=== PATIENT | female | born 1950 | race Caucasian/White ===

== ENCOUNTER 2018-05-04 08:30 | Outpatient (RCR) | payer MEDICARE, OTHER, SELFPAY ==
--- NOTE | 2018-04-07 11:32 | HP.PTEVAL ---
Patient's Visit Information JEAN KRUSE is a 67 year old F referred to Physical Therapy by Jacob Alfaro with a diagnosis of BILATERAL TMJ. Date of Evaluation: 04/07/18 Physical Therapist: Josy Acosta Visit Plan Frequency: 2-3x /Week Duration: 4-6 Weeks Plan: PT FOR US, STM, TENS, HEAT OR COLD, AND HEP TO HELP RELAX FACIAL MUSCLES, IMPROVE POSTURE AND RELIEVE PAIN. VESTIBULAR EVALUATION WITH JAMA STARKS PT WITH FOLLOW UP NEEDED. - Subjective Subjective: Diagnosis: MIKE TMJ. Work/Leisure: RETIRED. Disability: NO. Present symptoms: RIGHT > LEFT TMJ PAIN. SHE REPORTS IT STARTED ON THE RIGHT SIDE AND GOES ALL OVER THE RIGHT SIDE OF HER HEAD CAUSING HEADACHES. SHE STILL HAS VERTIGO TOO. SHE STATES HER VERTIGO HAS BEEN REALLY BAD FOR TWO WEEKS. PATIENT DENIES MIKE UE PAIN, NUMBNESS AND TINGLING. SHE DOES HAVE NECK PAIN AND STATES IT IS ALL FROM THE NECK UP. PAIN STARTS IN THROAT SOMETIMES. Present since: AUG 2017. Pain Scale: Worst - 8/10 Least - 2/10. Currently: 12/04. Commenced as a result of: NO APPARENT REASON THAT PATIENT CAN THINK OF OTHER THAN HAVING DENTAL CLEANING AND CHECK-UP. SHE REPORTS IT FLARED UP IN AUG BUT SHE HAS HAD PAIN IN HER JAW SINCE 1983. Symptoms at onset: RIGHT TMJ AND VERTIGO. Worse: TALKING, MVMT OF HEAD, STRESS, READING, LOOKING UP, LOOKING DOWN, EATING (ON SOFT FOODS NOW BUT WAS ON LIQUED). RIDING IN CAR. Better: LYING DOWN AND RELAXING, IBUPROFEN, KEEPING NECK STILL. Disturbed sleep: YES. Previous history/Previous treatment: 1983 MAJOR JAW SURGERY X 10 HOURS FOR JAW/TMJ PROBLEMS AND INFECTIONS OF TEETH. NO PRIOR PT ON JAW. NO CHIRO. PT FOR NECK IN PAST. HAS SEEN NECK SURGEON AND SURGERY WAS OFFERED BUT PATIENT DEFERRED. Dizziness: YES. Tinnitis: YES. Nausea: YES. Difficulty Swollowing: YES. Gait: INDEP GAIT WITHOUT AD BUT SOMETIMES LOSES BALANCE AND PATIENT RELATES LOSS OF BALANCE TO DIZZINESS. Accidents: NO. Unexplained weight loss: HAS LOST ABOUT 20 POUNDS IN A YEAR DUE TO LOSS OF APPETIETE AND SPECIAL DIET (LIQUID THEN SOFT). Imaging: X-RAYS RECENTLY AT [facility]ENTIST. MOST RECENT NECK X-RAY APPEARS TO BE ABOUT 2 AND 1/2 YEARS AGO SHOWING: Mild degenerative disc disease stable when compared to January 07, 2015. PMH: HISTORY OF HEART ATTACK. NO HEART SURGERY BUT HAS A BUNDLE BRANCH BLOCKAGE. OTHER: OPEN TO HAVING VESTIBULAR REHAB AGAIN. - Objective Sitting Posture/Standing Posture: VERY FORWARD HEAD AND ROUNDED SHOULDERS. SLOUCHED. Active Correction of posture: INCREASES NECK PAIN. Other Observations: INDEP GAIT INTO PT WITHOUT AD OR LOSS OF BALANCE. INDEP TRANSFERS. ALL MVMTS ARE SLOW AND GUARDED. MOVES BODY INSTEAD OF NECK MOST OF THE TIME OBSERVED. PLEASANT AND COOPERATIVE TO WORK WITH. 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 LEFT WAVE SOLDERING MACHINE OPERATOR STRENGTH 35 LBS. MIEK UE STRENGTH WITH MMT'ING IS GROSSLY 4-/5. Sensory deficit: MIKE UE LIGHT TOUCH SENSATION IS INTACT AND SYMMETRICAL. ROM deficit: APPROXIMATELY 140 DEG ACTIVE FORWARD FLEXION MIKE SHOULDERS AND PATIENT REPORTS TESTING CAUSES HER TO FEEL BUTTERFLIES IN HER STOMACH. Reflexes: MIKE UE'S 2/3. Dural Signs: NEGATIVE. Cervical Mvmt Loss: Flex: MIN. Pro: NIL. Ext: MOD TO EDA. PATIENT STOPS DUE TO DIZZINESS. Ret: EDA. RSB: MOD. LSB: MOD. R Rot: MOD. L Rot: MIN. Postural strength: POOR. Palpation: TENDER AREAS WITH PALPATION THROUGHOUT JAW, HEAD, CERVICAL SPINE, THORACIC SPINE AND UPPER TRAPS. INCREASED MUSCLE TONE MIKE UT'S. OTHER: JAW EXCURTION - 1/2 - Goals Goal 1:: DECREASE C/O JAW, HEAD AND NECK PAIN Goal Time Frame: 4-6 Weeks Goal 2:: IMPROVE TALKING, CERVICAL ROM, READING, EATING AND TRAVEL FUNCTION. Goal Time Frame: 4-6 Weeks Goal 3:: INSTRUCT IN PROPHYLAXIS Goal Time Frame: 4-6 Weeks - Rehabilitation Potential Rehabilitation Potential: Fair - Anticipated Interventions Patient/Client Instruction: Educate patient on: Condition, Plan of Care, Risk Factors, Benefits of Fitness Program For the Purpose of:: To improve self management Therapeutic Exercise to Include: Postural training, Flexibilty training, Active ROM For the Purpose of:: To decrease pain, To increase ROM Manual Therapy Techniques to Include: Soft tissue mobilization For the Purpose of:: To decrease pain, To increase ROM, To improve nutrient delivery to tissue TENS: Yes Cryotherapy (ice pack, ice massage): Yes Thermo therapy (hot pack): Yes Ultrasound (thermal/non thermal): Yes For the Purpose of:: To decrease pain, To decrease swelling/inflammation, To increase ROM, To improve nutrient delivery to tissue Thank you for the opportunity to evaluate your patient. For Medicare and Medicare HMO plans, please review the plan of care and approve it. It will need to be FAXED BACK to us at [phone] for Medicare purposes. Please let me know if there are questions or concerns regarding this plan of care. Physician Signature: Date:
--- NOTE | 2018-05-04 09:23 | HP.PTDCSUM ---
HP - PT D/C Summary It has been my pleasure to treat JEAN KRUSE under orders from Jacob Charles, for the diagnosis of BILATERAL TMJ for a total of 9 visit(s). Discharge Date: 05/04/18 Please see the following information for a summary of their discharge status. - Subjective Subjective: PATIENT REPORTS HER JAW ISN'T HURTING AT ALL TODAY AND IT DIDN'T HURT YESTERDAY. PATIENT REPORTS HER JAW IS 100% BETTER AND SHE IS GOING TO PURSUE HER NECK PROBLEMS WITH THE DOCTORS. SHE STATES SHE FEELS READY TO STOP PT FOR HER JAW AT THIS TIME - YOU HAVE TAUGHT ME SO MUCH. SHE REPORTS SHE HASN'T BEEN HAVING ANY MORE HEADACHES EITHER. SHE STATES SHE HAS LEARNED THAT IF SHE HAS A LOT OF STRESS AND GRITS HER TEETH IT CAN TRIGGER HER PAIN BUT NOW SHE CAN DO THE EX'S AND RELAX. I AM SO MUCH BETTER. HER NECK MRI IS TOMORROW AND SHE WILL SEE THE SURGEON (DR. FLOWER) WEDNESDAY. SHE IS GOING TO STOP BY DR. CHARLES'S OFFICE TO LET HIM KNOW HOW SHE IS DOING. PATIENT REPORTS SHE WAS ABLE TO GET IN THE POOL A LITTLE BIT WITH HER GREAT GREAT NIECES. SHE REPORTS THAT THE MORE SHE DOES THE EXERCISES FOR HER JAW THE BETTER IT GETS AND SHE CAN OPEN HER MOUTH A LOT FURTHER. SHE IS STILL MAINLY EATING SOFT MEAT BECAUSE IF NOT IT FLARES IT UP. - Pain RIGHT JAW Pain Intensity (Out of 10): 0 LEFT JAW Pain Intensity (Out of 10): 0 RIGHT HEAD AND BEHIND EAR Pain Intensity (Out of 10): 2 - Overall Improvement % Improvement: 100 - Objective Objective/Function: PATIENT'S JAW PAIN AND JAW FUNCTION/EXCURSION HAS IMPROVED SIGNIFICANTLY AND SHE IS INDEP WITH A HEP TOO. SHOULDER AND NECK FUNCTION HAS NOT SIGNIFICANTLY CHANGED SINCE STARTING PT HOWEVER HER RIGHT GRIB IS REMARKABLY STRONGER WITH TESTING TODAY. UPON EXAM: PATIENT AMBULATES INDEP'LY INTO PT WITHOUT AD OR LOB. HER MVMTS ARE STILL SLOW AND GUARDED/CAUTIOUS. 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 LEFT WATER PROJECT ENGINEER STRENGTH 35 LBS. MIKE UE STRENGTH WITH MMT'ING IS GROSSLY 4-/5. Sensory deficit: MIKE UE LIGHT TOUCH SENSATION IS INTACT AND SYMMETRICAL. ROM deficit: APPROXIMATELY 140 DEG ACTIVE FORWARD FLEXION MIKE SHOULDERS AND PATIENT REPORTS TESTING PROVOKES NECK PAIN WITH LINGERING NECK ACHING. TESTING WAS DONE ONE ARM AT A TIME WITH INSTRUCTIONS NOT TO STRAIN. Cervical Mvmt Loss: Flex: MIN. Pro: NIL. Ext: MOD TO EDA. PATIENT STOPS DUE TO FEELING OFF IN HER HEAD AND BUTTERFIES IN HER STOMACH. Ret: EDA. RSB: MOD. LSB: MOD. R Rot: MOD. L Rot: MIN. Postural strength: POOR. Palpation: CERVICAL AND THORACIC SPINE NOT PALPATED TODAY. JAW IS NOW ABLE TO TOLERATE LIGHT TO MEDIUM PRESSURE IN MIKE TMJ REGIONS AND BEHIND EARS. OTHER: JAW EXCURTION - MUCH IMPROVED TO > 1 INCH. EVEN THOUGH PATIENT APPEARS TO CONTINUE TO HAVE SIGNIFICANT NECK ISSUES HER NECK OSWESTRY SCORE IMPROVED FROM 30 TO 13 DURING THIS EPISODE OF CARE. - Goals Goal 1:: DECREASE C/O JAW, HEAD AND NECK PAIN Goal Progress: Progressing Goal 2:: IMPROVE TALKING, CERVICAL ROM, READING, EATING AND TRAVEL FUNCTION. Goal Progress: Progressing Goal 3:: INSTRUCT IN PROPHYLAXIS Goal Progress: Goal Met - Plan Plan: D/C TO INDEP JAW EX'S AND CERVICAL FOLLOW-UP. PATIENT AGREEABLE. - D/C Information If there are questions or concerns regarding this patient's physical therapy, please feel free to call me at [phone]. Thank you for the referral of this patient. Sincerely, Josy Chavez
== END 2018-05-04 18:31 | disposition home or self-care (01) ==
LOC: PT 08:30
PROVIDERS: Family Provider Family Medicine; PCP Family Medicine; Visit Provider Dentist Oral and Maxillofacial Surgery
DX: M26.03 Mandibular hyperplasia (principal)
CPT/HCPCS: 97140; 97162; 97164; 97530

== ENCOUNTER 2018-05-27 11:13 | Inpatient (IN) | payer MEDICARE, OTHER, SELFPAY ==
[2018-05-27] VITALS (12 sets, daily range): BP systolic 110–136; BP diastolic 54–76; PULSE 58–141; RESP 13–20; TEMP 36.4–37; O2SAT 93–99; BMI 24.1
--- NOTE | 2018-05-27 11:23 | NURSING ---
NO LW OR POA
--- NOTE | 2018-05-27 11:43 | CT_ITS ---
STUDY: CT BRAIN WITHOUT CONTRAST REASON FOR EXAM: Female, 67 years old. Neck pain. Recent fall RADIATION DOSAGE (If Supplied By Facility): CTDIvol = ( 44.99 ) mGy, DLP = ( 779.24 ) mGycm TECHNIQUE: Transaxial CT imaging of the brain was performed without administration of intravenous contrast material. Individualized dose optimization techniques were used for this CT. COMPARISON: September 26, 2017 FINDINGS: Normal soft tissue structures. Normal calvarium. Normal size ventricles and extra-axial spaces for the patient's age. Normal white matter tracts of the cerebral hemispheres. Normal basal ganglia and thalami. Normal brainstem. Normal cerebellum. There is no intracranial hemorrhage. There are no findings of an acute ischemic infarction. Opacification of the left maxillary sinus. Postoperative changes of the maxilla. Arthritic changes of the temporomandibular joints. CT/Brain/Head without Contrast IMPRESSION: Normal unenhanced CT scan of the brain. Electronically Signed: Terrance Gonzalez MD at 12:26 EDT , Service support ,
--- NOTE | 2018-05-27 11:43 | CT_ITS ---
STUDY: CTA OF THE BRAIN REASON FOR EXAM: Female, 67 years old. Neck pain. Vomiting. History of CVA. RADIATION DOSAGE (If Supplied By Facility): CTDIvol = ( 17.86 ) mGy, DLP = ( 496.48 ) mGycm TECHNIQUE: CT angiography was performed with a multi-detector CT scanner. Data acquisition was obtained from the skull base through the vertex following intravenous administration of 100 ml of Isovue 370. MIP images were reconstructed from the axial data set. Post-processing of the angiographic images was performed, with multiplanar reformation and 3D reconstruction. Individualized dose optimization techniques were used for this CT. COMPARISON: None. FINDINGS: Normal bilateral petrous carotid arteries. Normal right cavernous carotid artery with a normal supraclinoid bifurcation. Normal left cavernous carotid artery with a normal supraclinoid bifurcation. Mildly hypoplastic but normal right A1 segment of the anterior cerebral artery. Normal left A1 segment of the anterior cerebral artery. 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 This measures approximately 2 mm in diameter. The aneurysmal sac is directed superiorly. Normal bilateral A2 segments of the anterior cerebral arteries. Normal right M1 and M2 segments of the middle cerebral arteries, with a normal M1 bifurcation. Normal left M1 and M2 segments of the middle cerebral arteries, with a normal M1 bifurcation. No visible right posterior communicating artery (PCOM). Normal left posterior communicating artery (PCOM). Normal bilateral vertebral arteries. Normal basilar artery with a normal basilar bifurcation. The visualized bilateral superior cerebellar (SCA) arteries are normal. Normal bilateral P1, P2 and visualized P3 segments of the posterior cerebral arteries. There is no demonstrated abnormality of the visualized brain. CT/CTA Head W/WO Contrast IMPRESSION: 1. 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 The aneurysmal sac is directed superiorly (series 602, image 40; series 601, image 54); series 314, image 12). 2. No other saccular aneurysms. 3. No vaso-occlusive disease of the anterior and posterior intracranial circulation. Electronically Signed: Fadi Reynolds MD at 15:11 EDT , Service support ,
--- NOTE | 2018-05-27 11:43 | EKG12_ITS ---
Test Reason : OTHER PAIN Blood Pressure : / mmHG Vent. Rate : 094 BPM Atrial Rate : 094 BPM P-R Int : 164 ms QRS Dur : 110 ms QT Int : 360 ms P-R-T Axes : 059 -01 111 degrees QTc Int : 450 ms Normal sinus rhythm Incomplete left bundle branch block Abnormal ECG Confirmed by SANJUANITA MONTEIRO, ANGY ([id number]), editor continuity and script CRUZITO MURILLO ([id number]) on 05/30/2018 1:23:11 PM Referred By: NIRANJAN Confirmed By:ANGY GANN MD
--- NOTE | 2018-05-27 11:43 | RAD_ITS ---
STUDY: X-RAY CHEST REASON FOR EXAM: Female, 67 years old. Neck pain. Recent fall TECHNIQUE: Single frontal view of the chest. COMPARISON: September 26, 2016 FINDINGS: There are monitoring devices. The lungs are clear and expanded. There is no demonstrated pleural abnormality. Normal size heart. Normal mediastinum and calvin. Normal visualized pulmonary arteries. There is atherosclerotic calcification of the aortic arch. There is demineralization of the osseous structures. Stable healed right rib fractures. Gaseous distention of bowel loops in the abdomen. RAD/Chest 1 View IMPRESSION: Degenerative changes, as described above. No demonstrated acute cardiopulmonary process. Electronically Signed: Terrance Gonzalez MD at 12:29 EDT , Service support ,
--- NOTE | 2018-05-27 11:43 | CT_ITS ---
STUDY: CTA NECK WITH CONTRAST REASON FOR EXAM: Female, 67 years old. Neck pain and vomiting. History of CVA. RADIATION DOSAGE (If Supplied By Facility): CTDIvol = ( 17.86 ) mGy, DLP = ( 496.58 ) mGycm TECHNIQUE: CT angiography with multi-detector data acquisition was performed from the aortic arch to the skull base following intravenous administration of 100ml ml of Isovue 370 contrast. MIP images were reconstructed from the axial data set. Post-processing of the angiographic images was performed, with multiplanar reformation and 3D reconstruction. Individualized dose optimization techniques were used for this CT. COMPARISON: None. FINDINGS: AORTIC ARCH: Normal visualized aortic arch. Normal origins of the brachiocephalic, left common carotid, and left subclavian arteries. RIGHT CAROTID ARTERIES: Normal right common carotid artery (CCA). Normal right common carotid bulb. Normal origin of the right internal carotid (ICA) artery without a hemodynamically significant stenosis. Normal visualized cervical portion of the right internal carotid artery. Normal origin of the right external carotid artery (ECA). LEFT CAROTID ARTERIES: Normal left common carotid artery (CCA). Normal left common carotid bulb. Normal origin of the left internal carotid (ICA) artery without a hemodynamically significant stenosis. Normal visualized cervical portion of the left internal carotid artery. Normal origin of the left external carotid artery (ECA). VERTEBRAL ARTERIES: Normal bilateral vertebral arteries. The left vertebral artery is dominant. CT/CTA Neck W/WO Contrast IMPRESSION: 1. No CTA evidence of vaso-occlusive disease in both vertebral arteries and carotid arteries. 2. Widely patent common carotid arteries, common carotid bifurcations, bilateral internal and external carotid arteries. 3. Widely patent aortic arch and origins of the great vessels. Electronically Signed: Fadi Reynolds MD at 14:23 EDT , Service support ,
[2018-05-27] MEDS: Ondansetron 4 MG/2 ML Vial IV (12:08)
[2018-05-27 12:11] LABS: Bedside Glucose 94 mg/dL (70-110)
[2018-05-27 12:42] LABS: International Normalized Ratio 0.9; Partial Thromboplast Time 30.8 Seconds (24.1-36.2); Prothrombin Time (Protime)PT. 11.7 SECONDS (11.7-14.9)
[2018-05-27 12:43] LABS: Absolute Lymphocyte Count 1.24 X10^3/ul (0.83-4.51); Absolute Neutrophil Count 4.3 X10^3/uL (2.0-7.7); Basophil# 0.02 X10^3/uL; Basophil% 0.3 % (0-1); Eosinophil# 0.05 X10^3/uL; Eosinophils% 0.8 % (0-5); Hematocrit 40.8 % (37-47); Hemoglobin 13.6 g/dl (12.0-15.0); Lymphocyte # 1.24 X10^3/ul (4.0); Lymphocyte % 20.7 % (19-41); Mean Corp Hgb Conc 33.3 g/gl (32-36); Mean Corpuscular Hgb 30.6 pg (27.0-32.0); Mean Corpuscular Volume 91.7 fL (81-99); Mean Platelet Vol. 9.7 fl (6.2-12.0); Monocyte% 6.7 % (0-10); Neutrophil # 4.28 X10^3/uL (2.7-7.7); Neutrophil % 71.5 % (47-70); Platelet Count 269 K/mm3 (150-450); RBC Distribution Width CV 12.7 % (11.6-14.6); RBC Distribution Width SD 42.8 fl (35.1-43.9); Red Blood Count 4.45 M/mm3 (4.2-5.4)
[2018-05-27 12:51] LABS: Anion Gap 4 (5-15); BUN 10 mg/dL (7-18); BUN/Creat Ratio 10.6 RATIO (10-20); Calcium,Total 8.9 mg/dL (8.5-10.1); Chloride 99 mmol/L (98-107); Creatinine, Serum 0.94 mg/dL (0.55-1.02); EST Glomerular Filtration Rate 63 mL/min (>60); Est Glom Filt Rate - Afr Amer 76 mL/min (>60); Estimated Creatinine Clearance 52.26 ml/min; Glucose 105 mg/dL (74-106); Potassium 4.3 mmol/L (3.5-5.1); Sodium Level 133 mmol/L (136-145)
[2018-05-27 12:53] LABS: POSITIVE COUNT NO; POSITIVE DIFFERENTIAL NO; POSITIVE MORPHOLOGY NO
--- NOTE | 2018-05-27 13:09 | ED.DCSUM_ITS ---
- ER Visit Summary Date of Service: 05/27/18 Chief Complaint: Dizziness History of Present Illness: The patient is a 67 F who presents with dizziness, vertigo nausea vomiting decreased sensation of her left face and decreased strength in her left upper and lower extremity. No fever or chills. She does have nausea and vomiting. This started exactly 4-1/2 hours before being seen in the emergency department. Physical Examination: She appears in some distress, I do not appreciate any nystagmus, she is actively vomiting. She has diplopia in the left eye, she has decreased sensation left side of the face and left arm decreased sensation to cold temperature, she has weakness in her left arm and left leg, slight drift. Total NIH stroke scale is 4. His regular lungs are clear abdomen soft and nontender. 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 I did follow hospital protocol and call neurologist right away, however after 2 hours of being here I have not received a call back. Regardless patient will need admission. She will need a further workup. Disposition: Admitted to the hospital in stable condition Impression: Acute stroke This note was generated with [employer] dictation software. It may contain incorrect words, spelling, and punctuation that were not noted in review of the chart prior to signing ED Disposition - Plan for ED Patient: Chief Complaint: Other, Pain/Inj Referrals: Torres Townsend III, MD [Primary Care Provider] -
[2018-05-27] MEDS: LORazepam 2 MG/ML Syringe 1 MG IV (13:10)
--- NOTE | 2018-05-27 14:41 | NURSING ---
NO LW OR POA
--- NOTE | 2018-05-27 14:57 | PCM.CONS.GEN ---
Problem List (1) Cerebrovascular disease Status: Acute Comment: Is post acute ischemic stroke in 2012, with residual left lower extremity weakness Reason for Consult Date of Consultation: 05/27/18 Reason for Consultation: RO stroke History of Present Illness: The patient is a 67 year old CF with PMH HTN, HLD, H/O stroke, hypothyroidism, admitted with left sided weakness, sensory loss, diplopia and dizziness. Per patient she has been having soreness on the head for few days, has been having neck pain for the past 3-4 days, later when she woke up this morning around 5 AM, she had difficulty in walking, was leaning towards the left, had subjective weakness of the left UE/LE along with diplopia and dizziness. Patient denies any BRITTON, speech disturbances. Per patient she is not on any AP at home. Denies any frequent falls, does not use cane or walker to ambulate, does drive and does not need any assistance for ADLs. NIHSS was 4 on admission per ED documentation.[] Past Medical History Past Medical History (Chronic Problems): Chronic Problems Pain, dental (Chronic) HTN (hypertension) (Chronic) Dyslipidemia (Chronic) Irritable bowel (Chronic) LBBB (left bundle branch block) (Chronic) Hypothyroidism (Chronic) Allergies atorvastatin calcium [From Lipitor] Adverse Reaction (Verified 05/27/18 12:10) legs ache Home Medications: Ambulatory Orders Medication Instructions Recorded Levothyroxine [Synthroid] 50 mcg PO DAILY 02/15/15 traZODone [Desyrel] 100 mg PO QHS PRN 02/15/15 Omeprazole [Prilosec] 1 cap PO DAILY 12/14/16 Dimethicone [Cerave] 1 applicatio TP DAILY 05/27/18 Lisinopril/Hydrochlorothiazide 1 tablet PO DAILY 05/27/18 [Zestoretic 20-12.5 mg Tablet] Ondansetron HCl [Zofran] 4 mg PO Q8H PRN PRN 05/27/18 Ropinirole HCl [Requip] 0.25 mg PO QHS 05/27/18 Venlafaxine XR [Effexor Xr] 75 mg PO DAILY 05/27/18 Aspirin [Aspirin, Baby] 81 mg PO DAILY@0800 #30 tab.chew 05/28/18 Gabapentin [Neurontin] 300 mg PO DAILY #30 cap 05/28/18 Lovastatin [Mevacor] 40 mg PO DAILY #30 tab 05/28/18 Surgical History: appendectomy, cholecystectomy, colectomy, hysterectomy Psychiatric History: 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 Lives: Spouse/ Significant Other Smoking Status: Never smoker Alcohol: None Drugs: None - *Family History Maternal History Items: No pertinent history Paternal History Items: No pertinent history Review of Systems Constitutional: Reports: - - complete ROS negative except as documented in HPI - Physical Exam General: Alert HEENT: Normocephalic Neck: Supple Lungs: Clear to auscultation Cardiovascular: Normal S1, Normal S2 Abdomen: Bowel Sounds Present Extremities: No cyanosis Musculoskeletal: No Tenderness to Palpation of Joints or Extremities Neurological: - - consious, alert, AoAx3, CN 2-12 grossly intact except subjective decrease in sensation on the left side of the face, power 5/5 right UE/LE, 4/5 left UE/LE (less effort), subjective decrease sensation to light touch on the left side, ?extinction +, no cerebellar signs, Reflexes + B/L B/S/T/K/A, gait deferred Psych/Mental Status: Normal Affect Vital Signs Temp Pulse Resp BP Pulse Ox 97.6 F L 74 14 120/66 94 05/27/18 11:14 05/27/18 14:02 05/27/18 13:30 05/27/18 14:02 05/27/18 13:30 Oxygen Delivery Method Room Air Weight: 65.771 kg Body Mass Index (BMI) 24.1 Finger Stick Blood Glucose 94 Laboratory Tests Past 24 Hrs 05/27/18 05/27/18 05/27/18 11:50 11:50 11:50 WBC 6.0 RBC 4.45 Hgb 13.6 Hct 40.8 MCV 91.7 MCH 30.6 MCHC 33.3 RDW 12.7 RDW Differential 42.8 Plt Count 269 MPV 9.7 Immature Gran % (Auto) 0.000 Neut % (Auto) 71.5 H Lymph % (Auto) 20.7 [place] % (Auto) 6.7 Eos % (Auto) 0.8 Baso % (Auto) 0.3 Absolute Neuts (auto) 4.3 Absolute Lymphs (auto) 1.24 Total Counted Not Reportable PT 11.7 INR 0.9 APTT 30.8 Sodium 133 L Potassium 4.3 Chloride 99 Carbon Dioxide 30.0 Anion Gap 4 L BUN 10 Creatinine 0.94 Estim Creat Clear Calc 52.26 Est GFR (MDRD) Af Amer 76 Est GFR (MDRD) Non-Af 63 BUN/Creatinine Ratio 10.6 Glucose 105 Calcium 8.9 Troponin I < 0.015 POC Glucose 05/27/18 12:06 POC Glucose 94 Assessment/Plan All Active Problems Weakness (Acute) Nausea (Acute) Nausea & vomiting (Acute) Vertigo (Acute) Nausea & vomiting (Acute) Cerebrovascular disease (Acute) Abdominal pain (Resolved) Influenza (Resolved) The patient is a 67 year old CF with PMH HTN, HLD, H/O stroke, hypothyroidism, admitted with left sided weakness, sensory loss, diplopia and dizziness. Per patient she has been having soreness on the head for few days, has been having neck pain for the past 3-4 days, later when she woke up this morning around 5 AM, she had difficulty in walking, was leaning towards the left, had subjective weakness of the left UE/LE along with diplopia and dizziness. Patient denies any BRITTON, speech disturbances. Per patient she is not on any AP at home. Denies any frequent falls, does not use cane or walker to ambulate, does drive and does not need any assistance for ADLs. NIHSS was 4 on admission per ED documentation. CT head and CTA head/neck reported to show 2 mm saccular AComm aneurysm Impression RO Stroke RO Compressive cervical myelopathy Plan -ASA 81 mg once daily -ON Lovastatin, per documentation is allergic to Atorvastatin -Recommend Neurosurgery evaluation for 2 mm saccular left ACom aneurysm -Check MRI brain w/o contrast, MRI Neck w/o contrast -Check TTE, Hba1c, LDL -Permissive HTN -ENT referral -PT/OT -GI/DVT prophylaxis -Fall precautions -Neurology follow up as outpatient in 3-4 weeks -Please call with questions if any -Thank you for allowing us to participate in patient's care and management I spent 60 minutes of critical care time, taking history, doing physical examination, reviewing medical records, coordinating care and counseling the patient. Code Visit Inpatient E&M: 75193 Init Hosp L3
--- NOTE | 2018-05-27 15:04 | CON.PCM_ITS ---
Problem List (1) Cerebrovascular disease Status: Acute Comment: Is post acute ischemic stroke in 2012, with residual left lower extremity weakness Reason for Consult Date of Consultation: 05/27/18 Reason for Consultation: RO stroke History of Present Illness: The patient is a 67 year old CF with PMH HTN, HLD, H/O stroke, hypothyroidism, admitted with left sided weakness, sensory loss, diplopia and dizziness. Per patient she has been having soreness on the head for few days, has been having neck pain for the past 3-4 days, later when she woke up this morning around 5 AM , she had difficulty in walking, was leaning towards the left, had subjective weakness of the left UE/LE along with diplopia and dizziness. Patient denies any BRITTON, speech disturbances. Per patient she is not on any AP at home. Denies any frequent falls, does not use cane or walker to ambulate, does drive and does not need any assistance for ADLs. NIHSS was 4 on admission per ED documentation.[] Past Medical History Past Medical History (Chronic Problems): Chronic Problems Pain, dental (Chronic) HTN (hypertension) (Chronic) Dyslipidemia (Chronic) Irritable bowel (Chronic) LBBB (left bundle branch block) (Chronic) Hypothyroidism (Chronic) Allergies atorvastatin calcium [From Lipitor] Adverse Reaction (Verified 05/27/18 12:10) legs ache Home Medications: Ambulatory Orders Medication Instructions Recorded Levothyroxine [Synthroid] 50 mcg PO DAILY 02/15/15 traZODone [Desyrel] 100 mg PO QHS PRN 02/15/15 Omeprazole [Prilosec] 1 cap PO DAILY 12/14/16 Dimethicone [Cerave] 1 applicatio TP DAILY 05/27/18 Lisinopril/Hydrochlorothiazide 1 tablet PO DAILY 05/27/18 [Zestoretic 20-12.5 mg Tablet] Ondansetron HCl [Zofran] 4 mg PO Q8H PRN PRN 05/27/18 Ropinirole HCl [Requip] 0.25 mg PO QHS 05/27/18 Venlafaxine XR [Effexor Xr] 75 mg PO DAILY 05/27/18 Aspirin [Aspirin, Baby] 81 mg PO DAILY@0800 #30 tab.chew 05/28/18 Gabapentin [Neurontin] 300 mg PO DAILY #30 cap 05/28/18 Lovastatin [Mevacor] 40 mg PO DAILY #30 tab 05/28/18 Surgical History: appendectomy, cholecystectomy, colectomy, hysterectomy Psychiatric History: 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 Lives: Spouse/ Significant Other Smoking Status: Never smoker Alcohol: None Drugs: None - *Family History Maternal History Items: No pertinent history Paternal History Items: No pertinent history Review of Systems Constitutional: Reports: - - complete ROS negative except as documented in HPI - Physical Exam General: Alert HEENT: Normocephalic Neck: Supple Lungs: Clear to auscultation Cardiovascular: Normal S1, Normal S2 Abdomen: Bowel Sounds Present Extremities: No cyanosis Musculoskeletal: No Tenderness to Palpation of Joints or Extremities Neurological: - - consious, alert, AoAx3, CN 2-12 grossly intact except subjective decrease in sensation on the left side of the face, power 5/5 right UE/LE, 4/5 left UE/LE (less effort), subjective decrease sensation to light touch on the left side, ?extinction +, no cerebellar signs, Reflexes + B/L B/S/T /K/A, gait deferred Psych/Mental Status: Normal Affect Vital Signs Temp Pulse Resp BP Pulse Ox 97.6 F L 74 14 120/66 94 05/27/18 11:14 05/27/18 14:02 05/27/18 13:30 05/27/18 14:02 05/27/18 13:30 Oxygen Delivery Method Room Air Weight: 65.771 kg Body Mass Index (BMI) 24.1 Finger Stick Blood Glucose 94 Laboratory Tests Past 24 Hrs 05/27/18 05/27/18 05/27/18 11:50 11:50 11:50 WBC 6.0 RBC 4.45 Hgb 13.6 Hct 40.8 MCV 91.7 MCH 30.6 MCHC 33.3 RDW 12.7 RDW Differential 42.8 Plt Count 269 MPV 9.7 Immature Gran % (Auto) 0.000 Neut % (Auto) 71.5 H Lymph % (Auto) 20.7 [place] % (Auto) 6.7 Eos % (Auto) 0.8 Baso % (Auto) 0.3 Absolute Neuts (auto) 4.3 Absolute Lymphs (auto) 1.24 Total Counted Not Reportable PT 11.7 INR 0.9 APTT 30.8 Sodium 133 L Potassium 4.3 Chloride 99 Carbon Dioxide 30.0 Anion Gap 4 L BUN 10 Creatinine 0.94 Estim Creat Clear Calc 52.26 Est GFR (MDRD) Af Amer 76 Est GFR (MDRD) Non-Af 63 BUN/Creatinine Ratio 10.6 Glucose 105 Calcium 8.9 Troponin I < 0.015 POC Glucose 05/27/18 12:06 POC Glucose 94 Assessment/Plan All Active Problems Weakness (Acute) Nausea (Acute) Nausea & vomiting (Acute) Vertigo (Acute) Nausea & vomiting (Acute) Cerebrovascular disease (Acute) Abdominal pain (Resolved) Influenza (Resolved) The patient is a 67 year old CF with PMH HTN, HLD, H/O stroke, hypothyroidism, admitted with left sided weakness, sensory loss, diplopia and dizziness. Per patient she has been having soreness on the head for few days, has been having neck pain for the past 3-4 days, later when she woke up this morning around 5 AM , she had difficulty in walking, was leaning towards the left, had subjective weakness of the left UE/LE along with diplopia and dizziness. Patient denies any BRITTON, speech disturbances. Per patient she is not on any AP at home. Denies any frequent falls, does not use cane or walker to ambulate, does drive and does not need any assistance for ADLs. NIHSS was 4 on admission per ED documentation. CT head and CTA head/neck reported to show 2 mm saccular AComm aneurysm Impression RO Stroke RO Compressive cervical myelopathy Plan -ASA 81 mg once daily -ON Lovastatin, per documentation is allergic to Atorvastatin -Recommend Neurosurgery evaluation for 2 mm saccular left ACom aneurysm -Check MRI brain w/o contrast, MRI Neck w/o contrast -Check TTE, Hba1c, LDL -Permissive HTN -ENT referral -PT/OT -GI/DVT prophylaxis -Fall precautions -Neurology follow up as outpatient in 3-4 weeks -Please call with questions if any -Thank you for allowing us to participate in patient's care and management I spent 60 minutes of critical care time, taking history, doing physical examination, reviewing medical records, coordinating care and counseling the patient. Code Visit Inpatient E&M: 08252 Init Hosp L3
--- NOTE | 2018-05-27 15:05 | NURSING ---
PCU STROKE KOR
--- NOTE | 2018-05-27 15:11 | MRI_ITS ---
STUDY: MRI BRAIN WITHOUT CONTRAST REASON FOR EXAM: Female, 67 years old. Left-sided numbness TECHNIQUE: Standardized multiplanar fat and water weighted pulse sequences were obtained. COMPARISON: CT of the brain on May 27, 2018 FINDINGS: Mild atrophy and periventricular white matter ischemic changes without evidence for acute infarct.. Normal bilateral basal ganglia. Normal thalami. There is no extra-axial fluid accumulation. Normal flow voids within the major intracranial circulation suggesting patency by spin echo criteria. Mild partial empty sella deformity. Normal, infundibular stalk, optic chiasm and hypothalamus. Normal tectal plate and pineal gland. Normal midbrain, kasia and medulla. Chronic ischemic changes in the right cerebellar hemisphere Normal basal cisterns. Normal bilateral temporal bones. Normal bilateral internal auditory canals. No demonstrated orbital abnormality, within the constraints of a routine brain study. Mild left maxillary, right sphenoid and bilateral ethmoid sinus disease. Normal calvarium and skull base. Normal visualized soft tissue structures. Normal visualized upper cervical spine. MRI/Brain without Contrast IMPRESSION: Mild periventricular white matter ischemic changes and chronic ischemic changes within the right cerebellar hemisphere. No evidence for acute infarct Electronically Signed: Praneeth Quispe MD at 20:53 EDT , Service support ,
--- NOTE | 2018-05-27 15:11 | MRI_ITS ---
STUDY: MRI CERVICAL SPINE WITHOUT CONTRAST REASON FOR EXAM: Female, 67 years old. LEFT-sided numbness TECHNIQUE: Standardized fat and water weighted pulse sequences were obtained in the sagittal and axial planes. COMPARISON: None FINDINGS: Normal foramen magnum and brainstem-cervical cord junction. Normal craniovertebral junction. Normal anterior atlantoaxial articulation. Normal odontoid process. Normal cervical lordosis. Normal vertebral bodies and posterior osseous elements. The brainstem and cervical cord are normal in caliber. There is NO gliosis, edema or myelomalacia. C2-3: Normal endplates. Normal disc height, signal and morphology. Normal central canal and intervertebral neural foramina. C3-4: There is mild loss of disc height. There is moderate bilateral facet hypertrophy. There is LEFT lateral osteophytic ridging and LEFT foraminal stenosis. C4-5: There is mild loss of disc height and mild disc bulging. There is mild facet hypertrophy. There is mild spinal stenosis and mild bilateral foraminal stenosis. C5-6: There is mild loss of disc height and mild disc bulging. There is mild facet hypertrophy. There is mild spinal stenosis and mild bilateral foraminal stenosis. C6-7: There is RIGHT lateral osteophytic ridging with moderate RIGHT foraminal stenosis. Disc spaces and facets are within normal limits. There is NO spinal stenosis. C7-T1: Normal endplates. Normal disc height, signal and morphology. Normal central canal and intervertebral neural foramina. The epidural and prevertebral soft tissues are unremarkable. MRI/Spine Cervical (Routine) IMPRESSION: There are NO fractures or malalignments. There is NO disc herniation or cord compression. There is NO gliosis or edema of the cervical cord. There are multilevel degenerative changes of the cervical spine as described detail above. Electronically Signed: Steve Huerta MD at 0:58 EDT , Service support ,
--- NOTE | 2018-05-27 15:28 | PCM.HP.STD ---
Problem List (1) Weakness Status: Acute (2) Nausea Status: Acute (3) Nausea & vomiting Status: Acute History of Present Illness Date of Admission: 05/27/18 Chief Complaint: nausea, weakness The patient is a 67 year old F, history of hypertension, hyperlipidemia, history of stroke with mild residual left lower extremity weakness, and hypothyroidism. She also has history of vertigo. She was admitted on 05/27/2018 by the ED with a complaint of left-sided numbness and weakness was started on 5 AM this morning. According to patient, she started having neck pain about 3-4 days ago and said it was radiating down to her left hand. This did not improve until symptoms started early today. She also had assisted nausea and vomiting. She also complained of diplopia as well as dizziness but did not complain of any difficulty with speech. The patient states she had a stroke in 2011, she denies being put on any medication but then tells me that if she was put on any medication she has forgotten because she made a conscious effort to forget all about the stroke. Review of systems otherwise negative. She was brought to the ED by her . The ED, temperature was 97.6 Fahrenheit, blood pressure was 120/76 and pulse rate is 106. 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 No vaso-occlusive disease visualized.. Chest x-ray was normal. Was given a dose of aspirin and has been admitted to be managed for possible stroke. [] Past Medical History Past Medical History (Chronic Problems): Chronic Problems Pain, dental (Chronic) HTN (hypertension) (Chronic) Dyslipidemia (Chronic) Irritable bowel (Chronic) LBBB (left bundle branch block) (Chronic) Hypothyroidism (Chronic) Allergies atorvastatin calcium [From Lipitor] Adverse Reaction (Verified 05/27/18 12:10) legs ache Home Medications: Ambulatory Orders Medication Instructions Recorded Levothyroxine [Synthroid] 50 mcg PO DAILY 02/15/15 Lovastatin [Mevacor] 20 mg PO QHS 02/15/15 traZODone [Desyrel] 100 mg PO QHS PRN 02/15/15 Omeprazole [Prilosec] 1 cap PO DAILY 12/14/16 Dimethicone [Cerave] 1 applicatio TP DAILY 05/27/18 Lisinopril/Hydrochlorothiazide 1 tablet PO DAILY 05/27/18 [Zestoretic 20-12.5 mg Tablet] Ondansetron HCl [Zofran] 4 mg PO Q8H PRN PRN 05/27/18 Ropinirole HCl [Requip] 0.25 mg PO QHS 05/27/18 Venlafaxine XR [Effexor Xr] 75 mg PO DAILY 05/27/18 Surgical History: appendectomy, cholecystectomy, colectomy, hysterectomy Psychiatric History: 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, 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 Lives: Spouse/ Significant Other Smoking Status: Never smoker Alcohol: None Drugs: None - *Family History Maternal History Items: No pertinent history Paternal History Items: No pertinent history Review of Systems Constitutional: Denies: Chills, Fever, Weight Change Eyes: Denies: Blurred vision HEENT: Denies: Head Aches, Sinus Congestion, Sinus Drainage Cardiovascular: Denies: Chest Pain, Chest Pressure, Chest Tightness, Palpitations Respiratory: Denies: Cough, Shortness of Breath, Shortness of breath at rest, Shortness of breath upon exertion, Sputum production Gastrointestinal: Denies: Abdominal Pain, Nausea, Vomiting VTE Information - Inpt Only VTE Present on Admission: No VTE Pharm Prophylaxis ordered?: Yes Patient Problems: Active and Suspected Problems Weakness (Acute) Nausea (Acute) Nausea & vomiting (Acute) - Physical Exam General: Alert, Oriented x3, Cooperative, Lethargic HEENT: Atraumatic, PERRLA, EOMI, Normocephalic Oral: Moist Mucosa Neck: Supple, No JVD, Negative Carotid Bruits Lungs: Clear to auscultation, Normal air movement, No rhonchi, No wheeze, No rales Cardiovascular: Regular rate, Regular Rhythm, Normal S1, Normal S2, No murmurs Abdomen: Bowel Sounds Present, Soft, Non Tender, Non-Distended, No Hepato-splenomegaly Extremities: No clubbing, No cyanosis, No edema, Capillary Refill Less than 3 Seconds Skin: No rashes, No breakdown Musculoskeletal: No Tenderness to Palpation of Joints or Extremities Lymphatic: No Cervical, Supraclavicular, or Inguinal Adenopathy Neurological: Cranial nerves II-XII grossly intact, Deep Tendon Reflexes 2+/4 and Symmetrical, - - decreased sensation to light touch and pinprick on the LUE and LLE; power 4/5 in LUE and LLE. NIH stroke scale is 1. Gait not assessed as patient felt nauseous Psych/Mental Status: Depressed Vital Signs Temp Pulse Resp BP Pulse Ox 97.6 F L 78 13 122/60 H 98 05/27/18 11:14 05/27/18 15:01 05/27/18 15:01 05/27/18 15:01 05/27/18 15:01 Oxygen Delivery Method Room Air Weight: 145 lb Body Mass Index (BMI) 24.1 Finger Stick Blood Glucose 94 Laboratory Tests Past 24 Hrs 05/27/18 05/27/18 05/27/18 11:50 11:50 11:50 WBC 6.0 RBC 4.45 Hgb 13.6 Hct 40.8 MCV 91.7 MCH 30.6 MCHC 33.3 RDW 12.7 RDW Differential 42.8 Plt Count 269 MPV 9.7 Immature Gran % (Auto) 0.000 Neut % (Auto) 71.5 H Lymph % (Auto) 20.7 [place] % (Auto) 6.7 Eos % (Auto) 0.8 Baso % (Auto) 0.3 Absolute Neuts (auto) 4.3 Absolute Lymphs (auto) 1.24 Total Counted Not Reportable PT 11.7 INR 0.9 APTT 30.8 Sodium 133 L Potassium 4.3 Chloride 99 Carbon Dioxide 30.0 Anion Gap 4 L BUN 10 Creatinine 0.94 Estim Creat Clear Calc 52.26 Est GFR (MDRD) Af Amer 76 Est GFR (MDRD) Non-Af 63 BUN/Creatinine Ratio 10.6 Glucose 105 Calcium 8.9 Troponin I < 0.015 POC Glucose 05/27/18 12:06 POC Glucose 94 Assessment/Plan All Active Problems Weakness (Acute) Nausea (Acute) Nausea & vomiting (Acute) Vertigo (Acute) Nausea & vomiting (Acute) Cerebrovascular disease (Acute) Abdominal pain (Resolved) Influenza (Resolved) 67 y/o female presenting with a complaint of left sided numbness and weakness which started at ~ 5am today 1. Right sided numbness and weakness, to rule out stroke has associated nausea and vomiting. NIH stroke scale at time of my review was 1 CT head and CTA brain and neck were negative. received aspirin 81mg in ED. allergic to atorvastatin. on lovastatin 20mg daily; will increase to 80mg daily. We dont have rosuvastatin in our formulary will admit to PCU with telemetry EKG showed lateral leads T wave inversions neurology consulted. to have MRI of braina nd neck without contrast 2D echo. fall precautions NPO until she passes swallow evaluation 2. 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 will get CT of the neck if symptoms persist 3. history of vertigo appears to be BPPV as it is worsened with movement on zofran at home. refer to ENT surgeon upon discharge 3.Hypertension: on lisinopril/HCTZ 20/12.5mg daily. Will hold to allow for permissive hypertension in light of possible stroke 4 Hypothyroidism: on synthroid 5. Anxiety: on trazodone and requip. DVT prophylaxis: lovenox GI prophylaxis: PPI Code status: Patient, daughter and counseled extensively about different types of CODE STATUS and the meanings. Patient counseled about different to DNR CCA, DNR CCA and full code. Patient elects to be full code. Face to face time with patient- 20 minutes. Code Visit Inpatient E&M: 91728 Init Hosp L3 Procedures: 46200 Advncd Care Plan 30 Min
--- NOTE | 2018-05-27 15:32 | HP.PCM_ITS ---
Problem List (1) Weakness Status: Acute (2) Nausea Status: Acute (3) Nausea & vomiting Status: Acute History of Present Illness Date of Admission: 05/27/18 Chief Complaint: nausea, weakness The patient is a 67 year old F, history of hypertension, hyperlipidemia, history of stroke with mild residual left lower extremity weakness, and hypothyroidism. She also has history of vertigo. She was admitted on 05/27/2018 by the ED with a complaint of left-sided numbness and weakness was started on 5 AM this morning. According to patient, she started having neck pain about 3-4 days ago and said it was radiating down to her left hand. This did not improve until symptoms started early today. She also had assisted nausea and vomiting. She also complained of diplopia as well as dizziness but did not complain of any difficulty with speech. The patient states she had a stroke in 2011, she denies being put on any medication but then tells me that if she was put on any medication she has forgotten because she made a conscious effort to forget all about the stroke. Review of systems otherwise negative. She was brought to the ED by her . The ED, temperature was 97.6 Fahrenheit, blood pressure was 120/76 and pulse rate is 106. 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 No vaso-occlusive disease visualized.. Chest x-ray was normal. Was given a dose of aspirin and has been admitted to be managed for possible stroke. [] Past Medical History Past Medical History (Chronic Problems): Chronic Problems Pain, dental (Chronic) HTN (hypertension) (Chronic) Dyslipidemia (Chronic) Irritable bowel (Chronic) LBBB (left bundle branch block) (Chronic) Hypothyroidism (Chronic) Allergies atorvastatin calcium [From Lipitor] Adverse Reaction (Verified 05/27/18 12:10) legs ache Home Medications: Ambulatory Orders Medication Instructions Recorded Levothyroxine [Synthroid] 50 mcg PO DAILY 02/15/15 Lovastatin [Mevacor] 20 mg PO QHS 02/15/15 traZODone [Desyrel] 100 mg PO QHS PRN 02/15/15 Omeprazole [Prilosec] 1 cap PO DAILY 12/14/16 Dimethicone [Cerave] 1 applicatio TP DAILY 05/27/18 Lisinopril/Hydrochlorothiazide 1 tablet PO DAILY 05/27/18 [Zestoretic 20-12.5 mg Tablet] Ondansetron HCl [Zofran] 4 mg PO Q8H PRN PRN 05/27/18 Ropinirole HCl [Requip] 0.25 mg PO QHS 05/27/18 Venlafaxine XR [Effexor Xr] 75 mg PO DAILY 05/27/18 Surgical History: appendectomy, cholecystectomy, colectomy, hysterectomy Psychiatric History: 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, Anxiety 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 [employer] HUM[employer]OURCES history Lives: Spouse/ Significant Other Smoking Status: Never smoker Alcohol: None Drugs: None - *Family History Maternal History Items: No pertinent history Paternal History Items: No pertinent history Review of Systems Constitutional: Denies: Chills, Fever, Weight Change Eyes: Denies: Blurred vision HEENT: Denies: Head Aches, Sinus Congestion, Sinus Drainage Cardiovascular: Denies: Chest Pain, Chest Pressure, Chest Tightness, Palpitations Respiratory: Denies: Cough, Shortness of Breath, Shortness of breath at rest, Shortness of breath upon exertion, Sputum production Gastrointestinal: Denies: Abdominal Pain, Nausea, Vomiting VTE Information - Inpt Only VTE Present on Admission: No VTE Pharm Prophylaxis ordered?: Yes Patient Problems: Active and Suspected Problems Weakness (Acute) Nausea (Acute) Nausea & vomiting (Acute) - Physical Exam General: Alert, Oriented x3, Cooperative, Lethargic HEENT: Atraumatic, PERRLA, EOMI, Normocephalic Oral: Moist Mucosa Neck: Supple, No JVD, Negative Carotid Bruits Lungs: Clear to auscultation, Normal air movement, No rhonchi, No wheeze, No rales Cardiovascular: Regular rate, Regular Rhythm, Normal S1, Normal S2, No murmurs Abdomen: Bowel Sounds Present, Soft, Non Tender, Non-Distended, No Hepato- splenomegaly Extremities: No clubbing, No cyanosis, No edema, Capillary Refill Less than 3 Seconds Skin: No rashes, No breakdown Musculoskeletal: No Tenderness to Palpation of Joints or Extremities Lymphatic: No Cervical, Supraclavicular, or Inguinal Adenopathy Neurological: Cranial nerves II-XII grossly intact, Deep Tendon Reflexes 2+/4 and Symmetrical, - - decreased sensation to light touch and pinprick on the LUE and LLE; power 4/5 in LUE and LLE. NIH stroke scale is 1. Gait not assessed as patient felt nauseous Psych/Mental Status: Depressed Vital Signs Temp Pulse Resp BP Pulse Ox 97.6 F L 78 13 122/60 H 98 05/27/18 11:14 05/27/18 15:01 05/27/18 15:01 05/27/18 15:01 05/27/18 15:01 Oxygen Delivery Method Room Air Weight: 145 lb Body Mass Index (BMI) 24.1 Finger Stick Blood Glucose 94 Laboratory Tests Past 24 Hrs 05/27/18 05/27/18 05/27/18 11:50 11:50 11:50 WBC 6.0 RBC 4.45 Hgb 13.6 Hct 40.8 MCV 91.7 MCH 30.6 MCHC 33.3 RDW 12.7 RDW Differential 42.8 Plt Count 269 MPV 9.7 Immature Gran % (Auto) 0.000 Neut % (Auto) 71.5 H Lymph % (Auto) 20.7 [place] % (Auto) 6.7 Eos % (Auto) 0.8 Baso % (Auto) 0.3 Absolute Neuts (auto) 4.3 Absolute Lymphs (auto) 1.24 Total Counted Not Reportable PT 11.7 INR 0.9 APTT 30.8 Sodium 133 L Potassium 4.3 Chloride 99 Carbon Dioxide 30.0 Anion Gap 4 L BUN 10 Creatinine 0.94 Estim Creat Clear Calc 52.26 Est GFR (MDRD) Af Amer 76 Est GFR (MDRD) Non-Af 63 BUN/Creatinine Ratio 10.6 Glucose 105 Calcium 8.9 Troponin I < 0.015 POC Glucose 05/27/18 12:06 POC Glucose 94 Assessment/Plan All Active Problems Weakness (Acute) Nausea (Acute) Nausea & vomiting (Acute) Vertigo (Acute) Nausea & vomiting (Acute) Cerebrovascular disease (Acute) Abdominal pain (Resolved) Influenza (Resolved) 67 y/o female presenting with a complaint of left sided numbness and weakness which started at ~ 5am today 1. Right sided numbness and weakness, to rule out stroke * has associated nausea and vomiting. * NIH stroke scale at time of my review was 1 * CT head and CTA brain and neck were negative. * received aspirin 81mg in ED. allergic to atorvastatin. * on lovastatin 20mg daily; will increase to 80mg daily. We dont have rosuvastatin in our formulary * will admit to PCU with telemetry * EKG showed lateral leads T wave inversions * neurology consulted. * to have MRI of braina nd neck without contrast * 2D echo. * fall precautions * NPO until she passes swallow evaluation 2. 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 * will get CT of the neck if symptoms persist * 3. history of vertigo * appears to be BPPV as it is worsened with movement * on zofran at home. * refer to ENT surgeon upon discharge * 3.Hypertension: on lisinopril/HCTZ 20/12.5mg daily. Will hold to allow for permissive hypertension in light of possible stroke 4 Hypothyroidism: on synthroid 5. Anxiety: on trazodone and requip. DVT prophylaxis: lovenox GI prophylaxis: PPI Code status: Patient, daughter and counseled extensively about different types of CODE STATUS and the meanings. Patient counseled about different to DNR CCA, DNR CCA and full code. Patient elects to be full code. Face to face time with patient- 20 minutes. Code Visit Inpatient E&M: 21753 Init Hosp L3 Procedures: 63416 Advncd Care Plan 30 Min
--- NOTE | 2018-05-27 15:53 | ECHOD_ITS ---
Reason For Study: emboli Procedure This was a 2D Doppler, Color Flow transthoracic echocardiogram. The exam was of fair technical quality due to diminished acoustic windows. The study was technically difficult. Exam performed portable in patient room. Left Ventricle Normal LV size. Apical false tendon noted. Left ventricular systolic function is normal. The estimated ejection fraction is 55 %. Normal diastology for age. No regional wall motion abnormalities noted. Right Ventricle Normal RV size. Normal systolic function. Atria Normal left atrium. Normal right atrium. Probable chiari network. No doppler evidence for ASD. Mitral Valve There is no mitral annular calcification. Normal mitral valve. Trivial mitral valve insufficiency. Tricuspid Valve Normal tricuspid valve. Mild tricuspid valve insufficiency. Right ventricular systolic pressure estimated to be 24 mmHg. Aortic Valve Trisinus/trileaflet aortic valve. Mild focal aortic valve thickening. Pulmonic Valve The pulmonic valve is not well visualized. Great Vessels Normal sized aortic root. Pericardium/Pleural No pericardial effusion. MMode/2D Measurements & Calculations LVIDd: 4.0 cm IVSd: 1.1 cm Ao root diam: 2.8 cm LVIDs: 2.7 cm LVPWd: 1.1 cm LA dimension: 2.8 cm RVDd: 2.7 cm FS: 32.9 % LAV(MOD-bp): 48.6 ml LA A4 area: 16.8 cm2 RA A4 area: 11.3 cm2 LAV(MOD-bp) Indexed: 28.1 ml/m2 LAV(MOD-sp2): 47.4 ml LAV(MOD-sp4): 47.2 ml Doppler Measurements & Calculations MV E max toby: 75.1 cm/sec Lat Peak E' Toby: 10.1 cm/sec Med Peak E' Toby: 7.1 cm/sec MV A max toby: 95.3 cm/sec E/E' lat: 7.5 E/E' med: 10.6 MV E/A: 0.79 Ao V2 max: 127.4 cm/sec LV V1 max: 105.7 cm/sec PA V2 max: 92.6 cm/sec Ao max P.5 mmHg LV V1 max P.5 mmHg TR max toby: 226.0 cm/sec TR max P.5 mmHg Interpretation Summary The study was technically difficult. Left ventricular systolic function is normal. The estimated ejection fraction is 55 %. Apical false tendon noted. Probable chiari network. Trivial mitral valve insufficiency. Mild tricuspid valve insufficiency. Mild focal aortic valve thickening. Right ventricular systolic pressure estimated to be 24 mmHg. Normal diastology for age. Ordering Physician: Prudence Mathis Referring Physician: Jacob Alfaro Performed By: Fernanda El, LEXIE, RVT
[2018-05-27] MEDS: 0.9% Normal Saline 1,000 ML 75 ML IV (18:32)
[2018-05-27] MEDS: Aspirin 300 MG Suppository RECTAL (18:32)
[2018-05-27 20:07] LABS: Cholesterol 203 mg/dL (200); High Density Lipoprotein 74 mg/dL; Triglycerides 121 mg/dL; Very Low Density Lipoprotein 24 mg/dL (5-40)
[2018-05-28] VITALS (8 sets, daily range): BP systolic 116–133; BP diastolic 56–66; PULSE 53–75; RESP 14–16; TEMP 36.8–37.1; O2SAT 95–100; BMI 24.1
[2018-05-28 05:58] LABS: Absolute Lymphocyte Count 1.52 X10^3/ul (0.83-4.51); Basophil# 0.03 X10^3/uL; Basophil% 0.6 % (0-1); Eosinophils% 1.9 % (0-5); Hematocrit 35.4 % (37-47); Hemoglobin 11.8 g/dl (12.0-15.0); Lymphocyte # 1.52 X10^3/ul (4.0); Lymphocyte % 29.5 % (19-41); Mean Corp Hgb Conc 33.3 g/gl (32-36); Mean Corpuscular Hgb 30.7 pg (27.0-32.0); Mean Corpuscular Volume 92.2 fL (81-99); Mean Platelet Vol. 9.5 fl (6.2-12.0); Monocyte# 0.52 X10^3/uL; Monocyte% 10.1 % (0-10); Neutrophil # 2.98 X10^3/uL (2.7-7.7); Neutrophil % 57.7 % (47-70); Platelet Count 238 K/mm3 (150-450); RBC Distribution Width CV 12.4 % (11.6-14.6); RBC Distribution Width SD 40.9 fl (35.1-43.9); Red Blood Count 3.84 M/mm3 (4.2-5.4); White Blood Count 5.2 K/mm3 (4.4-11.0)
[2018-05-28 06:01] LABS: POSITIVE COUNT NO; POSITIVE DIFFERENTIAL NO; POSITIVE MORPHOLOGY NO
[2018-05-28 06:12] LABS: Anion Gap 4 (5-15); BUN 9 mg/dL (7-18); Calcium,Total 8.2 mg/dL (8.5-10.1); Chloride 106 mmol/L (98-107); Creatinine, Serum 0.82 mg/dL (0.55-1.02); EST Glomerular Filtration Rate 74 mL/min (>60); Est Glom Filt Rate - Afr Amer 89 mL/min (>60); Estimated Creatinine Clearance 59.91 ml/min; Glucose 83 mg/dL (74-106); Potassium 4.2 mmol/L (3.5-5.1); Sodium Level 138 mmol/L (136-145)
[2018-05-28] MEDS: 0.9% Normal Saline 1,000 ML 75 ML IV (06:46)
--- NOTE | 2018-05-28 08:39 | EKG12_ITS ---
Test Reason : CP Blood Pressure : / mmHG Vent. Rate : 062 BPM Atrial Rate : 062 BPM P-R Int : 166 ms QRS Dur : 122 ms QT Int : 440 ms P-R-T Axes : 079 017 108 degrees QTc Int : 446 ms Normal sinus rhythm Left bundle branch block Abnormal ECG Confirmed by SANJUANITA MONTEIRO, ANGY ([id number]), slot editor CRUZITO MURILLO ([id number]) on 06/01/2018 11:34:26 AM Referred By: ARCHANA ZAMAN Confirmed By:ANGY GANN MD
[2018-05-28] MEDS: Venlafaxine XR 75 MG Capsule PO (10:43)
[2018-05-28] MEDS: Aspirin 81 MG TAB.CHEW PO (10:43)
[2018-05-28] MEDS: HYDROCHLOROTHIAZIDE 12.5 MG CAPSULE PO (10:44)
[2018-05-28] MEDS: Pantoprazole Sodium 40 MG Tablet PO (10:44)
[2018-05-28] MEDS: Lisinopril 20 MG Tablet PO (10:45)
--- NOTE | 2018-05-28 11:00 | CASEMGMT ---
RN RORO Face to Face with patient for initial transition planning/care coordination assessment. RN CM introduced self and role at [facility]. Patient lying in bed, alert and oriented. Patient willing to participate in assessment and is able to answer all questions appropriately. Care providers, pharmacy, and demographics verified. See link attached. Patient wishes to discharge home, denies need for home health at this time. Patient states she has no further needs or concerns at this time. CM to follow for discharge planning needs that may arise. Disposition Plan: Patient to discharge home with family support and follow-up plans in place. CM to monitor for need for HHC.
--- NOTE | 2018-05-28 11:38 | CASEMGMT ---
Social Work Referral for possible placement due to patient only walking 20 CGA with walker. Spoke with patient in room. This social services counselor introduced self as well as social work role. Patient reporting to live at home with spouse and to be independent prior to hospitalization. This social services counselor broaching topic of continued therapy either in the home or a facility. Patient declining to have any continued therapy service set up and reporting to be able to have assistance from spouse if needed. Patient reporting to have needed durable medical equipment already set up within the home. No further needs identified at this time. Support given. Social work to follow if any further needs arise. Mariela LINDER, PRESIDENT & CEO
[2018-05-28 13:37] LABS: Hemoglobin A1c 5.3 % (4.2-6.3)
--- NOTE | 2018-05-28 13:49 | PCM.DC ---
- Discharge Diagnoses Current Active Problems: Current Active and Chronic Problems Weakness (Acute) Nausea (Acute) Nausea & vomiting (Acute) You will use the following diet at home:: Cardiac Your food should be the consistency of: Regular Your liquids should be the consistency of: Regular/Thin Weight Bearing Status: Weight bearing as tolerated Call your doctor if you observe: Numbness or Tingling, Fainting spells Additional Instructions: PLEASE FOLLOW UP WITH OUTPATIENT PHYSICAL THERAPY FOR REHAB. Call [phone] ([facility]) for appointment with neurosurgeon Allergies/Adverse Reactions: Allergies atorvastatin calcium [From Lipitor] Adverse Reaction (Verified 05/27/18 12:10) legs ache Medications to take at Discharge Levothyroxine [Synthroid] 50 mcg PO DAILY 02/15/15 traZODone [Desyrel] 100 mg PO QHS PRN 02/15/15 Omeprazole [Prilosec] 1 cap PO DAILY 12/14/16 Dimethicone [Cerave] 1 applicatio TP DAILY 05/27/18 Lisinopril/Hydrochlorothiazide [Zestoretic 20-12.5 mg Tablet] 1 tablet PO DAILY 05/27/18 Ondansetron HCl [Zofran] 4 mg PO Q8H PRN PRN 05/27/18 Ropinirole HCl [Requip] 0.25 mg PO QHS 05/27/18 Venlafaxine XR [Effexor Xr] 75 mg PO DAILY 05/27/18 Aspirin [Aspirin, Baby] 81 mg PO DAILY@0800 #30 tab.chew 05/28/18 Gabapentin [Neurontin] 300 mg PO DAILY #30 cap 05/28/18 Lovastatin [Mevacor] 40 mg PO DAILY #30 tab 05/28/18 The following prescriptions were given: Aspirin [Aspirin, Baby] 81 mg PO DAILY@0800 #30 tab.chew Gabapentin [Neurontin] 300 mg PO DAILY #30 cap Lovastatin [Mevacor] 40 mg PO DAILY #30 tab Primary Care Physician: Torres Townsend III, MD [Primary Care Provider] - Please follow up with your Primary Care Physician in: ONE WEEK Test Results: Test results from this visit will be discussed in further detail at your follow-up appointment, if applicable. When: follow up with neurosurgeon at [facility] for cervical stenosis. Proposed Discharge Date: 05/28/18
--- NOTE | 2018-05-28 13:53 | DCINST_ITS ---
- Discharge Diagnoses Current Active Problems: Current Active and Chronic Problems Weakness (Acute) Nausea (Acute) Nausea & vomiting (Acute) You will use the following diet at home:: Cardiac Your food should be the consistency of: Regular Your liquids should be the consistency of: Regular/Thin Weight Bearing Status: Weight bearing as tolerated Call your doctor if you observe: Numbness or Tingling, Fainting spells Additional Instructions: PLEASE FOLLOW UP WITH OUTPATIENT PHYSICAL THERAPY FOR REHAB. Call [phone] ([facility]) for appointment with neurosurgeon Allergies/Adverse Reactions: Allergies atorvastatin calcium [From Lipitor] Adverse Reaction (Verified 05/27/18 12:10) legs ache Medications to take at Discharge Levothyroxine [Synthroid] 50 mcg PO DAILY 02/15/15 traZODone [Desyrel] 100 mg PO QHS PRN 02/15/15 Omeprazole [Prilosec] 1 cap PO DAILY 12/14/16 Dimethicone [Cerave] 1 applicatio TP DAILY 05/27/18 Lisinopril/Hydrochlorothiazide [Zestoretic 20-12.5 mg Tablet] 1 tablet PO DAILY 05/27/18 Ondansetron HCl [Zofran] 4 mg PO Q8H PRN PRN 05/27/18 Ropinirole HCl [Requip] 0.25 mg PO QHS 05/27/18 Venlafaxine XR [Effexor Xr] 75 mg PO DAILY 05/27/18 Aspirin [Aspirin, Baby] 81 mg PO DAILY@0800 #30 tab.chew 05/28/18 Gabapentin [Neurontin] 300 mg PO DAILY #30 cap 05/28/18 Lovastatin [Mevacor] 40 mg PO DAILY #30 tab 05/28/18 The following prescriptions were given: Aspirin [Aspirin, Baby] 81 mg PO DAILY@0800 #30 tab.chew Gabapentin [Neurontin] 300 mg PO DAILY #30 cap Lovastatin [Mevacor] 40 mg PO DAILY #30 tab Primary Care Physician: Torres Townsend III, MD [Primary Care Provider] - Please follow up with your Primary Care Physician in: ONE WEEK Test Results: Test results from this visit will be discussed in further detail at your follow- up appointment, if applicable. When: follow up with neurosurgeon at [facility] for cervical stenosis. Proposed Discharge Date: 05/28/18
--- NOTE | 2018-05-28 13:53 | PCM.DC.SUM ---
Discharge Date and Diagnosis - Problem List Patient Problems: Active and Suspected Problems Weakness (Acute) Nausea (Acute) Nausea & vomiting (Acute) Date of Admission: 05/27/18 Date of Discharge: 05/28/18 - Primary Discharge Diagnosis Active and Suspected Problems Weakness (Acute) Nausea (Acute) Nausea & vomiting (Acute) - Secondary Discharge Diagnosis Chronic Problems Pain, dental (Chronic) HTN (hypertension) (Chronic) Dyslipidemia (Chronic) Irritable bowel (Chronic) LBBB (left bundle branch block) (Chronic) Hypothyroidism (Chronic) Hospital Course and Treatment Imaging Results: Laboratory Tests 05/27/18 05/27/18 05/27/18 11:50 11:50 11:50 WBC 6.0 RBC 4.45 Hgb 13.6 Hct 40.8 MCV 91.7 MCH 30.6 MCHC 33.3 RDW 12.7 RDW Differential 42.8 Plt Count 269 MPV 9.7 Immature Gran % (Auto) 0.000 Neut % (Auto) 71.5 H Lymph % (Auto) 20.7 [place] % (Auto) 6.7 Eos % (Auto) 0.8 Baso % (Auto) 0.3 Absolute Neuts (auto) 4.3 Absolute Lymphs (auto) 1.24 Total Counted Not Reportable PT 11.7 INR 0.9 APTT 30.8 Sodium 133 L Potassium 4.3 Chloride 99 Carbon Dioxide 30.0 Anion Gap 4 L BUN 10 Creatinine 0.94 Estim Creat Clear Calc 52.26 Est GFR (MDRD) Af Amer 76 Est GFR (MDRD) Non-Af 63 BUN/Creatinine Ratio 10.6 Glucose 105 Hemoglobin A1c Calcium 8.9 Troponin I < 0.015 Triglycerides Cholesterol LDL Cholesterol VLDL Cholesterol HDL Cholesterol POC Glucose 05/27/18 05/27/18 05/27/18 11:50 12:06 18:20 WBC RBC Hgb Hct MCV MCH MCHC RDW RDW Differential Plt Count MPV Immature Gran % (Auto) Neut % (Auto) Lymph % (Auto) [place] % (Auto) Eos % (Auto) Baso % (Auto) Absolute Neuts (auto) Absolute Lymphs (auto) Total Counted PT INR APTT Sodium Potassium Chloride Carbon Dioxide Anion Gap BUN Creatinine Estim Creat Clear Calc Est GFR (MDRD) Af Amer Est GFR (MDRD) Non-Af BUN/Creatinine Ratio Glucose Hemoglobin A1c Calcium Troponin I < 0.015 Triglycerides 121 Cholesterol 203 H LDL Cholesterol 105 VLDL Cholesterol 24 HDL Cholesterol 74 POC Glucose 94 05/28/18 05/28/18 05/28/18 05:35 05:35 05:35 WBC 5.2 RBC 3.84 L Hgb 11.8 L Hct 35.4 L MCV 92.2 MCH 30.7 MCHC 33.3 RDW 12.4 RDW Differential 40.9 Plt Count 238 MPV 9.5 Immature Gran % (Auto) 0.200 Neut % (Auto) 57.7 Lymph % (Auto) 29.5 [place] % (Auto) 10.1 H Eos % (Auto) 1.9 Baso % (Auto) 0.6 Absolute Neuts (auto) 3.0 Absolute Lymphs (auto) 1.52 Total Counted Not Reportable PT INR APTT Sodium 138 Potassium 4.2 Chloride 106 Carbon Dioxide 28.0 Anion Gap 4 L BUN 9 Creatinine 0.82 Estim Creat Clear Calc 59.91 Est GFR (MDRD) Af Amer 89 Est GFR (MDRD) Non-Af 74 BUN/Creatinine Ratio 11.0 Glucose 83 Hemoglobin A1c Calcium 8.2 L Troponin I < 0.015 Triglycerides Cholesterol LDL Cholesterol VLDL Cholesterol HDL Cholesterol POC Glucose 05/28/18 05:35 WBC RBC Hgb Hct MCV MCH MCHC RDW RDW Differential Plt Count MPV Immature Gran % (Auto) Neut % (Auto) Lymph % (Auto) [place] % (Auto) Eos % (Auto) Baso % (Auto) Absolute Neuts (auto) Absolute Lymphs (auto) Total Counted PT INR APTT Sodium Potassium Chloride Carbon Dioxide Anion Gap BUN Creatinine Estim Creat Clear Calc Est GFR (MDRD) Af Amer Est GFR (MDRD) Non-Af BUN/Creatinine Ratio Glucose Hemoglobin A1c 5.3 Calcium Troponin I Triglycerides Cholesterol LDL Cholesterol VLDL Cholesterol HDL Cholesterol POC Glucose Diagnostic Data Brain CT 05/27/18 11:43 IMPRESSION: Normal unenhanced CT scan of the brain. Electronically Signed: Terrance Gonzalez MD at 12:26 EDT , Service support , Chest X-Ray 05/27/18 11:43 IMPRESSION: Degenerative changes, as described above. No demonstrated acute cardiopulmonary process. Electronically Signed: Terrance Gonzalez MD at 12:29 EDT , Service support , Head CTA 05/27/18 11:43 IMPRESSION: 1. 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 The aneurysmal sac is directed superiorly (series 602, image 40; series 601, image 54); series 314, image 12). 2. No other saccular aneurysms. 3. No vaso-occlusive disease of the anterior and posterior intracranial circulation. Electronically Signed: Fadi Reynolds MD at 15:11 EDT , Service support , Neck CTA 05/27/18 11:43 IMPRESSION: 1. No CTA evidence of vaso-occlusive disease in both vertebral arteries and carotid arteries. 2. Widely patent common carotid arteries, common carotid bifurcations, bilateral internal and external carotid arteries. 3. Widely patent aortic arch and origins of the great vessels. Electronically Signed: Fadi Reynolds MD at 14:23 EDT , Service support , Brain MRI 05/27/18 15:11 IMPRESSION: Mild periventricular white matter ischemic changes and chronic ischemic changes within the right cerebellar hemisphere. No evidence for acute infarct Electronically Signed: Praneeth Quispe MD at 20:53 EDT , Service support , Cervical Spine MRI 05/27/18 15:11 IMPRESSION: There are NO fractures or malalignments. There is NO disc herniation or cord compression. There is NO gliosis or edema of the cervical cord. There are multilevel degenerative changes of the cervical spine as described detail above. 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 She was admitted on 05/27/2018 via the ED with a complaint of left-sided numbness and weakness which is started at 5 AM on day of presentation. She had had antecedent neck pain about 3-4 days prior to presentation which radiated down to her left hand with some tingling and numbness. This did not improve until the presenting symptoms started and she had associated nausea and vomiting as well as diplopia. Patient had stated she had a stroke in 2011 but said she did not know whether she was put on any medication as she tried to forget all about that stroke and so could not recollect. Review of systems was otherwise negative. 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 Chest x-ray was normal. Hemoglobin A1c check was 5.3 and lipid panel only showed total cholesterol of 203 but LDL was within normal limits. CT of the cervical spine done showed mild cervical stenosis of C4-5. 2D echo done showed normal left ventricular size and systolic function with normal diastolic function for age. Estimated ejection fraction was 55% with no regional wall abnormalities noted. Normal right and left atria. Normal right ventricle. RVSP was estimated to be 24 mmHg. EKG showed some mild T-wave inversions in the inferior leads which on review of previous EKGs going back all the way to 2017 had always been present. Troponins ?3 were negative. Patient remained stable, nausea and vomiting resolved and neurology reviewed patient. She was discharged home on 05/28/2018 after stroke was ruled out. Symptoms are likely due to the cervical stenosis and she is being referred to follow-up with a neurosurgeon at [facility]. She was also started on gabapentin 300 mg daily and was also discharged home on lovastatin 40 mg daily and aspirin 81 mg daily. Seen and examined today prior to discharge. Initially when she was seen in the morning, patient was tearful and when asked why she was crying. She says she did not feel sad or depressed and just could not control the tears that were coming out of her eyes. Subsequently patient was seen laughing with her and not crying just about 30 minutes later. She denied any fever or chills, any cough or chest pain, shortness of breath, any abdominal pain, any diarrhea vomiting. Review of systems was otherwise negative. o/e: Vital Signs Height 5 ft 5 in Weight: 145 lb 1.027 oz Weight in Pounds 145.1 lbs Pulse Ox 97 Temperature 98.6 F Pulse Rate 75 Respiratory Rate 16 Blood Pressure 131/66 Blood Pressure Position Semi-Fowlers General: Alert, Oriented x3, Cooperative, Lethargic HEENT: Atraumatic, PERRLA, EOMI, Normocephalic Oral: Moist Mucosa Neck: Supple, No JVD, Negative Carotid Bruits Lungs: Clear to auscultation, Normal air movement, No rhonchi, No wheeze, No rales Cardiovascular: Regular rate, Regular Rhythm, Normal S1, Normal S2, No murmurs Abdomen: Bowel Sounds Present, Soft, Non Tender, Non-Distended, No Hepato-splenomegaly Extremities: No clubbing, No cyanosis, No edema, Capillary Refill Less than 3 Seconds Skin: No rashes, No breakdown Musculoskeletal: No Tenderness to Palpation of Joints or Extremities Lymphatic: No Cervical, Supraclavicular, or Inguinal Adenopathy Neurological: Cranial nerves II-XII grossly intact, Deep Tendon Reflexes 2+/4 and Symmetrical,mildly decreased sensation to light touch and pinprick on LUE nad LLE. Power 4+/5 in LUE and LLE; Psych/Mental Status: Alternating between crying episodes and being very happy. NIH stroke scale was 1 this morning, due to mild sensory loss on LUE and LLE. Plan as stated above. [] Discharge Diet: 2000 mg Sodium Diet Discharge Activity: Return to Normal Activity Weight Bearing Status: Weight bearing as tolerated Call your doctor if you observe: Numbness or Tingling, Fainting spells Home Medications: Medications to take at Discharge Levothyroxine [Synthroid] 50 mcg PO DAILY 02/15/15 traZODone [Desyrel] 100 mg PO QHS PRN 02/15/15 Omeprazole [Prilosec] 1 cap PO DAILY 12/14/16 Dimethicone [Cerave] 1 applicatio TP DAILY 05/27/18 Lisinopril/Hydrochlorothiazide [Zestoretic 20-12.5 mg Tablet] 1 tablet PO DAILY 05/27/18 Ondansetron HCl [Zofran] 4 mg PO Q8H PRN PRN 05/27/18 Ropinirole HCl [Requip] 0.25 mg PO QHS 05/27/18 Venlafaxine XR [Effexor Xr] 75 mg PO DAILY 05/27/18 Aspirin [Aspirin, Baby] 81 mg PO DAILY@0800 #30 tab.chew 05/28/18 Gabapentin [Neurontin] 300 mg PO DAILY #30 cap 05/28/18 Lovastatin [Mevacor] 40 mg PO DAILY #30 tab 05/28/18 Following Prescrptions Were Given to Patient: Aspirin [Aspirin, Baby] 81 mg PO DAILY@0800 #30 tab.chew Gabapentin [Neurontin] 300 mg PO DAILY #30 cap Lovastatin [Mevacor] 40 mg PO DAILY #30 tab Primary Care Physician: Torres Townsend III, MD [Primary Care Provider] - Please follow up with your Primary Care Physician in: ONE WEEK When: follow up with neurosurgeon at [facility] for cervical stenosis. Disposition: Home Minutes spent on discharge:: 45 Patient Condition:: Stable Medical Necessity - Tobacco Use Smoking Status: Never smoker Tobacco Use: Non-smoker Meaningful Use Info Meaningful Use Diagnoses (Choose all that apply): None applicable Code Visit Inpatient E&M: 43745 Disch Hosp
--- NOTE | 2018-05-28 14:09 | DS.PCM_ITS ---
Discharge Date and Diagnosis - Problem List Patient Problems: Active and Suspected Problems Weakness (Acute) Nausea (Acute) Nausea & vomiting (Acute) Date of Admission: 05/27/18 Date of Discharge: 05/28/18 - Primary Discharge Diagnosis Active and Suspected Problems Weakness (Acute) Nausea (Acute) Nausea & vomiting (Acute) - Secondary Discharge Diagnosis Chronic Problems Pain, dental (Chronic) HTN (hypertension) (Chronic) Dyslipidemia (Chronic) Irritable bowel (Chronic) LBBB (left bundle branch block) (Chronic) Hypothyroidism (Chronic) Hospital Course and Treatment Imaging Results: Laboratory Tests 05/27/18 05/27/18 05/27/18 11:50 11:50 11:50 WBC 6.0 RBC 4.45 Hgb 13.6 Hct 40.8 MCV 91.7 MCH 30.6 MCHC 33.3 RDW 12.7 RDW Differential 42.8 Plt Count 269 MPV 9.7 Immature Gran % (Auto) 0.000 Neut % (Auto) 71.5 H Lymph % (Auto) 20.7 Carlton % (Auto) 6.7 Eos % (Auto) 0.8 Baso % (Auto) 0.3 Absolute Neuts (auto) 4.3 Absolute Lymphs (auto) 1.24 Total Counted Not Reportable PT 11.7 INR 0.9 APTT 30.8 Sodium 133 L Potassium 4.3 Chloride 99 Carbon Dioxide 30.0 Anion Gap 4 L BUN 10 Creatinine 0.94 Estim Creat Clear Calc 52.26 Est GFR (MDRD) Af Amer 76 Est GFR (MDRD) Non-Af 63 BUN/Creatinine Ratio 10.6 Glucose 105 Hemoglobin A1c Calcium 8.9 Troponin I < 0.015 Triglycerides Cholesterol LDL Cholesterol VLDL Cholesterol HDL Cholesterol POC Glucose 05/27/18 05/27/18 05/27/18 11:50 12:06 18:20 WBC RBC Hgb Hct MCV MCH MCHC RDW RDW Differential Plt Count MPV Immature Gran % (Auto) Neut % (Auto) Lymph % (Auto) Carlton % (Auto) Eos % (Auto) Baso % (Auto) Absolute Neuts (auto) Absolute Lymphs (auto) Total Counted PT INR APTT Sodium Potassium Chloride Carbon Dioxide Anion Gap BUN Creatinine Estim Creat Clear Calc Est GFR (MDRD) Af Amer Est GFR (MDRD) Non-Af BUN/Creatinine Ratio Glucose Hemoglobin A1c Calcium Troponin I < 0.015 Triglycerides 121 Cholesterol 203 H LDL Cholesterol 105 VLDL Cholesterol 24 HDL Cholesterol 74 POC Glucose 94 05/28/18 05/28/18 05/28/18 05:35 05:35 05:35 WBC 5.2 RBC 3.84 L Hgb 11.8 L Hct 35.4 L MCV 92.2 MCH 30.7 MCHC 33.3 RDW 12.4 RDW Differential 40.9 Plt Count 238 MPV 9.5 Immature Gran % (Auto) 0.200 Neut % (Auto) 57.7 Lymph % (Auto) 29.5 Carlton % (Auto) 10.1 H Eos % (Auto) 1.9 Baso % (Auto) 0.6 Absolute Neuts (auto) 3.0 Absolute Lymphs (auto) 1.52 Total Counted Not Reportable PT INR APTT Sodium 138 Potassium 4.2 Chloride 106 Carbon Dioxide 28.0 Anion Gap 4 L BUN 9 Creatinine 0.82 Estim Creat Clear Calc 59.91 Est GFR (MDRD) Af Amer 89 Est GFR (MDRD) Non-Af 74 BUN/Creatinine Ratio 11.0 Glucose 83 Hemoglobin A1c Calcium 8.2 L Troponin I < 0.015 Triglycerides Cholesterol LDL Cholesterol VLDL Cholesterol HDL Cholesterol POC Glucose 05/28/18 05:35 WBC RBC Hgb Hct MCV MCH MCHC RDW RDW Differential Plt Count MPV Immature Gran % (Auto) Neut % (Auto) Lymph % (Auto) Carlton % (Auto) Eos % (Auto) Baso % (Auto) Absolute Neuts (auto) Absolute Lymphs (auto) Total Counted PT INR APTT Sodium Potassium Chloride Carbon Dioxide Anion Gap BUN Creatinine Estim Creat Clear Calc Est GFR (MDRD) Af Amer Est GFR (MDRD) Non-Af BUN/Creatinine Ratio Glucose Hemoglobin A1c 5.3 Calcium Troponin I Triglycerides Cholesterol LDL Cholesterol VLDL Cholesterol HDL Cholesterol POC Glucose Diagnostic Data Brain CT 05/27/18 11:43 IMPRESSION: Normal unenhanced CT scan of the brain. Electronically Signed: Terrance Gonzalez MD at 12:26 EDT , Service support , Chest X-Ray 05/27/18 11:43 IMPRESSION: Degenerative changes, as described above. No demonstrated acute cardiopulmonary process. Electronically Signed: Terrance Gonzalez MD at 12:29 EDT , Service support , Head CTA 05/27/18 11:43 IMPRESSION: 1. 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 The aneurysmal sac is directed superiorly (series 602, image 40; series 601, image 54); series 314, image 12). 2. No other saccular aneurysms. 3. No vaso-occlusive disease of the anterior and posterior intracranial circulation. Electronically Signed: Fadi Reynolds MD at 15:11 EDT , Service support , Neck CTA 05/27/18 11:43 IMPRESSION: 1. No CTA evidence of vaso-occlusive disease in both vertebral arteries and carotid arteries. 2. Widely patent common carotid arteries, common carotid bifurcations, bilateral internal and external carotid arteries. 3. Widely patent aortic arch and origins of the great vessels. Electronically Signed: Fadi Reynolds MD at 14:23 EDT , Service support , Brain MRI 05/27/18 15:11 IMPRESSION: Mild periventricular white matter ischemic changes and chronic ischemic changes within the right cerebellar hemisphere. No evidence for acute infarct Electronically Signed: Praneeth Quispe MD at 20:53 EDT , Service support , Cervical Spine MRI 05/27/18 15:11 IMPRESSION: There are NO fractures or malalignments. There is NO disc herniation or cord compression. There is NO gliosis or edema of the cervical cord. There are multilevel degenerative changes of the cervical spine as described detail above. 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 She was admitted on 05/27/2018 via the ED with a complaint of left-sided numbness and weakness which is started at 5 AM on day of presentation. She had had antecedent neck pain about 3-4 days prior to presentation which radiated down to her left hand with some tingling and numbness. This did not improve until the presenting symptoms started and she had associated nausea and vomiting as well as diplopia. Patient had stated she had a stroke in 2011 but said she did not know whether she was put on any medication as she tried to forget all about that stroke and so could not recollect. Review of systems was otherwise negative. 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 Chest x-ray was normal. Hemoglobin A1c check was 5.3 and lipid panel only showed total cholesterol of 203 but LDL was within normal limits. CT of the cervical spine done showed mild cervical stenosis of C4-5. 2D echo done showed normal left ventricular size and systolic function with normal diastolic function for age. Estimated ejection fraction was 55% with no regional wall abnormalities noted. Normal right and left atria. Normal right ventricle. RVSP was estimated to be 24 mmHg. EKG showed some mild T-wave inversions in the inferior leads which on review of previous EKGs going back all the way to 2017 had always been present. Troponins ?3 were negative. Patient remained stable, nausea and vomiting resolved and neurology reviewed patient. She was discharged home on 05/28/2018 after stroke was ruled out. Symptoms are likely due to the cervical stenosis and she is being referred to follow-up with a neurosurgeon at [facility]. She was also started on gabapentin 300 mg daily and was also discharged home on lovastatin 40 mg daily and aspirin 81 mg daily. Seen and examined today prior to discharge. Initially when she was seen in the morning, patient was tearful and when asked why she was crying. She says she did not feel sad or depressed and just could not control the tears that were coming out of her eyes. Subsequently patient was seen laughing with her and not crying just about 30 minutes later. She denied any fever or chills, any cough or chest pain, shortness of breath, any abdominal pain, any diarrhea vomiting. Review of systems was otherwise negative. o/e: Vital Signs Height 5 ft 5 in Weight: 145 lb 1.027 oz Weight in Pounds 145.1 lbs Pulse Ox 97 Temperature 98.6 F Pulse Rate 75 Respiratory Rate 16 Blood Pressure 131/66 Blood Pressure Position Semi-Fowlers General: Alert, Oriented x3, Cooperative, Lethargic HEENT: Atraumatic, PERRLA, EOMI, Normocephalic Oral: Moist Mucosa Neck: Supple, No JVD, Negative Carotid Bruits Lungs: Clear to auscultation, Normal air movement, No rhonchi, No wheeze, No rales Cardiovascular: Regular rate, Regular Rhythm, Normal S1, Normal S2, No murmurs Abdomen: Bowel Sounds Present, Soft, Non Tender, Non-Distended, No Hepato- splenomegaly Extremities: No clubbing, No cyanosis, No edema, Capillary Refill Less than 3 Seconds Skin: No rashes, No breakdown Musculoskeletal: No Tenderness to Palpation of Joints or Extremities Lymphatic: No Cervical, Supraclavicular, or Inguinal Adenopathy Neurological: Cranial nerves II-XII grossly intact, Deep Tendon Reflexes 2+/4 and Symmetrical,mildly decreased sensation to light touch and pinprick on LUE nad LLE. Power 4+/5 in LUE and LLE; Psych/Mental Status: Alternating between crying episodes and being very happy. NIH stroke scale was 1 this morning, due to mild sensory loss on LUE and LLE. Plan as stated above. [] Discharge Diet: 2000 mg Sodium Diet Discharge Activity: Return to Normal Activity Weight Bearing Status: Weight bearing as tolerated Call your doctor if you observe: Numbness or Tingling, Fainting spells Home Medications: Medications to take at Discharge Levothyroxine [Synthroid] 50 mcg PO DAILY 02/15/15 traZODone [Desyrel] 100 mg PO QHS PRN 02/15/15 Omeprazole [Prilosec] 1 cap PO DAILY 12/14/16 Dimethicone [Cerave] 1 applicatio TP DAILY 05/27/18 Lisinopril/Hydrochlorothiazide [Zestoretic 20-12.5 mg Tablet] 1 tablet PO DAILY 05/27/18 Ondansetron HCl [Zofran] 4 mg PO Q8H PRN PRN 05/27/18 Ropinirole HCl [Requip] 0.25 mg PO QHS 05/27/18 Venlafaxine XR [Effexor Xr] 75 mg PO DAILY 05/27/18 Aspirin [Aspirin, Baby] 81 mg PO DAILY@0800 #30 tab.chew 05/28/18 Gabapentin [Neurontin] 300 mg PO DAILY #30 cap 05/28/18 Lovastatin [Mevacor] 40 mg PO DAILY #30 tab 05/28/18 Following Prescrptions Were Given to Patient: Aspirin [Aspirin, Baby] 81 mg PO DAILY@0800 #30 tab.chew Gabapentin [Neurontin] 300 mg PO DAILY #30 cap Lovastatin [Mevacor] 40 mg PO DAILY #30 tab Primary Care Physician: Torres Townsend III, MD [Primary Care Provider] - Please follow up with your Primary Care Physician in: ONE WEEK When: follow up with neurosurgeon at [facility] for cervical stenosis. Disposition: Home Minutes spent on discharge:: 45 Patient Condition:: Stable Medical Necessity - Tobacco Use Smoking Status: Never smoker Tobacco Use: Non-smoker Meaningful Use Info Meaningful Use Diagnoses (Choose all that apply): None applicable Code Visit Inpatient E&M: 09242 Disch Hosp
--- NOTE | 2018-05-30 16:04 | CASEMGMT ---
TETE READ DC Phone Call. JANET 3 DC DATE: 05/28/18 DC Disposition: Home Intro role of CM to patient via phone. Pt states she is not doing good. when questioned, pt states she has to f/u with neurosurgeon @ [facility] on wednesday and this is concerning for her. Encouragement and active listening given. Pt did not have questions re: prescriptions or dc instructions. TETE READ let pt know if symptoms worsen to notify PCP or neurosurgeon office for recommendation. John CRISOSTOMON RN ACM
== END 2018-05-28 15:48 | disposition home or self-care (01) | DRG 948 ==
LOC: ED 12:14 → PCU 16:53
PROVIDERS: Admitting Provider Student in an Organized Health Care Education/Training Program; Emergency Provider Emergency Medicine; Family Provider Family Medicine; PCP Family Medicine; Visit Provider Student in an Organized Health Care Education/Training Program
DX: R53.1 Weakness (principal); R11.2 Nausea with vomiting, unspecified; R42 Dizziness and giddiness; I69.344 Monoplegia of lower limb following cerebral infarction affecting left non-dominant side; I44.7 Left bundle-branch block, unspecified; I10 Essential (primary) hypertension; E78.5 Hyperlipidemia, unspecified; E03.9 Hypothyroidism, unspecified; K58.9 Irritable bowel syndrome, unspecified; K08.89 Other specified disorders of teeth and supporting structures; F41.9 Anxiety disorder, unspecified; Z79.82 Long term (current) use of aspirin; Z79.899 Other long term (current) drug therapy
CPT/HCPCS: 36415; 70450; 70496; 70498; 70551; 71045; 72141; 80048; 80061; 82962; 83036; 84484; 85025; 85610; 85730; 93005; 93306; 97162; 97166; 99285; J7030; Q9967; A4216; J2405

== ENCOUNTER → 2018-07-26 15:45 | Outpatient (CLI) | payer MEDICARE, OTHER, SELFPAY ==
--- NOTE | 2018-07-26 | BON_PTH ---
PATIENT: JEAN KRUSE LOC: [facility] #:[id number] AGE/SX: 75/F ROOM: RE07/26/[address]: Dr. Jacob Alfaro DDS : 1950 BED: DIS: SPEC #: [id number] RECD: 07/26/18 15:34 STATUS: RAJINDRE KAYLEE #: [id number] ERIKA: 07/26/18 00:[address]: Jacob Alfaro DEPT: SURGICAL PATHOLOGY RECD BY: Hao Shore ENTERED: 07/27/18 08:55 SP TYPE: Bone OTHR DR: Dr. 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 Detached fragments of unremarkable squamous epithelium. SJ:justine 08/01/18 COMMENT Case has been reviewed in consultation with Dr. Austin who concurs with the above diagnosis. IDC:AM MICROSCOPIC DESCRIPTION Slides are reviewed. GROSS DESCRIPTION Received in fixative is one container labeled with the patient's name and designated foreign body. The specimen consists of a piece of kothari-white bone with attached soft tissue measuring 1 x 0.5 x 0.2 cm. The entire specimen is submitted in one cassette after decalcification. / JESS:justine 07/27/18 TC:5 CPT: 54206, 84688
== END ==
PROVIDERS: Family Provider Family Medicine; PCP Family Medicine; Referring Provider Dentist Oral and Maxillofacial Surgery; Visit Provider Dentist Oral and Maxillofacial Surgery
DX: Z18.89 Other specified retained foreign body fragments (principal)
CPT/HCPCS: 88305; 88311

== ENCOUNTER → 2019-03-06 09:33 | Outpatient (CLI) | payer MEDICARE, OTHER, SELFPAY ==
--- NOTE | 2019-03-06 09:36 | MRI_ITS ---
STUDY: MRI LEFT KNEE REASON FOR EXAM: Anterior lateral pain, difficulty bearing weight. TECHNIQUE: Standardized fat and water weighted pulse sequences were obtained in all 3 orthogonal planes. COMPARISON: None. FINDINGS: There is a horizontal tear of the inferior articular surface of the posterior horn of the medial meniscus (proton-density sagittal images 30, 31). Normal hyaline cartilage of the medial femorotibial compartment. Normal medial femoral condyle and tibial plateau. Normal medial collateral ligamentous complex (MCL). Normal distal semimembranosus, gracilis and semitendinosus tendons. Normal lateral meniscus. Normal hyaline cartilage of the lateral femorotibial compartment. Normal lateral femoral condyle and tibial plateau. Normal proximal tibiofibular articulation. Normal lateral collateral (fibular) ligament. Normal popliteus tendon. Normal biceps femoris tendon. Normal anterior cruciate ligament (ACL). Normal posterior cruciate ligament (PCL). Normal congruent patellofemoral articulation. Normal hyaline cartilage of the patellofemoral compartment. Normal medial and lateral patellar retinaculum. Normal quadriceps tendon. Normal patellar tendon. Normal Hoffa's fat pad. There is no joint effusion. There is a small popliteal cyst (T2 sagittal images 19, 20). The otherwise visualized osseous structures are unremarkable. MRI/Lower Ext Joint Only (Routine) IMPRESSION: Medial meniscal tear. Small popliteal cyst. Electronically Signed: Xavier Aguilar MD at 11:09 EDT Tel , Service support ,
== END ==
PROVIDERS: Family Provider Family Medicine; PCP Family Medicine; Referring Provider Orthopaedic Surgery; Visit Provider Orthopaedic Surgery
DX: M17.12 Unilateral primary osteoarthritis, left knee (principal)
CPT/HCPCS: 73721

== ENCOUNTER → 2019-03-13 09:34 | Outpatient (CLI) | payer MEDICARE, OTHER, SELFPAY ==
--- NOTE | 2019-03-13 09:43 | MRI_ITS ---
STUDY: MRI LUMBAR SPINE WITHOUT CONTRAST REASON FOR EXAM: Female, 68 years old. Stenosis and neurogenic claudication, pain into left leg TECHNIQUE: Standardized fat and water weighted pulse sequences were obtained in the sagittal and axial planes. COMPARISON: November 27, 2014 FINDINGS: T12-L1: Normal endplates. Normal disc height, hydration and morphology. Normal bilateral facet joints. Normal central canal and bilateral lateral recesses. Normal bilateral intervertebral neural foramina. Normal lumbar lordosis. There is no substantial scoliosis. Normal conus medullaris that terminates at the L1 level. L1-2: Bulging annulus with mild central canal stenosis. L2-3: Bulging annulus with mild central canal and moderate left foraminal stenoses. L3-4: Bulging annulus and bilateral facet hypertrophy with mild central canal and moderate bilateral foraminal stenoses. L4-5: Bulging annulus and bilateral facet hypertrophy with mild central canal stenosis. Moderate right and mild left foraminal stenoses. L5-S1: Bulging annulus and bilateral facet hypertrophy with moderate to severe left and mild right foraminal stenoses. Normal visualized sacral ala. Normal visualized paraspinous soft tissue structures. MRI/Spine Lumbar (Routine) IMPRESSION: Multilevel degenerative disease as described. Moderate to severe left foraminal stenosis at L5-S1. Moderate foraminal stenoses on the left at L2-3, bilaterally at L3-4, and on the right at L4-5. Electronically Signed: Don Barrow MD at 10:40 EDT Tel , Service support ,
== END ==
PROVIDERS: Family Provider Family Medicine; PCP Family Medicine; Referring Provider Nurse Practitioner; Visit Provider Nurse Practitioner
DX: M48.062 Spinal stenosis, lumbar region with neurogenic claudication (principal)
CPT/HCPCS: 72148

== ENCOUNTER 2019-03-21 05:43 | Day surgery (SDC) | payer MEDICARE, OTHER, SELFPAY ==
[2019-03-21] VITALS (10 sets, daily range): BP systolic 107–136; BP diastolic 46–61; PULSE 69–88; RESP 16; TEMP 36.2–36.9; O2SAT 95–98; BMI 25.7
--- NOTE | 2019-03-21 07:15 | PCM.HP.BLA ---
History and Physical Date of Admission: 03/21/19 Intake Intake Visit Reasons: LEFT KNEE Is patient in pain?: Yes Pain scale (1-10): 8 Allergies atorvastatin calcium [From Lipitor] Adverse Reaction (Verified 07/14/18 10:08) legs ache Medications Levothyroxine [Synthroid] 50 mcg PO DAILY 02/15/15 [History Confirmed 02/24/19] traZODone [Desyrel] 100 mg PO QHS PRN 02/15/15 [History Confirmed 02/24/19] Omeprazole [Prilosec] 1 cap PO DAILY 12/14/16 [History Confirmed 02/24/19] Dimethicone [Cerave] 1 applicatio TP DAILY 05/27/18 [History Confirmed 02/24/19] Lisinopril/Hydrochlorothiazide [Zestoretic 20-12.5 mg Tablet] 1 tab PO DAILY 05/27/18 [History Confirmed 02/24/19] Ondansetron HCl [Zofran] 4 mg PO Q8H PRN PRN 05/27/18 [History Confirmed 02/24/19] Venlafaxine XR [Effexor Xr] 75 mg PO DAILY 05/27/18 [History Confirmed 02/24/19] Aspirin [Aspirin, Baby] 81 mg PO DAILY@0800 #30 tab.chew 05/28/18 [Rx Confirmed 02/24/19] Gabapentin [Neurontin] 300 mg PO DAILY #30 cap 05/28/18 [Rx Confirmed 02/24/19] Lovastatin [Mevacor] 40 mg PO DAILY #30 tab 05/28/18 [Rx Confirmed 02/24/19] acetaminophen 500 mg tablet 1,000 mg PO Q6H PRN tab 07/14/18 [History Confirmed 02/24/19] bisacodyl 5 mg tablet,delayed release 10 mg PO DAILY tab 07/14/18 [History Confirmed 02/24/19] pramipexole 0.125 mg tablet 0.125 mg PO QDAY PRN tab 07/14/18 [History Confirmed 02/24/19] doxycycline hyclate 20 mg tablet 20 mg PO BID 02/24/19 [History Confirmed 02/24/19] lorazepam 0.5 mg tablet 0.5 mg PO QHS PRN 02/24/19 [History Confirmed 02/24/19] prochlorperazine maleate 5 mg tablet 5 mg PO BID PRN 02/24/19 [History Confirmed 02/24/19] tramadol 50 mg tablet 50 mg PO Q8H PRN #42 tab MDD 6 02/24/19 [Rx Confirmed 02/24/19] PFSH Medical History Weakness (Acute) Nausea (Acute) Nausea & vomiting (Acute) Vertigo (Acute) Pain, dental (Chronic) Nausea & vomiting (Acute) Cerebrovascular disease (Acute) HTN (hypertension) (Chronic) Dyslipidemia (Chronic) Irritable bowel (Chronic) LBBB (left bundle branch block) (Chronic) Hypothyroidism (Chronic) CVA (cerebral vascular accident) (Acute) Barretts esophagus (Chronic) History of hysterectomy (Resolved) Surgical History History of bladder surgery (Resolved) History of cholecystectomy (Resolved) History of esophageal dilatation (Resolved) Hx of appendectomy (Resolved) Family History Father CVA (cerebral vascular accident) Mother Myocardial infarction, Onset Age: 84 Brother Myocardial infarction, Onset Age: 52 Sister CAD (coronary artery disease) Sister CAD (coronary artery disease) Sister CAD (coronary artery disease) Social History Smoking Status: Never smoker alcohol intake: never HPI LEFT KNEE: Chief Complaint: left knee f/u MRI Surgical H&P: Yes Details: Parts of this documentation were recorded by a scribe, this documentation accurately reflects the service provided and the decisions made by me, Ivan Garcia DO 03/08/19 0758. JEAN KRUSE is a 68 year old F here today for MRI f/u on the left knee. She complains of popping, crunching and pain all over the knee and down the lateral lower leg. She is anxious about walking again but has so much pain with ambulation that she is leaning on her . She is also complaining of bilateral lower leg swelling greater in the left. The tramadol is helping to take the edge off her pain but she continues to have pain all the time. 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 ROS Const Reports as per HPI Eyes Reports as per HPI ENT Reports as per HPI Card Reports as per HPI Resp Reports as per HPI GI Reports as per HPI Musc Reports as per HPI, Reports abnormal walking, Reports joint pain, Reports joint swelling, Reports limited joint movement, Reports muscle weakness, Reports stiffness Skin/Breast Reports as per HPI Neuro Yes as per HPI, Yes abnormal walking Psych Reports as per HPI Endo Reports as per HPI Des/Lymph Reports as per HPI Aller/Immun Reports as per HPI Ortho Exam Left Knee Knee ROM: No ROM-Extension -20 to 0, No ROM-Flexion 0-140 (90) Examination: Yes med jt line tenderness, Yes Pain with flexion KNEE: pain with extension, Left Knee Skin/Wound: No ecchymosis, No erythema, No swelling Knee ROM: No ROM-Extension -20 to 0 (lacking 20), No ROM-Flexion 0-140 (120) Examination: Yes med jt line tenderness, Yes Lat jt line tenderness, Yes TTP Pes Anserine Stability: NML: Anterior Drawer, NML: Posterior Drawer, NML: Valgus 0, NML: Valgus 30, NML: Varus 0, NML: Varus 30 Patella Grind: No KNEE: No joint effusion No patellar instability. No collateral instability. Feels like block with extension. very painful with attempted passive extension. Supplemental Info 03/06/2019 MRI left knee: Horizontal tear posterior horn inferior surface medial meniscus according to report 11/22/2018 x-ray left knee joint space narrowing medial compartment worse on flexion view Assessment & Plan Problems 1. Acute medial meniscus tear of left knee, subsequent encounter S83.242D Plan Explained that the MRI reports an undersurface horizontal medial meniscus tear i do not see this clearly but she is having significant pain with mechanical symptoms there is no sign of infection history of gout or concern for other inflammatory disorder, the treatment option is a knee arthroscopy for debridement but explained that her pain is slightly out of proportion for the issue, and there is of risk of pain continuing after the surgery. Instructed her to stop her aspirin a week before surgery and will request clearance from Dr Townsend secondary to history of brain aneurysm Reviewed the pre-operative plans with the patient. Risks and benefits of the procedure were fully explained, including but not limited to infection, neurovascular injury, continued pain, arthritis, stiffness, need for further surgery, re-injury, DVT, PE, general risks of anesthesia, and loss of limb or life. The patient understands all the risks and does wish to proceed with written consent. Follow up post op or sooner if pain, swelling, numbness or associated symptoms, or concerns develop. All questions answered. Patient in agreement of plan. Coding Level of Care Code Off vis,est,level 3 Diagnoses Acute medial meniscus tear of left knee, subsequent encounter S83.242D ??Encounter type: subsequent encounter 03/08/19 1045 <Electronically signed by Ivan Garcia DO> Date Ivan Garcia DO I have re-examined the patient. There are no clinical changes since date of exam
[2019-03-21] MEDS: Cefazolin 2 GM in 0.9% Normal Saline 100 ML IV (07:33)
[2019-03-21] MEDS: Epinephrine (1 mg/ml) 1 MG/ML VIAL (07:50)
[2019-03-21] MEDS: Bupiv/Epi 0.5% Mpf 30 ML Vial (07:50)
[2019-03-21] MEDS: Bupivacaine 0.5% PF 10 ML VIAL (08:00)
[2019-03-21] MEDS: MethylPREDNISolone Acetate 80 MG/ML Vial (08:00)
[2019-03-21] MEDS: Morphine 4 MG/ML Syringe (08:00)
--- NOTE | 2019-03-21 08:19 | PCM.DC.ORTHO ---
Discharge Diet: No Restrictions Discharge Activity: Return to Normal Activity Keep extremity elevated above heart level: Operative Extremity Call your doctor if you observe: Fever of 101 or Higher Additional Instructions: Ice and elevate next 72 hours .keep dressing on clean and dry for 48 hours then may remove begin showering daily but do not submerge in tub or pool. After shower may apply Band-Aids . Encourage knee range of motion weightbearing as tolerated, use crutches until confident in knee then may discontinue. No strenuous activity. When not ambulating keep iced and elevated next 72 hours. Allergies/Adverse Reactions: Allergies atorvastatin calcium [From Lipitor] Adverse Reaction (Verified 03/14/19 14:36) legs ache Medications to take at Discharge Levothyroxine [Synthroid] 50 mcg PO DAILY 02/15/15 traZODone [Desyrel] 100 mg PO QHS PRN 02/15/15 Omeprazole [Prilosec] 1 cap PO DAILY 12/14/16 Dimethicone [Cerave] 1 applicatio TP DAILY 05/27/18 Lisinopril/Hydrochlorothiazide [Zestoretic 20-12.5 mg Tablet] 1 tab PO DAILY 05/27/18 Ondansetron HCl [Zofran] 4 mg PO Q8H PRN PRN 05/27/18 Venlafaxine XR [Effexor Xr] 75 mg PO DAILY 05/27/18 Aspirin [Aspirin, Baby] 81 mg PO DAILY@0800 #30 tab.chew 05/28/18 Lovastatin [Mevacor] 40 mg PO DAILY #30 tab 05/28/18 acetaminophen 500 mg tablet 1,000 mg PO Q6H PRN tab 07/14/18 bisacodyl 5 mg tablet,delayed release 10 mg PO DAILY tab 07/14/18 pramipexole 0.125 mg tablet 0.125 mg PO QDAY PRN tab 07/14/18 doxycycline hyclate 20 mg tablet 20 mg PO BID 02/24/19 lorazepam 0.5 mg tablet 0.5 mg PO QHS PRN 02/24/19 prochlorperazine maleate 5 mg tablet 5 mg PO BID PRN 02/24/19 tramadol 50 mg tablet 50 mg PO Q8H PRN #42 tab MDD 6 02/24/19 Hydrocodone Bitart/Apap 5-325 [[place] 5MG-325MG] 1 - 2 tablet PO Q4H PRN PRN 5 Days #30 tablet 03/21/19 The following prescriptions were given: Hydrocodone Bitart/Apap 5-325 [[place] 5MG-325MG] 1 - 2 tablet PO Q4H PRN PRN 5 Days #30 tablet PRN Reason: Pain Primary Care Physician: Torres Townsend III, MD [Primary Care Provider] - Test Results: Test results from this visit will be discussed in further detail at your follow-up appointment, if applicable. Please Follow Up With: Ivan Garcia DO - 2 Weeks
--- NOTE | 2019-03-21 08:23 | DCINST_ITS ---
Discharge Diet: No Restrictions Discharge Activity: Return to Normal Activity Keep extremity elevated above heart level: Operative Extremity Call your doctor if you observe: Fever of 101 or Higher Additional Instructions: Ice and elevate next 72 hours .keep dressing on clean and dry for 48 hours then may remove begin showering daily but do not submerge in tub or pool. After shower may apply Band-Aids . Encourage knee range of motion weightbearing as tolerated, use crutches until confident in knee then may discontinue. No strenuous activity. When not ambulating keep iced and elevated next 72 hours. Allergies/Adverse Reactions: Allergies atorvastatin calcium [From Lipitor] Adverse Reaction (Verified 03/14/19 14:36) legs ache Medications to take at Discharge Levothyroxine [Synthroid] 50 mcg PO DAILY 02/15/15 traZODone [Desyrel] 100 mg PO QHS PRN 02/15/15 Omeprazole [Prilosec] 1 cap PO DAILY 12/14/16 Dimethicone [Cerave] 1 applicatio TP DAILY 05/27/18 Lisinopril/Hydrochlorothiazide [Zestoretic 20-12.5 mg Tablet] 1 tab PO DAILY 05/27/18 Ondansetron HCl [Zofran] 4 mg PO Q8H PRN PRN 05/27/18 Venlafaxine XR [Effexor Xr] 75 mg PO DAILY 05/27/18 Aspirin [Aspirin, Baby] 81 mg PO DAILY@0800 #30 tab.chew 05/28/18 Lovastatin [Mevacor] 40 mg PO DAILY #30 tab 05/28/18 acetaminophen 500 mg tablet 1,000 mg PO Q6H PRN tab 07/14/18 bisacodyl 5 mg tablet,delayed release 10 mg PO DAILY tab 07/14/18 pramipexole 0.125 mg tablet 0.125 mg PO QDAY PRN tab 07/14/18 doxycycline hyclate 20 mg tablet 20 mg PO BID 02/24/19 lorazepam 0.5 mg tablet 0.5 mg PO QHS PRN 02/24/19 prochlorperazine maleate 5 mg tablet 5 mg PO BID PRN 02/24/19 tramadol 50 mg tablet 50 mg PO Q8H PRN #42 tab MDD 6 02/24/19 Hydrocodone Bitart/Apap 5-325 [[place] 5MG-325MG] 1 - 2 tablet PO Q4H PRN PRN 5 Days #30 tablet 03/21/19 The following prescriptions were given: Hydrocodone Bitart/Apap 5-325 [[place] 5MG-325MG] 1 - 2 tablet PO Q4H PRN PRN 5 Days #30 tablet PRN Reason: Pain Primary Care Physician: Torres Townsend III, MD [Primary Care Provider] - Test Results: Test results from this visit will be discussed in further detail at your follow- up appointment, if applicable. Please Follow Up With: Ivan Garcia DO - 2 Weeks
--- NOTE | 2019-03-21 08:27 | OP.PCM_ITS ---
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 the patient did wish to proceed with an elective arthroscopic surgery to attempt to alleviate the symptoms. Risk benefits and alternatives of the procedure were reviewed including risk of bleeding infection nerve artery tissue damage need for further surgery continued pain and expected postoperative course. Procedure: The patient was met in the preoperative holding area. The operative extremity was identified by both patient and physician and family and marked. Patient was brought back to the operating room on a wheeled cart and transferred to the operating table in the supine position. Anesthesia was started. A well- padded tourniquet was placed on the operative extremity. A lower extremity leg sarmiento was secured to the operative extremity. The contralateral extremity was well-padded and the end of the bed was flexed to 90 degrees. The patient was prepped and draped in the usual sterile fashion. A timeout was called to ensure the proper patient, procedure, and extremity were being contemplated. 0.5% Marcaine with epinephrine was injected into the planned incisional areas under the skin only. An Esmarch was used to exsanguinate the extremity and the tourniquet was inflated. An 11 blade scalpel was used to make a stab incision in the anterior lateral portal. The arthroscope was inserted into the intercondylar notch and inflow and outflow tubes were attached. Arthroscopic visualization began. The medial compartment was entered. An 18-gauge spinal needle was used to establish the placement for anterior medial portal. An 11 blade scalpel was used to make a stab incision. Blunt probe was inserted followed by a meniscal probe. Small tearing of the posterior horn and root medial meniscus which was debrided with a shaver and arthroscopic biting instruments. The ACL was found to be intact. The lateral compartment was entered and free of meniscal or cartilage pathology The arthroscope was switched to the medial portal to complete the procedure. The medial and lateral gutters were inspected and were free of loose bodies. The patellofemoral joint was inspected grade 2 fibrillation. There was good patellar tracking. The knee was thoroughly irrigated and drained. An intra-articular injection with 5 cc 0.5% Marcaine plain 4 mg of morphine and 40 mg of Depo-Medrol was injected intra-articularly. The arthroscope was removed the portals were closed with 3-0 nylon arthroscopic stitches. Followed by Xeroform 4 x 4's ABDs web roll and an Helder wrap. The tourniquet was let down and the drapes were removed. All counts were correct. The patient was brought back to the PACU in stable condition.
== END 2019-03-21 11:49 | disposition home or self-care (01) ==
LOC: SDC 05:44 → AC 05:45
PROVIDERS: Family Provider Family Medicine; PCP Family Medicine; Referring Provider Orthopaedic Surgery; Visit Provider Orthopaedic Surgery
PROC: (CPT 29870; principal; 2019-03-21 07:10)
DX: S83.242A Other tear of medial meniscus, current injury, left knee, initial encounter (principal); X50.1XXA Overexertion from prolonged static or awkward postures, initial encounter; Y93.89 Activity, other specified; M17.12 Unilateral primary osteoarthritis, left knee; M22.42 Chondromalacia patellae, left knee; K22.70 Barrett's esophagus without dysplasia; E78.00 Pure hypercholesterolemia, unspecified; F41.9 Anxiety disorder, unspecified; E03.9 Hypothyroidism, unspecified; I12.9 Hypertensive chronic kidney disease with stage 1 through stage 4 chronic kidney disease, or unspecified chronic kidney disease; N18.3 Chronic kidney disease, stage 3 (moderate); I44.7 Left bundle-branch block, unspecified; G25.81 Restless legs syndrome; M48.061 Spinal stenosis, lumbar region without neurogenic claudication; K58.9 Irritable bowel syndrome, unspecified; Z86.79 Personal history of other diseases of the circulatory system; Z86.73 Personal history of transient ischemic attack (TIA), and cerebral infarction without residual deficits; Z79.82 Long term (current) use of aspirin; Z79.899 Other long term (current) drug therapy
CPT/HCPCS: 29881; J7120; J2405

== ENCOUNTER 2019-04-21 09:30 | Outpatient (RCR) | payer MEDICARE, OTHER, SELFPAY ==
--- NOTE | 2019-01-25 10:12 | HP.OTEVAL_ITS ---
Patient's Visit Information JEAN KRUSE is a 68 year old F, referred to Occupational Therapy by GI ESCOBAR, with a diagnosis of right MF swan-neck deformity. Date of Evaluation: 01/24/19 Occupational Therapist: Arlette Pereyra, OTR/L, CHT - Subjective Subjective: This pt was seen for OT eval following a right middle finger swan- neck deformity- pt states after years of not being able to bend her finger ind. and failed conservative tx. she decided to have sx to gain functional ROM. Pt underwent sx on January 17, 2019 for right middle finger flexor/extendor tendon re-balancing. pt arrives 1 week s/p. OTR/Marino, CHT will follow Littler lateral band tenodesis protocol sent by Dr. Frazier. - ADLs Dressing: Pants, Socks Eating: Bring food to mouth, Use silverware, Drink from glass Comments: pt right handed- and unable to use right hand IND. Bathing: Handle washcloth & soap, Wash hair, Squeeze shampoo bottle Comments: unable to use right hand for ADLs at this time Kitchen: Chop with knife, Peel fruits & vegetables, Open jars, Open bottle caps, Ziplock bags, Take dish out of oven, Load/unload gem technician Household: Laundry - Pain right hand 3 Pain Intensity Range: 0, 4 - ROM ROM Comments: pt demo active right MF PIP flex to 75 - therapist blocking PIP ext to 30-40* with active ROM . all other digits demo ROM WNL - Strength Strength Comments: strength will be tested at later date - Sensation Sensation Comments: denies - Quick DASH-Disab of Arm,Shoulder& Hand Quick DASH Score: 61.3625 - Hand/Wrist Evaluation Total Score of Pain & Functional Sections: 54 - Goals Goal:100% adherence to protocol: Yes Comment: Littler lateral band tenodesis Goal:Daily scar massage when approriate: Yes Goal:ROM equal to unaffected hand: Yes Goal:No pain with affected hand use: Yes Goal:Full use of affected hand in daily activities including: Yes Goal:Decrease scar hypersensitivity: Yes - Rehabilitation General Assessment: Pt arrives 1 week s/p right middle finger flexor/extensor tendon re-balancing. Pt demo with sx dressing on. Therapist removed dressing incision is clean and dry. pt limited with functional use of right hand due to healing repair. Pt would benefit from skilled OT services 1-2 x week for 6 weeks. Today Therapist amelia. custom orthosis of dorsal blocking PIP to 30-40* of right MF. therapist ed pt on use and precautions. pt demo understanding- pt was instructed in PROM and AROM ex. and use of split to prevent right MF from straightening past 30-40* as instructed in the provided protocol. Rehabilitation Potential: Excellent - Anticipated Interventions Anticipated Interventions: A/AAROM/PROM, Edema Control, Scar Care, Triggerpoint Release, Desensitization, Sensory Retraining, Modalities, Orthoses, Joint Protection/Energy Conservation, Fine Motor Coord/Rachid, Home Program - Visit Plan Frequency: 1-2x /Week Duration: 6 Weeks TEXT: Thank you for the opportunity to evaluate your patient. For Medicare and Medicare HMO plans, please review the plan of care and approve it. It will need to be FAXED BACK to us at [phone] for Medicare purposes. Please let me know if there are questions or concerns regarding this plan of care. Physician Signature: Date:
--- NOTE | 2019-04-17 10:53 | HP.PTEVAL ---
Patient's Visit Information JEAN KRUSE is a 68 year old F referred to Physical Therapy by [facility] with a diagnosis of Left Partial Menisectomy and Chondroplasty. Date of Evaluation: 04/17/19 Physical Therapist: Bonita Boyd DPT - Visit Plan Frequency: 2x /Week Duration: 4 Weeks Plan: Focus on LE and core s/s with functional mobility - Subjective Findings: Patient reports that she had a knee clean out on March [address] Archer. Has OA and MD is thinking partial knee replacement in about a year. She has not done any exercise or movement to the left LE. Fully I proir to surgery. The pain has been since May insidious onset. Is currently not driving but can do her ADL's. Pain is located throughout the whole knee. Saw Dr Darnell Gutierrez who reports her spine is narrow and he plans to clean it out- sees him tomorrow. Has radiating pain and N/T. Worst: 06/03 Agg: bending it or if she lays it out to the side, weightbearing- does report that the knee does give out. Eases: getting off of it. Best: 01/01 Sleep: disturbed can't roll over. PMhx/ Meds: see list. - Objective Posture: fair throughout with mild FH, RS. Gait: into clinic with step to pattern with single axillary crutch- decreased wb through left LE- out of clinic after gait training and exercise- no AD mildly antalgic with decreased stance on left LE but much improved. Stairs: asc/desc 8 non recip with 2 HR. SLS: unable but does weight shift with reported pain. Hr/Tr: able. ROM: 0-130 degrees. Strength: Ankle: 5/5, knee: 4/5, Hip: 4/5 Core: fair. Flex: HS: mild, Gastroc: mild. Palpation: tender along medial and lateral joint line. Sensation: WFL to gross touch throughout LE. Edema: mild around patella - Goals Goal 1:: Patient will be I with HEP and progression Goal Time Frame: 4-6 Weeks Goal 2:: Patient will asc/desc 8 stairs recip with 1 HR Goal Time Frame: 4-6 Weeks Goal 3:: Patient will ambualte >300 feet with a normalized gait pattern Goal Time Frame: 4-6 Weeks Goal 4:: Patient will report return to all normal ADL's with 0/10 pain Goal Time Frame: 4-6 Weeks - Rehabilitation Potential Physical Therapy Diagnosis: Patient presents with hypomobility- she has decreased strength and muscular endurance leading to abnormal gait and decreased participation in ADL's - Anticipated Interventions Patient/Client Instruction: Educate patient on: Benefits of Fitness Program Therapeutic Exercise to Include: Strength training, Endurance training, Balance training, Coordination, Agility training, Body mechanics, Postural training, Flexibilty training, Gait and locomotor training, Dynamic Lumbar Stabilization For the Purpose of:: To improve muscle performance and motor function TENS: Yes Cryotherapy (ice pack, ice massage): Yes Thermo therapy (hot pack): Yes Ultrasound (thermal/non thermal): Yes Thank you for the opportunity to evaluate your patient. For Medicare and Medicare HMO plans, please review the plan of care and approve it. It will need to be FAXED BACK to us at [phone] for Medicare purposes. For Medicare only, by signing this I certify the plan of care. Please let me know if there are questions or concerns regarding this plan of care. Physician Signature: Date:
--- NOTE | 2019-05-10 15:01 | HP.OT.NRP ---
HP - Discharge Summary - Patient Information JEAN KRUSE was seen in my office for initial evaluation on 01/24/19. The following Plan of Care was established for this patient: Initial Frequency: 1-2x /Week Initial Duration: 6 Weeks Plan: cont to to follow Protocol of travis lateral band tenodesis - Anticipated Interventions Anticipated Interventions: A/AAROM/PROM, Edema Control, Scar Care, Triggerpoint Release, Desensitization, Sensory Retraining, Modalities, Orthoses, Joint Protection/Energy Conservation, Fine Motor Coord/Rachid, Home Program This patient was last seen in our office 02/23/19. Pertinent comments regarding their Occupational therapy will appear below: PT was seen for 6 OT visits. Pt was progressing well and was cont. with dr. rogel. Pt has not been seen since 02/23/10 and due to time lapse in therapy services pt D/C. At this point I will be discontinuing this patient from occupational therapy. I would be happy to see this patient again in the future if found appropriate by the physician. Thank you! Arlette Pereyra, OTR/L, CHT
--- NOTE | 2019-06-27 14:33 | HP.PT.NRP ---
HP - Discharge Summary (1) - Patient Information JEAN KRUSE was seen in my office for initial evaluation on 04/17/19. The following Plan of Care was established for this patient: Initial Frequency: 2x /Week Initial Duration: 4 Weeks - Anticipated Interventions Patient/Client Instruction: Educate patient on: Benefits of Fitness Program Therapeutic Exercise to Include: Strength training, Endurance training, Balance training, Coordination, Agility training, Body mechanics, Postural training, Flexibilty training, Gait and locomotor training, Dynamic Lumbar Stabilization For the Purpose of:: To improve muscle performance and motor function TENS: Yes Cryotherapy (ice pack, ice massage): Yes Thermo therapy (hot pack): Yes Ultrasound (thermal/non thermal): Yes This patient was last seen in our office . Pertinent comments regarding their Physical therapy will appear below: Patient has not attended PT in over 6 weeks and is appropriate for d/c and to return to MD for further evaluation as needed. At this point I will be discontinuing this patient from physical therapy. I would be happy to see this patient again in the future if found appropriate by the physician. Thank you! Bonita Boyd DPT
== END 2019-04-21 19:00 | disposition home or self-care (01) ==
LOC: PT 09:30
PROVIDERS: Family Provider Family Medicine; PCP Family Medicine
DX: M20.031 Swan-neck deformity of right finger(s) (principal)
CPT/HCPCS: 97110; 97140; 97161; 97166; 97760; 97763

== ENCOUNTER 2019-05-15 14:16 | Observation (INO) | payer MEDICARE, OTHER, SELFPAY ==
[2019-03-21 06:05] VITALS: BMI 25.7
[2019-05-15] VITALS (11 sets, daily range): BP systolic 99–149; BP diastolic 59–79; PULSE 60–95; RESP 12–20; TEMP 36.4–37.5; O2SAT 92–98; BMI 25.2; BMI 26.6
--- NOTE | 2019-05-15 15:48 | EKG12_ITS ---
Test Reason : CP ADMIT Blood Pressure : / mmHG Vent. Rate : 055 BPM Atrial Rate : 055 BPM P-R Int : 154 ms QRS Dur : 122 ms QT Int : 440 ms P-R-T Axes : 063 011 058 degrees QTc Int : 420 ms Sinus bradycardia Left bundle branch block Abnormal ECG When compared with ECG of 15-MAY-2019 16:11, MANUAL COMPARISON REQUIRED, DATA IS UNCONFIRMED Confirmed by SHANTE MONTEIRO, MORTEZA ([id number]), legal editor VERN NUNEZ ([id number]) on 05/19/2019 9:51:41 AM Referred By: DR SANCHEZ Confirmed By:SHANTANU FREY MD
--- NOTE | 2019-05-15 15:48 | CT_ITS ---
STUDY: CTA CHEST REASON FOR EXAM: Female, 68 years old. Chest pain, pleurisy RADIATION DOSAGE (If Supplied By Facility): CTDIvol = ( 10.78 ) mGy, DLP = ( 298.87 ) mGycm TECHNIQUE: The examination was performed with the intravenous administration of 100 IV Isovue 370. Post-processing of the angiographic images was performed, with multiplanar reformation and 3D reconstruction. Individualized dose optimization techniques were used for this CT. COMPARISON: 02/07/2015 FINDINGS: Normal enhancement of the main pulmonary artery and right and left pulmonary arteries. Normal enhancement of the bilateral peripheral pulmonary arteries. There is no demonstrated pulmonary embolism. Normal thoracic aorta and visualized great vessels. There is no demonstrated aortic dissection. Normal heart and pericardium. Normal mediastinum. Normal hilar regions. Normal visualized trachea and bronchi. The lungs are well expanded. Mild bilateral apical scarring. No change in multiple small subpleural nodules likely consistent with scarring. The largest nodule measures 6 mm the left lower lobe on image 80. Small bilateral pleural effusions with bibasilar atelectasis. . Normal chest wall structures. Normal osseous structures. Normal visualized upper abdomen. CT/CTA Chest W/WO Contrast IMPRESSION: 1. Normal CTA chest examination, without a demonstrated pulmonary embolism or arterial dissection. 2. Small bilateral pleural effusions with bibasilar atelectasis. 3. No change in multiple bilateral small subpleural nodules. Electronically Signed: Dieter Zamora MD at 17:27 EDT Tel , Service support ,
--- NOTE | 2019-05-15 15:50 | ED.VISSUMM ---
- ER Visit Summary Date of Service: 05/15/19 Chief Complaint: Chest pain History of Present Illness: The patient is a 68 F with left-sided chest pain for 3 days. Associated with shortness of breath. Worse with breathing. Associated with subjective fevers. Patient had recent spine surgery on May 10 at the [facility]. She said the surgery went well. She is not having back pain, weakness, or other neurologic symptoms. Denies any history of heart or lung disease. Denies history of PE or aortic disease. Physical Examination: Afebrile and vital signs unremarkable. Patient appears uncomfortable but not toxic or in distress. Alert and oriented. HEENT exam unremarkable. Heart regular. Lungs clear. Abdomen soft. Back unremarkable. No sign of infection. Calf soft and supple. Good strength and sensation. Test Results: EKG, lab work, CTA pending. Emergency Department Course and Treatment: Patient placed on a monitor. Treated with morphine for pain while awaiting results. EKG showed left bundle branch block, sinus rhythm, rate of 65. Hematoma 10.7. Sodium 134. Coags normal. Troponin normal. CTA showed no evidence of PE. She has small bilateral pleural effusions and no change in her nodules. Given her age, history of hypertension, history of hyperlipidemia. Her last stress test was in 2013. It was normal. I did contact the hospitalist for further chest pain care. Treatment Plan: As above Disposition: Admission Impression: 1. Chest pain This note was generated with Medbox dictation software. It may contain incorrect words, spelling, and punctuation that were not noted in review of the chart prior to signing ED Disposition - Plan for ED Patient: Referrals: Torres Townsend III, MD [Primary Care Provider] -
[2019-05-15] MEDS: Morphine 4 MG/ML Syringe IV (16:15)
[2019-05-15 16:29] LABS: Absolute Lymphocyte Count 1.11 X10^3/uL (0.83-4.51); Absolute Neutrophil Count 5.2 X10^3/uL (2.0-7.7); Basophil# 0.01 X10^3/uL; Basophil% 0.1 % (0-1); Eosinophil# 0.09 X10^3/uL; Eosinophils% 1.2 % (0-5); Hematocrit 31.3 % (37-47); Hemoglobin 10.7 g/dL (12.0-15.0); Lymphocyte # 1.11 X10^3/ul (4.0); Lymphocyte % 15.2 % (19-41); Mean Corp Hgb Conc 34.2 g/dL (32-36); Mean Corpuscular Hgb 30.8 pg (27.0-32.0); Mean Corpuscular Volume 90.2 fL (81-99); Mean Platelet Vol. 9.6 fl (6.2-12.0); Monocyte# 0.84 X10^3/uL; Monocyte% 11.5 % (0-10); NRBC Flagged by Analyzer 0 % (0-5); Neutrophil # 5.22 X10^3/uL (2.7-7.7); Neutrophil % 71.6 % (47-70); Platelet Count 239 K/mm3 (150-450); RBC Distribution Width CV 12.5 % (11.6-14.6); RBC Distribution Width SD 40.7 fl (35.1-43.9); Red Blood Count 3.47 M/mm3 (4.2-5.4); White Blood Count 7.3 K/mm3 (4.4-11.0)
[2019-05-15 16:32] LABS: International Normalized Ratio 1.1; Prothrombin Time (Protime)PT. 13.7 SECONDS (11.7-14.9)
[2019-05-15 16:33] LABS: Partial Thromboplast Time 30.9 Seconds (24.1-36.2)
[2019-05-15 16:34] LABS: Anion Gap 5 (5-15); BUN 14 mg/dL (7-18); BUN/Creat Ratio 15.5 RATIO (10-20); Calcium,Total 8.7 mg/dL (8.5-10.1); Chloride 100 mmol/L (98-107); EST Glomerular Filtration Rate 66 mL/min (>60); Est Glom Filt Rate - Afr Amer 80 mL/min (>60); Estimated Creatinine Clearance 53.83 ml/min; Glucose 102 mg/dL (74-106); Potassium 3.5 mmol/L (3.5-5.1); Sodium Level 134 mmol/L (136-145)
--- NOTE | 2019-05-15 18:01 | NURSING ---
DR DANIEL GREGORIO
--- NOTE | 2019-05-15 18:10 | NURSING ---
[address] DANIEL OBS CP
--- NOTE | 2019-05-15 20:01 | PCM.HP.STD ---
Problem List (1) Atypical chest pain Status: Acute (2) Cerebrovascular disease Status: Acute Comment: Is post acute ischemic stroke in 2012, with residual left lower extremity weakness (3) Dyslipidemia Status: Chronic (4) HTN (hypertension) Status: Chronic Qualifiers: (5) Hypothyroidism Status: Chronic (6) Irritable bowel Status: Chronic (7) LBBB (left bundle branch block) Status: Chronic (8) Nausea & vomiting Status: Acute (9) Pain, dental Status: Resolved (10) Vertigo Status: Resolved (11) Weakness Status: Chronic History of Present Illness Date of Admission: 05/15/19 Chief Complaint: Chest pain The patient is a 68 year old F with history of hypertension, chronic left bundle branch block, dyslipidemia stroke in 2011 came to ED with chest pain ongoing for 3 days. She had chest pain started on weekend but it was mild, at rest, left-sided which got worse today. Chest pain radiates to her left axilla and left arm. This is associated with mild shortness of breath, dizziness, diaphoresis feeling nausea. Prior to that patient had a stress test and cardiac cath in 2013 which was negative. Echo in May 2018 reported as EF 55% with normal diastole for age. Patient initially it was normal except mild TR, RVSP 24 mmHg. [] She had lumbar spine surgery for disc disease on May 10. She has stiffness of back and not able to comfortably ambulate. Past Medical History Past Medical History (Chronic Problems): Chronic Problems (Last Reviewed 07/14/18 @ 10:14 by Arlette Gomes) Weakness (Chronic) HTN (hypertension) (Chronic) Dyslipidemia (Chronic) Irritable bowel (Chronic) LBBB (left bundle branch block) (Chronic) Hypothyroidism (Chronic) Medical History: Medical History (Last Reviewed 07/14/18 @ 10:14 by Arlette Gomes) Weakness (Acute) R53.1 Nausea (Acute) R11.0 Nausea & vomiting (Acute) R11.2 Vertigo (Acute) R42 Pain, dental (Chronic) K08.89 Nausea & vomiting (Acute) R11.2 Cerebrovascular disease (Acute) I67.9 Is post acute ischemic stroke in 2011, with residual left lower extremity weakness HTN (hypertension) (Chronic) I10 Dyslipidemia (Chronic) E78.5 Irritable bowel (Chronic) LBBB (left bundle branch block) (Chronic) I44.7 Hypothyroidism (Chronic) E03.9 CVA (cerebral vascular accident) I63.9 Barretts esophagus K22.70 History of hysterectomy Z90.710 Allergies atorvastatin calcium [From Lipitor] Adverse Reaction (Verified 03/14/19 14:36) legs ache Home Medications: Ambulatory Orders Medication Instructions Recorded Levothyroxine [Synthroid] 50 mcg PO DAILY 02/15/15 traZODone [Desyrel] 100 mg PO QHS PRN 02/15/15 Omeprazole [Prilosec] 1 cap PO DAILY 12/14/16 Lisinopril/Hydrochlorothiazide 1 tab PO DAILY 05/27/18 [Zestoretic 20-12.5 mg Tablet] Ondansetron HCl [Zofran] 4 mg PO Q8H PRN PRN 05/27/18 Venlafaxine XR [Effexor Xr] 75 mg PO DAILY 05/27/18 Aspirin [Aspirin, Baby] 81 mg PO DAILY@0800 #30 tab.chew 05/28/18 Lovastatin [Mevacor] 40 mg PO DAILY #30 tab 05/28/18 acetaminophen 500 mg tablet 1,000 mg PO Q6H PRN tab 07/14/18 bisacodyl 5 mg tablet,delayed 10 mg PO DAILY tab 07/14/18 release pramipexole 0.125 mg tablet 0.125 mg PO QDAY PRN tab 07/14/18 lorazepam 0.5 mg tablet 0.5 mg PO QHS PRN 02/24/19 prochlorperazine maleate 5 mg 5 mg PO BID PRN 02/24/19 tablet oxycodone 5 mg capsule 5 mg PO Q4H PRN #30 cap 03/22/19 Surgical History: Surgical History (Last Reviewed 07/14/18 @ 10:14 by Arlette Gomes) History of bladder surgery Z98.890 History of cholecystectomy Z90.49 History of esophageal dilatation Z98.890 Hx of appendectomy Z90.49 Surgical History: appendectomy, cholecystectomy, colectomy, hysterectomy Psychiatric History: 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 [employer] History: No pertinent [employer]ATE history Smoking Status: Never smoker - *Family History Maternal Family History: Family History (Last Reviewed 07/14/18 @ 10:14 by Arlette Gomes) Father CVA (cerebral vascular accident) Mother Myocardial infarction, Onset Age: 84 Brother Myocardial infarction, Onset Age: 52 Sister CAD (coronary artery disease) Sister CAD (coronary artery disease) Sister CAD (coronary artery disease) History Items: No pertinent history Paternal Family History: Family History (Last Reviewed 07/14/18 @ 10:14 by Arlette Gomes) Father CVA (cerebral vascular accident) Mother Myocardial infarction, Onset Age: 84 Brother Myocardial infarction, Onset Age: 52 Sister CAD (coronary artery disease) Sister CAD (coronary artery disease) Sister CAD (coronary artery disease) History Items: No pertinent history Review of Systems Constitutional: Denies: Chills, Fever, Weight Change HEENT: Denies: Head Aches, Sinus Congestion, Sinus Drainage Cardiovascular: Reports: Chest Pain. Denies: Palpitations Respiratory: Reports: Shortness of breath upon exertion. Denies: Cough, Shortness of breath at rest, Sputum production Gastrointestinal: Denies: Abdominal Pain, Nausea, Vomiting Genitourinary: Denies: Dysuria, Frequency Musculoskeletal: Reports: Back Pain, Joint Pain. Denies: Joint Tenderness Skin: Denies: Rash, Wounds Neurological: Denies: Numbness, Tingling, Focal weakness Psychiatric: Denies: Anxiety, Depression, Homicidal Ideations, Suicidal Ideations Hematologic/ Lymphatic: Denies: Easy Bruising, Easy Bleeding VTE Information - Inpt Only VTE Present on Admission: No VTE Mechan Device Prophylaxis: None VTE Pharm Prophylaxis ordered?: Yes Patient Problems: Active and Suspected Problems (Last Reviewed 07/14/18 @ 10:14 by Arlette Gomes) Atypical chest pain (Acute) - Physical Exam General: Alert, Oriented x3, Cooperative HEENT: Atraumatic, PERRLA, EOMI, Normocephalic Neck: Supple, No JVD, Negative Carotid Bruits Lungs: Clear to auscultation, No rhonchi, No wheeze, No rales, Diminished - Air entry is diminished in bilateral lung bases. Cardiovascular: Regular rate, Regular Rhythm, Normal S1, Normal S2, No murmurs Abdomen: Bowel Sounds Present, Soft, Non Tender, Non-Distended Extremities: No edema, Capillary Refill Less than 3 Seconds Skin: No rashes, No breakdown Musculoskeletal: No Tenderness to Palpation of Joints or Extremities, Arthritic Changes Neurological: Cranial nerves II-XII grossly intact Psych/Mental Status: Normal Affect, Appropriate Vital Signs Temp Pulse Resp BP Pulse Ox 97.6 F L 76 20 H 149/67 H 94 05/15/19 17:05 05/15/19 19:09 05/15/19 19:09 05/15/19 19:09 05/15/19 19:09 Oxygen Delivery Method Room Air Weight: 152 lb Body Mass Index (BMI) 25.2 Finger Stick Blood Glucose 94 Laboratory Tests Past 24 Hrs 05/15/19 05/15/19 05/15/19 16:10 16:10 16:10 WBC 7.3 RBC 3.47 L Hgb 10.7 L Hct 31.3 L MCV 90.2 MCH 30.8 MCHC 34.2 RDW Std Deviation 40.7 RDW Coeff of Leslie 12.5 Plt Count 239 MPV 9.6 Immature Gran % (Auto) 0.400 Neut % (Auto) 71.6 H Lymph % (Auto) 15.2 L [place] % (Auto) 11.5 H Eos % (Auto) 1.2 Baso % (Auto) 0.1 Absolute Neuts (auto) 5.2 Absolute Lymphs (auto) 1.11 Absolute Nucleated RBC 0.00 Nucleated RBC % 0 PT 13.7 INR 1.1 APTT 30.9 Sodium 134 L Potassium 3.5 Chloride 100 Carbon Dioxide 29.0 Anion Gap 5 BUN 14 Creatinine 0.90 Estim Creat Clear Calc 53.83 Est GFR (MDRD) Af Amer 80 Est GFR (MDRD) Non-Af 66 BUN/Creatinine Ratio 15.5 Glucose 102 Calcium 8.7 Troponin I < 0.015 Assessment/Plan All Active Problems (Last Reviewed 07/14/18 @ 10:14 by Arlette Gomes) Atypical chest pain (Acute) Nausea & vomiting (Acute) Vertigo (Resolved) Pain, dental (Resolved) Cerebrovascular disease (Acute) Abdominal pain (Resolved) Influenza (Resolved) The patient is a 68 year old F with history of hypertension, chronic left bundle branch block, dyslipidemia stroke in 2011 came to ED with chest pain ongoing for 3 days. She had chest pain started on weekend but it was mild, at rest, left-sided which got worse today. Chest pain radiates to her left axilla and left arm. This is associated with mild shortness of breath, dizziness, diaphoresis feeling nausea. Prior to that patient had a stress test and cardiac cath in 2013 which was negative. Echo in May 2018 reported as EF 55% with normal diastole for age. Patient initially it was normal except mild TR, RVSP 24 mmHg. [] She had lumbar spine surgery for disc disease on May 10. She has stiffness of back and not able to comfortably ambulate. 1. Atypical chest pain with chronic left bundle branch block: Patient is being admitted for observation to rule out acute coronary syndrome. Troponin enzymes. Lexiscan nuclear stress test tomorrow morning. Currently, patient is chest pain-free. Patient is already on his statin and aspirin. EKG reviewed and shows normal sinus rhythm at 65 bpm with left bundle branch block. 2. Mild cough for last few days after surgery probably secondary to atelectasis: Patient had CTA done which was negative for pulmonary embolism. Reported a small bilateral pleural effusion with bibasilar atelectasis. On incentive spirometry. No change in multiple bilateral small subpleural nodules. Lumbar disc degeneration with recent surgery on May 11: Patient is on oxycodone 5 to 10 mg respectively for moderate to severe pain. Flexeril 10 mg 3 times daily as needed added for muscle spasm and stiffness. PT and OT ordered. 3. Old CVA in 2011 with mild residual left lower extremity weakness: Stable. 4. Patient also had left knee meniscus surgery in February 2019. Other comorbidities include hypothyroidism and dyslipidemia: Patient's home medication reconciliation done. DVT prophylaxis: Lovenox 40 mg subcu daily. Clinical Impression(s) from Imaging Studies Chest CTA 05/15/19 15:48 IMPRESSION: 1. Normal CTA chest examination, without a demonstrated pulmonary embolism or arterial dissection. 2. Small bilateral pleural effusions with bibasilar atelectasis. 3. No change in multiple bilateral small subpleural nodules. Code Visit OBSV E&M: [id number] Initial observation care L3
--- NOTE | 2019-05-15 20:20 | EKG12_ITS ---
Test Reason : CHEST OTHER Blood Pressure : / mmHG Vent. Rate : 065 BPM Atrial Rate : 065 BPM P-R Int : 150 ms QRS Dur : 126 ms QT Int : 404 ms P-R-T Axes : 067 016 085 degrees QTc Int : 420 ms Normal sinus rhythm Left bundle branch block Abnormal ECG Confirmed by STACEY MONTEIRO, MICHAEL ([id number]), script editor VERN NUNEZ ([id number]) on 05/17/2019 1:39:12 PM Referred By: OLIVIER Confirmed By:MICHAEL IBARRA MD
[2019-05-15] MEDS: oxyCODONE 5 MG Tablet PO (21:48)
[2019-05-15] MEDS: Acetaminophen 325 MG Tablet 650 MG PO (21:49)
[2019-05-15] MEDS: 0.9% Normal Saline 1,000 ML 100 ML IV (21:50)
[2019-05-15] MEDS: Enoxaparin 40 MG/0.4 ML Syringe SC (21:53)
[2019-05-15] MEDS: Pramipexole Di-HCl 0.125 MG Tablet PO (22:36)
[2019-05-15] MEDS: traZODone 100 MG Tablet PO (23:19)
[2019-05-16 02:30] VITALS: BP 95/46; PULSE 58; RESP 18; TEMP 36.7; O2SAT 94
[2019-05-16] MEDS: oxyCODONE 5 MG Tablet PO (02:38)
[2019-05-16 03:00] VITALS: PULSE 56
--- NOTE | 2019-05-16 05:55 | EKG12_ITS ---
Test Reason : AM EKG Blood Pressure : / mmHG Vent. Rate : 057 BPM Atrial Rate : 057 BPM P-R Int : 146 ms QRS Dur : 118 ms QT Int : 460 ms P-R-T Axes : 065 007 051 degrees QTc Int : 447 ms Sinus bradycardia Possible Anterior infarct , age undetermined Abnormal ECG When compared with ECG of 15-MAY-2019 20:33, MANUAL COMPARISON REQUIRED, DATA IS UNCONFIRMED Confirmed by SHANTE MONTEIRO, MORTEZA ([id number]), assignment editor VERN NUNEZ ([id number]) on 05/19/2019 9:50:23 AM Referred By: DR VALENCIA Confirmed By:SHANTANU FREY MD
[2019-05-16] MEDS: Pantoprazole Sodium 40 MG Tablet PO (06:02)
[2019-05-16] MEDS: Aspirin 81 MG TAB.CHEW PO (06:02)
[2019-05-16] MEDS: Levothyroxine 50 MCG Tablet PO (06:02)
[2019-05-16 06:10] VITALS: BP 123/58; PULSE 60; RESP 18; TEMP 36.9; O2SAT 97
[2019-05-16] MEDS: Acetaminophen 325 MG Tablet 650 MG PO (06:13)
[2019-05-16 07:30] VITALS: O2SAT 93
[2019-05-16 07:33] VITALS: PULSE 54
[2019-05-16 07:35] LABS: Cholesterol 108 mg/dL (200); High Density Lipoprotein 43 mg/dL; Thyroid Stim Hormone (TSH) 3.47 uIU/mL (0.358-3.74); Triglycerides 99 mg/dL; Very Low Density Lipoprotein 20 mg/dL (5-40)
--- NOTE | 2019-05-16 10:55 | STRESSREP ---
Stress Test Report Pharmacologic myocardial perfusion stress test. 68-year-old lady with a history of chest pain. Stress protocol: Resting EKG demonstrates sinus bradycardia with a left bundle branch block and a rate of 54 bpm resting blood pressures 128/70 mmHg. 0.4 mg of regadenoson was infused per usual protocol follow-up with intravenous saline. The maximum heart rate attained was 90 bpm which was 59% maximum predicted heart rate. At rest the patient maintained left bundle branch block pattern with no changes. The resting blood pressure was 128/70 final blood pressures 118/62. Myocardial perfusion protocol. 11.6 mCi of technetium 99m sestamibi was injected at rest. 0.4 mg of regadenoson was infused per usual protocol peak infusion 36.0 mCi of technetium 99m sestamibi was injected stress images were obtained stress and rest images were reconstructed and compared in the short axis vertical and horizontal long axis. Gated images were also obtained per Perfusion SPECT analysis: Review of the stress images demonstrate normal uptake of tracer noted in all areas of the myocardium the rest images similarly demonstrate normal uptake of tracer noted in all areas of myocardium. No areas of reversibility are noted suggest ischemia. Gated SPECT analysis. The gated ejection fraction is over 80%. Conclusion: Normal pharmacologic myocardial perfusion stress test. Preserved ejection fraction.
[2019-05-16] MEDS: Lisinopril 20 MG Tablet PO (11:00)
[2019-05-16] MEDS: Bisacodyl 5 MG Tablet 10 MG PO (11:00)
[2019-05-16] MEDS: Venlafaxine XR 75 MG Capsule PO (11:00)
[2019-05-16] MEDS: hydroCHLOROthiazide 12.5mg 12.5 MG PO (11:00)
--- NOTE | 2019-05-16 11:47 | DCINST_ITS ---
- Discharge Diagnoses Current Active Problems: Current Active and Chronic Problems (Last Reviewed 07/14/18 @ 10:14 by Arlette Gomes) Atypical chest pain (Acute) You will use the following diet at home:: No restrictions Discharge Activity: Return to Normal Activity Call your doctor if you observe: Fever of 101 or Higher, Shortness of breath, Dizziness, Fainting spells, Chest pain Additional Instructions: Continue incentive spirometer every hour while awake. Allergies/Adverse Reactions: Allergies atorvastatin calcium [From Lipitor] Adverse Reaction (Verified 03/14/19 14:36) legs ache Medications to take at Discharge Levothyroxine [Synthroid] 50 mcg PO DAILY 02/15/15 traZODone [Desyrel] 100 mg PO QHS PRN 02/15/15 Omeprazole [Prilosec] 1 cap PO DAILY 12/14/16 Lisinopril/Hydrochlorothiazide [Zestoretic 20-12.5 mg Tablet] 1 tab PO DAILY 05/27/18 Ondansetron HCl [Zofran] 4 mg PO Q8H PRN PRN 05/27/18 Venlafaxine XR [Effexor Xr] 75 mg PO DAILY 05/27/18 Aspirin [Aspirin, Baby] 81 mg PO DAILY@0800 #30 tab.chew 05/28/18 Lovastatin [Mevacor] 40 mg PO DAILY #30 tab 05/28/18 acetaminophen 500 mg tablet 1,000 mg PO Q6H PRN tab 07/14/18 bisacodyl 5 mg tablet,delayed release 10 mg PO DAILY tab 07/14/18 pramipexole 0.125 mg tablet 0.125 mg PO QDAY PRN tab 07/14/18 lorazepam 0.5 mg tablet 0.5 mg PO QHS PRN 02/24/19 prochlorperazine maleate 5 mg tablet 5 mg PO BID PRN 02/24/19 oxycodone 5 mg capsule 5 mg PO Q4H PRN #30 cap 03/22/19 Primary Care Physician: Torres Townsend III, MD [Primary Care Provider] - Please follow up with your Primary Care Physician in: 1 Week Test Results: Test results from this visit will be discussed in further detail at your follow- up appointment, if applicable. Proposed Discharge Date: 05/16/19
[2019-05-16 12:10] VITALS: BP 121/64; PULSE 60; RESP 16; TEMP 36.9; O2SAT 97
--- NOTE | 2019-05-16 12:33 | PCM.DC.SUM ---
Discharge Date and Diagnosis Date of Admission: 05/15/19 Date of Discharge: 05/16/19 - Primary Discharge Diagnosis Active and Suspected Problems (Last Reviewed 07/14/18 @ 10:14 by Arlette Gomes) 1. Musculoskeletal chest pain 2. Bilateral atelectasis 3. Stable small subpleural nodules 4. Chronic left bundle branch block 5. Hypertension 6. Hyperlipidemia 7. History of CVA in 2011 8. Anxiety/depression 9. Restless leg syndrome 10. Hypothyroidism 11. GERD/history of Lua's esophagus - Secondary Discharge Diagnosis Chronic Problems (Last Reviewed 07/14/18 @ 10:14 by Arlette Gomes) Weakness (Chronic) HTN (hypertension) (Chronic) Dyslipidemia (Chronic) Irritable bowel (Chronic) LBBB (left bundle branch block) (Chronic) Hypothyroidism (Chronic) Hospital Course and Treatment Imaging Results: Diagnostic Data Chest CTA 05/15/19 15:48 IMPRESSION: 1. Normal CTA chest examination, without a demonstrated pulmonary embolism or arterial dissection. 2. Small bilateral pleural effusions with bibasilar atelectasis. 3. No change in multiple bilateral small subpleural nodules. Electronically Signed: Dieter Zamora MD at 17:27 EDT Tel , Service support , Operations: None Procedures: Stress test Summary of Care Provided: The patient is a 68 year old F admitted 05/15/2019 due to chest pain. 1. Musculoskeletal chest pain-EKG without ST-T changes. Troponin negative. Patient underwent nuclear stress test which was negative for ischemia. Chest pain reproducible and worsened with cough, movement. CTA of chest negative for PE. 2. Bilateral atelectasis-CT of chest shows bibasilar atelectasis. Recommend continued hourly incentive spirometry while awake. Suspected secondary to recent lumbar surgery 05/11/2019. 3. Stable small subpleural nodules-stable pulmonary nodules reported on CTA compared to prior CT 2014. 4. Chronic left bundle branch block 5. Hypertension-stable, continue home lisinopril/HCTZ regimen. 6. Hyperlipidemia-continue statin. 7. History of CVA in 2011-continue aspirin, statin. 8. Anxiety/depression-continue home trazodone, Effexor regimen. 9. Restless leg syndrome-continue home Mirapex regimen. 10. Hypothyroidism-continue home Synthroid regimen. 11. GERD/history of Lua's esophagus-continue home omeprazole regimen. 12. Recent lumbar back surgery 05/11/[address] at [place]-continue outpatient follow-up. Patient seen and examined prior to discharge. Physical assessment as noted below. Patient is stable for discharge with follow up recommendations as noted above. This patient was seen by CARMEN Palmer under the supervision of Dr. Orozco. - Physical Exam General: Alert, Oriented x3, Cooperative HEENT: Atraumatic, PERRLA, EOMI, Normocephalic Neck: Supple, No JVD, Negative Carotid Bruits Lungs: Clear to auscultation, Normal air movement Cardiovascular: Regular rate, Regular Rhythm, Normal S1, Normal S2, No murmurs Abdomen: Bowel Sounds Present, Soft, Non Tender, Non-Distended Extremities: No clubbing, No cyanosis, No edema, Capillary Refill Less than 3 Seconds Skin: No rashes, No breakdown, - - Lumbar back incision without evidence of infection. Musculoskeletal: No Tenderness to Palpation of Joints or Extremities Neurological: Cranial nerves II-XII grossly intact, Neuro grossly intact Psych/Mental Status: Normal Affect, Appropriate Vital Signs Temp Pulse Resp BP Pulse Ox 98.4 F 60 18 123/58 H 93 05/16/19 06:10 05/16/19 06:10 05/16/19 06:10 05/16/19 06:10 05/16/19 07:30 Oxygen Delivery Method Room Air Weight: 159 lb 13.362 oz Body Mass Index (BMI) 26.6 Finger Stick Blood Glucose 94 Intake and Output for Last 24 Hours 05/14/19 05/15/19 05/16/19 23:59 23:59 23:59 Intake Total 120 / 120 851 / 851 Balance 120 / 120 851 / 851 Laboratory Tests Past 24 Hrs 05/15/19 05/15/19 05/15/19 16:10 16:10 16:10 WBC 7.3 RBC 3.47 L Hgb 10.7 L Hct 31.3 L MCV 90.2 MCH 30.8 MCHC 34.2 RDW Std Deviation 40.7 RDW Coeff of Leslie 12.5 Plt Count 239 MPV 9.6 Immature Gran % (Auto) 0.400 Neut % (Auto) 71.6 H Lymph % (Auto) 15.2 L [place] % (Auto) 11.5 H Eos % (Auto) 1.2 Baso % (Auto) 0.1 Absolute Neuts (auto) 5.2 Absolute Lymphs (auto) 1.11 Absolute Nucleated RBC 0.00 Nucleated RBC % 0 PT 13.7 INR 1.1 APTT 30.9 Sodium 134 L Potassium 3.5 Chloride 100 Carbon Dioxide 29.0 Anion Gap 5 BUN 14 Creatinine 0.90 Estim Creat Clear Calc 53.83 Est GFR (MDRD) Af Amer 80 Est GFR (MDRD) Non-Af 66 BUN/Creatinine Ratio 15.5 Glucose 102 Calcium 8.7 Troponin I < 0.015 Triglycerides Cholesterol LDL Cholesterol VLDL Cholesterol HDL Cholesterol TSH 05/15/19 05/15/19 05/16/19 20:55 23:20 02:38 WBC RBC Hgb Hct MCV MCH MCHC RDW Std Deviation RDW Coeff of Leslie Plt Count MPV Immature Gran % (Auto) Neut % (Auto) Lymph % (Auto) [place] % (Auto) Eos % (Auto) Baso % (Auto) Absolute Neuts (auto) Absolute Lymphs (auto) Absolute Nucleated RBC Nucleated RBC % PT INR APTT Sodium Potassium Chloride Carbon Dioxide Anion Gap BUN Creatinine Estim Creat Clear Calc Est GFR (MDRD) Af Amer Est GFR (MDRD) Non-Af BUN/Creatinine Ratio Glucose Calcium Troponin I < 0.015 < 0.015 < 0.015 Triglycerides Cholesterol LDL Cholesterol VLDL Cholesterol HDL Cholesterol TSH 05/16/19 06:35 WBC RBC Hgb Hct MCV MCH MCHC RDW Std Deviation RDW Coeff of Leslie Plt Count MPV Immature Gran % (Auto) Neut % (Auto) Lymph % (Auto) [place] % (Auto) Eos % (Auto) Baso % (Auto) Absolute Neuts (auto) Absolute Lymphs (auto) Absolute Nucleated RBC Nucleated RBC % PT INR APTT Sodium Potassium Chloride Carbon Dioxide Anion Gap BUN Creatinine Estim Creat Clear Calc Est GFR (MDRD) Af Amer Est GFR (MDRD) Non-Af BUN/Creatinine Ratio Glucose Calcium Troponin I Triglycerides 99 Cholesterol 108 LDL Cholesterol 45 VLDL Cholesterol 20 HDL Cholesterol 43 TSH 3.47 Discharge Diet: No Restrictions Discharge Activity: Return to Normal Activity Call your doctor if you observe: Fever of 101 or Higher, Shortness of breath, Dizziness, Fainting spells, Chest pain Home Medications: Medications to take at Discharge Levothyroxine [Synthroid] 50 mcg PO DAILY 02/15/15 traZODone [Desyrel] 100 mg PO QHS PRN 02/15/15 Omeprazole [Prilosec] 1 cap PO DAILY 12/14/16 Lisinopril/Hydrochlorothiazide [Zestoretic 20-12.5 mg Tablet] 1 tab PO DAILY 05/27/18 Ondansetron HCl [Zofran] 4 mg PO Q8H PRN PRN 05/27/18 Venlafaxine XR [Effexor Xr] 75 mg PO DAILY 05/27/18 Aspirin [Aspirin, Baby] 81 mg PO DAILY@0800 #30 tab.chew 05/28/18 Lovastatin [Mevacor] 40 mg PO DAILY #30 tab 05/28/18 acetaminophen 500 mg tablet 1,000 mg PO Q6H PRN tab 07/14/18 bisacodyl 5 mg tablet,delayed release 10 mg PO DAILY tab 07/14/18 pramipexole 0.125 mg tablet 0.125 mg PO QDAY PRN tab 07/14/18 lorazepam 0.5 mg tablet 0.5 mg PO QHS PRN 02/24/19 prochlorperazine maleate 5 mg tablet 5 mg PO BID PRN 02/24/19 oxycodone 5 mg capsule 5 mg PO Q4H PRN #30 cap 03/22/19 Primary Care Physician: Torres Townsend III, MD [Primary Care Provider] - Please follow up with your Primary Care Physician in: 1 Week Disposition: Home Minutes spent on discharge:: 35 Patient Condition:: Stable Medical Necessity - Tobacco Use Smoking Status: Never smoker Meaningful Use Info Meaningful Use Diagnoses (Choose all that apply): None applicable
--- NOTE | 2019-05-16 12:59 | CHAPLAIN ---
Type of Pastoral Visit _x__ Initial Visit ___ Follow-up Visit ___ On-call Visit ___ General Patient Visit ___ Spiritual Assessment ___ Family Conference ___ Bereavement ___ Rapid Response ___ Code Blue ___ Other (describe below) Pastoral Care Referral From _x__ Patient ___ Family ___ Nurse ___ Physician ___ Riveter ___ Fan Blade Aligner ___ Other (describe below) Sacrament/Intervention _x__ Active listening ___ Anointing ___ Congregational ___ Bereavement ___ Communion _x__ Lisa exploration ___ _x__ Life review _x__ Prayer ___ Reconciliation ___ Sacrament of Sick _x__ Supportive presence ___ Wedding ___ Other (describe below) Pastoral Comments
== END 2019-05-16 11:48 | disposition home or self-care (01) ==
LOC: ED 16:05 → PCU 05-16 05:26
PROVIDERS: Admitting Provider Internal Medicine; Emergency Provider Emergency Medicine; Family Provider Family Medicine; PCP Family Medicine; Visit Provider Internal Medicine
DX: R07.89 Other chest pain (principal); R06.02 Shortness of breath; I10 Essential (primary) hypertension; E78.5 Hyperlipidemia, unspecified; E03.9 Hypothyroidism, unspecified; I44.7 Left bundle-branch block, unspecified; M51.36 Other intervertebral disc degeneration, lumbar region; I69.354 Hemiplegia and hemiparesis following cerebral infarction affecting left non-dominant side; K21.9 Gastro-esophageal reflux disease without esophagitis; F41.9 Anxiety disorder, unspecified; F32.9 Major depressive disorder, single episode, unspecified; K58.9 Irritable bowel syndrome, unspecified; K22.70 Barrett's esophagus without dysplasia; Z79.899 Other long term (current) drug therapy; Z79.82 Long term (current) use of aspirin; G25.81 Restless legs syndrome
CPT/HCPCS: 36415; 71275; 78452; 80048; 80061; 84443; 84484; 85025; 85610; 85730; 93005; 93017; 96361; 96372; 96374; 97802; 99218; 99285; A9500; J7030; Q9967; A4216; G0378; J2785

== ENCOUNTER 2019-09-14 10:00 | Outpatient (RCR) | payer MEDICARE, OTHER, SELFPAY ==
[2019-06-05 08:20] VITALS: BMI 25.2
--- NOTE | 2019-06-06 13:46 | HP.PTEVAL_ITS ---
Patient's Visit Information JEAN KRUSE is a 68 year old F referred to Physical Therapy by Kodak Murillo DO with a diagnosis of LEFT L4,L5,S1 UNILATERAL LAMINECTOMY WITH MICRODISCECTOMY 05/10/19 - [facility]. Date of Evaluation: 06/06/19 Physical Therapist: Josy Chavez PT, Cert MDT - Visit Plan Frequency: 2-3x /Week Duration: 4-6 Weeks Plan: *BEGIN LUMBAR ISOMETRICS. ADVANCE ROM TOLERATED AFTER 3 WEEKS. WEAN FROM LUMBAR BRACE TOLERATED. POSTURE CORRECTION/STRENGTHENING, INSTRUCTION IN APPROPRIATE BODY MECHANICS AND ACTIVITY MODIFICATIONS. DLS STARTING WITH A NEUTRAL SPINE PROGRESSING ROM TOLERATED. MIKE LE ROM, STRETCHING AND STRENGTHENING. HEP INSTRUCTION. *MINIMAL LIFTING > 10 LBS, BENDING, PUSHING, PULLING, TWISTING AND OVER HEAD EXTENSION FOR ANOTHER 4-6 WEEKS. - Subjective Findings: Work/Leisure: RETIRED. Present symptoms: LOW BACK PAIN AND PAIN BEHIND HER KNEES. LEFT LE GOES NUMB IF SHE WALKS TOO MUCH. Present since: YEARS. PATIENT REPORTS SHE HAD LEG PAIN BEFORE SURGERY BUT NOT BACK PAIN. Pain Scale: WORST5/10, LEAST 2/10. Currently: 3/10. Commenced as a result of: NO APPARENT REASON. Symptoms at onset: MIKE LEG PAIN EVEN AFTER KNEE SURGERY. Worse: BENDING AND TWISTING. SITTING. LYING DOWN AT NIGHT. Better: PAIN PILLS. Disturbed sleep: YES. Previous history/Previous treatment: UNREMARKABLE. Gait: PATIENT REPORTS SHE FAVORS HER RIGHT KNEE. IT SWELLS UP SOMETIMES AND IT IS STIFF AND SORE. STATES SHE DOES OK WALKING BUT SHE HAS TO STAND UP TALL. Difficulty initiating urinatin: NO. Accidents: NONE RECENT. Unexplained weight loss: NO. Imaging: PENDING IN JUN. NONE SINCE SURGERY AT THIS POINT. PMH: VERTIGO, ANEURYSM, H/O, NECK PROBLEMS, RECENT LEFT KNEE SX, JAW SURGERY, OT FOR RIGHT HAND TENDON SX. Recent major surgery: FEBRUARY [address] HOOK - PATIENT STATES STILL HEALING. DR. HOOK SENT HER TO DR. MURILLO. OTHER: PATIENT REPORTS DR. MURILLO TOLD HER SHE HAD A CLUSTER OF PINCHED NERVES WITH ARTHRITIS AROUND THEM AND 3 BULGING DISCS AND RECOMMENDED SURGERY RIGHT AWAY. SHE REPORTS HER LEGS STOPPED HURTING IMMEDIATELY AFTER SURGERY EXCEPT FOR BEHIND HER KNEES. STATES SHE NEEDS A RIGHT TKR. - Objective Sitting/Standing Posture: POOR. FORWARD HEAD AND ROUNDED SHOULDERS. LUMBAR BRACE IN SITTING KEEPS POSTURE FAIRLY ERECT. Lordosis: REDUCED. Lateral shift: NO. Relevant shift: NT. Active Correction of posture: WORSE. Other Observations: INDEP SLOW CAUTIOUS GAIT INTO PT WITHOUT ANY ASSISTIVE DEVICES. OCCASSIONAL LOB REGAINED INDEP'LY. STATES SHE IS USING A WALKER WHEN SHE WALKS OUTSIDE HER HOME AND THIS PT RECOMMENDS WALKER ANYTIME OUTSIDE OF HOME FOR SAFETY. PATIENT RELATES HER LOB TO HER CHRONIC VERTIGO. Motor deficit: MIKE LE'S GROSSLY 4-/5 (INCLUDING LEFT KNEE) WITH MMT'ING EXCEPT HIPS GRADED 3+/5. Sensory deficit: MIKE LE LIGHT TOUCH SENSATION APPEARS TO BE INTACT AND SYMMETRICAL WITH TESTING. ROM deficit: MIKE LE'S WFL EXCEPT LEFT KNEE FLEXION TO APPROX 90 DEGREES. ENCOURAGED PATIENT TO CONTINUE HEP GIVEN TO HER FOR HER LEFT KNEE POST SURGERY. Reflexes: NT. Dural Signs: POSITIVE MIKE LE'S. Lumbar mvmt loss: NT. Core strength: POOR. PATIENT IS EXTREMELY APPREHENSIVE ABOUT STANDING WITHOUT BACK BRACE ON BUT I HAD HER DO THIS HOLDING ON TO THE TABLE WHILE I CHECKED HER INCISION. Palpation: INCISION LOOKS GOOD WITHOUT ANY SIGNS OF INFECTION. TREATMENT: HOME INSTRUCTIONS BELOW - Goals Goal 1:: DECREASE C/O BACK AND MIKE LE SX'S. Goal Time Frame: 6-8 Weeks Goal 2:: IMPROVE SITTING, STANDING, WALKING, ADL AND SLEEP FUNCTION Goal Time Frame: 6-8 Weeks Goal 3:: INSTRUCT IN PROPHYLAXIS Goal Time Frame: 6-8 Weeks - Rehabilitation Potential Rehabilitation Potential: Fair - Anticipated Interventions Patient/Client Instruction: Educate patient on: Condition, Plan of Care, Risk Factors, Benefits of Fitness Program For the Purpose of:: To improve self management Therapeutic Exercise to Include: Strength training, Balance training, Body mechanics, Postural training, Flexibilty training, Gait and locomotor training, In an aquatic setting, Dynamic Lumbar Stabilization Comment: CONSIDER AQUATIC THERAPY AFTER NEXT FOLLOW UP WITH DR. MURILLO IF HER IS AGREEABLE. PATIENT ASKED HIM IF SHE COULD GET IN THE POOL AT HER LAST VISIT AND SHE SAID HE TOLD HER NOT YET. For the Purpose of:: To decrease pain, To increase ROM, To improve muscle performance and motor function, To increase tolerance to ac tivity/condition/position, To improve performance and independence with ADL's, To improve ability of physical actions for home/community/work/leisure, To improve gait and locomotor functions Thank you for the opportunity to evaluate your patient. For Medicare and Medicare HMO plans, please review the plan of care and approve it. It will need to be FAXED BACK to us at [phone] for Medicare purposes. For Medicare only, by signing this I certify the plan of care. Please let me know if there are questions or concerns regarding this plan of care. Physician Signature: Date:
--- NOTE | 2019-06-29 11:38 | HP.PTREVAL_ITS ---
Kodak Gutierrez, DO, It has been my pleasure to treat JEAN KRUSE over the last 8 visits for LEFT L4,L5,S1 UNILATERAL LAMINECTOMY WITH MICRODISCECTOMY 05/10/19 - [facility]. Please see the progress note below for an update on the physical therapy plan of care! Subjective: PATIENT REPORTS HER BACK PAIN IS MUCH MUCH BETTER. SHE ALSO REPORTS HER LEGS HAVE STOPPED HURTING FAR THE NERVES AND SHE IS WALKING BETTER. I JUST FEEL BETTER. PATIENT REPORTS HER BACK IS GREAT BUT STATES SHE HAS TO STILL WEAR THE BRACE ABOUT 60% OF THE DAY BECAUSE IT ALLOWS HER TO SIT AND MOVE WITH LESS PAIN AND SHE ALSO WEARS IT BECAUSE WITH HER DIZZINESS SHE IS AFRAID SHE IS GOING TO FALL. PATIENT REPORTS SHE CALLED HER SURGEON ABOUT HER DIZZINESS AND HE DOES NOT WANT HER TO GET TREATMENT FOR IT YET BECAUSE OF HER BACK SURGERY. SHE ALSO TOLD THEM ABOUT HER MIKE KNEE PAIN AND THEY REFERRED HER TO A KNEE SURGEON WITH [facility] PENDING AUG 01 2019. PATIENT REPORTS SHE IS REALLY DIZZY AND HAS BEEN SINCE SURGERY. SHE IS AFRAID OF FALLING DUE TO HER DIZZINESS AND ALSO INTERMITTENT SHARP KNEE PAINS LEFT > RIGHT. NO USING WALKER MUCH THOUGH. PATIENT REPORTS SHE IS DOING THE BEST SHE CAN WITH HER HEP WITH HER DIZZINESS AND KNEE PAIN. REALLY WORKING ON POSTURE. LLE STILL GOES NUMB ONCE IN A WHILE. SOMETIMES THE BOTTOM OF HER FEET FEEL WIERD BUT IMPROVING. FOLLOW UP WITH DR. GUTIERREZ PENDING JUL 09. Objective/Function: INDEP SLOW CAUTIOUS GAIT INTO PT WITHOUT ANY ASSISTIVE DEVICES. OCCASSIONAL LOB REGAINED INDEP'LY. PATIENT RELATES HER LOB TO HER CHRONIC VERTIGO. PATIENT IS NOW ABLE TO TRANSFER FROM SIT TO SUPINE INDEP'LY WITHOUT USING HER UE'S TO ASSIST HER LEGS. Motor deficit: MIKE LE'S GROSSLY 4- /5 (INCLUDING LEFT KNEE). Sensory deficit: MIKE LE LIGHT TOUCH SENSATION APPEARS TO BE INTACT AND SYMMETRICAL WITH TESTING. ROM deficit: MIKE LE'S WFL EXCEPT LEFT KNEE FLEXION TO 111 DEGREES IN SUPINE WITH A HEEL SLIDE AND RIGHT KNEE FLEX 124 DEG. Reflexes: NT. Dural Signs: POSITIVE MIKE LE'S. Lumbar mvmt loss: NT. Core strength: POOR. PATIENT IS STILL APPREHENSIVE ABOUT STANDING WITHOUT BACK BRACE BUT IMPROVING. Plan Plan: CONT PHYSICAL THERAPY 2 TIMES A WEEK X 4 WEEKS PER ORIG POC WORKING TOWARD SAME GOALS. PATIENT IS AGREEABLE TO POC. CONTINUE TO ENCOURAGE USE OF WALKER F OR SAFETY AND TO PROMOTE INCREASED STRIDE LENGTH AND CADANCE. ENCOURAGE CONTINUED SLOW WEANING FROM BACK BRACE TOLERATED. Goals Goal 1:: DECREASE C/O BACK AND MIKE LE SX'S. Goal Time Frame: 6-8 Weeks Goal Progress: Progressing Goal 2:: IMPROVE SITTING, STANDING, WALKING, ADL AND SLEEP FUNCTION Goal Time Frame: 6-8 Weeks Goal Progress: Progressing Goal 3:: INSTRUCT IN PROPHYLAXIS Goal Time Frame: 6-8 Weeks Goal Progress: Progressing Anticipated Interventions Patient/Client Instruction: Educate patient on: Condition, Plan of Care, Risk Factors, Benefits of Fitness Program For the Purpose of:: To improve self management Therapeutic Exercise to Include: Strength training, Balance training, Body mechanics, Postural training, Flexibilty training, Gait and locomotor training, In an aquatic setting, Dynamic Lumbar Stabilization Comment: CONSIDER AQUATIC THERAPY AFTER NEXT FOLLOW UP WITH DR. GUTIERREZ IF HER IS AGREEABLE. PATIENT ASKED HIM IF SHE COULD GET IN THE POOL AT HER LAST VISIT AND SHE SAID HE TOLD HER NOT YET. For the Purpose of:: To decrease pain, To increase ROM, To improve muscle performance and motor function, To increase tolerance to activity/condition/position, To improve performance and independence with ADL's, To improve ability of physical actions for home/community/work/leisure, To improve gait and locomotor functions Please do not hesitate to contact me at [phone] by phone or if you have questions or concerns regarding this new plan of care! Sincerely, Josy Chavez, PT, Cert MDT
--- NOTE | 2019-07-17 11:12 | HP.PTREVAL_ITS ---
Kodak Gutierrez, DO, It has been my pleasure to treat JEAN KRUSE over the last 11 visits for LEFT L4,L5,S1 UNILATERAL LAMINECTOMY WITH MICRODISCECTOMY 05/10/19 - [facility]. Please see the progress note below for an update on the physical therapy plan of care! Subjective: PATIENT REPORTS SHE HAD TO DRIVE HERSELF HERE TODAY BECAUSE HER HAD ROTATOR CUFF SURGERY 07/13/19. SHE REPORTS SHE FELL IN THE GR[place] WITH HER PUPPY WEDNESDAY AND LANDED ON HER HANDS AND KNEES. SHE SAID HER KNEES HURT BUT THEY HURT ALL THE TIME ANYWAY. SHE DOES NOT WANT TO SEE A DOCTOR FOR HER FALL. SHE REPORTS SHE DOES NOT WANT ANYMORE PAIN PILLS. STATES SHE GOT UP FROM THE FALL ON HER OWN. WENT TO SEE DR. LARSEN GRAIN ELEVATOR MAN 07/13/19. STATES SHE IS ALLOWED TO TAKE A BATH AND GO IN THE POOL FOR THERAPY NOW. [facility] WITH DR. CHAN PENDING JUL [address] CHAN. PATIENT REPORTS SHE FEELS LIKE HER BACK IS DOING REALLY GOOD AND HER KNEES ARE THE PROBLEM NOW. REPORTS SHE IS NOT SUPPOSED TO WEAR THE BRACE IN THE HOUSE ANYMORE. STATES SHE IS TO WEAR HER BRACE AND USE THE WALKER WHEN SHE IS OUT OF THE HOUSE. WAS NOT USING THE WALKER OR THE BACK BRACE WHEN SHE FELL BECAUSE SHE WAS TRYING TO GET HER DOG. PATIENT REPORTS SHE IS STILL SUPPOSED TO AVOID BENDING, LIFTING AND TWISTING BUT THIS IS VERY DIFFICULTY WHILE TRYING TO HELP HER WHO JUST HAD SURGERY. PATIENT REPORTS SHE IS JUST SORE AND ACHY AND SHE COULD TELL IF SHE HURT HER BACK IN THE FALL. PATIENT REPORTS THAT SHE DOES NOT WANT TO DO LAND EX TODAY AND WANTS TO WAIT AND DO WATER EX. PATIENT REPORTS SHE LOVES HER HOME EX PROGRAM AND SHE FEELS SO MUCH BETTER AFTER DOING THEM. STATES SHE IS EXCITED TO START WATER EX. Objective/Function: PATIENT IS MAKING SLOW PROGRESS TO HER BACK PT GOALS BUT HER KNEE PAIN IS LIMITING HER PROGRESS. PATIENT IS ABLE TO TRANSFER FROM SIT TO SUPINE INDEP'LY WITHOUT USING HER UE'S TO ASSIST HER LEGS. SHE IS UE DEPENDENT TO TRANSFER SIT TO STAND. Motor deficit: MIKE LE'S GROSSLY 4-/5 (INCLUDING LEFT KNEE). Sensory deficit: MIKE LE LIGHT TOUCH SENSATION APPEARS TO BE INTACT AND SYMMETRICAL WITH TESTING. ROM deficit: MIKE LE'S WFL EXCEPT LEFT KNEE FLEXION TO 110 DEGREES IN SUPINE WITH A HEEL SLIDE AND RIGHT KNEE FLEX 122 DEG. SHE IS UNABLE TO FULLY EXT HER KNEES (-5 DEG MIKE). Reflexes: NT. Dural Signs: POSITIVE MIKE LE'S. Lumbar mvmt loss: NT. Core strength: POOR. PATIENT IS STILL APPREHENSIVE ABOUT STANDING WITHOUT BACK BRACE BUT IMPROVING. PATIENT IS STILL HAVING TROUBLE WALKING DUE TO KNEE PAIN. SHE DROVE HERSELF TO PT FOR THE FIRST TIME TODAY AND DEMO'S INDEP GAIT WITH FWW AT LEAST 2X400 FEET. GAIT IS SLOW AND ANTALGIC. NO LOB. ABLE TO GENTLY WORK THROUGH HEP WITH ME TODAY. GOOD COORDINATION WITH ALTERNATE ARM LEG LIFTS NOW. INCREASED TO GREEN TBAND WITH HIP ABD WITH GOOD TOLERANCE TODAY. Plan Plan: BEGIN AQUATIC THERAPY 3 TIMES A WEEK X 3 WEEKS THEN RE-CHECK. BEGIN VERY SLOWLY Goals Goal 1:: DECREASE C/O BACK AND MKIE LE SX'S. Goal Time Frame: 6-8 Weeks Goal Progress: Progressing Goal 2:: IMPROVE SITTING, STANDING, WALKING, ADL AND SLEEP FUNCTION Goal Time Frame: 6-8 Weeks Goal Progress: Progressing Goal 3:: INSTRUCT IN PROPHYLAXIS Goal Time Frame: 6-8 Weeks Goal Progress: Progressing Anticipated Interventions Patient/Client Instruction: Educate patient on: Condition, Plan of Care, Risk Factors, Benefits of Fitness Program For the Purpose of:: To improve self management Therapeutic Exercise to Include: Strength training, Balance training, Body mechanics, Postural training, Flexibilty training, Gait and locomotor training, In an aquatic setting, Dynamic Lumbar Stabilization Comment: CONSIDER AQUATIC THERAPY AFTER NEXT FOLLOW UP WITH DR. GUTIERREZ IF HER IS AGREEABLE. PATIENT ASKED HIM IF SHE COULD GET IN THE POOL AT HER LAST VISIT AND SHE SAID HE TOLD HER NOT YET. For the Purpose of:: To decrease pain, To increase ROM, To improve muscle performance and motor function, To increase tolerance to activity/condition/position, To improve performance and independence with ADL's, To improve ability of physical actions for home/community/work/leisure, To improve gait and locomotor functions Please do not hesitate to contact me at [phone] by phone or if you have questions or concerns regarding this new plan of care! Sincerely, Josy Chavez, PT, Cert MDT
--- NOTE | 2019-07-26 11:34 | HP.PTEVAL2_ITS ---
Patient's Visit Information JEAN KRUSE is a 69 year old F referred to Physical Therapy by Kodak Gutierrez DO with a diagnosis of Vertigo. Date of Evaluation: 07/26/19 Physical Therapist: AZALIA Hewitt - Visit Plan Frequency: 2x /Week Duration: 2 Months Plan: 2X/ week for 6-8 weeks for treatment for L BPPV( with back surgery precautions), for VOR exercises, gait training with and without head movements, testing of FGA when ready to establish baseline balance with HEP - Subjective Findings: Pt reports that she has had off and on dizziness and hospitalized 3X last year for vertigo. She had back surgery May 10, 2019 (lami with microdisctomy L4-S1) with stenosis and that set off this round of vertigo. Anything that touches the back of head or neck she gets dizzy or when she turns her head, or when she looks up and down. She is going AT and if she looks at the water she gets dizzy, rolling in bed, getting in and out of bed, walking all of the sudden she will feel like she will fall so she uses the walker. She trying to stretch her neck to see if that will help. It is difficult to go places and walk. SHe can not walk fast, loud noises hurts her head and sunlight hurts her light and she gets spots in her eyes. She was told once that she had migranes without the pain but not sure she was really checked for them. 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 Her BRITTON are getting worse but she does not think that that is the cuase of them. She has had a lot of sinus surgeries and jaw surgeries and a concussion, 4 implants in her head and her ears hurt a lot. She is not sure if she has an ear infection. thinks that she might have menieres disease. She has 10 sisters and they all have menieres disease ( most of them can not drive in the car). She tries to keep her head still. She does not drive. She describes her dizziness with walking as a wave of dizziness and she feels like she is going to fall with walking 95% of the time. Sitting here now she has no dizziness looking straight but if she were to look any direction or touch the back of the chair with her head she will get dizzy and it will last until she pulls away from the chair or looks straight ahead and slowly goes away. She reports that she has stenosis and deformed neck but they wanted to fix the back first. The meclazene does not work for her anymore.... she thinks that she is used to it. Current dizziness sitting here 0/10. Her goals of PT: to get back 100% to get back to aerobics, playing with kids, yoga. When rolling in bed and she looks to the L she gets dizzy..... and the dizziness lasts seconds and the room does not spin but she keeps her eyes closed. - Pain BRITTON Intensity: 4 back pain Intensity: 0 neck, jaw and ear pain Intensity: 6 - Objective Objective: + L Hallpike( with help of 2 therapists to support back since back surgery with back brace on) and pillow under back to get neck into more extension) for torsional nystagmus that lasted 10 seconds. Treated with L EPLY X2 people to support spine. She felt better after we did the EPLY. Still walked guarded with head straight with a rolling walker. Agreed that we were good only trying that once today. Pt did feel better after treatment. Pt sees double when I hold up my pen.... had to move double the distance awayso that she could see one peb. Horizontal pusuits: able to track for approx 20 seconds and then she could not focus ( complains of sore eyes ( being treated with dry eyes)). Vertical pursuits: Hard to focus (can only focus for about 5 seconds and complaining of seeing double) - Goals Goal 1:: I HEP Goal Time Frame: 4-6 Weeks Goal 2:: Abolish Positive Eply to the L Goal Time Frame: 4-6 Weeks Goal 3:: Subjective improvement in dizziness by 50% Goal Time Frame: 4-6 Weeks Goal 4:: Be able to walk with head turns with her walker without dizziness and feeling like she would fall over. Goal Time Frame: 6-8 Weeks Goal 5:: Be able to complete VOR smooth pursuit in vertical and horizontal X 60 seconds each without dizziness Goal Time Frame: 6-8 Weeks - Anticipated Interventions Patient/Client Instruction: Educate patient on: Condition, Plan of Care For the Purpose of:: To improve muscle performance and motor function, To improve ability to perform ADL's, To increase tolerance to acti vity/condition/position, To improve performance and independence with ADL's, To decrease level of supervision to perform tasks, To improve ability of physical actions for home/community/work/leisure, To improve gait and locomotor functions, To improve balance, To improve safety with gait Therapeutic Exercise to Include: Balance training, Gait and locomotor training For the Purpose of:: To improve muscle performance and motor function, To improve ability to perform ADL's, To increase tolerance to activity/condition/position, To improve ability of physical actions for home/community/work/leisure, To improve gait and locomotor functions, To increase flexibility/ROM, To improve balance, To improve safety with gait Functional Training to Include: Gait training For the Purpose of:: To improve gait and locomotor functions, To improve safety with gait Thank you for the opportunity to evaluate your patient. For Medicare and Medicare HMO plans, please review the plan of care and approve it. It will need to be FAXED BACK to us at [phone] for Medicare purposes. For Medicare only, by signing this I certify the plan of care. Please let me know if there are questions or concerns regarding this plan of care. Physician Signature: Date:
--- NOTE | 2019-08-16 11:26 | HP.PTREVAL_ITS ---
Kodak Gutierrez, DO, It has been my pleasure to treat JEAN KRUSE over the last 19 visits for LEFT L4,L5,S1 UNILATERAL LAMINECTOMY WITH MICRODISCECTOMY 05/10/19 - [facility]. Please see the progress note below for an update on the physical therapy plan of care! Subjective: THAT WATER IS REALLY HELPING MY BACK. TRYING TO WEAN OUT OF BACK BRACE. TRIED MORE SHALLOW EX BUT NOT STRONG ENOUGH YET. ONLY MISSED ONE POOL VISIT BECAUSE HAD A VERTIGO ATTACK. STATES HER DIZZINESS IS STILL A PROBLEM. SEP 06 VERTIGO SPECIALIST [facility] PEND[facility]. LEFT TKR PENDING SEP 25 2019. PATIENT REPORTS THE WATER THEAPY IS EVEN HELPING HER KNEE. PATIENT REPORTS SHE HAS BEEN BENDING AND TWISTING TOLERATED AND SO FAR SHE IS DOING OK. Objective/Function: PATIENT IS continuing to make SLOW PROGRESS TOWARD HER BACK PT GOALS BUT HER KNEE PAIN IS STILL LIMITING HER PROGRESS. KNEE ROM AND LE STRENGTH IN GENERAL IS IMPROVING. PATIENT IS ABLE TO TRANSFER FROM SIT TO SUPINE INDEP'LY WITHOUT USING HER UE'S TO ASSIST HER LEGS. Motor deficit: MIKE LE'S GROSSLY 4/5 (INCLUDING LEFT KNEE). Sensory deficit: MIKE LE LIGHT TOUCH SENSATION APPEARS TO BE INTACT AND SYMMETRICAL WITH TESTING. ROM deficit: MIKE LE'S WFL. LEFT KNEE FLEXION TO 132 DEGREES IN SUPINE WITH A HEEL SLIDE. FULL LEFT KNEE EXT NOW. Reflexes: NT. Dural Signs: NEGATIVE MIKE LE'S. Lumbar mvmt loss: FLEX - MOD, EXT - NT, MIKE SG - MOD. PATIENT WITH STRETCHING OPPOSITE SIDE WITH SG TESTING AND NO INCREASED PAIN WITH BENDING. Core strength: POOR. PATIENT IS STILL APPREHENSIVE ABOUT STANDING WITHOUT BACK BRACE BUT IMPROVING. PATIENT IS STILL HAVING TROUBLE WALKING DUE TO KNEE PAIN BUT IMPROVING. GAIT IS SLOW AND ANTALGIC BUT NO ASSISTIVE DEVICES TODAY. WEARING BACK BRACE AND LEFT KNEE BRACE INTO PT. NO LOB. Plan Plan: Recommend continued aquatic therapy 3X'S A WK X 4-5 WKS at this time. Patient is agreeable. Patient would benefit from continued AT d/t reduced tolerance to WBing with ADLs without back brace. Goals Goal 1:: DECREASE C/O BACK AND MIKE LE SX'S. Goal Time Frame: 6-8 Weeks Goal Progress: Progressing Goal 2:: IMPROVE SITTING, STANDING, WALKING, ADL AND SLEEP FUNCTION Goal Time Frame: 6-8 Weeks Goal Progress: Progressing Goal 3:: INSTRUCT IN PROPHYLAXIS Goal Time Frame: 6-8 Weeks Goal Progress: Progressing Anticipated Interventions Patient/Client Instruction: Educate patient on: Condition, Plan of Care, Risk Factors, Benefits of Fitness Program For the Purpose of:: To improve self management Therapeutic Exercise to Include: Strength training, Balance training, Body mechanics, Postural training, Flexibilty training, Gait and locomotor training, In an aquatic setting, Dynamic Lumbar Stabilization Comment: CONSIDER AQUATIC THERAPY AFTER NEXT FOLLOW UP WITH DR. GUTIERREZ IF HER IS AGREEABLE. PATIENT ASKED HIM IF SHE COULD GET IN THE POOL AT HER LAST VISIT AND SHE SAID HE TOLD HER NOT YET. For the Purpose of:: To decrease pain, To increase ROM, To improve muscle performance and motor function, To increase tolerance to activity/condition/position, To improve performance and independence with ADL's, To improve ability of physical actions for home/community/work/leisure, To improve gait and locomotor functions Please do not hesitate to contact me at [phone] by phone or if you have questions or concerns regarding this new plan of care! Sincerely, Josy Chavez, PT, Cert MDT
--- NOTE | 2019-09-14 14:28 | HP.PTDCSUM ---
HP - PT D/C Summary It has been my pleasure to treat JEAN KRUSE under orders from Kodak Gutierrez DO, for the diagnosis of LEFT L4,L5,S1 UNILATERAL LAMINECTOMY WITH MICRODISCECTOMY 05/10/19 - [facility] for a total of 27 visit(s). Discharge Date: Please see the following information for a summary of their discharge status. - Subjective Subjective: PATIENT REPORTS SHE IS BEING REFERRED TO A SPECIALIST FOR POSSIBLE JAW INFECTION. STATES LEFT TKR MIGHT HAVE TO BE POSTPONED (PENDING 09/25/19). STATES HER BACK IS DOING MUCH BETTER. - Pain LOW BACK Pain Intensity (Out of 10): 0 POSTERIOR KNEES Pain Intensity (Out of 10): 5 LATERAL L KNEE Pain Intensity (Out of 10): 3 GENERALLY ACHY Pain Intensity (Out of 10): 6 LEFT CALF Pain Intensity (Out of 10): 5 RIGHT KNEE Pain Intensity (Out of 10): 0 - Overall Improvement % Improvement: 80 - Objective Objective/Function: LOW BACK PAIN HAS CONTINUED TO IMPROVE BUT REHAB HAS BEEN SIGNIFICANTLY LIMITED BY HER LEFT KNEE PAIN AND NOW JAW PAIN. THERE IS NOT SIGNIFICANT CHANGE IN TESTING SINCE LAST RE-CHECK. - Goals Goal 1:: DECREASE C/O BACK AND MIKE LE SX'S. Goal Progress: Not Progressing Goal 2:: IMPROVE SITTING, STANDING, WALKING, ADL AND SLEEP FUNCTION Goal Progress: Not Progressing Goal 3:: INSTRUCT IN PROPHYLAXIS Goal Progress: Not Progressing - Plan Plan: D/C DUE TO JAW INFECTION AND LTKR SX PENDING. PATIENT IS AGREEABLE. - D/C Information If there are questions or concerns regarding this patient's physical therapy, please feel free to call me at [phone]. Thank you for the referral of this patient. Sincerely, Josy Chavez, PT, Cert MDT
--- NOTE | 2019-10-05 15:33 | HP.PTDCS(2) ---
HP - PT D/C Summary (2) It has been my pleasure to treat EJAN KRUSE under orders from Kodak Gutierrez DO for the diagnosis of Vertigo for a total of 6 visit(s). Discharge Date: Please see the following information for a summary of their discharge status. - Subjective Subjective: Saw the ear nose and throat Dr and he said he was dx'd with Menieres before and he wants to test her again. He cleaned out her ear and he dizziness is better and her hearing is much better. - Objective Objective/Function/Assessment: FGA 18. Pt got nauseated with standing still with head turns. Pt is not able to go up and down stairs recip due to knee pain - Goals Patient Goals: Improve Mobility, Improve Function, Walk Normal Goal 1:: I HEP Goal 2:: Abolish Positive Eply to the L Goal 3:: Subjective improvement in dizziness by 50% Goal 4:: Be able to walk with head turns with her walker without dizziness and feeling like she would fall over. Goal 5:: Be able to complete VOR smooth pursuit in vertical and horizontal X 60 seconds each without dizziness - Plan Plan: Re-assess next visit. - D/C Information If there are questions or concerns regarding this patient's physical therapy, please feel free to call me at [phone]. Thank you for the referral of this patient. Sincerely, Rima Garcia, MPT
== END 2019-09-14 19:00 | disposition home or self-care (01) ==
LOC: PT 10:00
PROVIDERS: Family Provider Family Medicine; PCP Family Medicine; Visit Provider Orthopaedic Surgery
DX: M51.26 Other intervertebral disc displacement, lumbar region (principal)
CPT/HCPCS: 97110; 97113; 97162; 97530

== ENCOUNTER → 2019-11-13 09:31 | Outpatient (CLI) | payer MEDICARE, OTHER, SELFPAY ==
[2019-08-28 09:59] VITALS: BMI 25.7
== END ==
PROVIDERS: Family Provider Family Medicine; PCP Family Medicine; Referring Provider Internal Medicine Cardiovascular Disease; Visit Provider Internal Medicine Cardiovascular Disease
DX: E87.5 Hyperkalemia (principal); R00.2 Palpitations
CPT/HCPCS: 93225; 93226

== ENCOUNTER → 2020-02-08 09:58 | Outpatient (CLI) | payer MEDICARE, OTHER, SELFPAY ==
[2019-08-28 09:59] VITALS: BMI 25.7
--- NOTE | 2020-02-08 10:15 | MRI_ITS ---
STUDY: MRI CERVICAL SPINE WITHOUT CONTRAST REASON FOR EXAM: Female, 69 years old. DDD,SPONDYLOLISTHESISNECK PAIN, BALANCE ISSUES, DIZZINESS TECHNIQUE: Standardized fat and water weighted pulse sequences were obtained in the sagittal and axial planes. COMPARISON: None FINDINGS: Normal foramen magnum and brainstem-cervical cord junction. Normal craniovertebral junction. Normal anterior atlantoaxial articulation. Normal odontoid process. Normal cervical lordosis. Normal vertebral bodies and posterior osseous elements. C2-3: Normal endplates. Normal disc height, signal and morphology. Normal central canal and intervertebral neural foramina. C3-4: Endplate spondylosis. 3 mm spondylolisthesis. Degenerative changes of the bilateral facet joints and uncovertebral joints. Mild narrowing of the bilateral intervertebral neural foramina. C4-5: Endplate spondylosis. Central and paracentral disc bulge. Degenerative changes of the bilateral facet joints and uncovertebral joints. Mild narrowing of the central canal. Normal bilateral intervertebral neural foramina. C5-6: Endplate spondylosis. Central and paracentral disc bulge. Degenerative changes of the bilateral facet joints and uncovertebral joints. Mild narrowing of the central canal. Normal bilateral intervertebral neural foramina. C6-7: Endplate spondylosis. Central and paracentral disc herniation migrating upward 6 mm. Degenerative changes of the bilateral facet joints and uncovertebral joints. Mild narrowing of the central canal. Normal bilateral intervertebral neural foramina. C7-T1: Normal endplates. Normal disc height, signal and morphology. Normal central canal and intervertebral neural foramina. Normal cervical cord. Normal visualized soft tissue structures. MRI/Spine Cervical (Routine) IMPRESSION: Multilevel degenerative changes, as described above. Electronically Signed: Alvino Ramirez, at 11:56 EDT Tel , Service support ,
== END ==
PROVIDERS: PCP Family Medicine; Referring Provider Nurse Practitioner Acute Care; Visit Provider Nurse Practitioner Acute Care
DX: M50.30 Other cervical disc degeneration, unspecified cervical region (principal); M43.12 Spondylolisthesis, cervical region
CPT/HCPCS: 72141

== ENCOUNTER → 2020-02-20 13:02 | Outpatient (CLI) | payer MEDICARE, OTHER, SELFPAY ==
[2019-08-28 09:59] VITALS: BMI 25.7
--- NOTE | 2020-02-20 13:16 | BD_ITS ---
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 COMPARISON: None. FINDINGS: Lumbar Spine (L1-L4): g/cm2 (0.961) / T-score (-1.7) / Z-score (0.0) Findings are suggestive of osteopenia with a moderate fracture risk. Left Femur Total: g/cm2 (0.826) / T-score (-1.4) / Z-score (0.0) Left Femoral Neck: g/cm2 (0.764) / T-score (-2.0) / Z-score (-0.3) Right Femur Total: g/cm2 (0.813) / T-score (-1.5) / Z-score (-0.1) Right Femoral Neck: g/cm2 (0.827) / T-score (-1.5) / Z-score (0.1) BD/Dexa Bone Density Study IMPRESSION: The patient is considered osteopenic as outlined below according to World [employer] Organization (WHO) criteria with a moderate fracture risk. Reference Information: The T-score is the number of standard deviations above or below the standard which is normal for young adults at their peak bone mineral density. The World Health Organization (WHO) interprets the T-scores as follows: Above -1 Normal bone density Between -1 and -2.5 Osteopenia Equal to / or below -2.5 Osteoporosis As a practical clinical guideline, osteopenia may be graded as follows: Mild -1 through -1.5 Moderate -1.6 through -2.0 Severe -2.1 through -2.4 The Z-score is the number of standard deviations above or below age-matched controls. A Z-score of less than -1.5 would be considered abnormal. References: 1. NIH Osteoporosis and Related Bone Diseases http://www.osteo.org 2. International Society for Clinical Densitometry http://www.iscd.org 3. National Osteoporosis Foundation http://www.nof.org Electronically Signed: Miguel Huerta, at 15:43 EDT , Service support ,
== END ==
PROVIDERS: PCP Family Medicine; Referring Provider Orthopaedic Surgery; Visit Provider Orthopaedic Surgery
DX: M85.89 Other specified disorders of bone density and structure, multiple sites (principal); M43.12 Spondylolisthesis, cervical region
CPT/HCPCS: 77080

== ENCOUNTER 2020-04-08 16:25 | Inpatient (IN) | payer MEDICARE, OTHER, SELFPAY ==
[2019-08-28 09:59] VITALS: BMI 25.7
[2020-04-08 17:05] VITALS: BMI 26.2
[2020-04-08] MEDS: oxyCODONE 5 MG Tablet PO ×2 (17:19→21:46)
--- NOTE | 2020-04-08 17:20 | NURSING ---
On admission patient was pleasant and laughing with staff. Shortly after, when lying in the bed she became extremely painful rating her pain an 8 on 1-10 scale. Cervical neck collar in place and repositioned in bed. Patient then began to cry and anxiety noted. 1:! given. PRN pain med given at 171. Dr. Duval had been called regarding her home medication on the list the patient provided for anxiety that was Ativan and the hospital admission orders were for Klonopin. New order per for Ativan instead of Klonopin. Patient aware this nurse would provide her Ativan when available. Patient repeated, I can't stop crying. I do not know why I am so anxious.
[2020-04-08 17:45] VITALS: BP 143/66; PULSE 50; RESP 17; TEMP 36.4; O2SAT 96
[2020-04-08] MEDS: LORazepam 0.5 MG Tablet PO (18:19)
[2020-04-08 22:00] VITALS: BP 139/59; PULSE 55; RESP 16; TEMP 36.7; O2SAT 95
[2020-04-08] MEDS: Senna/Docusate Sodium 1 Tablet 2 TABLET PO (22:16)
[2020-04-08] MEDS: Acetaminophen 500 MG Tablet 1000 MG PO (22:16)
[2020-04-08] MEDS: tiZANidine HCl 2 MG Tablet 4 MG PO (22:16)
[2020-04-08] MEDS: Pramipexole Di-HCl 1 MG Tablet PO (22:16)
[2020-04-09] MEDS: Acetaminophen 500 MG Tablet 1000 MG PO ×2 (06:53→13:14)
[2020-04-09] MEDS: Levothyroxine 50 MCG Tablet PO (06:53)
[2020-04-09] MEDS: oxyCODONE 5 MG Tablet PO ×2 (06:55→13:17)
[2020-04-09 07:32] VITALS: O2SAT 96
[2020-04-09 07:57] LABS: Hemoglobin A1c 5.7 % (3.8-5.6)
[2020-04-09] MEDS: Enoxaparin 40 MG/0.4 ML Syringe SC (08:13)
[2020-04-09] MEDS: Senna/Docusate Sodium 1 Tablet 2 TABLET PO (08:14)
[2020-04-09] MEDS: Venlafaxine XR 75 MG Capsule PO (08:14)
[2020-04-09] MEDS: Aspirin 81 MG TAB.CHEW PO (08:14)
[2020-04-09] MEDS: tiZANidine HCl 2 MG Tablet 4 MG PO (08:21)
[2020-04-09 08:38] VITALS: BP 151/72; PULSE 56; RESP 16; TEMP 36.7; O2SAT 95
[2020-04-09] MEDS: Magnesium Hydroxide 30 ML UDC PO (09:26)
[2020-04-09 10:00] VITALS: PULSE 56
--- NOTE | 2020-04-09 10:23 | PCM.HP.STD ---
Problem List (1) Anxiety and depression Status: Chronic (2) Radiculopathy Status: Acute Qualifiers: Spinal region: lumbar Qualified Code(s): M54.16 - Radiculopathy, lumbar region Comment: LLE weakeness and pain with canal stenosis and L foraminal stenosis at L3-4 (3) Fecal incontinence Status: Acute (4) Urinary incontinence Status: Acute (5) History of fusion of cervical spine Status: Acute Comment: 03/06/20 C 3-6 (6) Irritable bowel Status: Chronic (7) History of lumbar spinal fusion Status: Chronic Comment: 2019 Left L4-5 hemilaminectomy (8) Foraminal stenosis of lumbar region Status: Acute Comment: L3-4 due to disc herniation with protrusion into the Left lateral recess (9) Lumbar spinal stenosis Status: Acute Comment: L3-4 moderate to severe (10) Barretts esophagus Status: Chronic (11) PVD (peripheral vascular disease) Status: Chronic (12) Essential hypertension Status: Chronic (13) Dyslipidemia Status: Chronic (14) LBBB (left bundle branch block) Status: Chronic (15) Hypothyroidism Status: Chronic (16) Hiatal hernia with GERD Status: Chronic (17) Restless leg syndrome Status: Chronic (18) Social phobia Status: Chronic (19) History of TIA (transient ischemic attack) Status: Chronic (20) History of colonic polyps Status: Chronic (21) Hyponatremia Status: Acute (22) Hyperglycemia, drug-induced Status: Acute (23) Lacunar infarction Status: Chronic Comment: R cerebellum History of Present Illness Date of Admission: 04/08/20 Chief Complaint: debility secondary to recent laminectomy with Left leg weakness Ms. Garcia is a 69 year old F with a PMH of HTN, HH with GERD and Lua's esophagus, Anxiety/depression/social phobia, colon polyps, Cervical fusion C3-6 on , IBS, PVD, hyperlipidemia, left bundle branch block, history of remote TIA with lacunar infarct in the right cerebellum and lumbar left ansley-laminectomy in 2019 at L4-5 who has been having urinary and fecal incontinence for 3 weeks associated with Left leg weakness/numbness and pain. She was recently admitted to [facility] and had MRI's of the Cervical, thoracic and lumbar spines and an MRI of the brain. MRI of the brain showed a old lacunar infarct in the right cerebellum and evidence of microangiopathic disease. Cervical MRI showed some edema in the C5 and C6 vertebrae but no canal stenosis and no significant foraminal stenosis. The thoracic MRI was unremarkable and the Lumbar MRI showed disc herniation at L3-4 with protrusion into the left lateral recess causing severe foraminal stenosis and moderate to severe canal stenosis. She was treated with IV Decadron and seen by PT/OT. There is weakness on the left of the flexors and extensors of the left foot, knee and hip. Inpt rehab was recommended and she was transferred to the IPRU at [facility] on 04/08/20 for 3 hours of therapy daily to restore her to her prior level of function. She has been using a walker since the lumber laminectomy a year ago. All paperwork was reviewed from the outside hospital including labs, all radiology reports, consults and therapy notes. The blood sugar is mildly elevated but, she has no hx of DM and the hyperglycemia is more likely than not due to Decadron. the med list from the hospital differs significantly from the med list the patient had in her purse. She tells me she has not fallen or injured herself recently. The pain in the left leg started suddenly one day when she was getting out of bed. The pain is involving the left buttock, left groin, left anterior thigh and the left lateral calf. The pain increases with weight bearing. She has to put her weight on the R buttock when sitting to help control the pain. She tells me it does not feel better with lying down but, the neck pain feels better with lying down. She has been on Gabapentin in the past, up to 600 mg at a time, with no significant relief of pain. The only thing that seems to help the pain for a short time is the narcotic and it makes her nauseated. Has not tried Lyrica or Elavil. She has been on the same dose of Effexor for years and does not feel like it does much for her. Past Medical History Past Medical History (Chronic Problems): Chronic Problems (Last Updated 11/08/19 @ 13:46 by Eileen Montanez) Anxiety and depression (Chronic) History of lumbar spinal fusion (Chronic) 2019 Left L4-5 hemilaminectomy Hiatal hernia with GERD (Chronic) Restless leg syndrome (Chronic) Social phobia (Chronic) History of TIA (transient ischemic attack) (Chronic) History of colonic polyps (Chronic) Lacunar infarction (Chronic) R cerebellum Barretts esophagus (Chronic) PVD (peripheral vascular disease) (Chronic) Essential hypertension (Chronic) Dyslipidemia (Chronic) Irritable bowel (Chronic) LBBB (left bundle branch block) (Chronic) Hypothyroidism (Chronic) Medical History: Medical History (Last Updated 11/08/19 @ 13:46 by Eileen Montanez) Barretts esophagus (Chronic) K22.70 PVD (peripheral vascular disease) (Chronic) I73.9 Essential hypertension (Chronic) I10 Dyslipidemia (Chronic) E78.5 Irritable bowel (Chronic) LBBB (left bundle branch block) (Chronic) I44.7 Hypothyroidism (Chronic) E03.9 CVA (cerebral vascular accident) I63.9 Cerebrovascular disease (Resolved) I67.9 Is post acute ischemic stroke in 2011, with residual left lower extremity weakness Hyperkalemia (Resolved) E87.5 Nausea & vomiting (Resolved) R11.2 Pain, dental (Resolved) K08.89 Palpitations (Resolved) R00.2 Vertigo (Resolved) R42 Weakness (Resolved) R53.1 Allergies lisinopril Adverse Reaction (Severe, Verified 11/08/19 13:38) High potassium, cough. atorvastatin calcium [From Lipitor] Adverse Reaction (Verified 08/28/19 10:01) legs ache Home Medications: Ambulatory Orders Medication Instructions Recorded Levothyroxine [Synthroid] 50 mcg PO DAILY 02/15/15 Aspirin [Aspirin, Baby] 81 mg PO DAILY@0800 04/08/20 Clonazepam [Klonopin] 2 mg PO BID PRN PRN 04/08/20 Lovastatin [Mevacor] 40 mg PO DAILY 04/08/20 Pramipexole Di-HCl [Mirapex] 1 mg PO QHS 04/08/20 Tizanidine HCl [Zanaflex] 4 mg PO Q8H PRN 04/08/20 Surgical History: Surgical History (Last Reviewed 08/28/19 @ 10:06 by Arlette Gomes) History of back surgery Z98.890 History of bladder surgery Z98.890 History of cholecystectomy Z90.49 History of esophageal dilatation Z98.890 History of hand surgery Z98.890 History of hysterectomy Z90.710 History of left knee surgery Z98.890 Hx of appendectomy Z90.49 Surgical History: appendectomy, cholecystectomy, colectomy, hysterectomy, - - Left L4 hemilaminectomy in 2019, Cervical fusion C3-6, varicose vein surgery in 1979 Psychiatric History: 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 [employer] History: No pertinent [employer] history Smoking Status: Never smoker Tobacco Use: Non-smoker Alcohol: None - *Family History Maternal Family History: Family History (Last Reviewed 04/09/20 @ 11:[address] Sheba Duval DO) Father CVA (cerebral vascular accident) Mother Myocardial infarction, Onset Age: 84 Brother Myocardial infarction, Onset Age: 52 Sister CAD (coronary artery disease) Sister CAD (coronary artery disease) Sister CAD (coronary artery disease) History Items: No pertinent history Paternal Family History: Family History (Last Reviewed 04/09/20 @ 11:[address] Sheba Duval DO) Father CVA (cerebral vascular accident) Mother Myocardial infarction, Onset Age: 84 Brother Myocardial infarction, Onset Age: 52 Sister CAD (coronary artery disease) Sister CAD (coronary artery disease) Sister CAD (coronary artery disease) History Items: No pertinent history Review of Systems Constitutional: Reports: Anorexia - states she is nauseated a lot and she does not feel like eating, Weakness, - - she has insomnia and has difficulty falling asleep because she can not get comfortable. When she does fall alseep she can not stay asleep for more than a few hours and she feels exhausted all the time.. Denies: Chills, Fever, Weight Change Eyes: Denies: Blurred vision HEENT: Denies: Difficulty Swallowing, Head Aches, Sinus Congestion, Sinus Drainage, Sore Throat Cardiovascular: Reports: - - she used to have a problem with vertigo but, states it resolved after the neck surgery. Denies: Chest Pain, Edema, Light Headedness, Palpitations Respiratory: Denies: Cough, Shortness of breath at rest, Sputum production Gastrointestinal: Reports: Constipation, Dyspepsia, Nausea. Denies: Abdominal Pain, Diarrhea, Vomiting Genitourinary: Reports: Incontinence. Denies: Dysuria, Urgency Gynecological: Denies: Breast symptoms, Vaginal discharge Musculoskeletal: Reports: Neck Pain - due to recent cervical fusion, - - she has painin the left buttock, left groin, L thigh and the left lateral calf. Also c/o numbness in these areas.. Denies: Joint Pain, Joint Tenderness Skin: Denies: Jaundice, Rash, Wounds Neurological: Denies: Change in Speech, Slurred speech, Confusion, Focal weakness, Headaches, Numbness, Tingling, Tremor, Seizures Psychiatric: Denies: Anxiety, Depression, Homicidal Ideations, Suicidal Ideations Endocrine: Denies: Change in Body Habitus Hematologic/ Lymphatic: Denies: Easy Bruising, Easy Bleeding, Hx of blood clot VTE Information - Inpt Only VTE Present on Admission: No VTE Mechan Device Prophylaxis: Knee High KATIE Hose VTE Pharm Prophylaxis ordered?: Yes Patient Problems: Active and Suspected Problems (Last Updated 11/08/19 @ 13:46 by Eileen Montanez) Radiculopathy (Acute) LLE weakeness and pain with canal stenosis and L foraminal stenosis at L3-4 Fecal incontinence (Acute) Urinary incontinence (Acute) History of fusion of cervical spine (Acute) 03/06/20 C 3-6 Foraminal stenosis of lumbar region (Acute) L3-4 due to disc herniation with protrusion into the Left lateral recess Lumbar spinal stenosis (Acute) L3-4 moderate to severe Hyponatremia (Acute) Hyperglycemia, drug-induced (Acute) - Physical Exam Vitals/I&O's: Vital Signs Temp Pulse Resp BP Pulse Ox 98.1 F 56 L 16 151/72 H 95 04/09/20 08:38 04/09/20 08:38 04/09/20 08:38 04/09/20 08:38 04/09/20 08:38 Oxygen Delivery Method Room Air Weight: 157 lb 3.033 oz Body Mass Index (BMI) 26.2 Finger Stick Blood Glucose 94 Intake and Output for Last 24 Hours 04/07/20 04/08/20 04/09/20 23:59 23:59 23:59 Intake Total 120 / 120 240 / 240 Output Total 250 / 250 Balance -130 / -130 240 / 240 General: Alert, Oriented x3, Cooperative, - - sitting in the recliner and putting all her weight on the right buttock HEENT: Atraumatic, PERRLA, EOMI, Normocephalic Oral: Dry Mucosa Neck: Supple, No JVD Lungs: Clear to auscultation, Normal air movement, No rhonchi, No wheeze, No rales Cardiovascular: Regular rate, Regular Rhythm, Normal S1, Normal S2, No murmurs, No Ectopic Activity, No rub noted, No Gallop Abdomen: Bowel Sounds Present, Soft, Non Tender, Non-Distended Extremities: No clubbing, No cyanosis, No edema, Peripheral Pulses Normal Skin: No rashes, No breakdown Musculoskeletal: No Tenderness to Palpation of Joints or Extremities, No Muscle Wasting, Arthritic Changes Neurological: Cranial nerves II-XII grossly intact, - - She has brisk patellar and brigida's reflexes in both Legs. When testing her ability to plantar flex and dorsiflex the left foot she is weak with both both but...she will press down on my hand and plantar flex but then very quickly she releases and says I can't Psych/Mental Status: Appropriate, Flat Affect - seems overwhelmed and fatigued. she is pleasant and polite and cooperative with questioning. Laboratory Results 04/09/20 06:14: Hemoglobin A1c 5.7 H Current Medications Acetaminophen (Tylenol) 1,000 mg PO Q8 [facility] Last Admin: 04/09/20 06:53 Dose: 1,000 mg Documented by: Aspirin (Aspirin, Baby) 81 mg PO DAILY@0800 [facility] Last Admin: 04/09/20 08:14 Dose: 81 mg Documented by: Bisacodyl (Dulcolax) 10 mg RECTAL .PRN X 1 PRN PRN Reason: Constipation Enoxaparin Sodium (Lovenox) 40 mg SC DAILY@0600 [facility] Last Admin: 04/09/20 08:13 Dose: 40 mg Documented by: Levothyroxine Sodium (Synthroid) 50 mcg PO DAILY@0600 [facility] Last Admin: 04/09/20 06:53 Dose: 50 mcg Documented by: Lorazepam (Ativan) 0.5 mg PO DAILY PRN PRN Reason: ANXIETY Last Admin: 04/08/20 18:19 Dose: 0.5 mg Documented by: Lovastatin (Mevacor) 40 mg PO QHS [facility] Last Admin: 04/08/20 22:44 Dose: 40 mg Documented by: Magnesium Hydroxide (Milk Of Magnesia) 30 ml PO .PRN X 1 PRN PRN Reason: Constipation Last Admin: 04/09/20 09:26 Dose: 30 ml Documented by: Oxycodone HCl (Oxyir) 5 mg PO Q4H PRN PRN PRN Reason: Pain Score 6-10/10 Last Admin: 04/09/20 06:55 Dose: 5 mg Documented by: Pramipexole Dihydrochloride (Mirapex) 1 mg PO QHS [facility] Last Admin: 04/08/20 22:16 Dose: 1 mg Documented by: Senna/Docusate Sodium (Senokot-S, Wen-Colace) 2 tablet PO BID [facility] Last Admin: 04/09/20 08:14 Dose: 2 tablet Documented by: Tizanidine HCl (Zanaflex) 4 mg PO Q8H PRN PRN PRN Reason: Muscle Spasm Last Admin: 04/09/20 08:21 Dose: 4 mg Documented by: Venlafaxine HCl (Effexor Xr) 75 mg PO DAILY [facility] Last Admin: 04/09/20 08:14 Dose: 75 mg Documented by: Assessment/Plan All Active Problems (Last Updated 11/08/19 @ 13:46 by Eileen Montanez) Radiculopathy (Acute) Fecal incontinence (Acute) Urinary incontinence (Acute) History of fusion of cervical spine (Acute) Foraminal stenosis of lumbar region (Acute) Lumbar spinal stenosis (Acute) Hyponatremia (Acute) Hyperglycemia, drug-induced (Acute) Abdominal pain (Resolved) Atypical chest pain (Resolved) Cerebrovascular disease (Resolved) Hyperkalemia (Resolved) Influenza (Resolved) Nausea & vomiting (Resolved) Pain, dental (Resolved) Palpitations (Resolved) Vertigo (Resolved) Weakness (Resolved) Impressions 1. Physical debility due to acute/subacute herniation of the L3-4 disc with lateral protrusion into the left lateral recess causing severe foraminal stenosis and moderate to severe canal stenosis. I feel the sx involving the L leg are exacerbated by uncontrolled depression. 2. Undertreated depression - very flat affect and seems dejected. She has cried several times in the rehab unit already and then decompensates. She is not sleeping well and she is not eating and states she has no appetite. On only a small dose of Effexor. She is on Ativan for anxiety but, she does not present as being anxious.......more consistent with depression. 3. L3-4 disc herniation with lumbar canal stenosis and L foraminal stenosis causing radiculopathy 4. Recent C 3-6 cervical fusion - doing well 5. Hyperglycemia more likely than not due to IV Decadron recently......was not on steroids at the time she arrived in the rehab unit. 6. fecal and urinary incontinence recently........could conceivably be related to constipation with large fecal burden on XRAYs done at the outside hospital. 7. IBS 8. Chronic conditions: Hypertension/GERD/hiatal hernia/history of Lua's esophagus/lumbar hemilaminectomy at L4 in 2019/hypertension/hypothyroidism/restless leg syndrome/history of colon polyps/remote history of right cerebellar lacunar infarct PLAN PT for gait stability OT for ADL's Analgesics as needed - will limit addictive medications as much as possible. Try Elavil for radicular pain since she has failed Gabapentin in the past. Schedule Tylenol. Bowel protocol - MOM, Dulcolax 10 mg PO and a Dulcolax suppository today........Check a KUB in the AM Fall precautions Assess for Anxiety/Depression - consult to evaluate, she needs therapy and not just medication. Will increase the Effexor to 150 mg daily in the AM treat GERD and Lua's with Protonix 20 mg BID DVT prophylaxis with Lovenox 40 mg subcu daily Follow up with Dr. Darnell Gutierrez and Dr. Torres Townsend following DC from IP Rehab AM lab including CMP, CBC, Mag and Phos, TSH and T4 straight cath for UA and if indicated a urine culture Start amlodipine 2.5 mg daily for BP control There is a big difference in the med list from the outside hospital and the list the pt carries in her purse. will request most current med list from Dr. Townsend. Start a medrol dosepak Reinforced with Catha that she must be able to do 3 hours of therapy daily while in rehab or we will need to transfer her to another facility if she can not go home Inpatient E&M: 44122 Init Hosp L3
--- NOTE | 2020-04-09 10:24 | PCM.RU.PYE ---
Admission Information Primary Diagnosis:: Physical debility due to recent disc herniation/protrusion of the L3-4 disc causing moderate to severe lumbar canal stenosis and severe formainal stenosis at the left lateral recess causing weakness and numbness of the LLE and radicular pain involving the L buttock, anterior thigh, groin and the left lateral calf Status Changes from Prescreening?: Medical - I think depression is contributing to her pain significantly and she will benefit from better management of depression. Actual Problem List:: Pain, ALteration in Cmfrt, Depression, Bladder Incontinence, Bowel, Incontinence, Bowel, Constipation, Alteration in Sleep, Alteration in Nutrition, Mobility Impaired, BP, Hypertension, Alteration-Leisure Activ. Potential Problem List:: DVT, Bleeding, Infection, UTI, Aspiration, Falls, Skin Integrity, Depression Risk of Complications DVT: LMWH, KATIE Hose Bleeding: Monitor Lab Values, Nursing to Teach Precautions for anti-coagulation therapy., Wound, if applicable, to be assessed every shift., Stroke patients assessed for lethargy or change in status. Infection: Clinical Staff to Monitor for S/S of infection:, S/S of infection include fever, redness, warmth, etc. Urinary Tract Infection: Monitor for frequency, burning, discomfort, or incontinence., Nursing will obtain urine sample for urinalysis and C&S when ordered. Aspiration: Clinical staff will monitor for coughing, drooling, congestion., Speech will evaluate swallowing and dsyphasia., Nursing will monitor patient swallowing during meals. Falls: Patient will be evaluated for Fall Precautions, Patient will be placed on Fall Precautions as indicated per protocol. Skin Breakdown: Nursing will assess skin daily using assessment tool., Nursing will place on Skin Breakdown Precautions as indicated. Pain: Clinical staff will assess patient's pain level per protocol., Medications will be given, if needed, and the pain level reassessed., Other methods: Massage, distraction, decrease stimulus, etc. used PRN. Plan of Care Patient requires physician specializing in physical medicine and rehab oversight to provide close medical supervision of rehab issues including: Pain Management, Sleep Problems, Bowel and Bladder, Medical and co-morbidity Management, DVT prophylaxis, Rehabilitation Leadership, Coordination of treatment team Patient needs Physical Therapy: For a minimum of 1 hour, At least 5 out of 7 days Patient needs Physical Therapy to improve:: Mobility, Mobility, Mobility, Strengthening, Transfers, Stretching, ROM, Endurance, Stairs, Gait, Balance Patient needs Occupational Therapy: For a minimum of 1 hour, At least 5 out of 7 days Patient needs Occupational Therapy to improve ADL's incl.: Eating, Grooming, Bathing, Dressing, Toileting, Toilet transfers, Community Reintegration, Higher functioning activities, Household tasks, Adaptive Equipment, Splinting, Other activities as determined Patient requires 24/7 Rehabilitation Nursing for: Pain Issues, Identifying and preventing risk factors, Monitoring and reporting current medical conditions, Assisting with ambulation, transfer, and all ADL's, Teaching patients about disease process and medications, Family teaching, Providing safe environment, Bowel and Bladder Issues, Skin integrity, Medication Management Patient needs Piano Regulator Inspector/ Case Management for: Discharge Planning, Arranging Home Equipment or Services, Family Interventions Patient needs Dietary and Nutrition Services for: Adequate Nutrition, Nutritional Supplements, Nutritional Education Goals Patient will remain: free from falls, or injury at time of discharge. Patient will perform bed mobility at: MOD I level of assist. Patient will complete transfers from bed to chair at: MOD I level of assist. Patient will ambulate: 100 feet, with MOD I assist, with LRD Patient will complete upper body dressing at: MOD I level of assist. Patient will complete lower body dressing at: MOD I level of assist. Patient will complete toileting at: MOD I level of assist. Patient will perform bathing at: MOD I level of assist. Patient will complete grooming at: MOD I level of assist. Patient will complete home management skills at: MOD I level of assist. Patient will achieve: 12 stairs, at MOD I assist Patient will have pain level of: of 3 or less Patient's skin will: remain intact, free from infection. Patient will receive: adequate nutrition. Discharge Planning Pt Prognosis for Sig. Practical Improv. w/in Reasonable Time: Good Estimated Length of stay (days): 10 Anticipated D/C Destination: Home with Outpt Therapy Was Preadmission Assessment Accurate?: Yes
[2020-04-09] MEDS: LORazepam 0.5 MG Tablet PO (13:14)
[2020-04-09] MEDS: amLODIPine 2.5 MG Tablet PO (13:14)
--- NOTE | 2020-04-09 14:00 | NURSING ---
med record release form fax to Dr Torres Townsend to current med list p/Dr Duval request
[2020-04-09] MEDS: Bisacodyl 5 MG Tablet 10 MG PO (14:47)
[2020-04-09] MEDS: Bisacodyl 10 MG Suppository RECTAL (14:47)
[2020-04-09] MEDS: MethylPREDNISolone DosePak 4 MG BOX PO ×2 (17:08→21:26)
[2020-04-09 21:15] VITALS: BP 139/84; PULSE 62; RESP 16; TEMP 36.7
[2020-04-09] MEDS: Pantoprazole Sodium 20 MG Tablet PO (21:25)
[2020-04-09] MEDS: Amitriptyline 25 MG Tablet PO ×2 (21:26)
--- NOTE | 2020-04-09 21:35 | NURSING ---
pt was feeling warm and sweaty earlier and ambulated to the br and had a large loose bm. pt continued to feel warm pt returned to bed and a hs medications given, pt became nauseated and had a small emesis and refused to take the tylenol this evening. staff unsure if elavil stayed down this evening
[2020-04-10 04:37] LABS: Bacteria 0 SEEN /hpf (None Seen); Mucous, Urine 0 SEEN /hpf (<or=2+); Red Blood Cells-Urine 0 SEEN /hpf (0-5); Squamous Epithelial Cells - UA 0 SEEN /hpf (5-10); White Blood Cells 0 SEEN /hpf (0-5)
[2020-04-10 04:39] LABS: Color, Urine Yellow (Yellow); Glucose, Dipstick Normal (Normal); Ketone-Dipstick Negative (Negative); Leukocyte Esterase-Dipstick Negative /ul (Negative); Nitrite-Dipstick Negative (Negative); Occult Blood-Urine Negative /ul (Negative); Protein-Dipstick Negative (Negative); Urine Bilirubin Dipstick Negative (Negative); Urine Clarity Clear (Clear); Urine Urobilinogen Normal (Normal)
--- NOTE | 2020-04-10 04:39 | NURSING ---
0430 urine obtained for ua and c&s pt tolerated procedure well, but did question staff several times why she had to have this done. reassurance given with fair effect.
--- NOTE | 2020-04-10 04:54 | NURSING ---
Reviewed and agree with FEEDER LOADER documentation and charting.
[2020-04-10] MEDS: Enoxaparin 40 MG/0.4 ML Syringe SC (05:10)
[2020-04-10] MEDS: Levothyroxine 50 MCG Tablet PO (05:11)
[2020-04-10 06:11] LABS: Absolute Lymphocyte Count 1.84 X10^3/uL (0.83-4.51); Absolute Neutrophil Count 4.2 X10^3/uL (2.0-7.7); Basophil# 0.01 X10^3/uL; Basophil% 0.2 % (0-1); Hematocrit 41.2 % (37-47); Hemoglobin 12.9 g/dL (12.0-15.0); Lymphocyte # 1.84 X10^3/ul (4.0); Lymphocyte % 28.3 % (19-41); Mean Corp Hgb Conc 31.3 g/dL (32-36); Mean Corpuscular Hgb 27.6 pg (27.0-32.0); Mean Platelet Vol. 9.9 fl (6.2-12.0); Monocyte# 0.44 X10^3/uL; Monocyte% 6.8 % (0-10); NRBC Flagged by Analyzer 0 % (0-5); Neutrophil % 64.4 % (47-70); Platelet Count 218 K/mm3 (150-450); RBC Distribution Width CV 15.3 % (11.6-14.6); RBC Distribution Width SD 49.3 fl (35.1-43.9); Red Blood Count 4.68 M/mm3 (4.2-5.4); White Blood Count 6.5 K/mm3 (4.4-11.0)
[2020-04-10 06:47] LABS: ALB/GLOB Ratio 0.9 RATIO (0.9-2.4); AST(SGOT) 28 U/L (15-37); Alanine Aminotransfer ALT/SGPT 39 U/L (13-56); Albumin, Serum 3.4 g/dL (3.2-5.0); Alkaline Phosphatase 140 U/L (45-117); Anion Gap 8 (5-15); BUN 20 mg/dL (7-18); BUN/Creat Ratio 23.8 RATIO (10-20); Calcium,Total 8.9 mg/dL (8.5-10.1); Chloride 101 mmol/L (98-107); Creatinine, Serum 0.84 mg/dL (0.55-1.02); EST Glomerular Filtration Rate 71 mL/min (>60); Est Glom Filt Rate - Afr Amer 86 mL/min (>60); Estimated Creatinine Clearance 56.88 ml/min; Globulin 3.7 g/dL (2.2-4.2); Glucose 103 mg/dL (74-106); Magnesium 2.1 mg/dL (1.6-2.6); Phosphorus 2.8 mg/dL (2.5-4.9); Potassium 4.2 mmol/L (3.5-5.1); Protein, Total 7.1 g/dL (6.4-8.2); Sodium Level 134 mmol/L (136-145); T4 Free Direct 1.31 ng/dL (0.76-1.46); Thyroid Stim Hormone (TSH) 2.31 uIU/mL (0.358-3.74)
[2020-04-10 06:49] VITALS: O2SAT 95
[2020-04-10] MEDS: Aspirin 81 MG TAB.CHEW PO (07:58)
[2020-04-10] MEDS: Pantoprazole Sodium 20 MG Tablet PO ×2 (07:58→20:41)
[2020-04-10] MEDS: amLODIPine 2.5 MG Tablet PO (07:58)
[2020-04-10] MEDS: MethylPREDNISolone DosePak 4 MG BOX PO ×4 (07:58→20:40)
[2020-04-10] MEDS: Senna/Docusate Sodium 1 Tablet 2 TABLET PO ×2 (07:58→20:40)
[2020-04-10 08:07] VITALS: BP 127/68; PULSE 77; RESP 17; TEMP 36.7; O2SAT 99
--- NOTE | 2020-04-10 18:49 | NURSING ---
this nurse entered pt's room to find her in the restroom. pt removed PA and self transferred. reeducated pt on the need to call for assistance for her safety. pt voiced understanding.
[2020-04-10 19:24] VITALS: BP 141/80; PULSE 91; RESP 18; TEMP 36.6; O2SAT 97
[2020-04-10] MEDS: Amitriptyline 25 MG Tablet PO (20:40)
[2020-04-10 20:45] VITALS: PULSE 91; RESP 18; O2SAT 97
[2020-04-11] MEDS: Levothyroxine 50 MCG Tablet PO (05:34)
[2020-04-11] MEDS: Enoxaparin 40 MG/0.4 ML Syringe SC (05:34)
[2020-04-11 06:59] VITALS: O2SAT 96
[2020-04-11 07:51] VITALS: BP 139/86; PULSE 63; RESP 18; TEMP 36.5; O2SAT 94
[2020-04-11] MEDS: MethylPREDNISolone DosePak 4 MG BOX PO ×4 (07:54→22:46)
[2020-04-11] MEDS: amLODIPine 2.5 MG Tablet PO (07:55)
[2020-04-11] MEDS: Pantoprazole Sodium 20 MG Tablet PO ×2 (07:55→22:45)
[2020-04-11] MEDS: Aspirin 81 MG TAB.CHEW PO (07:55)
[2020-04-11] MEDS: Senna/Docusate Sodium 1 Tablet 2 TABLET PO ×2 (07:56→22:45)
--- NOTE | 2020-04-11 10:27 | CASEMGMT ---
Social Work IDT met with patient for Team Meeting. Discussed patient's progress in therapy. Pt is SBA for transfers, set up/SBA for all ADLS, walking 120 ft with FWW at SBA. and using left arm more and gaining strength. Pt's pain is controlled and sleeping well. Mood has improved with several adjustments to medication. Physician made referral to Behavioral Health and they will be seeing pt on this date. SW to continue to follow as well. Pt is on steroids until 04/14 and physician recommending for pt to remain for a few days after stop date to ensure no adverse effects. Explained Medicare approved 12 days with EDC 04/20. Pt emotional when physician recommended pt not DC on this date as pt was requesting. Advised pt can leave at any time, but pt understands physicians recommendations and agreeable to remain. Spoke with pt and provided emotional support. Provided strategies to reframe mindset - pt responded well. Will continue to follow. Aleksandra Duenas, ANIMAL BIOLOGIST AUDIT CONSULTANT
--- NOTE | 2020-04-11 14:49 | BH.NOTE ---
: Inpatient Note - Notes Behavioral Health Inpatient Note: 04/11/20 14:[address] Duval due to depression, stress, and anxiety. Pt notes long-standing hx of anxiety and mild-moderate depression. Denies SI, plan, or intent. No hx of attempts. Cooperative. Smiling. Notes that she was sad earlier today as she learned she would be staying in the hospital for several more days. Engaged in conversation. Pt reports that she has had several medical and psychosocial stressors in the past several months which have impacted her emotional well-being and functioning (eating and sleeping). Struggling with loss of independence and adjusting to medical complications. Normalized her emotions. Strong support system. Able to identify coping skills to manage emotions. Insight into thinking patterns that are increasing anxiety and stress. Brief discussion on strategies for anxiety, stress, and depression. We discussed outpatient options for mental health treatment. Pt would be a good candidate for psychotherapy and appeared interested. We discussed local agencies which are currently providing telehealth. Pr provided a list and encouraged to call.
--- NOTE | 2020-04-11 19:22 | PCM.PN.BLA ---
Progress Note Lio was seen on TEAM rounds today. No family was available to participate via phone. Afebrile since admission Blood pressures have ranged from 127/68-130 9/86 since admission. Heart rate has ranged from 50 to 91 bpm. She is maintaining appropriate oxygen saturation on room air. Oral intake so far today is 1080. She is still not eating well but, her is bringing her [place] drinks which have a lot of calories. She was drinking protein drinks at home. I reviewed the dietitians consult. PT/OT notes were reviewed. Medication list was reviewed. UA was negative. Patient denies pain this morning. She had difficulty sleeping last night and I suspect this may be due to the Medrol. The radicular pain in the left leg has resolved. She feels that she is ready to go home today but, I explained that she may have recurrence of pain when the Medrol finishes on Wednesday....I suspect she also has some euphoria from the steroids. She was tearful again when I told her I think she should stay until Wednesday or Wednesday to see how she is going to do off Medrol. she was seen today by Luis from and he feels she may benefit from some therapy......he is going to see her again tomorrow and provided with a list of local agencies doing televisits with psychotherapy. She is interested in this. She is perseverating on the problems they are having in their basement and is anxious to go home and take care of this even though she just had surgery and now has radiculopathy of the LLE due to protrusion of Lumbbar disc in the the left lateral recess. Alert, oriented X 3, initially smiling until she realized we are recommending she stay until Wednesday or Wed to see how she will due after the steroids have been discontinued and then she was tearful ......If the pain recurs she may benefit from an epidural since the pain has improved significantly with Medrol. Lungs-clear to auscultation Heart-regular rate and rhythm Abdomen-soft, nontender, nondistended No peripheral edema, no calf tenderness No focal neurologic deficits Impressions 1. Physical debility due to acute/subacute herniation/disc protrusion at L3-4 with lateral protrusion into the left lateral recess causing severe foraminal stenosis and moderate to severe canal stenosis. Good improvement with Medrol and Elavil. She is on scheduled Tylenol but has not received any narcotics. 2. Anxiety with depression -overwhelmed with the stressors in her life for the past few months. Met with the behavioral health therapist today who recommends short-term psychotherapy and the patient is agreeable with this and will be provided with a list of local agencies providing telemedicine visits. 3. Decreased appetite with a few pounds weight loss which was unintended over the past 2 months. She drinks a lot of calories with [employer] drinks. She was taking a protein supplement at home and is willing to continue this. Appetite may improve with the addition of Elavil to her drug regimen. If the decreased appetite continues may consider changing Effexor which is known to decrease appetite to an antidepressant that would stimulate appetite. 4. No incontinence of stool or urine reported by the nursing staff -post void residuals were all 0 and the UA is negative for infection 5. Constipation-she had a bowel movement today on stool softeners daily continue therapy. Appreciate input from Inpatient E&M: [id number] [facility] Hosp L2
[2020-04-11 20:30] VITALS: BP 140/71; PULSE 83; RESP 16; TEMP 36.8; O2SAT 96
[2020-04-11] MEDS: Amitriptyline 25 MG Tablet 37.5 MG PO (22:47)
[2020-04-12] MEDS: Acetaminophen 500 MG Tablet 1000 MG PO ×2 (00:13→10:13)
[2020-04-12] MEDS: Enoxaparin 40 MG/0.4 ML Syringe SC (06:54)
[2020-04-12] MEDS: Levothyroxine 50 MCG Tablet PO (06:55)
[2020-04-12] MEDS: MethylPREDNISolone DosePak 4 MG BOX PO ×3 (08:03→21:32)
[2020-04-12] MEDS: Aspirin 81 MG TAB.CHEW PO (08:03)
[2020-04-12] MEDS: Pantoprazole Sodium 20 MG Tablet PO ×2 (08:04→21:31)
[2020-04-12] MEDS: Senna/Docusate Sodium 1 Tablet 2 TABLET PO (08:04)
[2020-04-12] MEDS: amLODIPine 2.5 MG Tablet PO (08:04)
[2020-04-12 09:14] VITALS: BP 129/76; PULSE 72; RESP 18; TEMP 36.8; O2SAT 95
--- NOTE | 2020-04-12 17:02 | CASEMGMT ---
Social Work Attempted to follow-up with pt the previous date and on this date but pt unavailable. Per staff reports, pt's mood is improved. Will continue to follow. Aleksandra Duenas, OCCUPATIONAL THERAPY ASSISTANT LAB ASST
--- NOTE | 2020-04-12 18:19 | PN_ITS ---
Progress Note I met with Lio and her in her room today. She is much calmer tonight and no longer tearful. When I explained that she needs to focus on her health at this point and not the basement she felt comforted. I also explained again why I want to keep her until at least Wednesday to see how the pain is going to be and if we need to consider an epidural if the pain is back in the LLE. We discussed the possibility of an epidural and what that entails. She is glad that she has options. I cautioned her against Bending, lifting and twisting since she has a protruding disc and radiculopathy LLE. No more than 5 lbs when lifting anything. OT is going to teach her how to use a sock aid to get her socks on. I showed her that you can use elastic shoe strings to avoid having to tie your shoes and bend over. She is c/o a sharp pain in the back that radiated down the left leg last night while in bed. She did not sleep well. She has pain with SLR on the left today but not until about 60 degrees. Lung -to auscultation Heart-regular rate and rhythm No peripheral edema No calf tenderness Impressions 1. Physical debility due to acute/subacute herniation/disc protrusion at L3-4 with lateral protrusion into the left lateral recess causing severe foraminal stenosis and radicular pain in the left lower extremity. Pain is much better with the Elavil and the Medrol but, I wonder if it will return as the steroids are tapered? 2. Insomnia - does not want to take Ativan and she slept 5 hours last night with the Elavil which is good for her recently. She had no hangover effect today 3. No further incontinence of stool or urine. 4. Recent Cervical fusion anteriorly Increase the Elavil to 37.5 mg nightly. Continue the increased dose of Effexor at 150 mg daily-no adverse reactions reported Continue to taper Medrol If the radicular pain in the left lower extremity gets worse with tapering of the Medrol will consult Dr. Craft and arrange for outpatient epidural Inpatient E&M: [id number] [facility] Hosp L2
[2020-04-12 19:25] VITALS: BP 145/90; PULSE 96; RESP 18; TEMP 36.8; O2SAT 99
[2020-04-12] MEDS: Amitriptyline 25 MG Tablet 37.5 MG PO (21:33)
--- NOTE | 2020-04-13 01:08 | NURSING ---
PT STATES THAT SHE FEELS SHE WILL BE UNABLE TO SLEEP IF SHE DOES NOT RECEIVE MEDICATION FOR HER RESTLESS LEGS WHICH SHE USES AT HOME (PRAMIPEXOLE DI-HCL). CALL PLACED TO DR PATEL WHO WILL ORDER MED FOR PT.
[2020-04-13] MEDS: Pramipexole Di-HCl 1 MG Tablet PO (01:19)
[2020-04-13] MEDS: Pramipexole Di-HCl 0.125 MG Tablet PO ×2 (01:39→22:05)
[2020-04-13] MEDS: Enoxaparin 40 MG/0.4 ML Syringe SC (05:55)
[2020-04-13] MEDS: Levothyroxine 50 MCG Tablet PO (05:55)
[2020-04-13 07:47] VITALS: BP 145/83; PULSE 72; RESP 12; TEMP 36.6; O2SAT 99
[2020-04-13] MEDS: MethylPREDNISolone DosePak 4 MG BOX PO ×2 (08:14→22:03)
[2020-04-13] MEDS: Senna/Docusate Sodium 1 Tablet PO ×2 (08:14→22:05)
[2020-04-13] MEDS: amLODIPine 2.5 MG Tablet PO (08:14)
[2020-04-13] MEDS: Aspirin 81 MG TAB.CHEW PO (08:14)
[2020-04-13] MEDS: Pantoprazole Sodium 20 MG Tablet PO ×2 (08:14→22:05)
[2020-04-13 19:52] VITALS: BP 146/88; PULSE 92; RESP 18; TEMP 36.8; O2SAT 98
--- NOTE | 2020-04-13 20:31 | NURSING ---
pt reported to the rn that she was having chest pain, pt became and her heart was beating fast then became tearful and sobbing. reassurance given with fair affect. pt given cool cloth for her face and staff continued to reassure pt. staff attempted to give pt her elavil , protonix and mirapex. 2029 rn requested to call the doctor and vs taken and were 126/57, 144, 96% on ra respiration were 32. pt reports that her heart rate keeps beating hard intermittenly, pt continues to sob and shaking. pt requested to sit on the side of the bed and then stand at the side of the bed. 2044 rn to the room and Doctor called and talked with pt and new orders received for xanax and a GI cocktail. 2049 xanax given and pt was given pill crushed in applesauce and given. currently waiting on gi cocktail from pharmacy 2104 pt resting in recliner and state the she feels that she has little electric shocks going through her body but is noted to be more calm
[2020-04-13] MEDS: ALPRAZolam 0.25 MG Tablet PO (20:50)
[2020-04-13] MEDS: Mag Hydrox/Al Hydrox/Simeth 30 ML UDC PO (21:13)
--- NOTE | 2020-04-13 21:13 | NURSING ---
7657 GI cocktail given and pt gagging after half was taken, will wait and attempt other half in few minutes
--- NOTE | 2020-04-13 21:20 | NURSING ---
pt finished GI contail and with gagging and staff encouraged pt to breathe through the gagging and did well .
[2020-04-13 22:00] VITALS: PULSE 107; RESP 18; O2SAT 98
[2020-04-13] MEDS: Amitriptyline 25 MG Tablet 37.5 MG PO (22:04)
--- NOTE | 2020-04-13 22:25 | NURSING ---
2200 pt returned to bed and is noted to be calmer, pt denied any pain but states she continues to have lightening jabs through her body . pt reports feeling tired and was able to take hs medications without difficulty, reassurance given that staff would be checking on her through out the night. pt declined to have lights left on when offered but room door open and curtain pulled back.
[2020-04-14] MEDS: Enoxaparin 40 MG/0.4 ML Syringe SC (05:16)
[2020-04-14] MEDS: Levothyroxine 50 MCG Tablet PO (05:16)
[2020-04-14 07:00] VITALS: BP 145/77; PULSE 82; RESP 16; TEMP 36.7; O2SAT 97
[2020-04-14] MEDS: ALPRAZolam 0.25 MG Tablet PO (07:55)
[2020-04-14] MEDS: Senna/Docusate Sodium 1 Tablet PO ×2 (07:55→20:59)
[2020-04-14] MEDS: MethylPREDNISolone DosePak 4 MG BOX PO (07:56)
[2020-04-14] MEDS: Aspirin 81 MG TAB.CHEW PO (07:56)
[2020-04-14] MEDS: amLODIPine 2.5 MG Tablet PO (07:57)
[2020-04-14] MEDS: Pantoprazole Sodium 20 MG Tablet PO ×2 (07:57→20:59)
--- NOTE | 2020-04-14 14:39 | PCM.PN.BLA ---
Progress Note Afebrile VSS Maintaining appropriate oxygen saturation on RA Oral intake is good Discussed with nursing -patient had a panic attack last night but, it resolved with Xanax 0.25 mg. Today she is calm and back to her baseline......still very emotional and gets tearful at times. She admitted to me what her trigger is. she lost a set of twins earlier in her life and has never really recovered. Her triggers to a panic attack are news of children's deaths.......yesterday she learned of 2 sisters age 12 and 14 that while laying in their hammock and having a pillar of bricks fall on them....and this was the trigger to last night's panic attack. She is very tearful when talking about this and has never told anyone what her trigger is. Today is father's day and she wonders if her grieves like she does......they have never talked about this. she has never been to therapy and did not really know what could be done to help her other than medications. She does not want to be reliant on medications. We talked about how a therapist could help her with triggers and how to keep from having a panic attack and how she can reframe how she responds to triggers. the father of the children who in the tragic accident after a pillar fell on them had this to say, I knew that I would have to lose them at some point, it is the cycle of life and this resonated with Patriciayudy. She would be willing to try psychotherapy and she was given a list of local counselling agencies....I also explained that I could make a couple suggestions. Reviewed the PT/OT notes Medication list reviewed. She was taken off the SSRI's, Celexa and Lexapro, from the outside hospital and we did not start the SNRI right away due to possibility of serotonin S. With the hx of panic attacks she may do better on a straight SSRI rather than Effexor due to the potential of the Effexor to increase anxiety. Alert, oriented X 3, appropriate, emotional when talking about hard things. I reassured her that this is normal and cathartic. Lung - CTA HRRR abd - soft NT ND no calf tenderness Denies radicular pain in the LLE today she is having some pain in the trapezius muscles at the base of the neck Impressions 1. Physical debility due to acute/subacute herniation/disc protrusion at L3-4 with lateral protrusion into the left lateral recess causing severe foraminal stenosis and radicular pain in the left lower extremity. Pain is much better with the Elavil and the Medrol but, I wonder if it will return as the steroids are tapered? Today is the last day of the medrol......will know soon 2. Insomnia - does not want to take Ativan and she slept 5 hours last night with the Elavil which is good for her recently. She had no hangover effect. 3. No further incontinence of stool or urine. 4. Recent Cervical fusion anteriorly 5. generalized anxiety with panic attacks. Responds well to the Xanax for panic attack. Interested in trying psychotherapy. Agreeable to trying a straight SSRI rather than an SNRI 6. mild HTN Start Sertraline Continue the Xanax PRN DC the amlodipine and start a beta lillian for stress induce tachycardia and elevated BP. Inpatient E&M: [id number] [facility] Hosp L2
--- NOTE | 2020-04-14 15:30 | NURSING ---
up and ambulated around halls with walker and standby assist, tolerated well
[2020-04-14] MEDS: Sertraline 50 MG Tablet PO (16:21)
[2020-04-14 20:45] VITALS: BP 149/85; PULSE 97; RESP 18; TEMP 36.7; O2SAT 97
[2020-04-14] MEDS: Amitriptyline 25 MG Tablet 37.5 MG PO (20:59)
[2020-04-14] MEDS: Pramipexole Di-HCl 0.125 MG Tablet PO (20:59)
[2020-04-15] MEDS: Levothyroxine 50 MCG Tablet PO (05:14)
[2020-04-15] MEDS: Enoxaparin 40 MG/0.4 ML Syringe SC (05:15)
[2020-04-15] MEDS: Capsaicin 0.025% 1 APPLIC Tube TOPICAL (05:20)
[2020-04-15 06:30] LABS: Mean Corp Hgb Conc 31.7 g/dL (32-36); Mean Corpuscular Hgb 27.3 pg (27.0-32.0); Mean Corpuscular Volume 86.1 fL (81-99); Mean Platelet Vol. 9.6 fl (6.2-12.0); Platelet Count 280 K/mm3 (150-450); RBC Distribution Width SD 50.3 fl (35.1-43.9); Red Blood Count 4.76 M/mm3 (4.2-5.4); White Blood Count 6.9 K/mm3 (4.4-11.0)
[2020-04-15 06:53] LABS: Anion Gap 7 (5-15); BUN 16 mg/dL (7-18); BUN/Creat Ratio 16.5 RATIO (10-20); Calcium,Total 8.9 mg/dL (8.5-10.1); Chloride 106 mmol/L (98-107); Creatinine, Serum 0.97 mg/dL (0.55-1.02); EST Glomerular Filtration Rate 60 mL/min (>60); Est Glom Filt Rate - Afr Amer 73 mL/min (>60); Estimated Creatinine Clearance 49.25 ml/min; Glucose 104 mg/dL (74-106); Potassium 3.8 mmol/L (3.5-5.1); Sodium Level 139 mmol/L (136-145)
[2020-04-15 08:07] VITALS: PULSE 82
[2020-04-15] MEDS: Pantoprazole Sodium 20 MG Tablet PO ×2 (08:07→20:06)
[2020-04-15] MEDS: Senna/Docusate Sodium 1 Tablet PO ×2 (08:07→20:06)
[2020-04-15] MEDS: Aspirin 81 MG TAB.CHEW PO (08:07)
[2020-04-15] MEDS: Metoprolol(XL)Succ 25 MG Tablet PO (08:07)
[2020-04-15] MEDS: Sertraline 50 MG Tablet PO (08:08)
[2020-04-15 08:23] VITALS: BP 160/77; PULSE 82; RESP 18; TEMP 36.9; O2SAT 95
[2020-04-15 19:33] VITALS: BP 155/93; PULSE 80; RESP 16; TEMP 37.2; O2SAT 95
[2020-04-15 20:00] VITALS: PULSE 80; RESP 16; O2SAT 95
[2020-04-15] MEDS: Amitriptyline 25 MG Tablet 37.5 MG PO (20:05)
[2020-04-15] MEDS: Pramipexole Di-HCl 0.125 MG Tablet PO (20:06)
--- NOTE | 2020-04-16 03:36 | NURSING ---
Reviewed and agree with [facility] documentation and charting.
[2020-04-16] MEDS: Levothyroxine 50 MCG Tablet PO (06:03)
[2020-04-16] MEDS: Enoxaparin 40 MG/0.4 ML Syringe SC (06:03)
[2020-04-16 07:27] VITALS: BP 138/71; PULSE 69; RESP 16; TEMP 37.2; O2SAT 97
[2020-04-16 07:42] VITALS: PULSE 69
[2020-04-16] MEDS: Pantoprazole Sodium 20 MG Tablet PO ×2 (07:42→21:18)
[2020-04-16] MEDS: Senna/Docusate Sodium 1 Tablet PO ×2 (07:42→21:17)
[2020-04-16] MEDS: Aspirin 81 MG TAB.CHEW PO (07:42)
[2020-04-16] MEDS: Sertraline 50 MG Tablet PO (07:42)
[2020-04-16] MEDS: Metoprolol(XL)Succ 25 MG Tablet PO (07:42)
--- NOTE | 2020-04-16 14:08 | CASEMGMT ---
Social Work Patient doing well and requesting to DC 04/17. IDT agreeable. Requesting outpatient therapy at [facility] PT/OT. No DME needs. Pt stated family can assist with transportation. Plan: DC home home 04/17 with [facility] PT/OT ROSALIO PowellW
--- NOTE | 2020-04-16 16:08 | DCINST_ITS ---
- Discharge Diagnoses Current Active Problems: Current Active and Chronic Problems (Last Updated 11/08/19 @ 13:46 by Eileen Montanez) Anxiety and depression (Chronic) Radiculopathy (Acute) LLE weakeness and pain with canal stenosis and L foraminal stenosis at L3-4 Fecal incontinence (Acute) Urinary incontinence (Acute) History of fusion of cervical spine (Acute) 03/06/20 C 3-6 History of lumbar spinal fusion (Chronic) 2019 Left L4-5 hemilaminectomy Foraminal stenosis of lumbar region (Acute) L3-4 due to disc herniation with protrusion into the Left lateral recess Lumbar spinal stenosis (Acute) L3-4 moderate to severe Hiatal hernia with GERD (Chronic) Restless leg syndrome (Chronic) Social phobia (Chronic) History of TIA (transient ischemic attack) (Chronic) History of colonic polyps (Chronic) Hyponatremia (Acute) Hyperglycemia, drug-induced (Acute) Lacunar infarction (Chronic) R cerebellum You will use the following diet at home:: Cardiac - low fat and low salt Your food should be the consistency of: Regular Your liquids should be the consistency of: Regular/Thin Discharge Activity: May Shower, - - No bending, lifting or twisting. Do the exercises given to you by the therapists 2 times a day. Do not sit for longer than 1-2 hours without getting up and taking a short walk and stretching. Weight Bearing Status: Full weight bearing Call your doctor if your incision/area has: Continuous Slow Oozing, Sudden Increased Bleeding, Increased Pain/ Swelling, Increased Redness, Foul Smelling Discharge, Swelling at the incision site Call your doctor if you observe: Fever of 101 or Higher, Numbness or Tingling, Inability to urinate, Inability to have a bowel movement, Shortness of breath, Dizziness, Fainting spells, Swelling in the ankles, Chest pain, Increased palpitations (irregular heartbeat), Calf discomfort, Uncontrolled pain Cleanse incision/area with: Soap & Water Instructions: Understanding Panic Disorder (Panic Attack), Treating Panic Disorder (Panic Attack) with Therapy Additional Instructions: 1. You have anxiety with panic attacks. Panic attacks can be disabling BUT, the good news that with medication and psychotherapy they can be well controlled and sometimes with good thewrapy you can get off the medication completely. Effexor (also called Venlafaxine) can increase anxiety and Efffexor can also decrease appetite. With the panic attacks I think you would be better off on Zoloft (also called Sertraline) which treats both anxiety and depression but, does not increase the anxiety or the BP. You were placed on Sertraline in the hospital and you have had no side effects. 2. Take time for yourself and make yourself a priority! If you try and do toomuch over the next 12 weeks you are not going to heal well and you will increase the time to recovery. 3. [facility] does not take your insurance so Roxane made you an appt with another therapist in the same office. 4. Take the Xanax (Alprazolam) only for panic attacks. 5. I have placed you on a medication at bedtime called amitriptyline (also called Elavil). This medication is for nerve pain. It also helps you sleep at night. It can make your mouth dry and can also cause constipation so you may need to keep a glass of water at the bedside at night and use a stool softener like Metamucil, Citracel or Miralax. 6. Dr. Craft is a painter aircraft. I think you may be needing his help in the future so larry made you an appt to get acquainted. 7. I spoke to the pharmacist who makes the creams to use for muscle spasm and arthritic pain and is making you a cream for discharge. I gave you 2 refills if it works well for you and you want to keep using it. 8. It was a pleasure meeting you Patriciaa. I very much enjoyed talking with you and so did the rest of the staff. If you have any questions after you go home my office number is [phone] and the nursing station is [phone]. My cell number is [phone]. Allergies/Adverse Reactions: Allergies lisinopril Adverse Reaction (Severe, Verified 11/08/19 13:38) High potassium, cough. atorvastatin calcium [From Lipitor] Adverse Reaction (Verified 08/28/19 10:01) legs ache Medications to take at Discharge Levothyroxine [Synthroid] 50 mcg PO DAILY 02/15/15 Aspirin [Aspirin, Baby] 81 mg PO DAILY@0800 04/08/20 Lovastatin [Mevacor] 40 mg PO DAILY 04/08/20 Pramipexole Di-HCl [Mirapex] 0.125 mg PO QHS 04/13/20 ALPRAZolam [Xanax] 0.25 mg PO Q8H PRN PRN #20 tablet 04/16/20 Acetaminophen [Tylenol] 1,000 mg PO Q8H PRN PRN tablet 04/16/20 Amitriptyline HCl [Elavil] 37.5 mg PO QHS #45 tab 04/16/20 Metoprolol(XL)Succ [Toprol Xl (Beta Melissa)] 25 mg PO BID #60 tab 04/16/20 Sertraline HCl [Zoloft] 50 mg PO DAILY #30 tab 04/16/20 The following prescriptions were given: Amitriptyline HCl [Elavil] 37.5 mg PO QHS #45 tab Transmission Status: Pending to [facility] Metoprolol(XL)Succ [Toprol Xl (Beta Melissa)] 25 mg PO BID #60 tab Transmission Status: Pending to [facility] ALPRAZolam [Xanax] 0.25 mg PO Q8H PRN PRN #20 tablet PRN Reason: Anxiety Transmission Status: Sent to [facility] Sertraline HCl [Zoloft] 50 mg PO DAILY #30 tab Transmission Status: Pending to [facility] Primary Care Physician: Torres Townsend III, MD [Primary Care Provider] - Test Results: Test results from this visit will be discussed in further detail at your follow- up appointment, if applicable. Please Follow Up With: Kodak Gutierrez DO Proposed Discharge Date: 04/17/20
--- NOTE | 2020-04-16 16:40 | PCM.DC.SUM ---
Discharge Date and Diagnosis - Problem List Patient Problems: Active and Suspected Problems (Last Updated 11/08/19 @ 13:46 by Eileen Montanez) Panic attacks (Acute) Radiculopathy (Acute) LLE weakeness and pain with canal stenosis and L foraminal stenosis at L3-4 History of fusion of cervical spine (Acute) 03/06/20 C 3-6 Foraminal stenosis of lumbar region (Acute) L3-4 due to disc herniation with protrusion into the Left lateral recess Lumbar spinal stenosis (Acute) L3-4 moderate to severe Date of Admission: 04/08/20 Date of Discharge: 04/17/20 - Primary Discharge Diagnosis Acute Problems: Active Problems (Last Updated 11/08/19 @ 13:46 by Eileen Montanez) Radiculopathy (Acute) LLE weakness and pain with lumbar canal stenosis and L foraminal stenosis at L3-4 History of fusion of cervical spine (Acute) 03/06/20 C3-C6 Foraminal stenosis of lumbar region (Acute) L3-4 due to disc herniation with protrusion into the Left lateral recess Lumbar spinal stenosis (Acute) L3-4 moderate to severe Suspected Problems: Zenkers diverticulum - needs a barium esophagram - Secondary Discharge Diagnosis Chronic Problems: Chronic Problems (Last Updated 11/08/19 @ 13:46 by Eileen Montanez) Anxiety and depression (Chronic) with Panic attacks (Acute) History of lumbar spinal fusion (Chronic) 2019 Left L4-5 hemilaminectomy Hiatal hernia with GERD (Chronic) Restless leg syndrome (Chronic) Social phobia (Chronic) History of TIA (transient ischemic attack) (Chronic) History of colonic polyps (Chronic) Lacunar infarction (Chronic) R cerebellum Barretts esophagus (Chronic) PVD (peripheral vascular disease) (Chronic) Essential hypertension (Chronic) Dyslipidemia (Chronic) Irritable bowel (Chronic) LBBB (left bundle branch block) (Chronic) Hypothyroidism (Chronic) Hospital Course and Treatment Imaging Results: Laboratory Last Values WBC 6.9 K/mm3 (4.4-11.0) 04/15/20 06:16 RBC 4.76 M/mm3 (4.2-5.4) 04/15/20 06:16 Hgb 13.0 g/dL (12.0-15.0) 04/15/20 06:16 Hct 41.0 % (37-47) 04/15/20 06:16 MCV 86.1 fL (81-99) 04/15/20 06:16 MCH 27.3 pg (27.0-32.0) 04/15/20 06:16 MCHC 31.7 g/dL (32-36) L 04/15/20 06:16 RDW Std Deviation 50.3 fl (35.1-43.9) H 04/15/20 06:16 RDW Coeff of Leslie 16.0 % (11.6-14.6) H 04/15/20 06:16 Plt Count 280 K/mm3 (150-450) 04/15/20 06:16 MPV 9.6 fl (6.2-12.0) 04/15/20 06:16 Immature Gran % (Auto) 0.300 % (0.0-0.9) 04/10/20 06:04 Neut % (Auto) 64.4 % (47-70) 04/10/20 06:04 Lymph % (Auto) 28.3 % (19-41) 04/10/20 06:04 Lumpkin % (Auto) 6.8 % (0-10) 04/10/20 06:04 Eos % (Auto) 0.0 % (0-5) 04/10/20 06:04 Baso % (Auto) 0.2 % (0-1) 04/10/20 06:04 Absolute Neuts (auto) 4.2 X10^3/uL (2.0-7.7) 04/10/20 06:04 Absolute Lymphs (auto) 1.84 X10^3/uL (0.83-4.51) 04/10/20 06:04 Nucleated RBC % 0 % (0-5) 04/10/20 06:04 Sodium 139 mmol/L (136-145) 04/15/20 06:16 Potassium 3.8 mmol/L (3.5-5.1) 04/15/20 06:16 Chloride 106 mmol/L (98-107) 04/15/20 06:16 Carbon Dioxide 26.0 mmol/L (21.0-32.0) 04/15/20 06:16 Anion Gap 7 (5-15) 04/15/20 06:16 BUN 16 mg/dL (7-18) 04/15/20 06:16 Creatinine 0.97 mg/dL (0.55-1.02) 04/15/20 06:16 Estim Creat Clear Calc 49.25 ml/min 04/15/20 06:16 Est GFR (MDRD) Af Amer 73 mL/min (>60) 04/15/20 06:16 Est GFR (MDRD) Non-Af 60 mL/min (>60) 04/15/20 06:16 BUN/Creatinine Ratio 16.5 RATIO (10-20) 04/15/20 06:16 Glucose 104 mg/dL (74-106) 04/15/20 06:16 Hemoglobin A1c 5.7 % (3.8-5.6) H 04/09/20 06:14 Calcium 8.9 mg/dL (8.5-10.1) 04/15/20 06:16 Phosphorus 2.8 mg/dL (2.5-4.9) 04/10/20 06:04 Magnesium 2.0 mg/dL (1.6-2.6) 04/15/20 06:16 Total Bilirubin 0.30 mg/dL (0.20-1.00) 04/10/20 06:04 AST 28 U/L (15-37) 04/10/20 06:04 ALT 39 U/L (13-56) 04/10/20 06:04 Alkaline Phosphatase 140 U/L (45-117) H 04/10/20 06:04 Total Protein 7.1 g/dL (6.4-8.2) 04/10/20 06:04 Albumin 3.4 g/dL (3.2-5.0) 04/10/20 06:04 Globulin 3.7 g/dL (2.2-4.2) 04/10/20 06:04 Albumin/Globulin Ratio 0.9 RATIO (0.9-2.4) 04/10/20 06:04 TSH 2.31 uIU/mL (0.358-3.74) 04/10/20 06:04 Free T4 1.31 ng/dL (0.76-1.46) 04/10/20 06:04 Urine Color Yellow (Yellow) 04/10/20 04:30 Urine Clarity Clear (Clear) 04/10/20 04:30 Urine pH 8.0 (5.0 - 8.0) 04/10/20 04:30 Ur Specific Norris 1.010 (1.002-1.030) 04/10/20 04:30 Urine Protein Negative mg/dl (Negative) 04/10/20 04:30 Urine Glucose (UA) Normal mg/dl (Normal) 04/10/20 04:30 Urine Ketones Negative mg/dl (Negative) 04/10/20 04:30 Urine Occult Blood Negative /ul (Negative) 04/10/20 04:30 Urine Nitrite Negative (Negative) 04/10/20 04:30 Urine Bilirubin Negative mg/dL (Negative) 04/10/20 04:30 Urine Urobilinogen Normal mg/dl (Normal) 04/10/20 04:30 Ur Leukocyte Esterase Negative /ul (Negative) 04/10/20 04:30 Urine RBC 0 SEEN /hpf (0-5) 04/10/20 04:30 Urine WBC 0 SEEN /hpf (0-5) 04/10/20 04:30 Ur Squamous Epith Cells 0 SEEN /hpf (5-10) 04/10/20 04:30 Urine Bacteria 0 SEEN /hpf (None Seen) 04/10/20 04:30 Urine Mucus 0 SEEN /hpf (<or=2+) 04/10/20 04:30 Luis Fritz from [facility] Operations: None, - Procedures: None Summary of Care Provided: Ms. Garcia is a 69 year old F with a PMH of HTN, HH with GERD and Lua's esophagus, Anxiety/depression/social phobia/panic attacks, colon polyps, Cervical fusion C3-6 on , IBS, PVD, hyperlipidemia, left bundle branch block, history of remote TIA with lacunar infarct in the right cerebellum and Left lumbar ansley-laminectomy in 2019 at L4-5 who had been having urinary and fecal incontinence for 3 weeks associated with Left leg weakness/numbness and pain. She was recently admitted to [facility] and had MRI's of the Cervical, thoracic and lumbar spines and an MRI of the brain. MRI of the brain showed a old lacunar infarct in the right cerebellum and evidence of microangiopathic disease. Cervical MRI showed some edema in the C5 and C6 vertebrae but no canal stenosis and no significant foraminal stenosis. The thoracic MRI was unremarkable and the Lumbar MRI showed disc herniation at L3-4 with protrusion into the left lateral recess causing severe foraminal stenosis and moderate to severe canal stenosis. She was treated with IV Decadron and seen by PT/OT. There was weakness on the left of the flexors and extensors of the left foot, knee and hip. Inpt rehab was recommended and she was transferred to the IPRU at [facility] on 04/08/20 for 3 hours of therapy daily to restore her at or near her prior level of function. She has been using a walker since the lumber laminectomy a year ago. At presentation to the rehab unit she was still having pain in the left left and she was started on a medrol dosepak and amitriptyline at bedtime. This significantly improved the pain and she no longer had fecal or urinary incontinence. The Elavil also helped with chronic insomnia. The first night in the rehab unit she had a panic attack. She was taken off Effexor which can increase anxiety and started on Sertraline. Ativan was discontinued due to the long onset of action and she was ordered Xanax 0.25 mg Q 8H as needed for panic attacks. She had a second panic attack a few days prior to DC and the Xanax worked well for her. she was able to identify the trigger for the panic attack. We discussed psychotherapy with her and she had never had therapy. She did not even know that what she has been having was called a panic attack. She was agreeable to seeing a therapist and prior to DC an appt was made for her to be seen at the [facility]. She did well with therapy. Prior to DC she ambulated on many different surfaces with the and also ambulated 100 ft X3 with a straight cane and contact guard assist. She was doing her bathing, toileting and dressing at [place] with no assistance. She did c/o some left neck and L trapezius pain and stiffness while in rehab and it improved somewhat with Zostrix. Prior to DC she was given a cream for the pain compounded by the retail pharmacist containing Voltaren, Baclofen and lidocaine which is to be used 2-3 times per day PRN. Appts were made for her with Dr. Craft, Dr. Darnell Gutierrez DO and psychotherapy prior to DC. She mentioned that she is having difficulty swallowing for several years and it comes and goes. Some times she regurgitates a whole pill an hour or so after taking it and sometimes she regurgitates undigested food. This sounds like a possible Zenker's diverticulum and I suggested she talk with her PCP about a barium esophagram. She was discharged on 04/17/20 in good condition on medications previously listed. She will be getting OP PT/OT at [facility]. She was able to recite to me her restrictions.....no bending, lifting or twisting. she will continue wearing the soft collar as needed and always when in the car. She is not allowed to drive until she is released to do so by the surgeon, Dr. Darnell Gutierrez. Alert, oriented X 3, appropriate, emotional when talking about hard things. I reassured her that this is normal and cathartic. She tells me that she had the best night sleep she has had in quite a long time last night. Lung - CTA HRRR without MM or Gallop abd - soft NT ND nl BS's no calf tenderness no edema Denies radicular pain in the LLE today She is having some pain in the trapezius muscles at the base of the neck, L>R This note was generated with [employer] dictation software. It may contain incorrect words, spelling, and punctuation that were not noted in checking the note before signing. Patient Problems: Active and Suspected Problems (Last Updated 11/08/19 @ 13:46 by Eileen Montanez) Panic attacks (Acute) Radiculopathy (Acute) LLE weakeness and pain with canal stenosis and L foraminal stenosis at L3-4 History of fusion of cervical spine (Acute) 03/06/20 C 3-6 Foraminal stenosis of lumbar region (Acute) L3-4 due to disc herniation with protrusion into the Left lateral recess Lumbar spinal stenosis (Acute) L3-4 moderate to severe - Physical Exam Vitals/I&O's: Vital Signs Temp Pulse Resp BP Pulse Ox 99.0 F 69 16 138/71 H 97 04/16/20 07:27 04/16/20 07:42 04/16/20 07:27 04/16/20 07:27 04/16/20 07:27 Oxygen Delivery Method Room Air Weight: 151 lb 10.848 oz Body Mass Index (BMI) 26.2 Finger Stick Blood Glucose 94 Intake and Output for Last 24 Hours 04/14/20 04/15/20 04/16/20 23:59 23:59 23:59 Intake Total 960 / 960 240 / 240 Balance 960 / 960 240 / 240 Current Medications Acetaminophen (Tylenol) 1,000 mg PO Q8H PRN PRN PRN Reason: Pain Score 1-10/10 Last Admin: 04/12/20 10:13 Dose: 1,000 mg Documented by: Alprazolam (Xanax) 0.25 mg PO Q8H PRN PRN PRN Reason: ANXIETY Last Admin: 04/14/20 07:55 Dose: 0.25 mg Documented by: Amitriptyline HCl (Elavil) 37.5 mg PO QHS [facility] Last Admin: 04/15/20 20:05 Dose: 37.5 mg Documented by: Aspirin (Aspirin, Baby) 81 mg PO DAILY@0800 [facility] Last Admin: 04/16/20 07:42 Dose: 81 mg Documented by: Bisacodyl (Dulcolax) 10 mg RECTAL .PRN X 1 PRN PRN Reason: Constipation Capsaicin (Zostrix) 1 applic TOPICAL TID PRN PRN; Protocol PRN Reason: pain in the joints or muscles Last Admin: 04/15/20 05:20 Dose: 1 applicatio Documented by: Enoxaparin Sodium (Lovenox) 40 mg SC DAILY@06 [facility] Last Admin: 04/16/20 06:03 Dose: 40 mg Documented by: Levothyroxine Sodium (Synthroid) 50 mcg PO DAILY@0600 [facility] Last Admin: 04/16/20 06:03 Dose: 50 mcg Documented by: Lovastatin (Mevacor) 40 mg PO QHS [facility] Last Admin: 04/15/20 20:06 Dose: 40 mg Documented by: Magnesium Hydroxide (Milk Of Magnesia) 30 ml PO .PRN X 1 PRN PRN Reason: Constipation Last Admin: 04/09/20 09:26 Dose: 30 ml Documented by: Metoprolol Succinate (Toprol Xl (Beta Melissa)) 25 mg PO DAILY [facility] Last Admin: 04/16/20 07:42 Dose: 25 mg Documented by: Pantoprazole Sodium (Protonix) 20 mg PO BID [facility] Last Admin: 04/16/20 07:42 Dose: 20 mg Documented by: Pramipexole Dihydrochloride (Mirapex) 0.125 mg PO QHS [facility] Last Admin: 04/15/20 20:06 Dose: 0.125 mg Documented by: Senna/Docusate Sodium (Senokot-S, Wen-Colace) 1 tablet PO BID [facility] Last Admin: 04/16/20 07:42 Dose: 1 tablet Documented by: Sertraline HCl (Zoloft) 50 mg PO DAILY [facility] Last Admin: 04/16/20 07:42 Dose: 50 mg Documented by: Discharge Activity: May Shower, - - No bending, lifting or twisting. Do the exercises given to you by the therapists 2 times a day. Do not sit for longer than 1-2 hours without getting up and taking a short walk and stretching. Weight Bearing Status: Full weight bearing Call your doctor if your incision/area has: Continuous Slow Oozing, Sudden Increased Bleeding, Increased Pain/ Swelling, Increased Redness, Foul Smelling Discharge, Swelling at the incision site Call your doctor if you observe: Fever of 101 or Higher, Numbness or Tingling, Inability to urinate, Inability to have a bowel movement, Shortness of breath, Dizziness, Fainting spells, Swelling in the ankles, Chest pain, Increased palpitations (irregular heartbeat), Calf discomfort, Uncontrolled pain Cleanse incision/area with: Soap & Water Home Medications: Medications to take at Discharge Levothyroxine [Synthroid] 50 mcg PO DAILY 02/15/15 Aspirin [Aspirin, Baby] 81 mg PO DAILY@0800 04/08/20 Lovastatin [Mevacor] 40 mg PO DAILY 04/08/20 Pramipexole Di-HCl [Mirapex] 0.125 mg PO QHS 04/13/20 ALPRAZolam [Xanax] 0.25 mg PO Q8H PRN PRN #20 tab 04/16/20 Acetaminophen [Tylenol] 1,000 mg PO Q8H PRN PRN tab 04/16/20 Amitriptyline HCl [Elavil] 37.5 mg PO QHS #45 tab 04/16/20 Metoprolol(XL)Succ [Toprol Xl (Beta Melissa)] 25 mg PO BID #60 tab 04/16/20 Sertraline HCl [Zoloft] 50 mg PO DAILY #30 tab 04/16/20 Following Prescrptions Were Given to Patient: Amitriptyline HCl [Elavil] 37.5 mg PO QHS #45 tab Transmission Status: Received by [facility] Metoprolol(XL)Succ [Toprol Xl (Beta Melissa)] 25 mg PO BID #60 tab Transmission Status: Received by [facility] ALPRAZolam [Xanax] 0.25 mg PO Q8H PRN PRN #20 tab PRN Reason: Anxiety Transmission Status: Received by [facility] Sertraline HCl [Zoloft] 50 mg PO DAILY #30 tab Transmission Status: Received by [facility] Primary Care Physician: Torres Townsend III, MD [Primary Care Provider] - Please Follow Up With: Kodak Gutierrez, DO Please Follow Up With: Valdez Craft MD Please Follow Up With: Michele Vallecillo MD Please Follow Up With: [facility] Patient Instructions: Understanding Panic Disorder (Panic Attack), Treating Panic Disorder (Panic Attack) with Therapy Disposition: Home - with OP therapy at [facility] Minutes spent on discharge:: 45 Patient Condition:: Good Medical Necessity - Tobacco Use Smoking Status: Never smoker Tobacco Use: Non-smoker Meaningful Use Info Meaningful Use Diagnoses (Choose all that apply): None applicable Inpatient E&M: [id number] [facility]
[2020-04-16 19:39] VITALS: BP 145/88; PULSE 90; RESP 16; TEMP 37.2; O2SAT 98
[2020-04-16] MEDS: Amitriptyline 25 MG Tablet 37.5 MG PO (21:18)
[2020-04-16] MEDS: Pramipexole Di-HCl 0.125 MG Tablet PO (21:18)
[2020-04-17] MEDS: ALPRAZolam 0.25 MG Tablet PO (03:02)
[2020-04-17] MEDS: Enoxaparin 40 MG/0.4 ML Syringe SC (05:04)
[2020-04-17] MEDS: Levothyroxine 50 MCG Tablet PO (05:04)
[2020-04-17 08:43] VITALS: BP 123/84; PULSE 87; RESP 16; TEMP 36.9; O2SAT 97
[2020-04-17] MEDS: Metoprolol(XL)Succ 25 MG Tablet PO (08:43)
[2020-04-17] MEDS: Pantoprazole Sodium 20 MG Tablet PO (08:44)
[2020-04-17] MEDS: Aspirin 81 MG TAB.CHEW PO (08:44)
[2020-04-17] MEDS: Sertraline 50 MG Tablet PO (08:44)
[2020-04-17] MEDS: Senna/Docusate Sodium 1 Tablet PO (08:44)
[2020-04-17 09:59] VITALS: BP 123/84; PULSE 87; RESP 16; TEMP 36.9; O2SAT 97
--- NOTE | 2020-04-17 10:00 | NURSING ---
Discharged home with . Discharge instructions, medications and appointments reviewed with pt and . Denies questions or concerns
== END 2020-04-17 10:00 | disposition home or self-care (01) | DRG 552 ==
PROVIDERS: Admitting Provider Internal Medicine; PCP Family Medicine; Visit Provider Internal Medicine
DX: M51.16 Intervertebral disc disorders with radiculopathy, lumbar region (principal); F32.9 Major depressive disorder, single episode, unspecified; F40.10 Social phobia, unspecified; F41.0 Panic disorder [episodic paroxysmal anxiety]; M48.061 Spinal stenosis, lumbar region without neurogenic claudication; K58.9 Irritable bowel syndrome, unspecified; Z98.1 Arthrodesis status; E78.5 Hyperlipidemia, unspecified; I10 Essential (primary) hypertension; K21.9 Gastro-esophageal reflux disease without esophagitis; K44.9 Diaphragmatic hernia without obstruction or gangrene; I73.9 Peripheral vascular disease, unspecified; E03.9 Hypothyroidism, unspecified; G25.81 Restless legs syndrome; Z86.73 Personal history of transient ischemic attack (TIA), and cerebral infarction without residual deficits; R32 Unspecified urinary incontinence; R15.9 Full incontinence of feces; Z87.19 Personal history of other diseases of the digestive system; R73.9 Hyperglycemia, unspecified
CPT/HCPCS: 36415; 80048; 80053; 81001; 83036; 83735; 84100; 84439; 84443; 85025; 85027; 93005; 97110; 97116; 97162; 97166; 97530; 97535; 97802; 99251; G0463

== ENCOUNTER 2020-04-24 09:30 | Outpatient (RCR) | payer MEDICARE, OTHER, SELFPAY ==
[2019-08-28 09:59] VITALS: BMI 25.7
--- NOTE | 2020-04-02 12:40 | HP.PTEVAL_ITS ---
Patient's Visit Information JEAN KRUSE is a 69 year old F referred to Physical Therapy by Dr. Kodak Gutierrez DO with a diagnosis of S/P ACDF C3-6 03/06/20. Date of Evaluation: 04/02/20 Physical Therapist: Josy Chavez, PT, Cert MDT - Visit Plan Frequency: 2-3x /Week Duration: 4-6 Weeks Plan: NO LIFTING, NO REACHING OVER-HEAD WITH BOTH ARMS AT THE SAME TIME - WORK ON UE ROM ONE ARM AT A TIME GENTLY, NO TURNING HEAD INITIALLY, NO RUNNING. BEGIN WITH CERVICAL ISOMETRICS. ADVANCE CERVICAL ROM TOLERATED AFTER 3 WKS. WEAN FROM CERVICAL COLLAR TOLERATED. WALKING PROGRAM ON LEVEL SURFACES. POSTURE CORRECTION/STRENGTHENING, INSTRUCTION IN APPROPRIATE BODY MECHANICS AND ACTIVITY MODIFICATIONS. MIKE UE ROM, STRETCHING AND STRENGTHENING. HEP INSTRUCTION. - Subjective DIAGNOSIS: 4 WKS PO ACDF 03/06/20. Work/Leisure: RETIRED. Present symptoms: NECK AND MIKE SHLD PAIN. LEFT ARM PAIN TO ELBOW. NO NUMBNESS OR TINGLING. Present since: CHRONIC NECK PAIN PRIOR TO SURGERY. Pain Scale: Worst - 9/10 (TAKING NECK COLLAR OFF TO SHOWER) Least - 0/10. Currently: 5. Commenced as a result of: NO APPARENT REASON (PATIENT REPORTS DR. GUTIERREZ SAID HER NECK WAS DEFORMED WHEN SHE WAS BORN). Worse: TAKING COLLAR OFF, DOING ANYTHING. Better: RESTING. Disturbed sleep: YES. Previous history/Previous treatment: PAIN MGMT - MARCIN'S, PHYSICAL THERAPY, CHIROPRACTOR. This episode: ACDF 03/06/20. Dizziness: NO. Tinnitis: ONCE IN A WHILE. Nausea: YES (NORMAL FOR ME). Shortness of Breath: NO. Difficulty Swollowing: YES - NOT GETTING WORSE AND NOT GETTING BETTER. Gait: LIMPING ON LLE. PATIENT HAS LEFT TKR SURGERY PEN ISABEL WHEN SHE IS READY. ABOUT A WEEK AGO LEFT GROIN PAIN STARTED FOR NO APPARENT REASON AND IS CAUSING PATIENT TO LIMP. PATIENT REPORTS SHE WAS WALKING JUST FINE BEFORE THE LEFT GROIN PAIN STARTED BUT NOW SHE IS USING THE WALKER AT HOME AGAIN BECAUSE SHE IS AFRAID HER LEFT LEG IS GOING TO GIVE OUT. THIS PT RECOMMENDED PATIENT NOTIFY HER NECK SURGEON OF THIS NEW GROIN PAIN. Accidents: NO. Unexplained weight loss: NO. Imaging: POST OP X-RAYS DONE AT DR. GUTIERREZ'S OFFICE - PATIENT REPORTS THE SAID HE IS SO THANKFUL AND RELIEVED THAT THINGS ARE HOLDING GOOD. PMH/Recent major surgery: ARTHRITIS ESPECIALLY EFFECTING BACK, NECK, KNEES. OSTEOPENIA. LEFT BUNDLE BLOCK IN HEART. 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 TIA X 2. OTHER: PATIENT REPORTS SHE HASN'T HAD ANY TROUBLE WITH HER INCISION. STATES SHE ENDED UP BEING IN THE HOSPITAL 5 DAYS BUT JUST AN OVER-NIGHT WAS ORIGINALLY PLANNED. PATIENT REPORTS INCREASED HOSPITAL STAY DUE TO SEVERE NECK PAIN AND THROAT SWELLING. - Objective Sitting Posture/Standing Posture: POOR. Other Observations: SLOW INDEP GAIT INTO PT WITHOUT ASSISTIVE DEVICE LIMPING ON LLE. INDEP TRANSFERS SIT TO STAND AND REVERSE BUT SLOW AND DIFFICULT. Motor deficit: MMT NOT PERFORMED BUT PATIENT HAS FULL ACTIVE ROM OF MIKE ELBOWS, FOREARMS, WRISTS AND HANDS (RIGHT MIDDLE TRIGGER FINGER). Sensory deficit: MIKE UE LIGHT TOUCH SENSATION INTACT AND SYMMETRICAL. ROM deficit: RIGHT MIDDLE FINGER TRIGGER FINGER OTHER RIGHT SHLD ACTIVE ELEVATION TO 120 DEG, LEFT 95 DEG. Reflexes: GOOD MIKE UE DTR'S. Dural Signs: POSITIVE LEFT UE. Cervical Mvmt Loss: NT. Postural strength: POOR. Palpation: INCISION LOOKS GOOD WITHOUT ANY SIGNS OF INFECTION. MIKE UPPER TRAP INCREASED MUSCLE TONE. OTHER: PATIENT IS NOT ABLE TO DON AND DOFF NECK COLLAR INDEP'LY AND IT IS DIFFICULT FOR HER. THIS PT ASSISTED PATIENT GET BRACE BACK ON. PATIENT REPORTS THAT SO FAR SHE IS ONLY TAKING THE COLLAR OFF LONG ENOUGH TO SHOWER. TREATMENT: NEUROMUSCULAR REEDUCATION - RETRAINING OF MVMT AND POSTURE FOR SITTING, LYING AND STANDING ACTIVITIES. - Goals Goal 1:: DECREASE C/O NECK, MIKE SHOULDER AND LEFT UE PAIN Goal Time Frame: 6-8 Weeks Goal 2:: IMPROVE PERSONAL CARE, LIFTING, READING, SLEEP, WORK, DRIVING AND RECREATIONAL FUNCTION. Goal Time Frame: 6-8 Weeks Goal 3:: INSTRUCT IN PROPHYLAXIS Goal Time Frame: 6-8 Weeks - Anticipated Interventions Patient/Client Instruction: Educate patient on: Condition, Plan of Care, Risk Factors, Benefits of Fitness Program For the Purpose of:: To improve self management Therapeutic Exercise to Include: Strength training, Body mechanics, Postural training, Flexibilty training, Neuromotor development, Active ROM, Scapular Strength/Stabilization For the Purpose of:: To decrease pain, To increase ROM, To improve muscle performance and motor function, To increase tolerance to activity/condition/position, To improve performance and independence with ADL's, To improve ability of physical actions for home/community/work/leisure Thank you for the opportunity to evaluate your patient. For Medicare and Medicare HMO plans, please review the plan of care and approve it. It will need to be FAXED BACK to us at [phone] for Medicare purposes. For Medicare only, by signing this I certify the plan of care. Please let me know if there are questions or concerns regarding this plan of care. Physician Signature: Date:
--- NOTE | 2020-04-24 12:10 | HP.PTREVAL_ITS ---
Dr. Garcia Gutierrez, DO, It has been my pleasure to treat JEAN KRUSE over the last 3 visits for S/P ACDF C3-6 03/06/20. Please see the progress note below for an update on the physical therapy plan of care! Subjective: PATIENT REPORTS THAT ON WednesdayMarch SHE STARTED HAVING LEFT LEG PAIN. SHE REPORTS IT WAS IN HER GROIN AND SHOOTING DOWN HER LEG TO HER TOE. THEY ADMITTED HER FROM WEDNESDAY TO WEDNESDAY THE SHE WAS TRANSFERRED TO [facility] FOR A WEEK. SHE REPORTS SHE WAS WALKING FINE WHEN SHE LEFT REHAB. SHE STATES THEY DID AN MRI OF HER LOWER SPINE AND FOUND SHE HAS ANOTHER DISC THAT IS BAD AND SHE HAS SWELLING PINCHING THE NERVE. SHE REPORTS THAT SINCE SHE HAS COME HOME FROM REHAB (A WK AGO March) HER LITTLE PUPPY IS CHASING HER LEG WHILE DOING HER EX'S ON THE FLOOR AND WEDNESDAY HER LEFT GROIN PAIN STARTED AGAIN GOING DOWN HER LEG. SHE REPORTS SHE HAS NOT CALLED THE DOCTOR SINCE THE PAIN RE- STARTED. SHE REPORTS SHE HAS JUST BEEN TRYING TO CONTINUE HER EX'S SLOWER AND LESS OF THEM. SHE REPORTS SHE WAS PAINFREE WHEN SHE LEFT REHAB BUT NOW SHE CAN BARELY WALK AND GETS 8/10 PAIN TRYING TO WALK. CHRONIC LEFT KNEE PAIN CONTINUES (KNEE REPLACEMENT NEEDED). ONLY ON TYLONOL NEEDED RIGHT NOW. TYLONOL ONLY IN REHAB PER PATIENT REPORT. PAIN SHOTS IN [facility]. STATES THAT AT FIRST COULD NOT EVEN LIFT LEFT LEG BUT BY THE TIME SHE LEFT SHE FELT LIKE SHE WAS DOING GREAT. PATIENT REPORTS THAT OVER-ALL SHE FEELS HER NECK IS DOING GREAT. 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 STATES SHE IS NOT CONCERNED ABOUT HER NECK AT THIS POINT IT IS HER LEG SHE IS CONCERNED ABOUT. Objective/Function: THIS PATIENT AMBULATES INTO PT VERY SLOWLY HOLDING ON TO HER . SHE IS UPPER EXTREMITY DEPENDENT TO TRANSFER FROM SIT TO STAND AND REVERSE. TRANSFERS ARE VERY GUARDED. SHE ONLY ABLE TO WALK ABOUT 100 FEET VERY SLOWLY WITH VERY SHORT MIKE STRIDE LENGTH HANGING ON TO HER . THE MORE SHE MOVES THE MORE SHE HURTS. THIS PT ADVISED CONTACTING DR. GARCIA GUTIERREZ TO UPDATE HIM ON NEW SYMPTOMS. PATIENT IS AGREEABLE. PATIENT WILL CALL TO SCHEDULE PT WHEN/IF OK'D BY DR. GUTIERREZ. PATIENT REPORTS DR. SEMENTI DID ORDER PAIN MGMT AND [facility] IS PENDING WEDNESDAY. PATIENT MAY BE BETTER CANDIDATE FOR PT INCONJUNCTION WITH PAIN MGMT. Plan Plan: HOLD PT PENDING PHYSICIAN RE-ASSESSMENT. PATIENT AGREEABLE. Goals Goal 1:: DECREASE C/O NECK, MIKE SHOULDER AND LEFT UE PAIN Goal Time Frame: 6-8 Weeks Goal 2:: IMPROVE PERSONAL CARE, LIFTING, READING, SLEEP, WORK, DRIVING AND RECREATIONAL FUNCTION. Goal Time Frame: 6-8 Weeks Goal 3:: INSTRUCT IN PROPHYLAXIS Goal Time Frame: 6-8 Weeks Anticipated Interventions Patient/Client Instruction: Educate patient on: Condition, Plan of Care, Risk Factors, Benefits of Fitness Program For the Purpose of:: To improve self management Therapeutic Exercise to Include: Strength training, Body mechanics, Postural training, Flexibilty training, Neuromotor development, Active ROM, Scapular Strength/Stabilization For the Purpose of:: To decrease pain, To increase ROM, To improve muscle performance and motor function, To increase tolerance to activity/condition/position, To improve performance and independence with ADL's, To improve ability of physical actions for home/community/work/leisure Please do not hesitate to contact me at [phone] by phone or if you have questions or concerns regarding this new plan of care! Sincerely, Josy Chavez, PT, Cert MDT
== END 2020-04-24 19:00 | disposition home or self-care (01) ==
LOC: PT 09:30
PROVIDERS: PCP Family Medicine; Referring Provider Orthopaedic Surgery; Visit Provider Orthopaedic Surgery
DX: Z98.1 Arthrodesis status (principal)
CPT/HCPCS: 97110; 97112; 97162; 97164

== ENCOUNTER 2020-05-10 15:04 | Emergency (ER) | payer MEDICARE, OTHER, SELFPAY ==
[2020-04-08 17:05] VITALS: BMI 26.2
[2020-05-10 15:05] VITALS: BP 156/60; PULSE 69; RESP 20; TEMP 36.7; O2SAT 98; BMI 27.6
--- NOTE | 2020-05-10 15:20 | VDLE_ITS ---
Reason For Study: SWELLING RIGHT LEFT GSV is normal. GSV is normal. CFV is compressible, spontaneous, phasic, CFV is compressible, spontaneous, phasic, competent and demonstrates normal competent, and demonstrates normal augmentation. augmentation. FV is compressible, spontaneous, phasic, FV is compressible, spontaneous, phasic, competent and demonstrates normal competent and demonstrates normal augmentation. augmentation. POP V is compressible, spontaneous, phasic, POP V is compressible, spontaneous, phasic, competent and demonstrates normal competent and demonstrates normal augmentation. augmentation. T/P Trunk is compressible. T/P Trunk is compressible. PTV is compressible. PTV is compressible. RT PerV is compressible. LT PerV is compressible. Procedure Exam performed portable in ED. The study was technically difficult. A preliminary report was called and/or faxed to Dr. Crum @ 4 pm. Interpretation Summary No evidence for acute deep venous thrombosis bilateral lower extremities with patent and compressible bilateral great saphenous veins. Exam was noted to be technically difficult Ordering Physician: Rey Harrison Referring Physician: Torres Townsend Performed By: Fernanda El, LEXIE, RVT
--- NOTE | 2020-05-10 15:58 | ED.DCSUM_ITS ---
- ER Visit Summary Date of Service: 05/10/20 Chief Complaint: [Lower extremity edema] History of Present Illness: The patient is a 69 F [presents the emergency department with edema to both lower extremities for about a week. Patient states that she had surgery a week ago on her back at [facility] by Dr. Darnell Gutierrez who did a lumbar decompression and fusion. Patient was seen by primary care physician today for continued leg swelling and she had some blood work that showed normal chemistry per patient. She also was able to show me her results on her [facility] jaspreet. Patient denies any chest pain or shortness of breath. There was concern for possible DVT so she was referred to the emergency department. Patient believes she is gained about 20 pounds since the time of surgery.] Physical Examination: [HEENT-PERRLA, EOMI. Cranial nerves II through XII grossly intact. TMs clear. Mucous membranes moist. No adenopathy. Cardiovascular-regular rate and rhythm without murmur or ectopy Lungs-clear to auscultation, chest wall stable without crepitus or subcu emphyse ma Abdomen-normoactive bowel sounds, soft, nontender, no rebound or rigidity, no peritoneal signs. Extremities-intact ?4, normal range of motion, normal pulses, atraumatic. Patient has +2 edema both lower extremities mostly from the knees down to the feet.] Test Results: [Venous Dopplers obtained of both lower extremities were negative for DVT.] Emergency Department Course and Treatment: [] Treatment Plan: [We will be given a prescription for Lasix 20 mg for 3 days. Patient advised to follow-up with primary care physician in 3 to 5 days.] Disposition: [Discharged home in stable condition] Impression: [Bilateral lower extremity edema] This note was generated with [employer] dictation software. It may contain incorrect words, spelling, and punctuation that were not noted in review of the chart prior to signing ED Disposition - Plan for ED Patient: Referrals: Torres Townsend III, MD [Primary Care Provider] -
--- NOTE | 2020-05-10 16:00 | ED.DEP ---
ED Disposition - Plan for ED Patient: Instructions: ED Peripheral Edema, Bilateral Prescriptions: Furosemide [Lasix] 20 mg PO DAILY #3 tab Prescription Printed Referrals: Torres Townsend III, MD [Primary Care Provider] - 3-5 Days
[2020-05-10 16:16] VITALS: BP 134/78; PULSE 57; RESP 18; TEMP 36.7; O2SAT 96
== END 2020-05-10 16:19 | disposition home or self-care (01) ==
LOC: ED 15:26
PROVIDERS: Emergency Provider Emergency Medicine; PCP Family Medicine
DX: R60.0 Localized edema (principal)
CPT/HCPCS: 93970; 99282

== ENCOUNTER 2020-08-06 15:00 | Outpatient (RCR) | payer MEDICARE, OTHER, SELFPAY ==
[2020-05-21 12:05] VITALS: BMI 27.6
--- NOTE | 2020-07-29 12:26 | HP.PTEVAL ---
Patient's Visit Information JEAN KRUSE is a 70 year old F referred to Physical Therapy by Dr. Kodak Murillo DO with a diagnosis of S/P LUMBAR AND CERVICAL FUSION. Date of Evaluation: 07/29/20 Physical Therapist: Josy Chavez PT, Cert MDT - Visit Plan Frequency: 2-3x /Week Duration: 4-6 Weeks Plan: POSTURE CORRECTION/STRENGTHENING, INSTRUCTION IN APPROPRIATE BODY MECHANICS AND ACTIVITY MODIFICATIONS. DLS STARTING WITH A NEUTRAL SPINE PROGRESSING ROM TOLERATED. MIKE LE ROM, STRETCHING AND STRENGTHENING. HEP INSTRUCTION. - Subjective Diagnosis: S/P ACDF 03/06/20. 3 BACK SURGERIES: APRIL 2019, APRIL 2020, AND PATIENT CAN NOT REMEMBER THE OTHER DATE. PATIENT STATES MY NECK IS FINE. Work/Leisure: RETIRED. Present symptoms: LEFT GROIN PAIN, LEFT THIGH AND KNEE PAIN I CAN NOT LIFT THIS LEG. BRUNO HAS TO PUT MY SHOE ON AND PUT MY LEG IN THE CAR. PATIENT REPORTS THIS HAS BEEN GOING ON FOR MONTHS. STATES SHE HAS KNOW SHE NEEDS HER LEFT KNEE REPLACED FOR LONG TIME. PATIENT REPORTS SHE CAN'T GET IT DONE BECAUSE SHE HAS HAD TOO MANY SURGERIES. PATIENT REPORTS [facility] THINKS HER HIP IS INVOLVED TOO AND THEY DID AN MRI AND THEY HAD DR. BLUE PUT AN INJECTION IN IT. STATES SHE HAS FOLLOW UP WITH THE [facility] PENDING AUG 07 [address] MURILLO DOESN'T WANT HER TO WEAR THE BACK BRACE ANY MORE. SHE REPORTS THAT HER LOW BACK IS ACTUALLY DOING PRETTY GOOD TOO BUT MOST OF THE PAIN IS IN HER LEFT GROIN, DOWN HER THIGH AND INTO HER KNEE. SHE REPORTS THE PAIN IS GOING FURTHER DOWN HER LEG. LEFT THIGH NUMBNESS AND TINGLING. Pain Scale: NECK PAIN - NONE - MY NECK IS REALLY GOOD. BACK PAIN: WORST 8/10, LEAST 0/10. LEFT GROIN/THIGH: WORST 11/10, LEAST 5/10. Commenced as a result of: DEGENERATIONG/AGE/ARTHRITIS. Worse: PROLONGED SITTING, STANDING, WALKING. PATIENT REPORTS HER RIGHT LEG IS REALLY STRONG BECAUSE IT IS COMPENSATING FOR THE LEFT. TRYING TO LIFT LEFT LEG IN STANDING IS EXRUTIATING PAIN. ANYTHING INVOLVING LLE. Better: LYING DOWN ON RIGHT SIDE WITH PILLOW BETWEEN LEGS. Disturbed sleep: YES. Previous history/Previous treatment: NECK SURGERY, BACK SURGERIES, LEFT KNEE SCOPE FOR MENISUCS ABOUT 2 YEARS AGO. WAS SCEDULED FOR LEFT TKR WITH DR. CHAN BUT GOT CANCELLED DUE TO STAPH INFECTION IN JAW AND JAW SURGERY SEP 2019. THIS WAS FOLLOWED BY NECK SURGERY AND 2 BACK SURGERIES SO NEVER HAD LEFT KNEE REPLACED. NOW HIP IS BEING LOOKED AT. This episode: MARCIN'S BY DR. BLUE IN LOW BACK JUN 03 2020 AND JUN 20 2020. HIP LEFT HIP INJECTION JUL 18 2020. PATIENT REPORTS THE BACK INJECTIONS HELPED HER SCIATIC NERVE BUT THE HIP INJECTION DID NOT HELP HER L GROIN/LEG PAIN. Dizziness: NO (BUT H/O VERTIGO). Tinnitis: NO. Nausea: YES. Shortness of Breath: NO. Difficulty Swollowing: YES. Gait: VERY SHORT DISTANCES AND ONLY WITH A WALKING. Unexplained weight loss: NO. PMH/Recent major surgery: ARTHRITIS ESPECIALLY EFFECTING BACK, NECK, KNEES. OSTEOPENIA. LEFT BUNDLE BLOCK IN HEART. 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 TIA X 2. LIZ[facility] D[facility] - DIFFICULTY SWOLLOWING AND MANAGED BY A SPECIALIST. OTHER: STATES SHE FAINTED AND FELL AFTER LAST BACK SURGERY. STATES SHE FELL STRAIGHT BACK AND HIT HER HEAD ON CEMENT AT HOME IN APPROX MAY 2020. HAD TO GO TO THE EMERGENCY ROOM AND WAS PUT IN THE HOSPITAL. OTHER: PATIENT REPORTS SHE IS HERE FOR PAIN IN HER BACK AND LEFT LEG AND LEFT LEG WEAKNESS. PATIENT REPORTS SHE WANTS TO GET STRONG ENOUGH TO HAVE HER LEFT KNEE REPLACEMENT BUT RIGHT NOW THEY TELL HER HER HEMOGLOBIN IS TOO LOW. - Objective Sitting Posture/Standing Posture: POOR. Other Observations: THIS PATIENT CAME TO PT WITH A WALKER BUT WAS BROUGHT BACK TO PT IN A W/C. SHE IS ABLE TO INDEP'LY TRANSFER FROM SIT TO STAND BUT IS VERY DEPENDENT ON HER UE'S TO DO SO AND STANDS WITH ALMOST ALL OF HER WEIGHT ON HER RIGHT LE. SHE HAS C/O PAIN AND DEMO'S VERY GUARDED MVMTS WITH ALL GAIT AND TRANSFERS INVOLVING LLE. HER COMPLAINT IS OF LEFT GROIN PAIN AND SOMETIMES L THIGH AND KNEE PAIN. THE ONLY POSITION SHE IS COMFORTABLE IN IS RIGHT SDLY. IN THIS POSITION I WAS ABLE TO TEST PASSIVE LEFT KNEE FLEXION AND EXT MEASURING FROM FULL EXT TO APPROX 110 DEG FLEX. IN SITTING SHE IS UNABLE TO EXTEND OR FLEX HER KNEE. IN SIDELYING SHE CAN MOVE THROUGH ABOUT HALF OF HER AVAILABLE KNEE ROM BUT WITH SEVERE C/O PAIN. SHE NEEDS ASSIST WITH TO GET HER LLL ON AND OFF THE TABEL AND ON/OFF THE WHEELCHAIR PEDDLE. SHE IS ABLE TO TAKE A FEW STEPS PWB ON THE LLE WITH THE WALKER IN THE TREATMENT ROOM BUT AGAIN WITH C/O SEVERE LLE PAIN. SHE WAS ONLY ABLE TO SIT IN THE W/C FOR ABOUT 10 MINUTES BEFORE NEEDING TO CHANGE POSITION. SHE IS MORE COMFORTABLE IN STANDING (WITH MOST OF HER WEIGHT ON HER RIGHT LE) THAN SITTING BUT R SDLY IS THE BEST. Motor deficit: RIGHT LE WFL. LLE - HIP 2+ TO 3-/5, KNEE 2+ TO 3-/5, ANKLE DORSIFLEXION 2+/5. Sensory deficit: DECREASED LIGHT TOUCH SENSATION OF LEFT THIGH AND KNEE COMPARED TO RIGHT. ROM deficit: RIGHT LE WFL. L HIP, KNEE AND ANKLE AROM ALL VERY LIMITED - SEE NOTES ABOVE. Reflexes: NT. Cervical Mvmt Loss: Flex: MIN. Pro: NIL. Ext: MOD. Ret: EDA. RSB: MOD. LSB: EDA. R Rot: MIN. L Rot: MOD. Lumbar mvmt loss: flex - MOD. ext - EDA. R SG - EDA. L SG - EDA. Core strength: POOR. Postural strength: POOR. OTHER: PATIENT GOT UPSET OFF AND ON THROUGHOUT SESSION ABOUT HER PAIN AND THE DISABILITY SHE IS HAVING. SHE FATIGUES VERY QUICKLY. - Goals Goal 1:: DECREASE C/O SPINE AND LLE PAIN Goal Time Frame: 4-6 Weeks Goal 2:: IMPROVE STANDING, WALKING, ADL, PERSONAL CARE, SITTING, SLEEP, SOCIAL LIFE, TRAVEL AND HOMEMAKING FUNCTION. Goal Time Frame: 4-6 Weeks Goal 3:: INDEP AND SAFE GAIT WITH LEAST ASSISTIVE DEVICE ON LEVEL SURFACES AND UP AND DOWN STAIRS Goal Time Frame: 4-6 Weeks Goal 4:: PATIENT WILL BE INDEP WITH A HEP FOR CONTINUED IMPROVEMENT ONCE FORMAL PHYSICAL THERAPY CONCLUDES. Goal Time Frame: 4-6 Weeks - Anticipated Interventions Patient/Client Instruction: Educate patient on: Condition, Plan of Care, Risk Factors, Benefits of Fitness Program For the Purpose of:: To improve self management Therapeutic Exercise to Include: Strength training, Endurance training, Balance training, Body mechanics, Postural training, Flexibilty training, Gait and locomotor training, Neuromotor development, Dynamic Lumbar Stabilization, Scapular Strength/Stabilization For the Purpose of:: To decrease pain, To improve muscle performance and motor function, To increase tolerance to activity/condition/position, To improve ability of physical actions for home/community/work/leisure, To improve gait and locomotor functions Thank you for the opportunity to evaluate your patient. For Medicare and Medicare HMO plans, please review the plan of care and approve it. It will need to be FAXED BACK to us at [phone] for Medicare purposes. For Medicare only, by signing this I certify the plan of care. Please let me know if there are questions or concerns regarding this plan of care. Physician Signature: Date:
--- NOTE | 2020-08-12 15:46 | HP.PT.NRP ---
JEAN KRUSE was seen in my office for initial evaluation on 07/29/20. The following Plan of Care was established for this patient: Initial Frequency: 2-3x /Week Initial Duration: 4-6 Weeks Patient/Client Instruction: Educate patient on: Condition, Plan of Care, Risk Factors, Benefits of Fitness Program For the Purpose of:: To improve self management Therapeutic Exercise to Include: Strength training, Endurance training, Balance training, Body mechanics, Postural training, Flexibilty training, Gait and locomotor training, Neuromotor development, Dynamic Lumbar Stabilization, Scapular Strength/Stabilization For the Purpose of:: To decrease pain, To improve muscle performance and motor function, To increase tolerance to activity/condition/position, To improve ability of physical actions for home/community/work/leisure, To improve gait and locomotor functions This patient was last seen in our office . Pertinent comments regarding their Physical therapy will appear below: I RECEIVED A NOTE STATING PATIENT CANCELLED ALL MILLER'TS BECAUSE SHE IS GOING TO HAVE SURGERY. WILL D/C FOR NOW BUT WE WOULD BE HAPPY TO RESUME PT WHEN APPROPRIATE. At this point I will be discontinuing this patient from physical therapy. I would be happy to see this patient again in the future if found appropriate by the physician. Thank you! Josy Chavez, PT, Cert MDT
== END 2020-08-06 19:00 | disposition home or self-care (01) ==
LOC: PT 15:00
PROVIDERS: PCP Internal Medicine; Referring Provider Orthopaedic Surgery; Visit Provider Orthopaedic Surgery
DX: Z98.1 Arthrodesis status (principal)
CPT/HCPCS: 97110; 97162

== ENCOUNTER → 2020-11-19 06:33 | Outpatient (CLI) | payer MEDICARE, OTHER, SELFPAY ==
[2020-11-08 11:13] VITALS: BMI 29.7
--- NOTE | 2020-11-19 08:21 | STRESSREP ---
Stress Test Report Date: 11-19-2020 Procedure: Pharmacologic stress nuclear imaging study Indications: This of breath/dyspnea on exertion; abnormal ECG/left bundle branch block; preoperative cardiovascular evaluation Consent: Per the patient Procedure: The patient underwent pharmacologic (Regadenoson) evaluation with a peak heart rate of 130 beats per minute (86%predicted maximal heart rate) and a peak blood pressure of 158/74 mmHg. The baseline ECG demonstrated sinus rhythm; left bundle branch block pattern. The peak pharmacologic ECG demonstrated no obvious ECG changes. There was an isolated PVC during recovery. There was no complaint of chest discomfort pretest, during pharmacologic infusion, or recovery. The examination was discontinued secondary to completion of protocol. Impression: 1. Pharmacologic (Regadenoson) evaluation 2. Peak pharmacologic ECG with with continued left bundle branch block pattern with no obvious ECG changes. 3. There were no cardiac dysrhythmias pretest, during pharmacologic infusion, or recovery. 4. Nuclear images pending Myocardial perfusion imaging study: Technique: The patient was injected with millicuries of technetium 99m Cardiolite and subsequently rest SPECT Cardiolite nuclear imaging was obtained in the horizontal long, vertical long, and short axis views. The patient underwent pharmacologic (Regadenoson) evaluation with a peak heart rate of 130 beats per minute (86% percent predicted maximal heart rate) and a peak blood pressure of 158/74 mmHg. The patient was injected with millicuries of technetium 99m Cardiolite and subsequently stress SPECT Cardiolite nuclear imaging was obtained in the horizontal long, vertical long, and short axis views. A gated Cardiolite study at peak stress was obtained. Interpretation: Rest and stress SPECT Cardiolite nuclear imaging status post realignment, normalization, and attenuation correction demonstrate relative uniform tracer uptake and myocardial perfusion appearing within normal limits. There is end systolic thickening and brightening. The gated Cardiolite study demonstrates myocardial thickening and inward wall motion. The reported LVEF is 70%. Impression: 1. Rest and stress SPECT Cardiolite nuclear imaging demonstrate relative uniform tracer uptake and myocardial perfusion appearing within normal limits. 2. The gated Cardiolite study reports an LVEF of 70%. This note was generated with [employer] software. It may contain incorrect words, spelling, and punctuation that were not noted in checking the note before signing.
== END ==
PROVIDERS: PCP Internal Medicine; Visit Provider Physician Assistant Medical
DX: R06.02 Shortness of breath (principal)
CPT/HCPCS: 78452; 93017; A9500; A4216; J2785

== ENCOUNTER → 2020-12-16 11:04 | Outpatient (CLI) | payer MEDICARE, OTHER, SELFPAY ==
[2020-11-25 15:50] VITALS: BMI 29.7
[2020-12-16 12:52] LABS: Absolute Neutrophil Count 3.2 X10^3/uL (2.0-7.7); Basophil# 0.03 X10^3/uL; Basophil% 0.6 % (0-1); Hematocrit 34.3 % (37-47); Hemoglobin 10.3 g/dL (12.0-15.0); Lymphocyte % 25.7 % (19-41); Mean Corpuscular Hgb 24.5 pg (27.0-32.0); Mean Corpuscular Volume 81.7 fL (81-99); Mean Platelet Vol. 10.5 fl (6.2-12.0); Monocyte# 0.45 X10^3/uL; Monocyte% 8.9 % (0-10); NRBC Flagged by Analyzer 0 % (0-5); Neutrophil # 3.16 X10^3/uL (2.7-7.7); Neutrophil % 62.4 % (47-70); Platelet Count 351 K/mm3 (150-450); RBC Distribution Width CV 16.5 % (11.6-14.6); RBC Distribution Width SD 48.3 fl (35.1-43.9); White Blood Count 5.1 K/mm3 (4.4-11.0)
[2020-12-16 13:37] LABS: ALB/GLOB Ratio 0.9 RATIO (0.9-2.4); AST(SGOT) 18 U/L (15-37); Alanine Aminotransfer ALT/SGPT 15 U/L (13-56); Albumin, Serum 3.3 g/dL (3.2-5.0); Alkaline Phosphatase 116 U/L (45-117); Anion Gap 3 (5-15); BUN 24 mg/dL (7-18); BUN/Creat Ratio 26.1 RATIO (10-20); Calcium,Total 8.8 mg/dL (8.5-10.1); Chloride 104 mmol/L (98-107); Cholesterol 163 mg/dL (200); Creatinine, Serum 0.92 mg/dL (0.55-1.02); EST Glomerular Filtration Rate 64 mL/min (>60); Est Glom Filt Rate - Afr Amer 78 mL/min (>60); Globulin 3.5 g/dL (2.2-4.2); Glucose 125 mg/dL (74-106); High Density Lipoprotein 62 mg/dL; Potassium 4.9 mmol/L (3.5-5.1); Protein, Total 6.8 g/dL (6.4-8.2); Sodium Level 137 mmol/L (136-145); Thyroid Stim Hormone (TSH) 3.36 uIU/mL (0.358-3.74); Triglycerides 195 mg/dL; Very Low Density Lipoprotein 39 mg/dL (5-40)
== END ==
PROVIDERS: PCP Internal Medicine; Visit Provider Internal Medicine
DX: M54.10 Radiculopathy, site unspecified (principal); F41.9 Anxiety disorder, unspecified; F32.9 Major depressive disorder, single episode, unspecified; I10 Essential (primary) hypertension; E03.9 Hypothyroidism, unspecified
CPT/HCPCS: 36415; 80053; 80061; 84443; 85025

== ENCOUNTER → 2020-12-17 10:04 | Outpatient (CLI) | payer MEDICARE, OTHER, SELFPAY ==
[2020-11-25 15:50] VITALS: BMI 29.7
[2020-12-17 13:11] LABS: Ferritin 6 ng/mL (8-252); Iron 22 ug/dL (50-170); Iron Binding Capacity,Total 430 ug/dL (250-450)
== END ==
PROVIDERS: PCP Internal Medicine; Referring Provider Internal Medicine; Visit Provider Internal Medicine
DX: D64.9 Anemia, unspecified (principal)
CPT/HCPCS: 36415; 82728; 83540; 83550

== ENCOUNTER → 2021-01-20 14:01 | Outpatient (CLI) | payer MEDICARE, OTHER, SELFPAY ==
[2020-11-25 15:50] VITALS: BMI 29.7
[2021-01-20 15:28] LABS: AST(SGOT) 16 U/L (15-37); Alanine Aminotransfer ALT/SGPT 16 U/L (13-56); Albumin, Serum 3.7 g/dL (3.2-5.0); Alkaline Phosphatase 166 U/L (45-117); Anion Gap 6 (5-15); BUN 21 mg/dL (7-18); BUN/Creat Ratio 21.5 RATIO (10-20); Calcium,Total 9.2 mg/dL (8.5-10.1); Chloride 106 mmol/L (98-107); Creatinine, Serum 0.98 mg/dL (0.55-1.02); EST Glomerular Filtration Rate 60 mL/min (>60); Est Glom Filt Rate - Afr Amer 72 mL/min (>60); Globulin 3.6 g/dL (2.2-4.2); Glucose 103 mg/dL (74-106); Potassium 4.1 mmol/L (3.5-5.1); Protein, Total 7.3 g/dL (6.4-8.2); Sodium Level 136 mmol/L (136-145)
== END ==
PROVIDERS: PCP Internal Medicine; Visit Provider Internal Medicine
DX: R74.8 Abnormal levels of other serum enzymes (principal)
CPT/HCPCS: 36415; 80053

== ENCOUNTER 2021-04-23 11:00 | Outpatient (RCR) | payer MEDICARE, OTHER, SELFPAY ==
[2020-11-25 15:50] VITALS: BMI 29.7
--- NOTE | 2021-02-05 12:56 | HP.PTEVAL ---
Patient's Visit Information JEAN KRUSE is a 70 year old F referred to Physical Therapy by DAVE VILLALTA with a diagnosis of L THR. Date of Evaluation: 02/05/21 Physical Therapist: Josy Chavez, PT, Cert MDT - Visit Plan Frequency: 2x /Week Duration: 4-6 Weeks Plan: CHECK FOR NEW ORDER APPROVING AQUATIC THERAPY. AQUATIC THERAPY IF OK'D BY DR. CHAN FOR GAIT TRAINING, BALANCE TRAINING, LLE ROM, STRETCHING AND STRENGTHENING TO HELP MEET SET GOALS IN A REDUCED WEIGHT BEARING ENVIRONMENT. - Subjective PATIENT REPORTS HAVING COMPLICATIONS AFTER SURGERY. STATES SHE HAD TROUBLE WAKING UP AFTER SURGERY AND SHE WAS TRANSFERRED TO [facility] BECAUSE THEY THOUGHT SHE WAS HAVING A STROKE. STATES SHE HAD SURGERY ON WEDNESDAY AND DIDN'T WAKE UP UNTIL THE FOLLOWING WEDNESDAY. STROKE WAS R/O WITH MRI PER PATIENT REPORT. PATIENT REPORTS HER PCP THINKS SHE WENT INTO SHOCK CAUSING THE TREMORS DUE TO LACK OF OXYGEN. STATES SHE WAS IN THE HOSPITAL FOR A WEEK AND SHE WAS IN BED FOR A WEEK. PATIENT REPORTS HER HIP DOESN'T HURT BUT THE MUSCLE IN HER THIGH HURTS AND IS TIGHT. STATES THE SURGEON TOLD HER SHE NEEDS TO PUSH THROUGH AT THIS POINT BUT STATES THE DOCTOR TOLD HER HE DIDN'T THINK SHE WAS GOING TO SURVIVE THE SURGERY. PATIENT REPORTS NO ONE KNOWS FOR SURE WHAT HAPPENED. PATIENT REPORTS DR. CHAN TOLD HER SHE NEEDS TWO KNEE REPLACEMENTS. SHE REPORTS HER LEFT KNEE IS WORSE THAN HER RIGHT AND THAT IS WORKING AGAINST HER. PATIENT REPORTS SHE HAD HOME PT FOR ABOUT 3 WEEKS AND SHE REPORTS SHE IS DOING HER HOME EX'S. Work/Leisure: RETIRED. Present symptoms: LEFT THIGH PAIN AND TIGHTNESS. (ALSO L KNEE PAIN, L BACK PAIN, RIGHT HIP AND KNEE PAIN). Present since: CHRONIC. Pain Scale: WORST 8/10, LEAST 4/10. Currently: 5/10. Commenced as a result of: ARTHRITIS. Symptoms at onset: GROIN PAIN. Worse: ANY WEIGHT BEARING AND SITTING. Better: LYING DOWN, ICE AND PAIN MEDICINE. Disturbed sleep: YES. Previous history/Previous treatment: PT. THIS IS FIRST HIP SURGERY. Treatment this episode: HOME PT 3 WKS. Gait: VERY PAINFUL LEFT THIGH WITH GAIT. WALKER DEPENDENT AND CAN ONLY WALK SHORT DISTANCES. Difficulty initiating urinatin: NO. Accidents: NONE RECENT. Unexplained weight loss: NO. Imaging: X-RAYS POST SX - PATIENT REPORTS DR. CHAN SAID THE HIP REPLACEMENT LOOKS GOOD. PMH: HTN - PATIENT REPORTS SHE IS MONITORYING IT AND IT HAS BEEN IN THE NORMAL TO LOW RANGE AT HOME. PATIENT REPORTS SHE HAS A LOT OF AXIETY AND SHE IS ON MEDICINE. ANEMIA - ON IRON. VERY FATIGUED. OTHER: PATIENT IS REQUESTING AQUATIC THERAPY. PATIENT REPORTS SHE KNOWS SHE IS AT RISK OF FALLING AND PT HERE IS GOING TO BE HARD BUT SHE DOES NOT WANT TO DO ANY MORE HOME PT. - Objective THIS PATIENT AMBULATES INDEP'LY INTO PT X APPROX 25 FEET WITH A FWW WBAT BUT LIMPING ON THE LLE. HER GAIT IS VERY SLOW AND GUARDED. SHE IS VERY UE DEPENDENT ON THE WALKER TO ADVANCE HER R LE A SMALL DISTANCE. DUE TO THE LONG DISTANCE, SHE WAS BROUGHT THE REST OF THE WAY BACK TO THE TREATMENT ROOM IN A W/C. SHE IS VERY PLEASANT AND COOPERATIVE TO WORK WITH. SHE FOLLOWS ALL COMMANDS WELL. WOMAC SCORE IS 63%. TUG = 2'30. L KNEE AROM IN SITTING = -18 DEG EXT TO 94 DEG FLEX. L HIP AROM OF HIP = -5 DEG EXT TO 90 DEG FLEX. STRENGTH: L HIP 3-/5, L KNEE EXT 3-/5, KNEE FLEX 3-/5, ANKLE 5/5. PATIENT IS VERY UE DEPENDENT TO TRANSFER FROM SIT TO STAND AND SHE BEARS MOST OF HER WEIGHT ON HER R LE DURING TRANSFER. SHE ALSO HAS A VERY DIFFICULT TIME INITIATING GAIT AFTER SITTING AND GAIT GETS A LITTLE BETTER AFTER A FEW STEPS. SENSATION: PATIENT IS VERY HYPERSENSATIVE WITH PALAPTION OF THE L THIGH. HER INCISION LOOKS VERY WELL HEALED WITHOUT ANY SIGNS OF INFECTION OR OPEN AREAS. OTHER: PATIENT IS REQUESTING AQUATIC THERAPY AND THIS PT CALLED DR. CHAN TO GET APPROVAL. SPOKE WITH BARRIE AND SHE STATED SHE WOULD FAX AN ORDER OVER FOR AQUATIC THERAPY IF APPROVED. - Goals Goal 1:: INDEP AND SAFE GAIT ON LEVEL SURFACES AND UP AND DOWN STEPS WITH LEAST ASSISTIVE DEVICE AND DEVIATIONS. Goal Time Frame: 4-6 Weeks Goal 2:: INCREASE FUNCTIONAL ROM OF LLE TO EASE ADL'S Goal Time Frame: 4-6 Weeks Goal 3:: INCREASE FUNCTIONAL STRENGTH OF LLE TO EASE ADL'S. Goal Time Frame: 4-6 Weeks Goal 4:: IMPROVE WOMAC SCORE TO 45% Goal Time Frame: 4-6 Weeks Goal 5:: IMPROVE TUG TIME TO 1'30 Goal Time Frame: 4-6 Weeks - Anticipated Interventions Patient/Client Instruction: Educate patient on: Condition, Plan of Care, Risk Factors, Benefits of Fitness Program For the Purpose of:: To improve self management Therapeutic Exercise to Include: Strength training, Endurance training, Balance training, Coordination, Postural training, Flexibilty training, Gait and locomotor training, Neuromotor development, In an aquatic setting, Dynamic Lumbar Stabilization For the Purpose of:: To decrease pain, To increase ROM, To improve muscle performance and motor function, To increase tolerance to activity/condition/position, To improve ability of physical actions for home/community/work/leisure, To improve gait and locomotor functions Thank you for the opportunity to evaluate your patient. For Medicare and Medicare HMO plans, please review the plan of care and approve it. It will need to be FAXED BACK to us at [phone] for Medicare purposes. For Medicare only, by signing this I certify the plan of care. Please let me know if there are questions or concerns regarding this plan of care. Physician Signature: Date:
--- NOTE | 2021-03-14 11:00 | HP.PTREVAL ---
DAVE VILLALTA, It has been my pleasure to treat JEAN KRUSE over the last 11 visits for L THR. Please see the progress note below for an update on the physical therapy plan of care! Subjective: PATIENT REPORTS SHE SAW DR. CHAN YESTERDAY AND SHE HAS A LOT TO TELL ME. REPORTS DR. CHAN SAID SHE NEEDS MIKE TKR'S BUT HE WILL NOT OPERATE ON HER UNTIL SHE HAS HER ANEURYSM DEALT WITH. MY LEG FEELS SO MUCH BETTER BUT I STILL CAN'T DO WHAT I WANT TO DO. PATIENT REPORTS THE SURGEON WANTS HER TO USE A CANE AND SHE STATES SHE HAS NO IDEA HOW TO. PATIENT REPORTS DR. CHAN TOLD HER SHE HAD A SEIZURE AND POSSIBLE STROKE AFTER THE SURGERY. PATIENT REPORTS SHE STILL DROOLS A LITTLE BIT. PATIENT REPORTS DR. CHAN WANTS HER TO CONTINUE AQUATIC THERAPY AND SHE IS AGREEABLE. PATIENT REPORTS DR. CHAN IS HAPPY WITH HER PROGRESS. Objective/Function: PATIENT WAS SEEN TODAY FOR RE-ASSESSMENT OF PROGRESS TOWARD THE SET PT GOALS AND THE NEED FOR FURTHER PHYSICAL THERAPY VS READINESS FOR DISCHARGE. PATIENT IS MAKING GOOD PROGRESS AND IS A GOOD CANDIDATE TO CONTINUE PT BASED ON PROGRESS MADE AND ROOM FOR FURTHER IMPROVEMENT. UPON EXAM TODAY: THIS PATIENT AMBULATES INDEP'LY INTO PT X APPROX 300 FEET WITH A FWW WBAT AND NOT LIMPING ON THE LLE ANYMORE. HER GAIT IS VERY SLOW AND GUARDED. SHE IS LESS UE DEPENDENT ON THE WALKER NOW. SHE IS VERY PLEASANT AND COOPERATIVE TO WORK WITH. SHE FOLLOWS ALL COMMANDS WELL. WOMAC SCORE IS 68%. TUG = 44. L KNEE AROM IN SITTING = FULL EXT TO 120 DEG FLEX. L HIP AROM OF HIP = -5 DEG EXT TO 100 DEG FLEX. STRENGTH: L HIP 4-/5, L KNEE EXT 4-/5, KNEE FLEX 4-/5, ANKLE 5/5. PATIENT IS UE DEPENDENT TO TRANSFER FROM SIT TO STAND. SENSATION: PATIENT IS VERY HYPERSENSATIVE WITH PALAPTION OF THE L PROX LATERAL THIGH. PATIENT DENIES ANY PROBLEMS WITH HER INCISION. TREATMENT: INITIATED GAIT TRAINING WITH STRAIGHT CANE AND INSTRUCTED PATIENT TO USE SHORT DISTANCES IN THE HOUSE ONLY STARTING WITH COUNTER TOP ASSIST. GAIT IMPROVED WITH PRACTICE IN PARALLEL BARS TODAY. INSTRUCTED PATIENT IN PROPER HEIGHT ADJUSTMENT OF CANE. USING STEP TO PATTERN. NO LOB. Plan Plan: CONTINUE AQUATIC THERAPY FOR GAIT TRAINING, BALANCE TRAINING, LLE ROM, STRETCHING AND STRENGTHENING TO HELP MEET SET GOALS IN A REDUCED WEIGHT BEARING ENVIRONMENT. Goals Goal 1:: INDEP AND SAFE GAIT ON LEVEL SURFACES AND UP AND DOWN STEPS WITH LEAST ASSISTIVE DEVICE AND DEVIATIONS. Goal Time Frame: 4-6 Weeks Goal Progress: Progressing Goal 2:: INCREASE FUNCTIONAL ROM OF LLE TO EASE ADL'S Goal Time Frame: 4-6 Weeks Goal Progress: Progressing Goal 3:: INCREASE FUNCTIONAL STRENGTH OF LLE TO EASE ADL'S. Goal Time Frame: 4-6 Weeks Goal Progress: Progressing Goal 4:: IMPROVE WOMAC SCORE TO 45% Goal Time Frame: 4-6 Weeks Goal Progress: Not Progressing Goal 5:: IMPROVE TUG TIME TO 1'30 Goal Time Frame: 4-6 Weeks Goal Progress: Goal Met Goal 6:: IMPROVE TUG TIME TO 35 Anticipated Interventions Patient/Client Instruction: Educate patient on: Condition, Plan of Care, Risk Factors, Benefits of Fitness Program For the Purpose of:: To improve self management Therapeutic Exercise to Include: Strength training, Endurance training, Balance training, Coordination, Postural training, Flexibilty training, Gait and locomotor training, Neuromotor development, In an aquatic setting, Dynamic Lumbar Stabilization For the Purpose of:: To decrease pain, To increase ROM, To improve muscle performance and motor function, To increase tolerance to activity/condition/position, To improve ability of physical actions for home/community/work/leisure, To improve gait and locomotor functions Please do not hesitate to contact me at [phone] by phone or if you have questions or concerns regarding this new plan of care! Sincerely, Josy Chavez, PT, Cert MDT
--- NOTE | 2021-04-23 11:55 | HP.PTDCSUM_ITS ---
It has been my pleasure to treat JEAN KRUSE referred by DAVE VILLALTA, with the diagnosis of L THR for a total of 19 visit(s). Discharge Date: 04/23/21 Please see the following information for a summary of their discharge status. Subjective: PATIENT REPORTS SHE DOESN'T HAVE SILVER SNEAKERS WITH HER INSURANCE ANYMORE. PATIENT REPORTS SHE LOVES THE WATER. STATES SHE FEELS LIKE SHE CAN PUSH HERSELF HARDER IN THE WATER THAN ON LAND AND SHE IS SORE THE NEXT DAY BUT GETTING STRONGER. PLANS TO CONTINUE IN HER POOL AT HOME ON HER OWN AT THIS POINT. PATIENT REPORTS SHE IS DOING BETTER WITH HER CANE AND SHE USES OUTSIDE THE HOUSE BUT NOT INSIDE HER HOME. SHE FEELS BETTER WITHOUT IT IN THE HOUSE. MILLER'T ABOUT ANEURYSM COMING SOON. HAS TREMOR IN UE SINCE SEIZURE. NO PLAN FOR TKR'S YET. Lumbar Spine Pain Intensity (Out of 10): 0 LLE Pain Intensity (Out of 10): 0 RLE Pain Intensity (Out of 10): 0 % Improvement: 70 Objective/Function: PATIENT WAS SEEN TODAY FOR RE-ASSESSMENT OF PROGRESS TOWARD THE SET PT GOALS AND THE NEED FOR FURTHER PHYSICAL THERAPY VS READINESS FOR DISCHARGE. PATIENT HAS MADE GOOD PROGRESS AND IS A GOOD CANDIDATE TO CONTINUE INDEP WATER THERAPY AT THIS POINT. UPON EXAM TODAY: THIS PATIENT AMBULATES INDEP'LY INTO PT X APPROX 300 FEET WITH A STRAIGHT CANE AND NOT LIMPING ON THE LLE. HER GAIT IS SLOW AND GUARDED BUT IMPROVED SINCE LAST RE-CHECK. SHE IS MINIMALLY DEPENDENT ON THE CANE FOR BALANCE. SHE IS VERY PLEASANT AND COOPERATIVE TO WORK WITH. SHE FOLLOWS ALL COMMANDS WELL. WOMAC SCORE IS 68%. TUG = 11.37. L KNEE AROM IN SITTING = FULL EXT TO 120 DEG FLEX. L HIP AROM OF HIP = +5 DEG EXT TO APPROX 100 DEG FLEX. STRENGTH: L HIP 4/5, L KNEE EXT 4/5, KNEE FLEX 4/5, ANKLE 5/5. PATIENT IS STILL UE DEPENDENT TO TRANSFER FROM SIT TO STAND. SENSATION: PATIENT IS STILL HYPERSENSATIVE WITH PALAPTION OF THE L PROX LATERAL THIGH BUT PATIENT REPORTS IT IS A LOT BETTER. PATIENT DENIES ANY PROBLEMS WITH HER INCISION. Goal 1:: INDEP AND SAFE GAIT ON LEVEL SURFACES AND UP AND DOWN STEPS WITH LEAST ASSISTIVE DEVICE AND DEVIATIONS. Goal Progress: Goal Met Goal 2:: INCREASE FUNCTIONAL ROM OF LLE TO EASE ADL'S Goal Progress: Goal Met Goal 3:: INCREASE FUNCTIONAL STRENGTH OF LLE TO EASE ADL'S. Goal Progress: Goal Met Goal 4:: IMPROVE WOMAC SCORE TO 45% Goal Progress: Not Progressing Goal 5:: IMPROVE TUG TIME TO 1'30 Goal Progress: Goal Met Goal 6:: IMPROVE TUG TIME TO 35 Goal Progress: Goal Met Plan: D/C TO [facility] PROGRAM. PATIENT AGREEABLE. If there are questions or concerns regarding this patient's physical therapy, please feel free to call me at [phone]. Thank you for the referral of this patient. Sincerely, Josy Chavez, PT, Cert MDT
== END 2021-04-23 19:00 | disposition home or self-care (01) ==
LOC: PT 11:00
PROVIDERS: PCP Internal Medicine
DX: Z47.1 Aftercare following joint replacement surgery (principal); M16.12 Unilateral primary osteoarthritis, left hip
CPT/HCPCS: 97113; 97116; 97162; 97164

== ENCOUNTER → 2021-04-24 16:09 | Outpatient (CLI) | payer MEDICARE, OTHER, SELFPAY ==
[2021-04-24 15:45] VITALS: BMI 29.7
[2021-04-24 16:51] LABS: Absolute Lymphocyte Count 1.75 X10^3/uL (0.83-4.51); Absolute Neutrophil Count 3.1 X10^3/uL (2.0-7.7); Basophil# 0.05 X10^3/uL; Basophil% 0.9 % (0-1); Eosinophil# 0.08 X10^3/uL; Eosinophils% 1.5 % (0-5); Hematocrit 34.3 % (37-47); Hemoglobin 10.5 g/dL (12.0-15.0); Lymphocyte # 1.75 X10^3/ul (0.83-4.51); Lymphocyte % 32.1 % (19-41); Mean Corp Hgb Conc 30.6 g/dL (32-36); Mean Corpuscular Hgb 25.5 pg (27.0-32.0); Mean Corpuscular Volume 83.3 fL (81-99); Mean Platelet Vol. 10.3 fl (6.2-12.0); Monocyte# 0.44 X10^3/uL; Monocyte% 8.1 % (0-10); NRBC Flagged by Analyzer 0 % (0-5); Neutrophil # 3.13 X10^3/uL (2.7-7.7); Neutrophil % 57.2 % (47-70); Platelet Count 282 K/mm3 (150-450); RBC Distribution Width CV 15.5 % (11.6-14.6); RBC Distribution Width SD 47.1 fl (35.1-43.9); Red Blood Count 4.12 M/mm3 (4.2-5.4); White Blood Count 5.5 K/mm3 (4.4-11.0)
== END ==
PROVIDERS: PCP Internal Medicine; Referring Provider Internal Medicine; Visit Provider Internal Medicine
DX: D64.9 Anemia, unspecified (principal)
CPT/HCPCS: 36415; 85025

== ENCOUNTER → 2021-05-01 10:51 | Outpatient (CLI) | payer MEDICARE, OTHER, SELFPAY ==
[2021-04-24 15:45] VITALS: BMI 29.7
== END ==
PROVIDERS: PCP Internal Medicine; Referring Provider Internal Medicine; Visit Provider Internal Medicine
DX: D64.9 Anemia, unspecified (principal)
CPT/HCPCS: 82274

== ENCOUNTER 2021-07-07 05:59 | Day surgery (SDC) | payer MEDICARE, OTHER, SELFPAY ==
[2021-07-07] VITALS (7 sets, daily range): BP systolic 106–149; BP diastolic 47–68; PULSE 54–58; RESP 16; TEMP 35.9–36.7; O2SAT 95–100; BMI 27.9
--- NOTE | 2021-07-07 07:00 | EGD_PTH ---
PATIENT: JEAN KRUSE LOC: EN U#:[id number] AGE/SX: 71/F ROOM: RE07/07/[address]: Dr. Charlie Hilario DO : 1950 BED: DIS: 07/07/2021 SPEC #: [id number] RECD: 07/07/21 09:39 STATUS: RAJINDER REMaria De Jesus #: [id number] ERIKA: 07/07/21 07:[address]: Charlie Hilario DEPT: SURGICAL PATHOLOGY RECD BY: Nubia Adames ENTERED: 07/07/21 11:03 SP TYPE: EGD BIOPSY [facility] DR: Dr. Michele Vallecillo MD Tissues: A - Esophagus, NOS B - COLON BIOPSY Procedures: Special Stain Group II Surgery Specimen Level IV Alcian Blue/PAS (control) HEADER OPERATION: [place] [place] DIAGNOSIS: Anemia, GERD, hiatal hernia, fecal incontinence TISSUE SUBMITTED: A ? Distal esophagus biopsy, B ? Ileocolonic anastomosis biopsy MICROSCOPIC DIAGNOSIS A. Distal esophagus, biopsy: Fragments of gastroesophageal mucosa with chronic inflammation. Intestinal metaplasia (goblet cell metaplasia) not identified. See comment. B. Ileocecal anastomosis, biopsy: Fragments of small intestinal and colonic mucosa, no pathologic diagnosis. SJ:justine 07/08/2021 COMMENT A. Alcian blue/PAS stain with matched control is used in the evaluation of the specimen. MICROSCOPIC DESCRIPTION Slides are reviewed. GROSS DESCRIPTION A - Received in fixative is one container labeled with the patient's name and designated distal esophagus biopsy. The specimen consists of multiple irregular fragments of light kothari soft tissue that in aggregate measure 0.7 x 0.5 x 0.1 cm. The specimen is totally submitted in one cassette. B - Received in fixative is one container labeled with the patient's name and designated ileocecal anastomosis. The specimen consists of multiple irregular fragments of light kothari soft tissue that in aggregate measure 0.5 x 0.5 x 0.1 cm. The specimen is totally submitted in one cassette. / AM:justine 07/07/21 TC:3 CPT: 33795 x2, 56592
--- NOTE | 2021-07-07 08:03 | OP.CCLET_ITS ---
07/07/2021 Michele Vallecillo MD [address] [place] [address] [place] [address] Re : Upper GI endoscopy procedure for Lio Partidaman Dear Dr. Vallecillo This procedure was performed on Wednesday, July 07, 2021. 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 Biopsied. - Medium-sized hiatal hernia. - Normal second portion of the duodenum. - Benign-appearing esophageal stenosis. Recommendations : - The patient will be observed post-procedure, until all discharge criteria are met. - Continue present medications. - Resume anticoagulant at prior dose. My findings are described in the full procedure note, which is enclosed. If I can be of further assistance, please feel free to contact me at . Sincerely, Charlie Hilario, 07/07/2021 8:02:29 AM This report has been signed electronically.
--- NOTE | 2021-07-07 08:03 | OP.EGD_ITS ---
Patient Name: Lio Calderón Procedure Date: 07/07/2021 6:38 AM Date of : 1950 Age: 71 Procedure: Upper GI endoscopy Indications: Heartburn Providers: Charlie Hilario DO Medicines: Propofol per Anesthesia Complications: No immediate complications. Procedure: Pre-Anesthesia Assessment: - Pre-procedure physical examination revealed no contraindications to sedation. - The risks and benefits of the procedure and the sedation options and risks were discussed with the patient. All questions were answered and informed consent was obtained. - Patient identification and proposed procedure were verified prior to the procedure by the physician, the nurse and the anesthesiologist. The procedure was verified in the pre-procedure area in the procedure room in the endoscopy suite. After obtaining informed consent, the endoscope was passed under direct vision. Throughout the procedure, the patient's blood pressure, pulse, and oxygen saturations were monitored continuously. The gastroscope was introduced through the mouth, and advanced to the second part of duodenum. Moderate Sedation: Moderate (conscious) sedation was personally administered by an anesthesia professional. The following parameters were monitored: oxygen saturation, heart rate, blood pressure, and response to care, oxygen saturation, heart rate, blood pressure and respiratory rate. Scope In: 7:19:53 AM Scope Out: 7:28:52 AM Total Procedure Duration Time 0 hours 8 minutes 59 seconds Findings: There were esophageal mucosal changes consistent with short-segment Lua's esophagus present in the lower third of the esophagus. The maximum longitudinal extent of these mucosal changes was 4 cm in length. Mucosa was biopsied with a cold forceps for histology. A total of 4 specimen bottles were sent to pathology. A medium-sized hiatal hernia was present. The second portion of the duodenum was normal. One benign-appearing, intrinsic stenosis was found 39 cm from the incisors. This stenosis was moderately severe and. The stenosis was traversed after dilation. 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 Biopsied. - Medium-sized hiatal hernia. - Normal second portion of the duodenum. - Benign-appearing esophageal stenosis. Recommendation: - The patient will be observed post-procedure, until all discharge criteria are met. - Continue present medications. - Resume anticoagulant at prior dose. Procedure Code(s): --- Professional --- 64265, 22,26,50,52,59, Esophagogastroduodenoscopy, flexible, transoral; with biopsy, single or multiple Diagnosis Code(s): --- Professional --- K22.8, Other specified diseases of esophagus K44.9, Diaphragmatic hernia without obstruction or gangrene K22.2, Esophageal obstruction R12, Heartburn CPT copyright 2017 [employer]. All rights reserved. The codes documented in this report are preliminary and upon front desk worker review may be revised to meet current compliance requirements. Charlie Hilario DO 07/07/2021 8:02:29 AM This report has been signed electronically. Number of Addenda: 0 Note Initiated On: 07/07/2021 6:38 AM
--- NOTE | 2021-07-07 08:10 | OP.COLON_ITS ---
Patient Name: Lio Calderón Procedure Date: 07/07/2021 7:30 AM Date of : 1950 Age: 71 Procedure: Colonoscopy Indications: Follow-up for history of adenomatous polyps in the colon Providers: Charlie Hilario DO Medicines: Propofol per Anesthesia, Monitored Anesthesia Care Patient Profile: Last Colonoscopy: 5 years ago. Complications: The ileocolonic anastomosis had some mild inflammation. Biopsies were taken of the ileocolonic anastomosis. Procedure: Pre-Anesthesia Assessment: - Pre-procedure physical examination revealed no contraindications to sedation. - The risks and benefits of the procedure and the sedation options and risks were discussed with the patient. All questions were answered and informed consent was obtained. - Patient identification and proposed procedure were verified prior to the procedure by the physician, the nurse and the anesthesiologist. The procedure was verified in the pre-procedure area in the procedure room in the endoscopy suite. - Pre-procedure physical examination revealed no contraindications to sedation. - After reviewing the risks and benefits, the patient was deemed in satisfactory condition to undergo the procedure. After I obtained informed consent, the scope was passed under direct vision. Throughout the procedure, the patient's blood pressure, pulse, and oxygen saturations were monitored continuously. The Colonoscope was introduced through the anus and advanced to the ileocolonic anastomosis. The entire colon was well visualized. The colonoscopy was performed without difficulty. The patient tolerated the procedure well. The quality of the bowel preparation was good. Scope withdrawal time was 8 minutes. Scope In: 7:32:26 AM Scope Withdrawal Time 0 hours 9 minutes 58 seconds Scope Out: 7:48:28 AM Total Procedure Duration Time 0 hours 16 minutes 2 seconds Findings: The retroflexed view of the distal rectum and anal verge was normal and showed no anal or rectal abnormalities. The entire examined colon appeared normal on direct and retroflexion views. Impression: - The entire examined colon is normal on direct and retroflexion views. - No specimens collected. Recommendation: - Patient has a contact number available for emergencies. The signs and symptoms of potential delayed complications were discussed with the patient. Return to normal activities tomorrow. Written discharge instructions were provided to the patient. - Discharge patient to home (with spouse). - Resume regular diet. - Continue present medications. - Repeat colonoscopy in 5 years for surveillance based on pathology results. Procedure Code(s): --- Professional --- 15545, Colonoscopy, flexible; diagnostic, including collection of specimen(s) by brushing or washing, when performed (separate procedure) CPT copyright 2017 [employer]. All rights reserved. The codes documented in this report are preliminary and upon professional fee coder review may be revised to meet current compliance requirements. Charlie Hilario DO 07/07/2021 8:10:02 AM This report has been signed electronically. Number of Addenda: 2 Note Initiated On: 07/07/2021 7:30 AM Addendum Number: 1 Addendum Date: 06/25/2022 3:45:42 PM MAC was used instead of moderate sedation for this patient. Charlie Hilario DO 06/25/2022 3:45:54 PM This report has been signed electronically. Addendum Number: 2 Addendum Date: 06/25/2022 3:46:09 PM MAC was used instead of moderate sedation for this patient. Charlie Hilario DO 06/25/2022 3:46:19 PM This report has been signed electronically.
--- NOTE | 2021-07-07 08:11 | OP.CCLET_ITS ---
06/25/2022 Michele Vallecillo MD [address] [place] [address] [place] [address] Re : Colonoscopy procedure for Lio Calderón Dear Dr. Vallecillo This procedure was performed on Wednesday, July 07, 2021. My impressions and recommendations are as follows: Impressions : - The entire examined colon is normal on direct and retroflexion views. - No specimens collected. Recommendations : - Patient has a contact number available for emergencies. The signs and symptoms of potential delayed complications were discussed with the patient. Return to normal activities tomorrow. Written discharge instructions were provided to the patient. - Discharge patient to home (with spouse). - Resume regular diet. - Continue present medications. - Repeat colonoscopy in 5 years for surveillance based on pathology results. My findings are described in the full procedure note, which is enclosed. If I can be of further assistance, please feel free to contact me at . Sincerely, Charlie Hilario, 07/07/2021 8:10:02 AM This report has been signed electronically.
--- NOTE | 2021-07-07 09:10 | PCM.HP.STD ---
HPI - General HPI Narrative JEAN KRUSE, is a [address] [facility] [address] [facility] [place] [address] OFFICE VISITDate of Service: 07/02/21 MR#:[id number]: JEAN KRUSE LRep #:[id number] Provider:Charlie Friend, DOAge/Sex: 70/F [place] [place] Intake Vital Signs 07/02/21 10:14 Height 5 ft 5 in Weight: 171 lb 2 oz BMI 28.5 Blood Pressure Location Lt brachial Position Sitting Respiration 16 Pulse 55 L Pulse Source Monitor Pulse Oximetry (%) 96 Oxygen Delivery Method room air Intake Visit Reasons: BARRETTS ESOPHAGUS/INCONT FECES Chief Complaint: IBS-C, Barretts esophagus, colon removal following impaction. Is patient in pain?: No Allergies lisinopril Adverse Reaction (Severe, Verified 07/02/21 10:09) High potassium, cough. atorvastatin calcium [From Lipitor] Adverse Reaction (Verified 07/02/21 10:09) legs ache Medications acetaminophen 1,000 mg PO Q8H PRN PRN tab 04/16/20 [Rx Confirmed 07/02/21] meclizine 12.5 mg tablet 12.5 mg PO DAILY PRN tab 05/21/20 [History Confirmed 07/02/21] oxycodone 5 mg tablet 5 mg PO Q4H PRN tab 05/21/20 [History Confirmed 07/02/21] sennosides 8.6 mg capsule 17.2 mg PO BID cap 05/21/20 [History Confirmed 07/02/21] aspirin 81 mg chewable tablet 81 mg PO DAILY@0800 #90 tab 05/23/20 [Rx Confirmed 07/02/21] levothyroxine 50 mcg tablet 50 mcg PO DAILY #90 tab 05/23/20 [Rx Confirmed 07/02/21] metoprolol succinate 25 mg tablet,extended release 24 hr 25 mg PO BID #180 tab 05/23/20 [Rx Confirmed 07/02/21] omeprazole 40 mg capsule,delayed release 40 mg PO DAILY #90 cap 05/23/20 [Rx Confirmed 07/02/21] pramipexole 0.125 mg tablet 0.125 mg PO QHS #90 tab 05/23/20 [Rx Confirmed 07/02/21] trazodone 100 mg tablet 100 mg PO QHS PRN #90 tab 05/23/20 [Rx Confirmed 07/02/21] lovastatin 40 mg tablet 40 mg PO DAILY #90 tab 06/06/20 [Rx Confirmed 07/02/21] duloxetine 60 mg capsule,delayed release 60 mg PO DAILY #90 cap 06/26/20 [Rx Confirmed 07/02/21] furosemide 20 mg tablet 20 mg PO DAILY #30 tab 11/27/20 [Rx Confirmed 07/02/21] ferrous sulfate 325 mg (65 mg iron) tablet 325 mg PO DAILY #90 tab 12/17/20 [Rx Confirmed 07/02/21] buspirone 10 mg tablet 10 mg PO BID #60 tablet 01/20/21 [Rx Confirmed 07/02/21] calcium carbonate 600 mg calcium (1,500 mg) tablet 600 mg PO DAILY 01/20/21 [History Confirmed 07/02/21] cholecalciferol (vitamin D3) 125 mcg (5,000 unit) capsule 125 mcg PO DAILY 01/20/21 [History Confirmed 07/02/21] tizanidine 4 mg capsule 4 mg PO BID PRN 04/24/21 [History Confirmed 07/02/21] sodium,potassium,mag sulfates 17.5 gram-3.13 gram-1.6 gram oral soln See Rx Instructions PO .COMPLEX #354 ml 07/02/21 [Rx Confirmed 07/02/21] Post menopausal: Yes Patient : No PFS Medical History (Updated 07/02/21 @ 11:[address] Guerra Friend, DO) Acute bronchitis, unspecified Acute pharyngitis, unspecified Anemia Anxiety Arthritis Back pain Barretts esophagus Bowel obstruction Brain aneurysm Cerebrovascular disease Chronic GERD Chronic neck and back pain CVA (cerebral vascular accident) Depression Dry eyes Dyslipidemia Essential hypertension Fatigue Gastrointestinal problem GERD (gastroesophageal reflux disease) Hiatal hernia High cholesterol High triglycerides History of gallstones History of pneumonia History of tumor Hyperkalemia Hypertension Hypothyroidism indigestion and heartburn Irritable bowel Knee pain Lab test negative for COVID-19 virus LBBB (left bundle branch block) Nausea & vomiting Osteopenia Pain, dental Palpitations Polycystic ovaries PVD (peripheral vascular disease) Sciatica Seizure Skin cancer Thyroid disease Ulcer Vertigo Vertigo Weakness Surgical History (Updated 07/02/21 @ 10:13 by Kate Mehta) History of back surgery History of bladder surgery History of cholecystectomy History of colon resection History of esophageal dilatation History of hand surgery History of hip replacement History of hysterectomy History of left knee surgery History of mandibular surgery History of neck surgery History of tonsillectomy Hx of appendectomy Family History Father CVA (cerebral vascular accident) Mother Myocardial infarction, Onset Age: 84 Anesthesia complication Anxiety Bowel disease Heart disease Hypertension High cholesterol Hormone Problem ulcer disease Brother Myocardial infarction, Onset Age: 52 Bleeding disorder blood tranfusion Heart disease Hypertension High cholesterol Hormone Problem Sister CAD (coronary artery disease) Anemia Anesthesia complication Angina pectoris, unspecified Anxiety Autoimmune disorder Bowel disease Breast cancer Depression Heart disease Hypertension High cholesterol Hormone Problem Osteoporosis Parkinson disease Thyroid disorder Sister CAD (coronary artery disease) Anemia Anesthesia complication Anxiety Bowel disease Hypertension High cholesterol Hormone Problem Osteoporosis Thyroid disorder Sister CAD (coronary artery disease) Anesthesia complication Anxiety Bowel disease Hypertension High cholesterol Osteoporosis Thyroid disorder Social History Smoking Status: Never smoker alcohol intake: never substance use type: does not use HPI HPI Chief Complaint: IBS-C, Barretts esophagus, colon removal following impaction. Details: JEAN KRUSE, is a 70 F who presents to the office today for the evaluation of esophageal dysphagia, Lua's esophagus and worsening constipation causes fecal impaction. She has a longstanding history of gastroesophageal reflux disease secondary to a large hiatal hernia status post Nichole fundoplication. She still needs to take omeprazole on a daily basis due to worsening heartburn. Recently she has been having problems with pill induced esophageal dysphagia. She says that she can cough whole pills. Her last upper endoscopy was back in 2013 and at that time she was noted to have loosening of her previous Nichole fundoplication. She also has a history of a large bowel obstruction status post sigmoid resection with primary anastomosis. She was in the hospital a hip fracture. In the hospital she was noted to have a possible impaction suspected at the level of her previous anastomosis. She has been on 2 stool softeners in the morning and at night to help with constipation. She has been on oral iron therapy for several months due to iron deficiency anemia. She does admit the black stools on a daily basis along with constipation. She has not lost any weight. Her last colonoscopy was 6 years ago and at that time she cannot recall any polyps. She does take an 81 mg aspirin on a daily basis. She has been struggling with a lot of fatigue. As per the patient and her who is with her the oral iron was supposed to help her with her fatigue. She was also concerned because she has had some elevated liver function test in the past. Her alkaline phosphatase has been ranging from the 140s to 150s over the last 5 years. She has not been having any problems with itching but she has had some dry eyes. She denies any jaundice. She does not know if she has any problems with vitamin D deficiency or osteopenia. She has no previous history of liver disease. She has not received any blood transfusions. She has not started any new medicines. ROS Const Constitutional: Positive for body ache (Has had head to toe body aches for the last 3 months. Evenings are worse.), headache(s), decreased energy, malaise, snoring, weight change (20 pound weight gain reported by patient since December 2020.) and sleep problems (Reports 2-3 hours each night.) Eyes Eyes: Positive for dry eyes (Dry eye syndrome.), Light sensitivity and spots in vision (In conjunction with migraines.) ENT ENT: Positive for sinus pressure (Reports sinus disease. Has had three surgeries.) and headache(s) Resp Respiratory: Positive for snoring Cardio Cardiology: No chest pain at rest, chest pain with exertion, shortness of breath or dyspnea on exertion Gastro GI: Positive for abdominal pain, belching, bloating and constipation (Takes four stool softeners to promote bowel movement. Reports pain with BM.) Genitourinary-Female: Positive for urinary frequency and urinary urgency Musc Musculoskeletal: Positive for myalgias (Generalized body aches.), numbness (BLE) and tingling (BLE) Skin Skin: No hair loss in leg, yellowing of the eye, itchy eyes, rash, skin ulcer or skin swelling Neuro Neurology: Positive for unsteady gait/balance (Following hip replacement. Seeing PT soon.) and headache(s) Psych Psychiatric: Positive for anxiety (Will begin seeing therapist.) Endo Endocrine: Positive for cold intolerance Aller/Imm Allergy/Immunologic: Positive for food intolerance (GI pain and burping with milk products.) and seasonal allergy symptoms; No itchy eyes Des/Lymp Hematologic/Lymphatic: Positive for easy bruising (Takes daily aspirin.) Quality Reporting Tobacco Screening ([facility] 138) Smoking Status: Never smoker Assessment and Plan (No Qualifiers) Assessment and Plan (1) Anemia: Status: Chronic Plan - Dr. Charlie Hilario, DO: She will have an evaluation of her upper GI tract and lower GI tract. The differential diagnosis for her anemia would be Ciro's erosions associated with a hiatal hernia, peptic ulcer disease, gastritis, duodenitis, AVMs of the upper or lower GI tract, bleeding at the site of anastomosis. Also the differential diagnosis is anemia secondary to hypergastrinemia associated with PPI therapy. (2) GERD (gastroesophageal reflux disease): Status: Acute Plan - Dr. Charlie Hilario, DO: I suspect that her gastroesophageal reflux disease is worse secondary to her unwrapped hiatal hernia. She may need to have another surgery if it turns out the omeprazole is the reason why she is anemic. (3) Hiatal hernia: Status: Acute Plan - Dr. Charlie Hilario, DO: We will evaluate her hiatal hernia during her upper endoscopy (4) Fecal incontinence: Status: Resolved Comment: . Plan - Dr. Charlie Hilario, DO: She does have intermittent loose stools with fecal incontinence. I believe this is secondary to overflow from her fecal impactions. (5) Hiatal hernia with GERD: Status: Chronic (6) Barretts esophagus: Status: Chronic Plan - Dr. Charlie Hilario, DO: We will take biopsies of the esophagus and determine if stenosis Long segment or short segment Lua's esophagus. (7) History of colonic polyps: Status: Chronic Comment: She will undergo colonoscopy all way to the terminal ileum for a surveillance colonoscopy. Plan Details Other Medications: New: sodium,potassium,mag sulfates 17.5-3.13-1.6 gram (Suprep Bowel Prep Kit) DILUTE; drink full amount early evening before AND next morning at least 2 hr before procedure; follow w 960 mL water PO 354 mL 0RF Coding Level of Care Code Off vis,new,level 5 Diagnoses Anemia D64.9 GERD (gastroesophageal reflux disease) K21.9 Hiatal hernia K44.9 Fecal incontinence R15.9 Hiatal hernia with GERD K21.9; K44.9 Barretts esophagus K22.70 History of colonic polyps Z86.010 [facility] Medical History (Updated 07/04/21 @ 11:57 by Estrella Matthew) Acute bronchitis, unspecified Acute pharyngitis, unspecified Ambulates with cane Anemia Anxiety Arthritis Back pain Barretts esophagus Bowel obstruction Brain aneurysm Cardiology follow-up encounter Cerebrovascular disease Chronic GERD Chronic neck and back pain CVA (cerebral vascular accident) Depression Difficulty swallowing Dry eyes Dyslipidemia Easy bruising Essential hypertension Fatigue Gastrointestinal problem GERD (gastroesophageal reflux disease) Hiatal hernia High cholesterol High triglycerides History of echocardiogram History of edema History of gallstones History of hiatal hernia History of pneumonia History of stress test History of tumor Hyperkalemia Hypertension Hypothyroidism indigestion and heartburn Irritable bowel Knee pain Lab test negative for COVID-19 virus LBBB (left bundle branch block) Nausea & vomiting Osteopenia Pain, dental Palpitations Polycystic ovaries PVD (peripheral vascular disease) Sciatica Seizure Shortness of breath on exertion Skin cancer Thyroid disease Ulcer Vertigo Vertigo Weakness Wears dentures Wears glasses Home Medications acetaminophen 1,000 mg PO Q8H PRN PRN tab 04/16/20 [Rx Last Taken Unknown] meclizine 12.5 mg tablet 12.5 mg PO DAILY PRN tab 05/21/20 [History Last Taken Unknown] oxycodone 5 mg tablet 5 mg PO Q4H PRN tab 05/21/20 [History Last Taken Unknown] sennosides 8.6 mg capsule 17.2 mg PO BID cap 05/21/20 [History Last Taken Unknown] aspirin 81 mg chewable tablet 81 mg PO DAILY@0800 #90 tab 05/23/20 [Rx Last Taken 07/03/21] levothyroxine 50 mcg tablet 50 mcg PO DAILY #90 tab 05/23/20 [Rx Last Taken 07/07/21 05:30] metoprolol succinate 25 mg tablet,extended release 24 hr 25 mg PO BID #180 tab 05/23/20 [Rx Last Taken 07/07/21 05:30] omeprazole 40 mg capsule,delayed release 40 mg PO DAILY #90 cap 05/23/20 [Rx Last Taken 07/07/21 05:30] pramipexole 0.125 mg tablet 0.125 mg PO QHS #90 tab 05/23/20 [Rx Last Taken Unknown] trazodone 100 mg tablet 100 mg PO QHS PRN #90 tab 05/23/20 [Rx Last Taken Unknown] lovastatin 40 mg tablet 40 mg PO DAILY #90 tab 06/06/20 [Rx Last Taken Unknown] duloxetine 60 mg capsule,delayed release 60 mg PO DAILY #90 cap 06/26/20 [Rx Last Taken Unknown] furosemide 20 mg tablet 20 mg PO DAILY #30 tab 11/27/20 [Rx Last Taken Unknown] ferrous sulfate 325 mg (65 mg iron) tablet 325 mg PO DAILY #90 tab 12/17/20 [Rx Last Taken Unknown] calcium carbonate 600 mg calcium (1,500 mg) tablet 600 mg PO DAILY 01/20/21 [History Last Taken Unknown] cholecalciferol (vitamin D3) 125 mcg (5,000 unit) capsule 125 mcg PO DAILY 01/20/21 [History Last Taken Unknown] tizanidine 4 mg capsule 4 mg PO BID PRN 04/24/21 [History Last Taken Unknown] sodium,potassium,mag sulfates 17.5 gram-3.13 gram-1.6 gram oral soln See Rx Instructions PO .COMPLEX #354 ml 07/02/21 [Rx Last Taken Unknown] bisacodyl 5 mg tablet,delayed release 5 mg PO ONCE #4 tab MDD 4 07/03/21 [Rx Last Taken Unknown] buspirone 10 mg PO BID 07/04/21 [History Last Taken Unknown] Allergy/AdvReac Type Severity Reaction Status Date / Time lisinopril AdvReac Severe High Verified 07/07/21 06:19 potassium, cough. atorvastatin calcium AdvReac legs ache Verified 07/07/21 06:19 [From Lipitor] Family History Father CVA (cerebral vascular accident) Mother Myocardial infarction, Onset Age: 84 Anesthesia complication Anxiety Bowel disease Heart disease Hypertension High cholesterol Hormone Problem ulcer disease Brother Myocardial infarction, Onset Age: 52 Bleeding disorder blood tranfusion Heart disease Hypertension High cholesterol Hormone Problem Sister CAD (coronary artery disease) Anemia Anesthesia complication Angina pectoris, unspecified Anxiety Autoimmune disorder Bowel disease Breast cancer Depression Heart disease Hypertension High cholesterol Hormone Problem Osteoporosis Parkinson disease Thyroid disorder Sister CAD (coronary artery disease) Anemia Anesthesia complication Anxiety Bowel disease Hypertension High cholesterol Hormone Problem Osteoporosis Thyroid disorder Sister CAD (coronary artery disease) Anesthesia complication Anxiety Bowel disease Hypertension High cholesterol Osteoporosis Thyroid disorder Surgical History (Updated 07/02/21 @ 10:13 by Kate Mehta) History of back surgery History of bladder surgery History of cholecystectomy History of colon resection History of esophageal dilatation History of hand surgery History of hip replacement History of hysterectomy History of left knee surgery History of mandibular surgery History of neck surgery History of tonsillectomy Hx of appendectomy Social History Smoking Status: Never smoker alcohol intake: never substance use type: does not use Vital Signs Vital Signs Vital Signs: 07/07/21 06:22 07/07/21 07:56 07/07/21 08:00 Temperature 98.0 F 97.2 F L Temperature Source Temporal Temporal Pulse Rate 57 L 58 L 56 L Respiratory Rate 16 16 16 Respiratory Pattern Normal Normal Blood Pressure 149/68 H 106/47 L 122/57 H Blood Pressure Mean 95 66 78 Blood Pressure Source Monitor Monitor Monitor Blood Pressure Position Semi-Fowlers Right Lateral Semi-Fowlers Blood Pressure Location Right Arm Right Arm Right Arm Baseline BP 149/68 149/68 Pulse Ox 95 100 99 Oxygen Delivery Method Room Air Room Air Room Air 07/07/21 08:05 07/07/21 08:14 07/07/21 08:16 Temperature 96.6 F L Temperature Source Temporal Pulse Rate 54 L 57 L 55 L Respiratory Rate 16 16 16 Respiratory Pattern Blood Pressure 108/63 111/60 132/49 H Blood Pressure Mean 78 77 76 Blood Pressure Source Monitor Monitor Monitor Blood Pressure Position Supine Supine Supine Blood Pressure Location Right Arm Right Arm Right Arm Baseline BP 149/68 149/68 149/68 Pulse Ox 100 98 99 Oxygen Delivery Method Room Air Room Air Room Air 07/07/21 08:33 Temperature Temperature Source Pulse Rate Respiratory Rate Respiratory Pattern Normal Blood Pressure Blood Pressure Mean Blood Pressure Source Blood Pressure Position Blood Pressure Location Baseline BP Pulse Ox Oxygen Delivery Method Weight Weight: 167 lb 12.348 oz Body Mass Index (BMI) 27.9
== END 2021-07-07 09:23 ==
LOC: AC 06:01
PROVIDERS: PCP Internal Medicine; Referring Provider Internal Medicine Gastroenterology; Visit Provider Internal Medicine Gastroenterology
PROC: 0DJD8ZZ Inspection of Lower Intestinal Tract, Via Natural or Artificial Opening Endoscopic (ICD-10-PCS; CPT 45378; principal; 2021-07-07 06:55)
DX: K22.70 Barrett's esophagus without dysplasia (principal); K44.9 Diaphragmatic hernia without obstruction or gangrene; K22.2 Esophageal obstruction; Z86.010 Personal history of colon polyps; I10 Essential (primary) hypertension; F41.9 Anxiety disorder, unspecified; K58.9 Irritable bowel syndrome, unspecified; M54.30 Sciatica, unspecified side; D50.9 Iron deficiency anemia, unspecified; Z79.82 Long term (current) use of aspirin; Z79.899 Other long term (current) drug therapy; Z87.01 Personal history of pneumonia (recurrent)
CPT/HCPCS: 43239; 45378; 87426; 88305; 88313; C9803; J7120; C1769; J2405

== ENCOUNTER 2021-07-16 14:00 | Outpatient (RCR) | payer MEDICARE, OTHER, SELFPAY ==
--- NOTE | 2021-06-27 13:25 | HP.PTEVAL_ITS ---
Patient's Visit Information JEAN KRUSE is a 70 year old F referred to Physical Therapy by Dr. Valdez Blue MD with a diagnosis of SACRAL DYSFUNCTION. Date of Evaluation: 06/27/21 Physical Therapist: Josy Chavez PT, Cert MDT - Visit Plan Frequency: 2-3x /Week Duration: 4-6 Weeks Plan: AQUATIC THERAPY FOR PAIN RELEIF, GAIT TRAINING, POSTURE CORRECTION/STRENGTHENING, INSTRUCTION IN APPROPRIATE BODY MECHANICS AND ACTIVITY MODIFICATIONS. DLS WITH A NEUTRAL SPINE ONLY AND TOLERATED. MIKE LE ROM, STRETCHING AND STRENGTHENING. HEP INSTRUCTION. - Subjective THIS PATIENT PRESENTS TO PT WITH C/O SEVERE INCREASE IN LOW BACK PAIN. SHE REPORTS SHE MOVED A FLOWER POT AND HURT HERSELF. SHE HAS BEEN SEEN AT THE [facility] SINCE THEN AND IS NOW REFERRED BACK TO PT AFTER HAVING IMAGING. PATIENT REPORTS SHE WANTS TO GET BACK IN THE WATER. STATES SHE WAS GIVEN 3 EX'S TO TRY BY RICHARD HARPER BUT SHE HASN'T TRIED THEM YET (PIRIFORMIS STRETCH, HSS, IT BAND STRETCH). Present symptoms: LOW BACK PAIN, MIKE BUTTOCK, THIGH, LEG PAIN TO ANKLES. NUMBNESS AND TINGLING ALL THE WAY DOWN LEGS TO FEET AND TOES. Present since: 06/14/21. Pain Scale: WORST 11/10, LEAST 6/10. Currently: 9/10. Worse: SITTING, WALKING, STANDING. Better: LYING DOWN. Disturbed sleep: YES. Previous history/Previous treatment: 3 BACK SURGERIES WITH LAST ONE APPROX 2018. A LOT OF PHYSICAL THERAPY. MARCIN'S BY DR. BLUE WITH THE LAST ONE BEING IN APRIL 2021. Coughing/sneezing/straining: NEGATIVE. Gait: TIME AND DISTANCE LIMITED. VERY PAINFUL. Difficulty initiating urinatin: INCONTINENCE - REFERRED TO PCP WITH ANY CHANGES. Unexplained weight loss: NO. Imaging: YES - WITH SURGEON SINCE FLARE UP - OK PER PATIENT REPORT. PMH: HTN. H/O TIA'S. BUNDLE BLOCKAGE PER YEARS PATIENT REPORTS. AN. Recent major surgery: December L THR WITH SEIZURE AFTER. BEING WORKED UP FOR SEIZURE BUT STATES SHE HAS NOT HAD ONE SINCE THEN. NOT ON SEIZURE MEDICATION AT THIS TIME. BRAIN ANEURYSM. - Objective THIS PATIENT AMBULATES INDEP'LY INTO PT WITH A VERY SLOW AND ANTALGIC GAIT PATTERN LIMPING ON THE LLE AND NOT USING ANY ASSISTIVE DEVICES. SHE REFUSED W/C FOR TRANSPORT BACK TO A TREATMENT ROOM. SHE IS UNABLE TO TRANSFER FROM SIT TO STAND WITHOUT UE ASSIST. PATIENT SHOWING BEHAVIOR AND HAVING C/O PAIN THROUGHOUT SESSION. SHE STOOD MOST OF THE TIME. UPON DEPARTURE, SHE ALMOST MADE IT BACK TO THE SCHEDULING DESK BEFORE THE PAIN STOPPED HER AND A CHAIR WAS BROUGHT TO HER. SHE THEN AGREED TO A W/C FOR TRANSPORT OUT. HER ARRIVED NEAR THE END OF HER SESSION. ALL ATTEMPS AT TESTING OF BACK ROM, TRUNK STRENGTH AND LE ROM AND STRENGTH PROVOKE C/O'S OF INCREASED PAIN. I WAS ABLE TO MAKE THE BELOW CONCULSIONS THOUGH: LUMBAR MVMT LOSS: MAJOR ALL PLANES. STRENGTH: RIGHT LE- GROSSLY 4-/5 WITH MMT'ING THROUGHOUT. LLE: HIP FLEX 3+/5, KNEE EXT 3+/5, KNEE FLEX 3+/5, ANKLE DORSIFLEX 4/5, EHL 4/5. POSITIVE LLE DURAL TEST. PALPATION: PATIENT IS VERY TENDER WITH LIGHT PALPATION OF LOW BACK, MIKE BUTTOCK, MIKE HIP AND MIKE LATERAL THIGH REGIONS. PATIENT WANTS AQUATIC THERAPY. SHE REPORTS THE [employer] SEEMED HESITANT ABOUT HER DOING AQUATIC THERAPY BECAUSE OF HER HISTORY OF SEIZURES BUT SHE TOLD HER SHE DID AQUATIC THERAPY AFTER HER SURGERY FOR HER HIP REPLACEMENT. THIS PT RECOMMENDS THERAPIST GET IN THE WATER WITH PATIENT FOR EXTRA PRECAUTION AND PATIENT IS AGREEABLE STATING SHE REALLY ONLY WANTS THE WATER THERAPY. - Balance/Special Test Scores Oswestry Low Back Score: 40 - Goals Goal 1:: DECREASE C/O BACK AND MIKE LE SX'S. Goal Time Frame: 4-6 Weeks Goal 2:: IMPROVE PERSONAL CARE, LIFTING, WALKING, SITTING, STANDING, SLEEP, SOCIAL LIFE, TRAVEL AND HOMEMAKING FUNCTIOIN Goal Time Frame: 4-6 Weeks Goal 3:: INSTRUCT IN PROPHYLAXIS Goal Time Frame: 4-6 Weeks - Anticipated Interventions Patient/Client Instruction: Educate patient on: Condition, Plan of Care, Risk Factors For the Purpose of:: To improve self management Therapeutic Exercise to Include: Strength training, Body mechanics, Postural training, Flexibilty training, Gait and locomotor training, Neuromotor development, In an aquatic setting, Dynamic Lumbar Stabilization For the Purpose of:: To decrease pain, To increase ROM, To improve muscle performance and motor function, To increase tolerance to activity/condition/position, To improve ability of physical actions for home/community/work/leisure, To improve gait and locomotor functions Thank you for the opportunity to evaluate your patient. For Medicare and Medicare HMO plans, please review the plan of care and approve it. It will need to be FAXED BACK to us at [phone] for Medicare purposes. For Medicare only, by signing this I certify the plan of care. Please let me know if there are questions or concerns regarding this plan of care. Physician Signature: Date:
--- NOTE | 2021-07-22 09:52 | HP.PT.NRP ---
JEAN KRUSE was seen in my office for initial evaluation on 06/27/21. The following Plan of Care was established for this patient: Initial Frequency: 2-3x /Week Initial Duration: 4-6 Weeks Patient/Client Instruction: Educate patient on: Condition, Plan of Care, Risk Factors For the Purpose of:: To improve self management Therapeutic Exercise to Include: Strength training, Body mechanics, Postural training, Flexibilty training, Gait and locomotor training, Neuromotor development, In an aquatic setting, Dynamic Lumbar Stabilization For the Purpose of:: To decrease pain, To increase ROM, To improve muscle performance and motor function, To increase tolerance to activity/condition/position, To improve ability of physical actions for home/community/work/leisure, To improve gait and locomotor functions This patient was last seen in our office . Pertinent comments regarding their Physical therapy will appear below: This patient has not returned to Physical Therapy and is appropriate to return to MD for further follow-up as needed. I received a note stating she was cancelling all PT jaspreet'ts at this time due to other health concerns. We would be happy to resume PT in the future as needed/appropriate. At this point I will be discontinuing this patient from physical therapy. I would be happy to see this patient again in the future if found appropriate by the physician. Thank you! Josy Chavez, PT, Cert MDT Balance/Gait/Functional tests - Balance/Special Test Scores Oswestry Low Back Score: 40
== END 2021-07-16 19:00 | disposition home or self-care (01) ==
LOC: PT 14:00
PROVIDERS: PCP Internal Medicine; Referring Provider Anesthesiology Pain Medicine; Visit Provider Anesthesiology Pain Medicine
DX: M53.3 Sacrococcygeal disorders, not elsewhere classified (principal)
CPT/HCPCS: 97113; 97162

== ENCOUNTER → 2021-07-21 16:13 | Outpatient (CLI) | payer MEDICARE, OTHER, SELFPAY ==
[2021-07-21 17:23] LABS: Platelet Count 281 K/mm3 (150-450); RET-HE 32.9 pg (30-35); Reticulocyte Count 1.27 % (0.5-1.5)
[2021-07-21 17:55] LABS: Ferritin 14 ng/mL (8-252); GGTP 29 U/L (5-55); Iron 48 ug/dL (50-170)
[2021-07-23 14:52] LABS: ANTINUCLEAR ANTIBODIES DIRECT Negative (Negative); Anti-Mitochondrial AB <20.0 Units (0.0-20.0)
[2021-07-23 16:10] LABS: Endomysial Antibody IgA Negative (Negative); Immunoglobulin A 314 mg/dL (64-422); Immunoglobulin G 584 mg/dL (586-1602)
[2021-07-23 18:54] LABS: Transferrin 326 mg/dL (192-364); t-Transglutaminase IgA <2 U/mL (0-3)
== END ==
PROVIDERS: PCP Internal Medicine; Referring Provider Internal Medicine Gastroenterology; Visit Provider Internal Medicine Gastroenterology
DX: R74.8 Abnormal levels of other serum enzymes (principal); R53.83 Other fatigue; I44.7 Left bundle-branch block, unspecified; D64.9 Anemia, unspecified; E78.5 Hyperlipidemia, unspecified
CPT/HCPCS: 36415; 82728; 82784; 82977; 83516; 83540; 84466; 85045; 86038; 86255

== ENCOUNTER → 2021-08-01 13:10 | Outpatient (CLI) | payer MEDICARE, OTHER, SELFPAY ==
--- NOTE | 2021-08-01 13:10 | MRI_ITS ---
STUDY: MR MRCP WITHOUT CONTRAST REASON FOR EXAM: Female, 71 years old. dilated common bile duct and elevated lft''s TECHNIQUE: Standard MRCP technique was utilized. 3-D postprocessing images were reviewed. COMPARISON: None. FINDINGS: Gall Bladder: Surgically absent. Cystic duct: Normal with no demonstrated fixed filling defect. Intrahepatic ducts: Normal visualized intrahepatic ducts with no demonstrated fixed filling defect, dilation or stricture. Common hepatic duct: Normal with no demonstrated fixed filling defect, dilation or stricture. Common bile duct: Dilated measuring up to 8 mm in diameter. No fixed filling defect or stricture. Pancreatic duct: Normal with no demonstrated fixed filling defect, dilation or stricture. Other: Multiple bilateral simple renal cysts. MRI/MRCP Abdomen without Contrast IMPRESSION: Dilatation of the common bile duct compatible with reservoir effect status post cholecystectomy. No stone, stricture or mass. Electronically Signed: Shine Velasquez MD at 19:17 EDT Tel , Service support ,
== END ==
PROVIDERS: PCP Internal Medicine; Referring Provider Internal Medicine Gastroenterology; Visit Provider Internal Medicine Gastroenterology
DX: R74.8 Abnormal levels of other serum enzymes (principal)
CPT/HCPCS: 74181

== ENCOUNTER → 2021-08-05 09:04 | Outpatient (CLI) | payer MEDICARE, OTHER, SELFPAY ==
[2021-08-05 09:11] VITALS: BP 141/66; PULSE 56; RESP 16; TEMP 36.2; O2SAT 96; BMI 27.8
[2021-08-05] MEDS: 0.9% NaCl Peripheral Flush Adult/Peds IV (09:26)
[2021-08-05] MEDS: Acetaminophen 325 MG Tablet 650 MG PO (09:31)
[2021-08-05] MEDS: 0.9% NaCl IVPB Med Flush (250 mL) 15 ML IV (09:31)
[2021-08-05] MEDS: Famotidine 20 MG Tablet 40 MG PO (09:36)
[2021-08-05] MEDS: Sodium Ferric Gluconat 250 MG in 0.9% Normal Saline 250 ML 135 MG IV (10:06)
[2021-08-05 12:20] VITALS: BP 148/66; PULSE 50; RESP 12; TEMP 35.9; O2SAT 96
[2021-08-05 12:52] VITALS: BP 148/66; PULSE 50; RESP 16; TEMP 35.9; O2SAT 96
== END ==
PROVIDERS: PCP Internal Medicine; Referring Provider Internal Medicine Gastroenterology; Visit Provider Internal Medicine Gastroenterology
DX: D50.9 Iron deficiency anemia, unspecified (principal)
CPT/HCPCS: 96365; 96366; 96375; J7050; A4216; J2916

== ENCOUNTER → 2021-08-08 08:55 | Outpatient (CLI) | payer MEDICARE, OTHER, SELFPAY ==
[2021-08-08 09:09] VITALS: BP 138/63; PULSE 53; RESP 16; TEMP 35.8; O2SAT 96
[2021-08-08] MEDS: 0.9% NaCl Peripheral Flush Adult/Peds IV (09:14)
[2021-08-08] MEDS: 0.9% NaCl IVPB Med Flush (250 mL) 15 ML IV (09:43)
[2021-08-08] MEDS: Acetaminophen 325 MG Tablet 650 MG PO (09:48)
[2021-08-08] MEDS: Famotidine 20 MG Tablet 40 MG PO (09:48)
[2021-08-08] MEDS: Sodium Ferric Gluconat 250 MG in 0.9% Normal Saline 250 ML 135 MG IV (10:16)
[2021-08-08 12:56] VITALS: BP 139/65; PULSE 57; RESP 16; TEMP 36.4; O2SAT 96
== END ==
PROVIDERS: PCP Internal Medicine; Referring Provider Internal Medicine Gastroenterology; Visit Provider Internal Medicine Gastroenterology
DX: D50.9 Iron deficiency anemia, unspecified (principal)
CPT/HCPCS: 96365; 96366 ×2; J7050; A4216; J2916

== ENCOUNTER → 2021-08-18 15:05 | Outpatient (CLI) | payer MEDICARE, OTHER, SELFPAY ==
[2021-08-18 16:32] LABS: Absolute Neutrophil Count 3.8 X10^3/uL (2.0-7.7); Basophil# 0.03 X10^3/uL; Basophil% 0.5 % (0-1); Eosinophil# 0.06 X10^3/uL; Hematocrit 39.3 % (37-47); Hemoglobin 12.8 g/dL (12.0-15.0); Lymphocyte % 25.5 % (19-41); Mean Corp Hgb Conc 32.6 g/dL (32-36); Mean Corpuscular Hgb 29.6 pg (27.0-32.0); Mean Corpuscular Volume 90.8 fL (81-99); Mean Platelet Vol. 9.8 fl (6.2-12.0); Monocyte# 0.52 X10^3/uL; Monocyte% 8.8 % (0-10); NRBC Flagged by Analyzer 0 % (0-5); Neutrophil # 3.76 X10^3/uL (2.7-7.7); Neutrophil % 63.9 % (47-70); Platelet Count 269 K/mm3 (150-450); RBC Distribution Width CV 14.9 % (11.6-14.6); RBC Distribution Width SD 49.1 fl (35.1-43.9); Red Blood Count 4.33 M/mm3 (4.2-5.4); White Blood Count 5.9 K/mm3 (4.4-11.0)
[2021-08-18 16:49] LABS: Erythrocyte Sedimentation Rate 18 mm/hr (0-30)
[2021-08-18 17:20] LABS: CRP 3.84 mg/L (0.0-3.0); Ferritin 342 ng/mL (8-252); Iron 59 ug/dL (50-170); Iron Binding Capacity,Total 344 ug/dL (250-450); PERCENT IRON SATURATION 17.2 % (15.0-55.0)
[2021-08-18 17:42] LABS: Vitamin B12 334 pg/mL (211-911)
== END ==
PROVIDERS: PCP Internal Medicine; Referring Provider Internal Medicine Gastroenterology; Visit Provider Internal Medicine Gastroenterology
DX: D64.9 Anemia, unspecified (principal); E78.5 Hyperlipidemia, unspecified; R53.83 Other fatigue
CPT/HCPCS: 36415; 82607; 82728; 83540; 83550; 85025; 85652; 86140

== ENCOUNTER → 2021-09-15 12:19 | Outpatient (CLI) | payer MEDICARE, OTHER, SELFPAY ==
--- NOTE | 2021-09-15 12:21 | BI_ITS ---
MAMMOGRAPHY - BILATERAL SCREENING 3-D TOMOSYNTHESIS REASON FOR EXAM: Female, 71 years old. Routine screening PERTINENT HISTORY: Sister with breast cancer.. TECHNIQUE: 2-D mammograms and 3-D Tomosynthesis of the breast (s) were performed. CAD was performed. COMPARISON: 2014 FINDINGS: The breast composition is composed of scattered fibroglandular density. Scattered benign calcifications are seen. No dense spiculated masses or suspicious microcalcifications are identified. No architectural distortion is identified. There is no skin thickening or retraction. There has been no significant change since the prior study. BI/SCRN MAMM (CAD)W/MARTIN BILAT IMPRESSION: No mammographic signs of malignancy. Routine yearly mammograms recommended. ASSESSMENT CATEGORY: BIRADS Category 2: Benign. A letter regarding these results will be sent to the patient by the facility within 30 days. FOLLOW UP RECOMMENDATION: Yearly follow up mammogram recommended. (A) Approximately 10% of breast cancers are not detected by mammography. A normal mammogram should not delay biopsy of a clinically suspicious abnormality. Electronically Signed: Duane Regalado MD at 17:12 EST , Service support ,
== END ==
PROVIDERS: PCP Internal Medicine; Referring Provider Internal Medicine; Visit Provider Internal Medicine
DX: Z12.31 Encounter for screening mammogram for malignant neoplasm of breast (principal)
CPT/HCPCS: 77063; 77067

== ENCOUNTER 2021-10-30 15:32 | Outpatient (CLI) | payer MEDICARE, OTHER, SELFPAY ==
[2021-10-30 17:56] LABS: ALB/GLOB Ratio 0.9 RATIO (0.9-2.4); AST(SGOT) 20 U/L (15-37); Alanine Aminotransfer ALT/SGPT 29 U/L (13-56); Albumin, Serum 3.5 g/dL (3.2-5.0); Alkaline Phosphatase 81 U/L (45-117); Anion Gap 8 (5-15); BUN 22 mg/dL (7-18); BUN/Creat Ratio 23.4 RATIO (10-20); Calcium,Total 9.1 mg/dL (8.5-10.1); Chloride 107 mmol/L (98-107); Cholesterol 214 mg/dL (200); Creatinine, Serum 0.94 mg/dL (0.55-1.02); EST Glomerular Filtration Rate 62 mL/min (>60); Est Glom Filt Rate - Afr Amer 75 mL/min (>60); Globulin 3.7 g/dL (2.2-4.2); Glucose 99 mg/dL (74-106); High Density Lipoprotein 89 mg/dL; Protein, Total 7.2 g/dL (6.4-8.2); Sodium Level 140 mmol/L (136-145); Thyroid Stim Hormone (TSH) 2.44 uIU/mL (0.358-3.74); Triglycerides 132 mg/dL; Very Low Density Lipoprotein 26 mg/dL (5-40)
== END 2021-10-30 23:59 | disposition short-term general hospital (02) ==
LOC: BIMLAB 15:33
PROVIDERS: PCP Internal Medicine; Referring Provider Internal Medicine; Visit Provider Internal Medicine
DX: I10 Essential (primary) hypertension (principal); E03.9 Hypothyroidism, unspecified
CPT/HCPCS: 36415; 80053; 80061; 84443

== ENCOUNTER 2022-01-15 10:30 | Outpatient (RCR) | payer MEDICARE, OTHER, SELFPAY ==
--- NOTE | 2021-11-19 12:58 | HP.PTEVAL ---
Patient's Visit Information JEAN KRUSE is a 71 year old F referred to Physical Therapy by Dr. Valdez Blue MD with a diagnosis of BACK PAIN. Date of Evaluation: 11/19/21 Physical Therapist: Josy Chavez PT, Cert MDT - Visit Plan Frequency: 2-3x /Week Duration: 4-6 Weeks Plan: AQUATIC THERAPY FOR PAIN RELIEF, POSTURE CORRECTION/STRENGTHENING, INSTRUCTION IN APPROPRIATE BODY MECHANICS AND ACTIVITY MODIFICATIONS. DLS STARTING WITH A NEUTRAL SPINE PROGRESSING ROM TOLERATED. MIKE LE ROM, STRETCHING AND STRENGTHENING. HEP INSTRUCTION. - Subjective Work/Leisure: RETIRED. Present symptoms: BACK AND LEFT LEG PAIN AND WEAKNESS. REPORTS THE RIGHT LEG IS BETTER. Present since: CHRONIC. Pain Scale: WORSE 8/10, LEAST 0/10 (LYING DOWN). Currently: 6/10. Worse: SITTING, WALKING, STANDING. SITTING IS THE WORST AND I CAN'T LIE ON EITHER SIDE. Better: LYING DOWN. Disturbed sleep: YES. Previous history/Previous treatment: 3 BACK SURGERIES WITH LAST ONE APPROX 2018. A LOT OF PHYSICAL THERAPY. MARCIN'S BY DR. BLUE WITH THE LAST ONE BEING IN ABOUT 2 WEEKS AGO 11/06/21. Coughing/sneezing/straining: NEGATIVE. Gait: TIME AND DISTANCE LIMITED. VERY PAINFUL. PATIENT REPORTS SHE HAS FALLEN 4 TIMES SINCE AUGUST MY LEGS JUST GIVE OUT ON ME. LAST FALL WAS ABOUT 11/07/21 AND SHE REPORTS SHE LANDED ON HER LEFT KNEE AND SHE NEEDS A L TKR. Difficulty initiating urinatin: INCONTINENCE - REFERRED TO PCP WITH ANY CHANGES. Unexplained weight loss: NO. Imaging: YES - WITH SURGEON SINCE FLARE UP - OK PER PATIENT REPORT. PMH: HTN. H/O TIA'S. BUNDLE BLOCKAGE PER YEARS PATIENT REPORTS. ANEMIA. Recent major surgery: December L THR WITH SEIZURE AFTER. BEING WORKED UP FOR SEIZURE BUT STATES SHE HAS NOT HAD ONE SINCE THEN. ON SEIZURE MEDICATION AT THIS TIME. BRAIN ANEURYSM. OTHER: PATIENTS STATES SHE FEELS SHE CAN EXERCISE BETTER IN THE POOL AND WANTS TO RESUME AQUATIC PT IF POSSIBLE. - Objective THIS PATIENT AMBULATES INDEP'LY INTO PT WITH A VERY SLOW AND ANTALGIC GAIT PATTERN LIMPING ON THE LLE AND NOT USING ANY ASSISTIVE DEVICES. PATIENT REFUSES ASSISTIVE DEVICE. REPORTS DR. BLUE WANTS HER TO USE ONE THOUGH. SHE IS UNABLE TO TRANSFER FROM SIT TO STAND WITHOUT UE ASSIST. PATIENT SHOWING PAIN BEHAVIOR AND HAVING C/O PAIN THROUGHOUT SESSION. SHE STOOD MOST OF THE TIME. HER ARRIVED NEAR THE END OF HER SESSION. ALL ATTEMPS AT TESTING OF BACK ROM, TRUNK STRENGTH AND LE ROM AND STRENGTH PROVOKE C/O'S OF INCREASED PAIN. I WAS ABLE TO MAKE THE BELOW CONCULSIONS THOUGH: LUMBAR MVMT LOSS: MAJOR ALL PLANES. STRENGTH: RIGHT LE- GROSSLY 4-/5 WITH MMT'ING THROUGHOUT. LLE: HIP FLEX 3+/5, KNEE EXT 3+/5, KNEE FLEX 3+/5, ANKLE DORSIFLEX 4/5, EHL 4/5. POSITIVE LLE DURAL TEST. PALPATION: PATIENT IS VERY TENDER WITH LIGHT PALPATION OF LOW BACK, MIKE BUTTOCK, MIKE HIP AND MIKE LATERAL THIGH REGIONS. PATIENT WANTS AQUATIC THERAPY. THIS PT HIGHLY RECOMMENDS AT LEAST CANE FOR IMPROVED SAFETY AND AFTER FURTHER EXPLANATION PATIENT AGREED TO GAIT TRAINING WITH CANE FOLLOWS: GAIT TRAINING: ON LEVEL SURFACES AND UP AN DOWN STEPS WITH STRAIGHT CANE. USED CLINIC CANE. INSTRUCTED IN HOW TO PROPERLY ADJUST CANE AT HOME. - Balance/Special Test Scores Oswestry Low Back Score: 32 - Goals Goal 1:: DECREASE C/O BACK AND LEG PAIN Goal Time Frame: 4-6 Weeks Goal 2:: IMPROVE PERSONAL CARE, LIFTING, WALKING, SITTING, STANDING, SLEEP, SOCIAL LIFE, TRAVEL AND HOMEMAKING FUNCTION Goal Time Frame: 4-6 Weeks Goal 3:: INSTRUCT IN PROPHYLAXIS Goal Time Frame: 4-6 Weeks - Anticipated Interventions Patient/Client Instruction: Educate patient on: Condition, Plan of Care, Risk Factors For the Purpose of:: To improve self management Therapeutic Exercise to Include: Strength training, Body mechanics, Postural training, Flexibilty training, Gait and locomotor training, Neuromotor development, In an aquatic setting, Dynamic Lumbar Stabilization For the Purpose of:: To decrease pain, To increase ROM, To improve muscle performance and motor function, To increase tolerance to activity/condition/position, To improve ability of physical actions for home/community/work/leisure, To improve gait and locomotor functions Thank you for the opportunity to evaluate your patient. For Medicare and Medicare HMO plans, please review the plan of care and approve it. It will need to be FAXED BACK to us at [phone] for Medicare purposes. For Medicare only, by signing this I certify the plan of care. Please let me know if there are questions or concerns regarding this plan of care. Physician Signature: Date:
--- NOTE | 2021-12-11 13:01 | HP.PTREVAL_ITS ---
Dr. Valdez Craft MD, It has been my pleasure to treat JEAN KRUSE over the last 6 visits for BACK PAIN. Please see the progress note below for an update on the physical therapy plan of care! Subjective: PATIENT REPORTS AQUATIC THERAPY IS REALLY HELPING. SHE REPORTS HER BALANCE IS BETTER AND HER BACK PAIN IS BETTER. STATES SHE CAN SIT LONGER TOO. EVEN MY MENTAL STATE IS BETTER BUT I AM NOT WHERE I WANT TO BE AND I WANT TO CONTINUE PT. REPORTS SHE CAN DO SOME OF THE HOME EX'S BUT NOT ALL OF THEM YET. L HIP PAIN IS BETTER SINCE STRETCHES GIVEN LAST VISIT. Objective/Function: PATIENT HAS HAD INTERUPTION IN THIS EPISODE OF CARE DUE TO INCLEMENT WEATHER AND SINUS INFECTION BUT STILL MAKING PROGRESS. PATIENT WAS SEEN TODAY FOR RE-ASSESSMENT OF PROGRESS TOWARD THE SET PT GOALS AND THE NEED FOR FURTHER PHYSICAL THERAPY VS READINESS FOR DISCHARGE. PATIENT IS MAKING SLOW PROGRESS TOWARD ALL SET PT GOALS. PATIENT DEMO'S MUCH IMPROVED ABILITY TO SIT COMFORTABLY IN CLINIC TODAY COMPARED TO INITIAL EVAL. UPON EXAM TODAY: PATIENT AMBULATES INDEP'LY INTO PT TODAY WITH STRAIGHT CANE THAT IS SLIGHTLY TOO HIGH. THIS PT ADJUSTED. GAIT IS STILL SLOW AND GUARDED BUT IMPROVED CADANCE AND SEQUENCING WITH CANE VS WITHOUT. SHE IS UNABLE TO TRANSFER FROM SIT TO STAND WITHOUT UE ASSIST. PATIENT SHOWING MUCH LESS PAIN BEHAVIOR THROUGHOUT SESSION TODAY COMPARED TO INITIAL EVAL. LUMBAR MVMT LOSS: FLEX MOD TO EDA, R SG - MOD, L SG - EDA, EXT - EDA. PATIENT C/O INCREASED LBP WITH LUMBAR ROM TESTING ALL PLANES BUT MVMT IS BETTER THAN INITIAL EVAL. STRENGTH: RIGHT LE- GROSSLY 4/5 WITH MMT'ING THROUGHOUT. LLE: HIP FLEX 3+/5, KNEE EXT 4-/5, KNEE FLEX 4-/5, ANKLE DORSIFLEX 4/5, EHL 4/5. NEGATIVE MIKE LE DURAL TESTS TODAY. PALPATION: PATIENT IS TENDER WITH LIGHT PALPATION OF LOW BACK AND MIKE LATERAL THIGH REGIONS. PAIN IS MORE LOCALIZED TODAY. PATIENT WANTS TO CONTINUE AQUATIC THERAPY AND THIS PT IS AGREEABLE. OTHER: DURING EXAM PATIENT REPORTED L ROSA PAIN AND LIFTING PANT LEG REVEALED SKIN TEARS. PATIENT REPORTS SHE FELL IN THE GARAGE ON WEDNESDAY WHEN SHE STEPPED ON SOMETHING BUT DENIES ANY INJURIES OTHER T CHAWLA ROSA GETTING HIT AND DENIES HURTING HER ANKLE. USED WATER PROOF BANDAGE IN POOL YESTERDAY. Plan Plan: CONT PER POC. CHECK LEFT ROSA SKIN. *Progress LB stretch to HEP next. AQUATIC THERAPY FOR PAIN RELIEF, POSTURE CORRECTION/STRENGTHENING, INSTRUCTION IN APPROPRIATE BODY MECHANICS AND ACTIVITY MODIFICATIONS. DLS STARTING WITH A NEUTRAL SPINE PROGRESSING ROM TOLERATED. MIKE LE ROM, STRETCHING AND STRENGTHENING. HEP INSTRUCTION. Balance/Gait/Functional tests - Balance/Special Test Scores Oswestry Low Back Score: 31 Goals Goal 1:: DECREASE C/O BACK AND LEG PAIN Goal Time Frame: 4-6 Weeks Goal Progress: Progressing Goal 2:: IMPROVE PERSONAL CARE, LIFTING, WALKING, SITTING, STANDING, SLEEP, SOCIAL LIFE, TRAVEL AND HOMEMAKING FUNCTION Goal Time Frame: 4-6 Weeks Goal Progress: Progressing Goal 3:: INSTRUCT IN PROPHYLAXIS Goal Time Frame: 4-6 Weeks Goal Progress: Progressing Anticipated Interventions Patient/Client Instruction: Educate patient on: Condition, Plan of Care, Risk Factors For the Purpose of:: To improve self management Therapeutic Exercise to Include: Strength training, Body mechanics, Postural training, Flexibilty training, Gait and locomotor training, Neuromotor development, In an aquatic setting, Dynamic Lumbar Stabilization For the Purpose of:: To decrease pain, To increase ROM, To improve muscle performance and motor function, To increase tolerance to activity/condition/position, To improve ability of physical actions for home/community/work/leisure, To improve gait and locomotor functions Please do not hesitate to contact me at [phone] by phone or if you have questions or concerns regarding this new plan of care! Sincerely, Josy Chavez, PT, Cert MDT
--- NOTE | 2022-01-15 10:59 | HP.PTDCSUM_ITS ---
It has been my pleasure to treat JEAN KRUSE referred by Dr. Valdez Blue MD, with the diagnosis of BACK PAIN for a total of 12 visit(s). Discharge Date: Please see the following information for a summary of their discharge status. Subjective: PATIENT REPORTS THAT IF HER RIGHT HIP/THIGH DIDN'T HURT SHE WOULD BE 100% BETTER. STATES SITTING INCREASES HER PAIN. PATIENT REPORTS DR. BLUE IS AWARE OF HER RIGHT LE PAIN AND SHE HAS A FOLLOW UP WITH [facility] TODAY. L hip Pain Intensity (Out of 10): 0 Lumbar Soine Pain Intensity (Out of 10): 0 RLE Pain Intensity (Out of 10): 6 % Improvement: 70 Objective/Function: PATIENT WAS SEEN TODAY FOR RE-ASSESSMENT OF PROGRESS TOWARD THE SET PT GOALS AND THE NEED FOR FURTHER PHYSICAL THERAPY VS READINESS FOR DISCHARGE. UPON EXAM TODAY: PATIENT AMBULATES INDEP'LY INTO PT TODAY WITH STRAIGHT CANE. GAIT IS STILL SLOW AND GUARDED BUT IMPROVED CADANCE AND SEQUENCING WITH CANE VS WITHOUT. SHE STARTS OUT WITH A STEP TO GAIT PATTERN X APPROX 25 FEET THEN ABLE TO CONTINUE WITH RECIPRICAL PATTERN X 200+ FEET. SHE IS NOW ABLE TO TRANSFER FROM SIT TO STAND WITHOUT UE ASSIST. LUMBAR MVMT LOSS: FLEX - MOD TO EDA,. R SG - MOD,. L SG - EDA,. EXT - EDA. PATIENT C/O IN CREASED LBP WITH LUMBAR ROM TESTING ALL PLANES STRENGTH: RIGHT LE- GROSSLY 4/5 WITH MMT'ING THROUGHOUT EXCEPT RIGHT HIP FLEX TODAY 4-/5 AND PAIN LIMITED. LLE: HIP FLEX 4-/5, KNEE EXT 4/5, KNEE FLEX 4/5, ANKLE DORSIFLEX 4/5, EHL 4/5. NEGATIVE MIKE LE DURAL TESTS TODAY. PALPATION: PATIENT IS TENDER WITH LIGHT PALPATION OF LOW BACK, RIGHT HIP AND MIKE LATERAL THIGH REGIONS. PATIENT IS INDEP WITH POOL PROGRAM AND CAN CONTINUE INDEP'LY AT THIS TIME. PT IS AGREEABLE. Goal 1:: DECREASE C/O BACK AND LEG PAIN Goal Progress: Goal Met Goal 2:: IMPROVE PERSONAL CARE, LIFTING, WALKING, SITTING, STANDING, SLEEP, SOCIAL LIFE, TRAVEL AND HOMEMAKING FUNCTION Goal Progress: Goal Met Goal 3:: INSTRUCT IN PROPHYLAXIS Goal Progress: Goal Met Plan: D/C TO [facility] HOME AND POOL EX. PATIENT IS AGREEABLE. If there are questions or concerns regarding this patient's physical therapy, please feel free to call me at [phone]. Thank you for the referral of this patient. Sincerely, Josy Chavez, PT, Cert MDT Balance/Gait/Functional tests - Balance/Special Test Scores Oswestry Low Back Score: 29
--- NOTE | 2022-01-15 10:59 | HP.PTEVAL ---
Patient's Visit Information JEAN KRUSE is a 71 year old F referred to Physical Therapy by Dr. Valdez Blue MD with a diagnosis of BACK PAIN. Date of Evaluation: 11/19/21 Physical Therapist: Josy Chavez PT, Cert MDT - Visit Plan Frequency: 2-3x /Week Duration: 4-6 Weeks Plan: D/C TO [facility] AND POOL EX. PATIENT IS AGREEABLE. - Subjective Work/Leisure: RETIRED. Present symptoms: BACK AND LEFT LEG PAIN AND WEAKNESS. REPORTS THE RIGHT LEG IS BETTER. Present since: CHRONIC. Pain Scale: WORSE 8/10, LEAST 0/10 (LYING DOWN). Currently: 6/10. Worse: SITTING, WALKING, STANDING. SITTING IS THE WORST AND I CAN'T LIE ON EITHER SIDE. Better: LYING DOWN. Disturbed sleep: YES. Previous history/Previous treatment: 3 BACK SURGERIES WITH LAST ONE APPROX 2018. A LOT OF PHYSICAL THERAPY. MARCIN'S BY DR. BLUE WITH THE LAST ONE BEING IN ABOUT 2 WEEKS AGO 11/06/21. Coughing/sneezing/straining: NEGATIVE. Gait: TIME AND DISTANCE LIMITED. VERY PAINFUL. PATIENT REPORTS SHE HAS FALLEN 4 TIMES SINCE AUGUST MY LEGS JUST GIVE OUT ON ME. LAST FALL WAS ABOUT 11/07/21 AND SHE REPORTS SHE LANDED ON HER LEFT KNEE AND SHE NEEDS A L TKR. Difficulty initiating urinatin: INCONTINENCE - REFERRED TO PCP WITH ANY CHANGES. Unexplained weight loss: NO. Imaging: YES - WITH SURGEON SINCE FLARE UP - OK PER PATIENT REPORT. PMH: HTN. H/O TIA'S. BUNDLE BLOCKAGE PER YEARS PATIENT REPORTS. ANEMIA. Recent major surgery: December L THR WITH SEIZURE AFTER. BEING WORKED UP FOR SEIZURE BUT STATES SHE HAS NOT HAD ONE SINCE THEN. ON SEIZURE MEDICATION AT THIS TIME. BRAIN ANEURYSM. OTHER: PATIENTS STATES SHE FEELS SHE CAN EXERCISE BETTER IN THE POOL AND WANTS TO RESUME AQUATIC PT IF POSSIBLE. - Pain L hip Pain Intensity (Out of 10): 0 Lumbar Soine Pain Intensity (Out of 10): 0 Comment: R>L RLE Pain Intensity (Out of 10): 6 Comment: FRONT OF HIP AND BUTTOCKS INTO PROX THIGH - Objective THIS PATIENT AMBULATES INDEP'LY INTO PT WITH A VERY SLOW AND ANTALGIC GAIT PATTERN LIMPING ON THE LLE AND NOT USING ANY ASSISTIVE DEVICES. PATIENT REFUSES ASSISTIVE DEVICE. REPORTS DR. BLUE WANTS HER TO USE ONE THOUGH. SHE IS UNABLE TO TRANSFER FROM SIT TO STAND WITHOUT UE ASSIST. PATIENT SHOWING PAIN BEHAVIOR AND HAVING C/O PAIN THROUGHOUT SESSION. SHE STOOD MOST OF THE TIME. HER ARRIVED NEAR THE END OF HER SESSION. ALL ATTEMPS AT TESTING OF BACK ROM, TRUNK STRENGTH AND LE ROM AND STRENGTH PROVOKE C/O'S OF INCREASED PAIN. I WAS ABLE TO MAKE THE BELOW CONCULSIONS THOUGH: LUMBAR MVMT LOSS: MAJOR ALL PLANES. STRENGTH: RIGHT LE- GROSSLY 4-/5 WITH MMT'ING THROUGHOUT. LLE: HIP FLEX 3+/5, KNEE EXT 3+/5, KNEE FLEX 3+/5, ANKLE DORSIFLEX 4/5, EHL 4/5. POSITIVE LLE DURAL TEST. PALPATION: PATIENT IS VERY TENDER WITH LIGHT PALPATION OF LOW BACK, MIKE BUTTOCK, MIKE HIP AND MIKE LATERAL THIGH REGIONS. PATIENT WANTS AQUATIC THERAPY. THIS PT HIGHLY RECOMMENDS AT LEAST CANE FOR IMPROVED SAFETY AND AFTER FURTHER EXPLANATION PATIENT AGREED TO GAIT TRAINING WITH CANE FOLLOWS: GAIT TRAINING: ON LEVEL SURFACES AND UP AN DOWN STEPS WITH STRAIGHT CANE. USED CLINIC CANE. INSTRUCTED IN HOW TO PROPERLY ADJUST CANE AT HOME. - Balance/Special Test Scores Oswestry Low Back Score: 29 - Goals Goal 1:: DECREASE C/O BACK AND LEG PAIN Goal Time Frame: 4-6 Weeks Goal 2:: IMPROVE PERSONAL CARE, LIFTING, WALKING, SITTING, STANDING, SLEEP, SOCIAL LIFE, TRAVEL AND HOMEMAKING FUNCTION Goal Time Frame: 4-6 Weeks Goal 3:: INSTRUCT IN PROPHYLAXIS Goal Time Frame: 4-6 Weeks - Anticipated Interventions Patient/Client Instruction: Educate patient on: Condition, Plan of Care, Risk Factors For the Purpose of:: To improve self management Therapeutic Exercise to Include: Strength training, Body mechanics, Postural training, Flexibilty training, Gait and locomotor training, Neuromotor development, In an aquatic setting, Dynamic Lumbar Stabilization For the Purpose of:: To decrease pain, To increase ROM, To improve muscle performance and motor function, To increase tolerance to activity/condition/position, To improve ability of physical actions for home/community/work/leisure, To improve gait and locomotor functions Thank you for the opportunity to evaluate your patient. For Medicare and Medicare HMO plans, please review the plan of care and approve it. It will need to be FAXED BACK to us at [phone] for Medicare purposes. For Medicare only, by signing this I certify the plan of care. Please let me know if there are questions or concerns regarding this plan of care. Physician Signature: Date:
--- NOTE | 2022-01-15 12:53 | RAD_ITS ---
STUDY: X-RAY - PELVIS AND RIGHT HIP REASON FOR EXAM: Female, 71 years old. Right hip pain. TECHNIQUE: 3 views of the pelvis and hip. COMPARISON: None. FINDINGS: There is a non-specific bowel gas pattern. Phleboliths. Osteopenia. Normal bilateral iliac wings, sacroiliac joints and visualized sacrum. Normal bilateral superior and inferior pubic rami. Normal pubic symphysis. Normal bilateral ischial tuberosities. Postsurgical changes of the lower lumbar spine. Left total hip arthroplasty with anatomic alignment and no complications in the visualized components. Normal right hip. RAD/HIP, UNI W/ Pelvis 2-3 Views IMPRESSION: Osteopenia with uncomplicated left total hip arthroplasty. No acute abnormality, erosive changes or evidence of fusion. Electronically Signed: Corona Ashby MD at 13:46 EDT ,
== END 2022-01-15 12:46 | disposition home or self-care (01) ==
LOC: PT 10:30
PROVIDERS: PCP Internal Medicine; Referring Provider Anesthesiology Pain Medicine; Visit Provider Anesthesiology Pain Medicine
DX: M54.9 Dorsalgia, unspecified (principal)
CPT/HCPCS: 73502; 97113; 97116; 97162; 97164

== ENCOUNTER → 2022-03-13 | Outpatient (CLI) | payer MEDICARE, OTHER, SELFPAY ==
--- NOTE | 2022-03-13 09:00 | VDLE_ITS ---
Reason For Study: Venous Insufficiency RIGHT LEFT CFV is compressible, spontaneous, phasic, CFV is compressible, spontaneous, phasic, competent and demonstrates normal competent, and demonstrates normal augmentation. augmentation. FV is compressible, spontaneous, phasic, FV is compressible, spontaneous, phasic, competent and demonstrates normal competent and demonstrates normal augmentation. augmentation. POP V is compressible, spontaneous, phasic, POP V is compressible, spontaneous, phasic, competent and demonstrates normal competent and demonstrates normal augmentation. augmentation. T/P Trunk is compressible. T/P Trunk is compressible. PTV is compressible. PTV is compressible. RT PerV is compressible. LT PerV is compressible. SFJ is competent and measures 0.74 cm. SFJ is competent and measures 0.79 cm. GSV proximal thigh measures 0.12 x 0.13 cm. GSV proximal thigh measures 0.18 x 0.18 cm. GSV at knee measures 0.14 x 0.14 cm. GSV at knee measures 0.17 x 0.20 cm. GSV is competent throughout. GSV above knee is competent. SSV proximal calf is competent and measures GSV below knee is INCOMPETENT for greater 0.18 x 0.18 cm. than 0.5 seconds. Rt ASV measure 0.16 x 0.16cm and is competent Lt ASV measures 0.18cm x 0.20cm and is throughout. competent throughout. Procedure SSV proximal calf is INCOMPETENT for greater Exam performed in department. than 0.5 seconds and measures 0.12 x 0.12 cm. The exam was diagnostic. VL/Venous Duplex US - Junior Extrem Interpretation Summary Bilateral lower extremities no evidence of DVT or SVT visualized. The left belo w-knee greater saphenous with some reflux but measuring 2 mm. Left LSV reflux measuring 1.2 mm . Ordering Physician: Michele Reese Referring Physician: MD Michele Reese Performed By: Nakul Boyer
== END | disposition home or self-care (01) ==
LOC: CVS 08:57
PROVIDERS: PCP Internal Medicine; Visit Provider Surgery Vascular Surgery
DX: I87.2 Venous insufficiency (chronic) (peripheral) (principal); I63.9 Cerebral infarction, unspecified; I83.893 Varicose veins of bilateral lower extremities with other complications; M79.89 Other specified soft tissue disorders; M79.606 Pain in leg, unspecified; I45.4 Nonspecific intraventricular block; E78.00 Pure hypercholesterolemia, unspecified; I10 Essential (primary) hypertension
CPT/HCPCS: 93970

== ENCOUNTER 2022-04-23 11:30 | Outpatient (RCR) | payer MEDICARE, OTHER, SELFPAY ==
--- NOTE | 2022-04-13 18:20 | HP.PTEVAL_ITS ---
Patient's Visit Information JEAN KRUSE is a 71 year old F referred to Physical Therapy by DAVE VILLALTA with a diagnosis of UNILATERAL PRIMARY OSTEOARHRITIS LEFT KNEE. Date of Evaluation: 04/13/22 Physical Therapist: Zacarias Perry, PT, Cert MDT, OCS - Visit Plan Frequency: 2x /Week Duration: 6 Weeks Plan: PATIENT IS SCHEDULED WITH TKR ON May. PT INTERVENTIONS WITH GRADED ROM, STRENGTHNEING ,FLEXABILITY ,FUNCTIONAL STRENGTHNEING AND MODALTIES FOR PAIN - Subjective This 71 y/o female presents to physical therapy with with OA left knee. Patient has had progressive knee pain which has caused from DJD . Patient had incident falling Nov 2021 which made symptoms worse. Pain described as ache global . Seen DR abebe x-rays showed DJD . Patient had prior cortisone. Denies paresthesia ,although tingling . Aggravating factors unable squat, kneeling and stairs ,extended walking/standing ,impairs function and ADLS. Alleviating nothing. Prescribed oxycodone 5 mg. Patient pain affects sleeping. Patient also has lumbar fusion, cervical fusion. Patient does have sciatica pain in legs radiates to calf. Seen DR Therese mays [facility]. Patient also need left TKR and right knee will be scheduled Jun 13. Patient seen DR Bo for pain management. Patient pain affects QOL and function. SOCIAL: . VOCATION: retired. - Pain Left Knee Pain Intensity (Out of 10): 10 Pain Intensity Range: 10 Comment: walking - Objective POSTURE: mild posture. NEURO: denies paresthesia/tingling, reflexes L3 -4,L4-5,L5-S1 1/3. GAIT: antalgic gait left side slow painful gait with sciatica pain with arm to arm assist to walk in PT dept. SYMMTRIES: align. EDEMA: unremarkable. PALPTION: global knee medial /lateral. AROM: supine knee flexion 0-110 degrees. MMT(peak force) : quads left 23.8 ,right 28.7 ,hamstrings left 17.8,right 25.8 ,hip 28.8,ankle 4/5. STAIRS: NT - Special Tests L Knee Rustam - Meniscus: Positive L Knee Quintin - ACL: Negative L Knee Anterior Drawer - ACL: Negative L Knee Valgus - MCL: Positive L Knee Varus - LCL: Negative L Knee Patellar Apprehension - PFS: Negative - Balance/Special Test Scores Lower Extremity Functional Score: 4 - Goals Goal 1:: Patient to be I with HEP for knee for Prerehab Goal Time Frame: 4-6 Weeks Goal 2:: Patient to improve peak force left knee /hamstrings with less pain by 5 points Goal Time Frame: 4-6 Weeks Goal 3:: Patient to demonstrate 40 % improvement with decrease pain to improve function Goal Time Frame: 4-6 Weeks Goal 4:: Patient to increase AROM knee flexion by 5 degrees to improve function Goal 5:: Patient to improve LFES score by 5 points to improve QOL and function - Rehabilitation Potential Physical Therapy Diagnosis: This patient has multiple comorbities along with back and cervical surgery with patient has left knee pain and needs TKR with pain ,lack of motion and weakness impairs walking and standing thus will need skilled PT to maximize function Rehabilitation Potential: Good - Anticipated Interventions Patient/Client Instruction: Educate patient on: Condition, Plan of Care For the Purpose of:: To decrease pain, To decrease swelling/inflammation, To increase ROM, To improve muscle performance and motor function, To improve ability to perform ADL's, To increase tolerance to activity/condition/position, To improve ability of physical actions for home/community/work/leisure, To improve health of tissue, To decrease soft tissue restriction, To increase flexibility/ROM, To improve endurance, To improve balance Therapeutic Exercise to Include: Strength training, Endurance training, Flexibilty training, Passive ROM, Active ROM Comment: KNEE For the Purpose of:: To decrease pain, To decrease swelling/inflammation, To increase ROM, To improve muscle performance and motor function, To improve ability to perform ADL's, To increase tolerance to activity/condition/position, To improve ability of physical actions for home/community/work/leisure, To improve health of tissue, To decrease soft tissue restriction, To increase flexibility/ROM, To improve endurance, To improve balance TENS: Yes IF ES: Yes Cryotherapy (ice pack, ice massage): Yes Thermo therapy (hot pack): Yes Ultrasound (thermal/non thermal): Yes For the Purpose of:: To decrease pain, To decrease swelling/inflammation, To increase ROM, To improve nutrient delivery to tissue, To increase oxygenation perfusion, To improve health of tissue, To decrease soft tissue restriction Thank you for the opportunity to evaluate your patient. For Medicare and Medicare HMO plans, please review the plan of care and approve it. It will need to be FAXED BACK to us at [phone] for Medicare purposes. For Medicare only, by signing this I certify the plan of care. Please let me know if there are questions or concerns regarding this plan of care. Physician Signature: Date:
== END 2022-04-23 19:00 | disposition home or self-care (01) ==
LOC: PT 11:30
PROVIDERS: PCP Internal Medicine
DX: M17.12 Unilateral primary osteoarthritis, left knee (principal)
CPT/HCPCS: 97110; 97162

== ENCOUNTER 2022-04-24 13:26 | Emergency (ER) | payer MEDICARE, OTHER, SELFPAY ==
[2022-04-24] VITALS (7 sets, daily range): BP systolic 142–177; BP diastolic 66–78; PULSE 64–85; RESP 14–24; TEMP 36.4–37; O2SAT 95–100; BMI 29.2
--- NOTE | 2022-04-24 13:44 | EKG12_ITS ---
Test Reason : SMOKE INHALE Blood Pressure : / mmHG Vent. Rate : 063 BPM Atrial Rate : 063 BPM P-R Int : 170 ms QRS Dur : 122 ms QT Int : 416 ms P-R-T Axes : 067 001 105 degrees QTc Int : 425 ms Normal sinus rhythm with sinus arrhythmia Left bundle branch block Abnormal ECG Confirmed by SANJUANITA MONTEIRO, ANGY ([id number]), desk editor VERN NUNEZ ([id number]) on 04/28/2022 10:08:28 AM Referred By: Confirmed By:ANGY GANN MD
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
[2022-04-24] MEDS: Ipratropium/Albuterol Sulfate 3 ML AMPUL.NEB INHALATION (13:54)
[2022-04-24 13:59] LABS: Absolute Lymphocyte Count 1.38 X10^3/uL (0.83-4.51); Absolute Neutrophil Count 3.6 X10^3/uL (2.0-7.7); Basophil# 0.02 X10^3/uL; Basophil% 0.4 % (0-1); Eosinophil# 0.09 X10^3/uL; Eosinophils% 1.6 % (0-5); Hematocrit 42.2 % (37-47); Hemoglobin 13.8 g/dL (12.0-15.0); Lymphocyte # 1.38 X10^3/ul (0.83-4.51); Lymphocyte % 24.7 % (19-41); Mean Corp Hgb Conc 32.7 g/dL (32-36); Mean Corpuscular Hgb 30.6 pg (27.0-32.0); Mean Corpuscular Volume 93.6 fL (81-99); Mean Platelet Vol. 9.8 fl (6.2-12.0); Monocyte# 0.45 X10^3/uL; Monocyte% 8.1 % (0-10); NRBC Flagged by Analyzer 0 % (0-5); Neutrophil # 3.63 X10^3/uL (2.7-7.7); Neutrophil % 64.8 % (47-70); Platelet Count 235 K/mm3 (150-450); RBC Distribution Width CV 12.5 % (11.6-14.6); Red Blood Count 4.51 M/mm3 (4.2-5.4); White Blood Count 5.6 K/mm3 (4.4-11.0)
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
[2022-04-24] MEDS: LORazepam 0.5 MG Tablet PO (14:01)
[2022-04-24] MEDS: predniSONE 20 MG Tablet 60 MG PO (14:01)
[2022-04-24] MEDS: Albuterol 2.5 MG/3 ML VIAL.NEB. INHALATION (14:02)
[2022-04-24 14:14] LABS: Anion Gap 7 (5-15); BUN 14 mg/dL (7-18); BUN/Creat Ratio 13.7 RATIO (10-20); Calcium,Total 9.4 mg/dL (8.5-10.1); Chloride 103 mmol/L (98-107); Creatinine, Serum 1.02 mg/dL (0.55-1.02); EST Glomerular Filtration Rate 57 mL/min (>60); Est Glom Filt Rate - Afr Amer 69 mL/min (>60); Estimated Creatinine Clearance 47.36 ml/min; Glucose 104 mg/dL (74-106); Potassium 4.3 mmol/L (3.5-5.1); Sodium Level 138 mmol/L (136-145)
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
== END 2022-04-24 16:44 | disposition home or self-care (01) ==
PROVIDERS: Emergency Provider Emergency Medicine; PCP Internal Medicine; Visit Provider Emergency Medicine
DX: R06.00 Dyspnea, unspecified (principal); E66.9 Obesity, unspecified; Z86.73 Personal history of transient ischemic attack (TIA), and cerebral infarction without residual deficits
CPT/HCPCS: 71045; 80048; 85025; 93005; 94640; 99285; A4216

== ENCOUNTER 2022-07-21 13:00 | Outpatient (RCR) | payer MEDICARE, OTHER, SELFPAY ==
--- NOTE | 2022-07-08 07:39 | HP.OTEVAL ---
Patient's Visit Information JEAN KRUSE is a 72 year old F, referred to Occupational Therapy by Dr. Darnell Hardy MD, with a diagnosis of left MF distal phalanx fx.. Date of Evaluation: 07/07/22 Occupational Therapist: Arlette Pereyra, PATRICIA/Marino, CHT - Subjective This 72 year old female was seen for OT eval with dx of left MF distal phalanx fx. pt is right handed- pt states DOI was 06/10/22. pt states while pulling on a collar of a large dog her finger got twisted. pt states has allowed her to initiate gentle AROM/PROM of PIP and DIP joints No heavy lifting for 4 weeks. pt reports throbbing pain and states she feels she is always hitting her finger now that she broke it. pt states she is attempting to elizabeth tape it but struggles with tape when her hands get wet. - Pain Left IF. 3 Pain Intensity Range: 6 - ROM MP: right MF 0/90 left 55 PIP: right MF 0/100 left 80 DIP: right MF 0/60 left 25 ROM Comments: pt demo more guarded ROM of MP. but PIP and DIP moving well for injury at this time - Strength Strength Comments: will test at later date - Quick DASH-Disab of Arm,Shoulder& Hand Quick DASH Score: 65.9075 - Goals Comment: follow Dr. Hardy guidelines and written instructions Goal:ROM equal to unaffected hand: Yes Goal:Heavy Forging Machine Operator/Pinch strength at least 75% of unaffected hand: Yes Goal:No pain with affected hand use: Yes Goal:Full use of affected hand in daily activities including: Yes - Rehabilitation General Assessment: pt demo with newly healing fx of left MF distal phalanx. pt limited with ROM and use of left hand for ADls and IADLs. pt would benefit from skilled OT services 1x week for next 4-6 weeks to return pts ROM and use of hand to IND. level with ADLs and IADls . Today therapist ed. pt on light ROM and how elizabeth tape will support and protect her fx- pt demo understanding- therapist did make small orthosis for night use only for DIP leaving PIP and MP free to increase pts comfort while sleeping. pt was pleased and demo understanding of use and agreed to POC. Rehabilitation Potential: Excellent - Anticipated Interventions A/AAROM/PROM, Triggerpoint Release, Desensitization, Modalities, Joint Protection/Energy Conservation, Ergonomic Education, Fine Motor Coord/Rachid, Education re Diagnosis, Caregiver Training, Home Program - Visit Plan Frequency: 1-2x /Week Duration: 6 Weeks General Plan: therapist will initiate ROM to pts jose. to gain functional composite fist and after 4 weeks initiate wt. bearing as tolerate to return to use of left hand with ADLs and IADLs TEXT: Thank you for the opportunity to evaluate your patient. For Medicare and Medicare HMO plans, please review the plan of care and approve it. It will need to be FAXED BACK to us at [phone] for Medicare purposes. Please let me know if there are questions or concerns regarding this plan of care. Physician Signature: Date:
--- NOTE | 2022-07-21 13:11 | HP.OTDCSUM_ITS ---
It has been my pleasure to treat JEAN KRUSE under orders from Dr. Darnell Hardy MD, for the diagnosis of left MF distal phalanx fx. for a total of 2 visit(s). Please see the following information for a summary of their discharge status. % Improvement: 99 Objective/Function: pt demo with increase in ROM. MCP 55* increased to 85*. PIP 80* increased to 115*. DID 25* increased to 60*. pt has met goals in OT and will be D/C with HEP - pt agree to D/C. pt advised to use hand as tolerate. Patient Goals: Regain Mobility, Decrease Pain, Use Hand/Wrist/Arm Normally Again Goal:ROM equal to unaffected hand: Yes Goal:Integrated Marketing Manager/Pinch strength at least 75% of unaffected hand: Yes Goal:No pain with affected hand use: Yes Goal:Full use of affected hand in daily activities including: Yes If there are questions or concerns regarding this patient's occupational therapy, please fell free to call me at [phone]. Thank you for the referral of this patient. Sincerely, Arlette Pereyra, OTR/L, CHT
== END 2022-07-21 13:19 | disposition home or self-care (01) ==
LOC: OT 13:00
PROVIDERS: PCP Internal Medicine; Referring Provider Orthopaedic Surgery Sports Medicine; Visit Provider Orthopaedic Surgery Sports Medicine
DX: S62.633D Displaced fracture of distal phalanx of left middle finger, subsequent encounter for fracture with routine healing (principal)
CPT/HCPCS: 97110; 97166; 97530

== ENCOUNTER → 2022-08-13 | Outpatient (CLI) | payer MEDICARE, OTHER, SELFPAY ==
--- NOTE | 2022-08-13 15:12 | RAD_ITS ---
STUDY: X-RAY - CERVICAL SPINE REASON FOR EXAM: Female, 72 years old patient with cervical disc degeneration, unspecified cervical region TECHNIQUE: 3 view(s) of the cervical spine were obtained. COMPARISON: MRI cervical spine dated 02/08/2020. FINDINGS: Normal anterior atlantoaxial articulation. Normal odontoid process. There is straightening of the normal cervical lordosis. The patient has had discectomy at C3-4, C4-5 and C5-6 with surgical fusion via anterior approach. There is narrowing of the C6-7 and C7-T1 disc spaces. Posterior elements have normal alignment. Spinous processes are intact. The soft tissue structures are unremarkable. There is atherosclerotic calcification of the thoracic aorta. RAD/Cerv Spine 2 or 3 Views IMPRESSION: Postoperative changes of the cervical spine. Electronically Signed: Karina Gutierrez MD at 7:06 EDT ,
== END | disposition home or self-care (01) ==
PROVIDERS: PCP Internal Medicine; Referring Provider Anesthesiology Pain Medicine; Visit Provider Anesthesiology Pain Medicine
DX: M50.30 Other cervical disc degeneration, unspecified cervical region (principal)
CPT/HCPCS: 72040

== ENCOUNTER → 2022-08-31 | Outpatient (CLI) | payer MEDICARE, OTHER, SELFPAY ==
[2022-08-31 16:05] LABS: Bacteria 0 SEEN /hpf (None Seen); Mucous, Urine 0 SEEN /hpf (<or=2+); Red Blood Cells-Urine 0 SEEN /hpf (0-5); Squamous Epithelial Cells - UA 0 SEEN /hpf (5-10)
[2022-08-31 16:44] LABS: Color, Urine Yellow (Yellow); Glucose, Dipstick Normal (Normal); Ketone-Dipstick 15 mg/dl (Negative); Leukocyte Esterase-Dipstick 25 /ul (Negative); Nitrite-Dipstick Negative (Negative); Occult Blood-Urine Negative /ul (Negative); Protein-Dipstick 15 mg/dl (Negative); Urine Clarity Clear (Clear); Urine Urobilinogen 1 mg/dl (Normal)
[2022-08-31 16:45] LABS: Urine Bilirubin Dipstick 1 mg/dL (Negative)
[2022-08-31 16:49] LABS: White Blood Cells 0-5 SEEN /hpf (0-5)
== END | disposition home or self-care (01) ==
LOC: LABSPEC 16:00
PROVIDERS: PCP Internal Medicine; Referring Provider Internal Medicine; Visit Provider Internal Medicine
DX: R32 Unspecified urinary incontinence (principal)
CPT/HCPCS: 81001

== ENCOUNTER → 2022-09-09 | Outpatient (CLI) | payer MEDICARE, OTHER, SELFPAY ==
[2022-09-09 11:20] LABS: Amphetamine Urine VISTA NEGATIVE (<1000 ng/mL); Barbiturate Urine VISTA NEGATIVE (< 200 ng/mL); Benzodiazepine Urine VISTA NEGATIVE (< 200 ng/mL); Cocaine Urine VISTA NEGATIVE (< 300 ng/mL); Ecstacy Urine VISTA POSITIVE (< 500 ng/mL); Methadone Urine VISTA NEGATIVE (< 300 ng/mL); PCP Urine VISTA NEGATIVE (< 25 ng/mL); THC Urine VISTA NEGATIVE (< 50 ng/mL); Vista UDS pH Range 6
== END | disposition home or self-care (01) ==
PROVIDERS: PCP Internal Medicine; Referring Provider Anesthesiology Pain Medicine; Visit Provider Anesthesiology Pain Medicine
DX: F11.20 Opioid dependence, uncomplicated (principal)
CPT/HCPCS: 80307

== ENCOUNTER 2022-09-19 18:28 | Inpatient (IN) | payer MEDICARE, OTHER, SELFPAY ==
[2022-09-19 18:32] VITALS: BP 140/72; PULSE 77; RESP 17; TEMP 37.2; O2SAT 92; BMI 25.8
[2022-09-19 20:50] VITALS: BP 149/69; PULSE 68; RESP 14; O2SAT 92
--- NOTE | 2022-09-19 21:42 | CT_ITS ---
EXAM: CT neck. HISTORY: painful swallowing TECHNIQUE: CT Soft Tissue Neck W/ Contrast Injection COMPARISON: None. LIMITATIONS: None. NASO/LOU/HYPOPHARYNX: Normal. EPIGLOTTIS/ARYEPIGLOTTIC FOLDS: Normal. CAROTID SPACE: Normal. PLANT CONTROL AIDE SPACE: Normal. PARAPHARYNGEAL SPACES: Normal. RETROPHARYNGEAL/PREVERTEBRAL SOFT TISSUES: Normal. SALIVARY GLANDS: Normal. LARYNX: Normal. TRACHEA: Normal. THYROID GLAND: Normal. LYMPH NODES: Normal. BONES/SOFT TISSUES: Anterior cervical spine fusion C3-C6 with interbody spacers. No acute osseous abnormality.. OTHER: None. CONCLUSION: No retropharyngeal or peritonsillar drainable fluid collection. Electronically Signed: Arvin Santiago MD at 22:48 EST , CT/Soft Tissue Neck WITH Contrast IMPRESSION: undefined
--- NOTE | 2022-09-19 21:43 | EX.ED.VIS.UR ---
HPI HPI - URI History of Present Illness Chief Complaint: Shortness of Breath Detail of Chief Complaint: Severe sore throat. Informant: patient Onset/Context/Timing Onset: Days Context: Gradual Onset Timing: Continuous Current Severity: Moderate Maximum Severity: Moderate Worsened by: Swallowing, Eating Solids and Drinking Liquids Associated Symptoms Associated Symptoms: Positive for Nonproductive cough Narrative Narrative: 72-year-old female states that she has had a cough and weakness since Wednesday she had a severe sore throat. Difficult to swallow. Subjective fever and chills. Denies any vomiting or diarrhea nor dysuria. Prior similar symptoms: No Recent Illness/Hospitalization: No ROS ROS ED ROS Narrative Fever and sore throat. Cough. Review of Systems ROS Unobtainable: Denies due to encephalopathy Constitutional Constitutional ED: Reports chills and fever(s) Eyes Eyes: Denies blurry vision ENT ENT ED: Reports sore throat; Denies ear pain or rhinorrhea Cardiovascular Cardiovascular: Denies chest pain Respiratory/Chest Respiratory/Chest: Reports cough and dyspnea Genitourinary Genitourinary ED: Denies dysuria or hematuria Musculoskeletal Musculoskeletal: Denies arthralgias Integumentary Denies abscess Neurologic Neurologic: Denies headache(s) Psychiatric Psychiatric: Denies anxiety Endocrine Endocrinology: Denies cold intolerance Hematologic/Lymphatic Hematologic/Lymphatic: Denies easy bleeding Allergic/Immunologic Allergic/Immunologic ED: Denies mouth swelling or tongue swelling PFSH [facility] Medical History Acute bronchitis, unspecified Acute pharyngitis, unspecified Adjustment disorder Alkaline phosphatase elevation Ambulates with cane Anemia Anxiety Arthritis Back pain Barretts esophagus Bowel obstruction Brain aneurysm Cardiology follow-up encounter Cerebrovascular disease Chronic back pain Chronic GERD Chronic neck and back pain Contusion of left middle finger CVA (cerebral vascular accident) Depression Difficulty swallowing Dry eyes Dyslipidemia Easy bruising Essential hypertension Fatigue Fatigue Flu vaccine need Fracture of distal phalanx of left middle finger Gastrointestinal problem GERD (gastroesophageal reflux disease) GERD (gastroesophageal reflux disease) Hiatal hernia High cholesterol High triglycerides History of echocardiogram History of edema History of gallstones History of hiatal hernia History of pneumonia History of stress test History of tumor Hyperkalemia Hypertension Hypothyroidism indigestion and heartburn Irritable bowel Knee pain Lab test negative for COVID-19 virus LBBB (left bundle branch block) Nausea & vomiting Osteopenia Pain, dental Palpitations Polycystic ovaries PVD (peripheral vascular disease) Sciatica Seizure Shortness of breath on exertion Skin cancer Strain of left hand Strain of left wrist Subungual hematoma of left middle finger Suprapubic pain Thyroid disease Ulcer Urinary incontinence in female Urinary incontinence with continuous leakage Varicose veins of both lower extremities Vertigo Vertigo Weakness Wears dentures Wears glasses Home Medications acetaminophen 500 mg tablet 1,000 mg PO Q8H PRN PRN Pain Score 1-08/0304/16/20 [Rx Last Taken Unknown] calcium carbonate 600 mg calcium (1,500 mg) tablet (Calcium) 600 mg PO DAILY PRN Stomach Upset 01/20/21 [History Last Taken Unknown] cholecalciferol (vitamin D3) 125 mcg (5,000 unit) capsule 125 mcg PO DAILY 01/20/21 [History Last Taken Unknown] lamotrigine 100 mg tablet 100 mg PO BID 07/31/21 [History Last Taken Unknown] baclofen 5 mg tablet 5 mg PO DAILY 08/05/21 [History Last Taken Unknown] ondansetron 8 mg disintegrating tablet 8 mg PO Q8H #30 tabs 08/18/21 [Rx Last Taken Unknown] furosemide 20 mg tablet 20 mg PO DAILY PRN Edema #30 tabs 08/26/21 [Rx Last Taken Unknown] hydroxyzine HCl 25 mg tablet 25 mg PO BID PRN anxiety #60 tabs 02/02/22 [Rx Last Taken Unknown] oxycodone 5 mg tablet 5 mg PO DAILY PRN pain 02/02/22 [History Last Taken Unknown] buspirone 10 mg tablet 20 mg PO BID 3 months #360 tabs 03/24/22 [Rx Last Taken Unknown] Handicap Placard #1 ea 03/30/22 [Rx Last Taken Unknown] meclizine 12.5 mg tablet 12.5 mg PO DAILY PRN Vertigo #60 tabs 04/16/22 [Rx Last Taken Unknown] gabapentin 100 mg capsule 100 mg PO BID 06/24/22 [History Last Taken Unknown] bupropion HCl 150 mg tablet,12 hr sustained-release 150 mg PO BID 3 months #180 ea 07/28/22 [Rx Last Taken Unknown] oxybutynin chloride 5 mg tablet,extended release 24 hr 5 mg PO DAILY #30 tabs 07/28/22 [Rx Last Taken Unknown] pantoprazole 40 mg tablet,delayed release 40 mg PO BID #180 tabs 07/28/22 [Rx Last Taken Unknown] duloxetine 60 mg capsule,delayed release 60 mg PO DAILY #90 caps 08/11/22 [Rx Last Taken Unknown] levothyroxine 50 mcg tablet 50 mcg PO DAILY thyroid #90 tabs 08/11/22 [Rx Last Taken Unknown] lovastatin 40 mg tablet 40 mg PO DAILY #90 tabs 08/11/22 [Rx Last Taken Unknown] metoprolol succinate 25 mg tablet,extended release 24 hr 25 mg PO BID #180 tabs 08/11/22 [Rx Last Taken Unknown] pramipexole 0.125 mg tablet 0.125 mg PO QHS RESTLESS LEGS #90 tabs 08/11/22 [Rx Last Taken Unknown] trazodone 100 mg tablet 100 mg PO QHS PRN insomnia #90 tabs 08/11/22 [Rx Last Taken Unknown] Allergy/AdvReac Type Severity Reaction Status Date / Time lisinopril AdvReac Severe High Verified 09/19/22 18:29 potassium, cough. atorvastatin calcium AdvReac legs ache Verified 09/19/22 18:29 [From Lipitor] Family History Father CVA (cerebral vascular accident) Mother Myocardial infarction, Onset Age: 84 Anesthesia complication Anxiety Bowel disease Heart disease Hypertension High cholesterol Hormone Problem ulcer disease Brother Myocardial infarction, Onset Age: 52 Bleeding disorder blood tranfusion Heart disease Hypertension High cholesterol Hormone Problem Sister CAD (coronary artery disease) Anemia Anesthesia complication Angina pectoris, unspecified Anxiety Autoimmune disorder Bowel disease Breast cancer Depression Heart disease Hypertension High cholesterol Hormone Problem Osteoporosis Parkinson disease Thyroid disorder Sister CAD (coronary artery disease) Anemia Anesthesia complication Anxiety Bowel disease Hypertension High cholesterol Hormone Problem Osteoporosis Thyroid disorder Sister CAD (coronary artery disease) Anesthesia complication Anxiety Bowel disease Hypertension High cholesterol Osteoporosis Thyroid disorder Surgical History History of back surgery History of bladder surgery History of cholecystectomy History of colon resection History of esophageal dilatation History of hand surgery History of hip replacement History of hysterectomy History of left knee surgery History of mandibular surgery History of neck surgery History of tonsillectomy Hx of appendectomy Social History Smoking Status: Never smoker alcohol intake: never substance use type: does not use EXAM Physical Exam Narrative Exam Narrative: 70-year-old female vital signs stable afebrile. Temperature 98.9. Pulse ox 90% on room air no signs hypoxia. No distress. H EENT exam unremarkable. Posterior pharynx unremarkable. TMs normal. Neck nontender no lymphadenopathy. No meningismus. No tracheal tenderness. Lungs clear to auscultation bilaterally. Dry cough. Heart regular rhythm rate about 70 no murmur. Chest wall nontender. Abdomen soft nontender. Moving all 4 extremities. Neurologically awake alert no focal motor deficits. Const Vital Signs: 09/19/22 18:32 09/19/22 20:42 09/19/22 20:50 Temperature 98.9 F Temperature Source Temporal Pulse Rate 77 68 Respiratory Rate 17 14 Respiratory Effort Normal Respiratory Depth Normal Respiratory Pattern Normal Blood Pressure 140/72 H 149/69 H Blood Pressure Mean 94 95 Pulse Ox 92 92 Oxygen Delivery Method Room Air Room Air Room Air Oxygen Flow Rate (L/min) 09/19/22 22:09 09/19/22 22:10 09/20/22 00:21 Temperature Temperature Source Pulse Rate 69 66 Respiratory Rate 23 H 15 Respiratory Effort Respiratory Depth Respiratory Pattern Blood Pressure 134/92 H Blood Pressure Mean 106 Pulse Ox 86 93 87 Oxygen Delivery Method Room Air Nasal Cannula Room Air Oxygen Flow Rate (L/min) 3 Positive well nourished and well developed; Negative for obese, cachectic or contractures General Appearance ED: well developed and NAD; Negative for cachectic, contractures, cyanotic, diaphoretic or pallor Nutritional Appearance: Negative for cachectic or obese HEENT Reports moist mucous membranes; Denies dry mucous membranes HEENT Narrative: Status post tonsillectomy. Posterior pharynx unremarkable. normocephalic and atraumatic; Negative for scalp tenderness Face and Sinus: maxillary instability; Negative for sinus tenderness Mouth ED: No dry mucous membranes Mouth: No dry mucous membranes Teeth and Gingiva: Negative for caries Throat: posterior oropharynx normal; Negative for tonsils abnormal or posterior oropharynx abnormal Eyes PERRL and EOMs intact bilaterally General Eye ED: Negative for pale conjunctiva or scleral icterus Neck no lymphadenopathy, supple, no meningeal signs and no JVD General: Negative for anterior neck swelling, lymphadenopathy or other Resp normal respiratory effort and clear to auscultation bilaterally Effort and Inspection: Negative for retractions Auscultation: Negative for rales, rhonchi or wheezes Cardio S1 normal heart sound, S2 normal heart sound and no murmurs Rate: regular rate; Negative for bradycardia or tachycardic Rhythm: regular rhythm; Negative for abnormal rhythm GI non-tender, non-distended and no masses Inspection: Negative for abdominal distention Auscultation: normoactive bowel sounds Palpation: soft; Negative for tender or guarding Back/Spine no CVA tenderness and normal ROM General Back: Negative for CVA tenderness Cervical Spine: Negative for cervical spine tenderness Thoracic Spine / Upper Back: Negative for thoracic spinal tenderness Lumbar Spine / Lower Back: Negative for lumbar spinal tenderness Sacrum: Negative for tenderness Extremity normal to inspection and full ROM General Extremety ED: Negative for cyanosis, tenderness or other findings General Extremity: Negative for cyanosis or other findings Neuro oriented x3 and CN's II-XII intact bilaterally Sensorium / Orientation: alert, oriented to person, oriented to place and oriented to time; Negative for orientation impaired, lethargic, stuporous or other Motor Exam: strength 5/5 throughout Psych mental status grossly normal Appearance: Negative for other Attitude: No agitated Mood & Affect: Negative for depressed, anxious or tearful Skin General Skin Exam: Negative for jaundice or pallor Lesions: no lesions Rashes: no rashes Trauma: Negative for abrasion or laceration MDM MDM MDM Narrative Medical decision making narrative: 72-year-old female with severe sore throat difficulty swallowing. CT of the neck with IV contrast will be obtained to rule out again epiglottitis. Clinically she did not have a peritonsillar abscess and her tonsils been removed. Posterior pharynx is unremarkable. She is able to drink water but has substantial pain. Also a COVID test and a chest x-ray being obtained. Repeat exam patient is doing well. At 11:25 PM. Treated for COVID. Fluids and rest. Tylenol. Warm salt water gargling. Follow-up if not improving. Nursing walked the patient and pulse ox was as low as 90% on room air. I discussed with her admission versus discharge home. She did not want to be admitted. Is comfortable being discharged home. Fluids and rest. We discussed treatment options and decided not to start her on Paxlovid. Lab Data Lab results narrative: Rapid COVID test positive. Chest x-ray negative. CT soft tissue neck no acute abnormalities read by the radiologist and reviewed by me. Radiography Diagnostic Testing: Clinical Impression(s) from Imaging Studies Soft Tissue Neck CT 09/19/22 21:42 IMPRESSION: undefined Chest X-Ray 09/19/22 22:22 IMPRESSION: Focal linear retrocardiac opacity, differential includes infectious changes or subsegmental atelectasis. Electronically Signed: Arvin Santiago MD at 22:51 EST , Discharge Plan Triage Chief Complaint: Shortness of Breath ED Provider: Filippo Eller Dx/Rx/DC Orders Clinical Impression: COVID-19 Instructions: Human Coronaviruses Prescriptions: No Action calcium carbonate [Calcium 600] 600 mg calcium (1,500 mg) tablet 600 mg PO DAILY PRN (Reason: Stomach Upset) cholecalciferol (vitamin D3) 125 mcg (5,000 unit) capsule 125 mcg PO DAILY lamotrigine 100 mg tablet 100 mg PO BID ondansetron 8 mg tablet,disintegrating 8 mg PO Q8H Qty: 30 3RF hydroxyzine HCl 25 mg tablet 25 mg PO BID PRN (Reason: anxiety) Qty: 60 2RF oxycodone 5 mg tablet 5 mg PO DAILY PRN (Reason: pain) gabapentin 100 mg capsule 100 mg PO BID pantoprazole 40 mg tablet,delayed release (DR/EC) 40 mg PO BID Qty: 180 1RF bupropion HCl 150 mg tablet sustained-release 12 hr 150 mg PO BID 90 Days Qty: 180 1RF oxybutynin chloride 5 mg tablet extended release 24hr 5 mg PO DAILY Qty: 30 1RF acetaminophen 500 MG tablet 1,000 mg PO Q8H PRN PRN (Reason: Pain Score 1-10/10) 0RF baclofen 5 mg tablet 5 mg PO DAILY furosemide 20 mg tablet 20 mg PO DAILY PRN (Reason: Edema) Qty: 30 2RF buspirone 10 mg tablet 20 mg PO BID 90 Days Qty: 360 3RF (DME) Handicap Placard See Rx Instructions .ROUTE .MEDSUPPLY Qty: 1 0RF Rx Instructions: As directed, length of time 3 years meclizine 12.5 mg tablet 12.5 mg PO DAILY PRN (Reason: Vertigo) Qty: 60 2RF duloxetine 60 mg capsule,delayed release(DR/EC) 60 mg PO DAILY Qty: 90 3RF levothyroxine 50 mcg tablet 50 mcg PO DAILY Qty: 90 3RF lovastatin 40 mg tablet 40 mg PO DAILY Qty: 90 3RF metoprolol succinate 25 mg tablet extended release 24 hr 25 mg PO BID Qty: 180 3RF pramipexole 0.125 mg tablet 0.125 mg PO QHS Qty: 90 3RF trazodone 100 mg tablet 100 mg PO QHS PRN (Reason: insomnia) Qty: 90 1RF Primary Care Provider: Michele Vallecillo Referrals: Michele Vallecillo MD [Primary Care Provider] - 1 Week if not improving Activity Restrictions/Additional Instructions: You have COVID. Plenty of fluids and rest. Tylenol for body aches and fever. Warm salt water gargling. Throat lozenges. Disposition Disposition: Home, Self Care
[2022-09-19] MEDS: 0.9% Normal Saline 1,000 ML 999 ML IV (22:07)
[2022-09-19 22:09] VITALS: BP 134/92; PULSE 69; RESP 23; O2SAT 86
[2022-09-19 22:10] VITALS: O2SAT 93
--- NOTE | 2022-09-19 22:22 | RAD_ITS ---
INDICATION: cough EXAMINATION/TECHNIQUE: X-RAY - XR Chest 1 View COMPARISON: 04/24/2022 FINDINGS: LINES/DEVICES: None. LUNGS: Biapical pleural/parenchymal scarring. Focal linear retrocardiac opacity, new compared to the prior. No edema or effusion. No pneumothorax. MEDIASTINUM AND CARDIOVASCULAR STRUCTURES: Atherosclerotic calcifications and cardiomediastinal contours, similar compared to the prior. BONES AND SOFT TISSUES: Anterior cervical spine fusion hardware. No acute osseous abnormality.. RAD/Chest 1 View (Portable) IMPRESSION: Focal linear retrocardiac opacity, differential includes infectious changes or subsegmental atelectasis. Electronically Signed: Arvin Santiago MD at 22:51 EST ,
[2022-09-20] VITALS (21 sets, daily range): BP systolic 130–145; BP diastolic 58–78; PULSE 56–80; RESP 15–21; TEMP 36.2–37.8; O2SAT 86–98; BMI 28.1
--- NOTE | 2022-09-20 00:37 | ED.RN ---
pt has desaturated below 89% on multiple occasion. concerns expressed to md. pt wants to go home and ed dr agreed to discharge. pt encouraged to return in she gets worse. rio pérez, rn [id number]
--- NOTE | 2022-09-20 01:04 | ED.RN ---
Pt is now stating she feels its more safe if she were to stay and be admitted. Dr Marie notified and plans to speak with the hospitalist about bringing patient in for COVID, hypoxia.
--- NOTE | 2022-09-20 01:38 | HP.PCM.HOS_ITS ---
HPI - General General Date of Admission: 09/20/22 Date of Service: 09/20/22 Chief Complaint: sob HPI Narrative JEAN KRUSE, is a 72 F with a significant history of thyroid disease; and who is unvaccinated against COVID-19 presents with COVID-like symptoms. She describes her symptoms as chills; sore throat; cough; fatigue; malaise; and generalized weakness. Her symptoms started 3 days before presentation has been getting progressively worse. Her who has COVID was also at the emergency department [facility] Medical History Acute bronchitis, unspecified Acute pharyngitis, unspecified Adjustment disorder Alkaline phosphatase elevation Ambulates with cane Anemia Anxiety Arthritis Back pain Barretts esophagus Bowel obstruction Brain aneurysm Cardiology follow-up encounter Cerebrovascular disease Chronic back pain Chronic GERD Chronic neck and back pain Contusion of left middle finger CVA (cerebral vascular accident) Depression Difficulty swallowing Dry eyes Dyslipidemia Easy bruising Essential hypertension Fatigue Fatigue Flu vaccine need Fracture of distal phalanx of left middle finger Gastrointestinal problem GERD (gastroesophageal reflux disease) GERD (gastroesophageal reflux disease) Hiatal hernia High cholesterol High triglycerides History of echocardiogram History of edema History of gallstones History of hiatal hernia History of pneumonia History of stress test History of tumor Hyperkalemia Hypertension Hypothyroidism indigestion and heartburn Irritable bowel Knee pain Lab test negative for COVID-19 virus LBBB (left bundle branch block) Nausea & vomiting Osteopenia Pain, dental Palpitations Polycystic ovaries PVD (peripheral vascular disease) Sciatica Seizure Shortness of breath on exertion Skin cancer Strain of left hand Strain of left wrist Subungual hematoma of left middle finger Suprapubic pain Thyroid disease Ulcer Urinary incontinence in female Urinary incontinence with continuous leakage Varicose veins of both lower extremities Vertigo Vertigo Weakness Wears dentures Wears glasses Home Medications acetaminophen 500 mg tablet 1,000 mg PO Q8H PRN PRN Pain Score 1-08/0304/16/20 [Rx Last Taken Unknown] calcium carbonate 600 mg calcium (1,500 mg) tablet (Calcium) 600 mg PO DAILY PRN Stomach Upset 01/20/21 [History Last Taken Unknown] cholecalciferol (vitamin D3) 125 mcg (5,000 unit) capsule 125 mcg PO DAILY 01/20/21 [History Last Taken Unknown] lamotrigine 100 mg tablet 100 mg PO BID 10/07/21 [History Last Taken Unknown] baclofen 5 mg tablet 5 mg PO DAILY 08/05/21 [History Last Taken Unknown] ondansetron 8 mg disintegrating tablet 8 mg PO Q8H #30 tabs 08/18/21 [Rx Last Taken Unknown] furosemide 20 mg tablet 20 mg PO DAILY PRN Edema #30 tabs 08/26/21 [Rx Last Taken Unknown] hydroxyzine HCl 25 mg tablet 25 mg PO BID PRN anxiety #60 tabs 02/02/22 [Rx Last Taken Unknown] oxycodone 5 mg tablet 5 mg PO DAILY PRN pain 02/02/22 [History Last Taken Unknown] buspirone 10 mg tablet 20 mg PO BID 3 months #360 tabs 03/24/22 [Rx Last Taken Unknown] Handicap Placard #1 ea 03/30/22 [Rx Last Taken Unknown] meclizine 12.5 mg tablet 12.5 mg PO DAILY PRN Vertigo #60 tabs 04/16/22 [Rx Last Taken Unknown] gabapentin 100 mg capsule 100 mg PO BID 06/24/22 [History Last Taken Unknown] bupropion HCl 150 mg tablet,12 hr sustained-release 150 mg PO BID 3 months #180 ea 07/28/22 [Rx Last Taken Unknown] oxybutynin chloride 5 mg tablet,extended release 24 hr 5 mg PO DAILY #30 tabs 07/28/22 [Rx Last Taken Unknown] pantoprazole 40 mg tablet,delayed release 40 mg PO BID #180 tabs 07/28/22 [Rx Last Taken Unknown] duloxetine 60 mg capsule,delayed release 60 mg PO DAILY #90 caps 08/11/22 [Rx Last Taken Unknown] levothyroxine 50 mcg tablet 50 mcg PO DAILY thyroid #90 tabs 08/11/22 [Rx Last Taken Unknown] lovastatin 40 mg tablet 40 mg PO DAILY #90 tabs 08/11/22 [Rx Last Taken Unknown] metoprolol succinate 25 mg tablet,extended release 24 hr 25 mg PO BID #180 tabs 08/11/22 [Rx Last Taken Unknown] pramipexole 0.125 mg tablet 0.125 mg PO QHS RESTLESS LEGS #90 tabs 08/11/22 [Rx Last Taken Unknown] trazodone 100 mg tablet 100 mg PO QHS PRN insomnia #90 tabs 08/11/22 [Rx Last Taken Unknown] Allergy/AdvReac Type Severity Reaction Status Date / Time lisinopril AdvReac Severe High Verified 09/19/22 18:29 potassium, cough. atorvastatin calcium AdvReac legs ache Verified 09/19/22 18:29 [From Lipitor] Family History Father CVA (cerebral vascular accident) Mother Myocardial infarction, Onset Age: 84 Anesthesia complication Anxiety Bowel disease Heart disease Hypertension High cholesterol Hormone Problem ulcer disease Brother Myocardial infarction, Onset Age: 52 Bleeding disorder blood tranfusion Heart disease Hypertension High cholesterol Hormone Problem Sister CAD (coronary artery disease) Anemia Anesthesia complication Angina pectoris, unspecified Anxiety Autoimmune disorder Bowel disease Breast cancer Depression Heart disease Hypertension High cholesterol Hormone Problem Osteoporosis Parkinson disease Thyroid disorder Sister CAD (coronary artery disease) Anemia Anesthesia complication Anxiety Bowel disease Hypertension High cholesterol Hormone Problem Osteoporosis Thyroid disorder Sister CAD (coronary artery disease) Anesthesia complication Anxiety Bowel disease Hypertension High cholesterol Osteoporosis Thyroid disorder Surgical History History of back surgery History of bladder surgery History of cholecystectomy History of colon resection History of esophageal dilatation History of hand surgery History of hip replacement History of hysterectomy History of left knee surgery History of mandibular surgery History of neck surgery History of tonsillectomy Hx of appendectomy Social History Smoking Status: Never smoker alcohol intake: never substance use type: does not use ROS ROS Narrative Pertinent positives and pertinent negatives as noted in HPI. All other systems were reviewed and are negative Vital Signs Vital Signs Vital Signs: 09/19/22 18:32 09/19/22 20:42 09/19/22 20:50 Temperature 98.9 F Temperature Source Temporal Pulse Rate 77 68 Respiratory Rate 17 14 Respiratory Effort Normal Respiratory Depth Normal Respiratory Pattern Normal Blood Pressure 140/72 H 149/69 H Blood Pressure Mean 94 95 Pulse Ox 92 92 Oxygen Delivery Method Room Air Room Air Room Air Oxygen Flow Rate (L/min) 09/19/22 22:09 09/19/22 22:10 09/20/22 00:21 Temperature Temperature Source Pulse Rate 69 66 Respiratory Rate 23 H 15 Respiratory Effort Respiratory Depth Respiratory Pattern Blood Pressure 134/92 H Blood Pressure Mean 106 Pulse Ox 86 93 87 Oxygen Delivery Method Room Air Nasal Cannula Room Air Oxygen Flow Rate (L/min) 3 09/20/22 00:39 09/20/22 01:23 Temperature 99 F Temperature Source Oral Pulse Rate 62 63 Respiratory Rate 21 H 15 Respiratory Effort Respiratory Depth Respiratory Pattern Blood Pressure 138/58 H Blood Pressure Mean 84 Pulse Ox 89 95 Oxygen Delivery Method Nasal Cannula Oxygen Flow Rate (L/min) 2 Weight Weight: 72.575 kg Body Mass Index (BMI) 25.8 Physical Exam Narrative Physical exam: General: Well-nourished, well-developed. Head: Normocephalic, atraumatic, no tenderness Eyes: Vision is grossly intact. EOMI ENT, no trauma, moist mucous membranes, no rhinorrhea Neck: Nontender, full range of motion CVS: Regular rate and rhythm. S1-S2 present. No murmur, gallop or rub. Respiratory : clear to auscultation bilaterally, chest wall nontender, no wheezing Abdomen: Soft, nontender, nondistended, normal bowel sounds, no masses : Deferred Back: Nontender, no CVA tenderness. Extremities: Nontender full range of motion, no trauma Skin: Normal color, no trauma, abrasions Neuro: Alert, oriented, cranial nerves II through XII grossly intact. Psychiatry: Normal mood. Normal affect. Not depressed. Not anxious. Results Lab / Micro Data Micro: Microbiology 09/19/22 21:48 Nasal Secretion SARS-CoV-2 Antigen (Rapid) - Final SARS-CoV-2 (COVID 19) Radiology Impression Soft Tissue Neck CT 09/19/22 21:42 IMPRESSION: undefined Chest X-Ray 09/19/22 22:22 IMPRESSION: Focal linear retrocardiac opacity, differential includes infectious changes or subsegmental atelectasis. Electronically Signed: Arvin Santiago MD at 22:51 EST , Assessment & Plan Assessment/Plan (1) COVID-19: PLAN: Plan SARS-CoV-2 with hypoxia Patient requested permanent oxygen at the emergency department Positive coronavirus test outpatient. Impression of chest x-ray by radiologist: Focal linear retrocardiac opacity, differential includes infectious changes or subsegmental atelectasis.. Actual chest x-ray image was independently interpreted. I agree with radiologist interpretation. Decadron ordered. Liver enzymes not elevated. Remdesivir ordered. Tylenol for fever Mucinex ordered Debility from COVID PT and OT to work with patient for strengthening and balance training. DVT prophylaxis: Subcutaneous Lovenox ordered. Charges/Coding Visit Charges Inpatient E&M: 98365 Init Hosp L2
--- NOTE | 2022-09-20 02:26 | ED.RN ---
Daughter Donya called on patients request and updated her on patients status and pending admission.
[2022-09-20] MEDS: 0.9% Saline Lock 10 ML Syringe IV (03:40)
[2022-09-20] MEDS: Ondansetron 4 MG/2 ML Vial IV (03:40)
[2022-09-20] MEDS: Acetaminophen 325 MG Tablet 650 MG PO (03:40)
[2022-09-20] MEDS: guaiFENesin 600 MG Tablet PO (04:19)
[2022-09-20 06:02] LABS: Absolute Lymphocyte Count 0.66 X10^3/uL (0.83-4.51); Absolute Neutrophil Count 2.7 X10^3/uL (2.0-7.7); Basophil# 0.01 X10^3/uL; Basophil% 0.3 % (0-1); Hemoglobin 11.3 g/dL (12.0-15.0); Lymphocyte # 0.66 X10^3/ul (0.83-4.51); Lymphocyte % 17.5 % (19-41); Mean Corp Hgb Conc 33.2 g/dL (32-36); Mean Corpuscular Volume 93.2 fL (81-99); Mean Platelet Vol. 9.9 fl (6.2-12.0); Monocyte# 0.42 X10^3/uL; Monocyte% 11.1 % (0-10); NRBC Flagged by Analyzer 0 % (0-5); Neutrophil # 2.68 X10^3/uL (2.7-7.7); Neutrophil % 70.8 % (47-70); Platelet Count 156 K/mm3 (150-450); RBC Distribution Width CV 12.9 % (11.6-14.6); RBC Distribution Width SD 44.4 fl (35.1-43.9); Red Blood Count 3.65 M/mm3 (4.2-5.4); White Blood Count 3.8 K/mm3 (4.4-11.0)
--- NOTE | 2022-09-20 07:34 | PN.HOSP_ITS ---
Subjective Subjective He was much better. Went to the restroom today using a walker and she felt fine. Patient feels ready to go home. She has not had COVID before nor has she been vaccinated. Objective Data Objective Data Vital Signs: Vital Signs Temp Pulse Resp BP Pulse Ox O2 Del Method O2 Flow Rate 36.2 C L 56 L 18 137/63 H 98 Nasal Cannula 3 09/20/22 06:06 09/20/22 06:06 09/20/22 06:06 09/20/22 06:06 09/20/22 06:06 09/20/22 06:06 09/20/22 06:06 Oxygen Flow Rate (L/min) 3 Oxygen Delivery Method Nasal Cannula Weight: 79.2 kg Body Mass Index (BMI) 28.1 Intake & Output: Intake and Output for Last 24 Hours 09/18/22 09/19/22 09/20/22 23:59 23:59 23:59 Intake Total 1250 / 1250 Balance 1250 / 1250 Lab / Micro Data Result Diagrams: 09/20/22 04:43 Labs: Laboratory Results - last 24 hr 09/20/22 04:43: WBC 3.8 L, RBC 3.65 L, Hgb 11.3 L, Hct 34.0 L, MCV 93.2, MCH 31.0, MCHC 33.2, RDW Std Deviation 44.4 H, RDW Coeff of Leslie 12.9, Plt Count 156, MPV 9.9, Immature Gran % (Auto) 0.300, Neut % (Auto) 70.8 H, Lymph % (Auto) 17.5 L, [place] % (Auto) 11.1 H, Eos % (Auto) 0.0, Baso % (Auto) 0.3, Absolute Neuts (auto) 2.7, Absolute Lymphs (auto) 0.66 L, Nucleated RBC % 0 Micro: Microbiology 09/19/22 21:48 Nasal Secretion SARS-CoV-2 Antigen (Rapid) - Final SARS-CoV-2 (COVID 19) Radiography Diagnostic Testing: Radiology Impression Soft Tissue Neck CT 09/19/22 21:42 IMPRESSION: undefined Chest X-Ray 09/19/22 22:22 IMPRESSION: Focal linear retrocardiac opacity, differential includes infectious changes or subsegmental atelectasis. Electronically Signed: Arvin Santiago MD at 22:51 EST , Physical Exam Const alert and no apparent distress Resp normal respiratory effort, no retractions, no use of accessory muscles and clear to auscultation bilaterally Cardio regular rate, regular rhythm, S1 normal heart sound and S2 normal heart sound GI normal to inspection, nondistended, normoactive bowel sounds, soft to palpation and non-tender Assessment & Plan Assessment/Plan (1) COVID-19: PLAN: SARS-CoV-2 with hypoxia Unvaccinated Patient requested permanent oxygen at the emergency department Plan: * dexamethasone for 10 days * Remdesivir while in the hospital or through 09/24 * pulmonary toilet * check ambulatory pulse ox prior to discharge. Suspect she may need oxygen upon discharge. * Day 0 is 09/16/22. Will need to quarantine for 10 days (through September 26) per CDC guideline for Severe illness (i.e., hospitalized) (2) Debility: PLAN: 2/2 COVID 19, other family members ill w COVID 19 PT OT PLAN: Plan DVT prophylaxis: Subcutaneous Lovenox ordered. Disposition: Patient go home. We will check an amatory pulse ox prior to disc harge to see if she will require that. Patient advised about the other viruses including flu and RSV. Patient does get the influenza vaccine.
[2022-09-20] MEDS: Tolterodine Tartrate 2 MG CAP.SA PO ×2 (10:08→10:09)
[2022-09-20] MEDS: DULoxetine Hcl 60 MG Capsule PO ×2 (10:08)
[2022-09-20] MEDS: Pantoprazole Sodium 40 MG Tablet PO (10:08)
[2022-09-20] MEDS: lamoTRIgine 100 MG Tablet PO (10:08)
[2022-09-20] MEDS: buPROPion (SR) 150 MG Tablet.SA PO (10:08)
[2022-09-20] MEDS: Cholecalciferol (Vit D3) 125 MCG CAPSULE (5,000 UNITS) PO (10:08)
[2022-09-20] MEDS: Enoxaparin 30 MG/0.3 ML Syringe SC (10:22)
[2022-09-20] MEDS: busPIRone 5 MG Tablet 20 MG PO (10:22)
[2022-09-20] MEDS: Metoprolol(XL)Succ 25 MG Tablet PO (10:22)
[2022-09-20] MEDS: dexAMETHasone 4 MG Tablet 6 MG PO (10:23)
[2022-09-20] MEDS: Gabapentin 100 MG Capsule PO (10:37)
--- NOTE | 2022-09-20 10:50 | DCINST_ITS ---
Discharge Instructions Diet Discharge Diet: No restrictions Activity Discharge Activity: Return to Normal Activity (ease back into your normal routine. ) and Use Walker Dressing / Incision Call your doctor if you observe: Shortness of breath Follow Up Care Test Results: Test results from this visit will be discussed in further detail at your follow- up appointment, if applicable. Discharge Plan Admission Admit Date/Time: 09/20/22 01:27 Primary Reason for Your Visit: COVID 19 Attending Provider: Satish Solo Primary Care Provider: Michele Vallecillo Consulting Providers: Ivan Pepe Instructions Patient Instructions: Human Coronaviruses Additional Instructions / Restrictions: You have COVID. Plenty of fluids and rest. Tylenol for body aches and fever. Warm salt water gargling. Throat lozenges. Self isolate for at least 10 days since symptoms began through 09/26/2022 AND at least one day (24 hours) have passed since resolution of fever without the use of fever-reducing agents AND improvement of symptoms (e.g., cough, shortness of breath) Discharge Orders/Prescriptions Prescriptions: New dexamethasone 4 mg Tablet 6 mg PO DAILY Qty: 9 0RF guaifenesin [Mucus Relief ER] 600 mg Tablet Extended Release 12hr 600 mg PO BID Qty: 10 0RF Continued calcium carbonate [Calcium 600] 600 mg calcium (1,500 mg) tablet 600 mg PO DAILY PRN (Reason: Stomach Upset) cholecalciferol (vitamin D3) 125 mcg (5,000 unit) capsule 125 mcg PO DAILY lamotrigine 100 mg tablet 100 mg PO BID hydroxyzine HCl 25 mg tablet 25 mg PO BID PRN (Reason: anxiety) Qty: 60 2RF oxycodone 5 mg tablet 5 mg PO DAILY PRN (Reason: pain) gabapentin 100 mg capsule 100 mg PO BID acetaminophen 500 MG tablet 1,000 mg PO Q8H PRN PRN (Reason: Pain Score 1-10/10) 0RF baclofen 5 mg tablet 5 mg PO DAILY PRN PRN (Reason: .) bupropion HCl 150 mg tablet sustained-release 12 hr 150 mg PO BID lovastatin 40 mg tablet 40 mg PO DAILY ondansetron 8 mg tablet,disintegrating 8 mg PO Q8H pantoprazole 40 mg tablet,delayed release (DR/EC) 40 mg PO BID buspirone 10 mg tablet 20 mg PO BID oxybutynin chloride 5 mg tablet extended release 24hr 5 mg PO DAILY metoprolol succinate 25 mg tablet extended release 24 hr 25 mg PO BID duloxetine 60 mg capsule,delayed release(DR/EC) 60 mg PO DAILY furosemide 20 mg tablet 20 mg PO DAILY PRN (Reason: Edema) Qty: 30 2RF (DME) Handicap Placard See Rx Instructions .ROUTE .MEDSUPPLY Qty: 1 0RF Rx Instructions: As directed, length of time 3 years meclizine 12.5 mg tablet 12.5 mg PO DAILY PRN (Reason: Vertigo) Qty: 60 2RF levothyroxine 50 mcg tablet 50 mcg PO DAILY Qty: 90 3RF pramipexole 0.125 mg tablet 0.125 mg PO QHS Qty: 90 3RF trazodone 100 mg tablet 100 mg PO QHS PRN (Reason: insomnia) Qty: 90 1RF Referrals / Follow Up: Michele Vallecillo MD [Primary Care Provider] - Within 2 Weeks Disposition Disposition (needs filled in before D/C Order can be placed): Home Health Service
--- NOTE | 2022-09-20 11:01 | DS.PCM_ITS ---
Providers Date of Admission: 09/20/22 Primary Care Physician: Dr. Michele Vallecillo MD Reason For Visit: COVID-19 PNEUMONIA Diagnosis Discharge Diagnosis (1) COVID-19: Status: Acute Code(s): U07.1 - COVID-19 Plan: SARS-CoV-2 with hypoxia Unvaccinated Patient requested permanent oxygen at the emergency department Plan: * dexamethasone for 10 days * Remdesivir while in the hospital or through 09/24 * pulmonary toilet * check ambulatory pulse ox prior to discharge. Suspect she may need oxygen upon discharge. * Day 0 is 09/16/22. Will need to quarantine for 10 days (through September 26) per CDC guideline for Severe illness (i.e., hospitalized) (2) Debility: Status: Acute Code(s): R53.81 - Other malaise Plan: 11/26 COVID 19, other family members ill w COVID 19 PT OT Plan DVT prophylaxis: Subcutaneous Lovenox ordered. Disposition: Patient go home. We will check an amatory pulse ox prior to discharge to see if she will require that. Patient advised about the other viruses including flu and RSV. Patient does get the influenza vaccine. Medications at Discharge Home Medications acetaminophen 500 mg tablet 1,000 mg PO Q8H PRN PRN Pain Score 1-08/0304/16/20 calcium carbonate 600 mg calcium (1,500 mg) tablet (Calcium) 600 mg PO DAILY PRN Stomach Upset 01/20/21 cholecalciferol (vitamin D3) 125 mcg (5,000 unit) capsule 125 mcg PO DAILY supplement 01/20/21 lamotrigine 100 mg tablet 100 mg PO BID . 07/31/21 baclofen 5 mg tablet 5 mg PO DAILY PRN PRN . 08/05/21 furosemide 20 mg tablet 20 mg PO DAILY PRN Edema #30 tabs 08/26/21 hydroxyzine HCl 25 mg tablet 25 mg PO BID PRN anxiety #60 tabs 02/02/22 oxycodone 5 mg tablet 5 mg PO DAILY PRN pain 02/02/22 Handicap Placard #1 ea 03/30/22 meclizine 12.5 mg tablet 12.5 mg PO DAILY PRN Vertigo #60 tabs 04/16/22 gabapentin 100 mg capsule 100 mg PO BID nerve pain 06/24/22 levothyroxine 50 mcg tablet 50 mcg PO DAILY thyroid #90 tabs 08/11/22 pramipexole 0.125 mg tablet 0.125 mg PO QHS RESTLESS LEGS #90 tabs 08/11/22 trazodone 100 mg tablet 100 mg PO QHS PRN insomnia #90 tabs 08/11/22 bupropion HCl 150 mg tablet,12 hr sustained-release 150 mg PO BID mental health 09/20/22 buspirone 10 mg tablet 20 mg PO BID . 09/20/22 dexamethasone 4 mg tablet 6 mg PO DAILY #9 tabs 09/20/22 duloxetine 60 mg capsule,delayed release 60 mg PO DAILY mental health 09/20/22 guaifenesin 600 mg tablet, extended release 12 hr (Mucus Relief ER) 600 mg PO BID #10 tabs 09/20/22 lovastatin 40 mg tablet 40 mg PO DAILY cholesterol lowering 09/20/22 metoprolol succinate 25 mg tablet,extended release 24 hr 25 mg PO BID blood pressure 09/20/22 ondansetron 8 mg disintegrating tablet 8 mg PO Q8H nausea 09/20/22 oxybutynin chloride 5 mg tablet,extended release 24 hr 5 mg PO DAILY . 09/20/22 pantoprazole 40 mg tablet,delayed release 40 mg PO BID acid reflux 09/20/22 Hospital Course Operations None Procedures None Summary of Care Provided Minutes Spent on Discharge: 28 Weight / BMI Weight Weight: 79.2 kg Body Mass Index (BMI) 28.1 ABG / Lab / Microbiology Data Result Diagrams: 09/20/22 04:43 Laboratory: Laboratory Results - last 24 hr 09/20/22 04:43: WBC 3.8 L, RBC 3.65 L, Hgb 11.3 L, Hct 34.0 L, MCV 93.2, MCH 31.0, MCHC 33.2, RDW Std Deviation 44.4 H, RDW Coeff of Leslie 12.9, Plt Count 156, MPV 9.9, Immature Gran % (Auto) 0.300, Neut % (Auto) 70.8 H, Lymph % (Auto) 17.5 L, [place] % (Auto) 11.1 H, Eos % (Auto) 0.0, Baso % (Auto) 0.3, Absolute Neuts (auto) 2.7, Absolute Lymphs (auto) 0.66 L, Nucleated RBC % 0 Microbiology: Microbiology 09/19/22 21:48 Nasal Secretion SARS-CoV-2 Antigen (Rapid) - Final SARS-CoV-2 (COVID 19) Radiography Diagnostic Testing: Radiology Impression Soft Tissue Neck CT 09/19/22 21:42 IMPRESSION: undefined Chest X-Ray 09/19/22 22:22 IMPRESSION: Focal linear retrocardiac opacity, differential includes infectious changes or subsegmental atelectasis. Electronically Signed: Arvin Santiago MD at 22:51 EST , D/C Instructions Discharge Diet: No restrictions Call your doctor if you observe: Shortness of breath Meaningful Use Info Meaningful Use Diagnoses (Choose all that apply): None applicable Discharge Plan Admission Admit Date/Time: 09/20/22 01:27 Primary Reason for Your Visit: COVID 19 Attending Provider: Satish Solo Primary Care Provider: Michele Vallecillo Consulting Providers: Ivan Pepe Instructions Patient Instructions: Human Coronaviruses Additional Instructions / Restrictions: You have COVID. Plenty of fluids and rest. Tylenol for body aches and fever. Warm salt water gargling. Throat lozenges. Self isolate for at least 10 days since symptoms began through 09/26/2022 AND at least one day (24 hours) have passed since resolution of fever without the use of fever-reducing agents AND improvement of symptoms (e.g., cough, shortness of breath) Discharge Orders/Prescriptions Prescriptions: New dexamethasone 4 mg Tablet 6 mg PO DAILY Qty: 9 0RF guaifenesin [Mucus Relief ER] 600 mg Tablet Extended Release 12hr 600 mg PO BID Qty: 10 0RF Continued calcium carbonate [Calcium 600] 600 mg calcium (1,500 mg) tablet 600 mg PO DAILY PRN (Reason: Stomach Upset) cholecalciferol (vitamin D3) 125 mcg (5,000 unit) capsule 125 mcg PO DAILY lamotrigine 100 mg tablet 100 mg PO BID hydroxyzine HCl 25 mg tablet 25 mg PO BID PRN (Reason: anxiety) Qty: 60 2RF oxycodone 5 mg tablet 5 mg PO DAILY PRN (Reason: pain) gabapentin 100 mg capsule 100 mg PO BID acetaminophen 500 MG tablet 1,000 mg PO Q8H PRN PRN (Reason: Pain Score 1-10/10) 0RF baclofen 5 mg tablet 5 mg PO DAILY PRN PRN (Reason: .) bupropion HCl 150 mg tablet sustained-release 12 hr 150 mg PO BID lovastatin 40 mg tablet 40 mg PO DAILY ondansetron 8 mg tablet,disintegrating 8 mg PO Q8H pantoprazole 40 mg tablet,delayed release (DR/EC) 40 mg PO BID buspirone 10 mg tablet 20 mg PO BID oxybutynin chloride 5 mg tablet extended release 24hr 5 mg PO DAILY metoprolol succinate 25 mg tablet extended release 24 hr 25 mg PO BID duloxetine 60 mg capsule,delayed release(DR/EC) 60 mg PO DAILY furosemide 20 mg tablet 20 mg PO DAILY PRN (Reason: Edema) Qty: 30 2RF (DME) Handicap Placard See Rx Instructions .ROUTE .MEDSUPPLY Qty: 1 0RF Rx Instructions: As directed, length of time 3 years meclizine 12.5 mg tablet 12.5 mg PO DAILY PRN (Reason: Vertigo) Qty: 60 2RF levothyroxine 50 mcg tablet 50 mcg PO DAILY Qty: 90 3RF pramipexole 0.125 mg tablet 0.125 mg PO QHS Qty: 90 3RF trazodone 100 mg tablet 100 mg PO QHS PRN (Reason: insomnia) Qty: 90 1RF Referrals / Follow Up: Michele Vallecillo MD [Primary Care Provider] - Within 2 Weeks Disposition Disposition (needs filled in before D/C Order can be placed): Home Health Service Charges/Coding Visit Charges Inpatient E&M: 89594 Disch Hosp
== END 2022-09-20 16:50 | disposition home health service (06) | DRG 179 ==
LOC: ED 09-20 01:35 → MS3 09-20 03:01
PROVIDERS: Admitting Provider Hospitalist; Emergency Provider Emergency Medicine; PCP Internal Medicine
DX: U07.1 COVID-19 (principal); E03.9 Hypothyroidism, unspecified; E78.5 Hyperlipidemia, unspecified; I10 Essential (primary) hypertension; R09.02 Hypoxemia; R53.81 Other malaise; Z28.310 Unvaccinated for COVID-19; Z20.822 Contact with and (suspected) exposure to COVID-19
CPT/HCPCS: 36415; 70491; 71045; 85025; 87811; 97162; 97165; 99251; 99284; J7030; J7040; J7050; Q9967; A4216; G0463; J0248; J2405

== ENCOUNTER → 2022-10-08 | Outpatient (CLI) | payer MEDICARE, SELFPAY ==
[2022-10-08 15:20] LABS: Rubella IgG Reactive (Nonreactive)
[2022-10-10 14:28] LABS: V-Zoster IgG (Immunity) 707 index (Immune >165)
== END | disposition home or self-care (01) ==
PROVIDERS: PCP Internal Medicine; Referring Provider Physician Assistant; Visit Provider Physician Assistant
DX: Z01.84 Encounter for antibody response examination (principal)
CPT/HCPCS: 36415; 86735; 86762; 86765; 86787

== ENCOUNTER → 2022-10-13 | Outpatient (CLI) | payer MEDICARE, OTHER, SELFPAY ==
--- NOTE | 2022-10-13 12:29 | BI_ITS ---
MAMMOGRAPHY - BILATERAL SCREENING REASON FOR EXAM: Female, 72 years old. Routine annual screening examination. PERTINENT HISTORY: Sisters with breast cancer. TECHNIQUE: Digital bilateral breast martin (3D mammographic acquisition) in the CC and MLO projections. 2-D mediolateral oblique (MLO) and craniocaudad (CC) views of both breasts were obtained. CAD: Full Field Digital Mammography with Computer Added Detection was performed. COMPARISON: Comparison is made with prior examination dated the 2020 and 08/22/2015. FINDINGS: Breast Composition: There are scattered areas of fibroglandular density. There are no dominant masses or suspicious calcifications. No other significant abnormalities are identified. There has been no significant change since the prior study. BI/SCRN MAMM (CAD)W/MARTIN BILAT IMPRESSION: Stable bilateral screening mammogram. Yearly follow-up mammogram recommended. (A) ASSESSMENT CATEGORY: BIRADS Category 1: Negative. A letter regarding these results will be sent to the patient by the facility within 30 days. Approximately 10% of breast cancers are not detected by mammography. A normal mammogram should not delay biopsy of a clinically suspicious abnormality. [id number] Electronically Signed: Miguel Huerta MD at 14:10 EST ,
== END | disposition home or self-care (01) ==
LOC: OPBI 12:28
PROVIDERS: PCP Internal Medicine; Referring Provider Internal Medicine; Visit Provider Internal Medicine
DX: Z12.31 Encounter for screening mammogram for malignant neoplasm of breast (principal)
CPT/HCPCS: 77063; 77067

== ENCOUNTER → 2023-03-12 | Outpatient (CLI) | payer MEDICARE, OTHER, SELFPAY ==
[2023-03-12 15:20] LABS: Absolute Lymphocyte Count 1.96 X10^3/uL (0.83-4.51); Basophil# 0.05 X10^3/uL; Basophil% 0.9 % (0-1); Eosinophil# 0.13 X10^3/uL; Eosinophils% 2.3 % (0-5); Hemoglobin 12.1 g/dL (12.0-15.0); Lymphocyte # 1.96 X10^3/ul (0.83-4.51); Lymphocyte % 34.8 % (19-41); Mean Corp Hgb Conc 31.8 g/dL (32-36); Mean Corpuscular Hgb 29.7 pg (27.0-32.0); Mean Corpuscular Volume 93.1 fL (81-99); Mean Platelet Vol. 10.1 fl (6.2-12.0); Monocyte# 0.45 X10^3/uL; NRBC Flagged by Analyzer 0 % (0-5); Neutrophil # 3.03 X10^3/uL (2.7-7.7); Neutrophil % 53.8 % (47-70); Platelet Count 264 K/mm3 (150-450); RBC Distribution Width SD 44.5 fl (35.1-43.9); Red Blood Count 4.08 M/mm3 (4.2-5.4); White Blood Count 5.6 K/mm3 (4.4-11.0)
[2023-03-12 16:04] LABS: ALB/GLOB Ratio 1.1 RATIO (0.9-2.4); AST(SGOT) 19 U/L (15-37); Alanine Aminotransfer ALT/SGPT 15 U/L (13-56); Albumin, Serum 3.5 g/dL (3.2-5.0); Alkaline Phosphatase 91 U/L (45-117); Anion Gap 3 (5-15); BUN 14 mg/dL (7-18); Calcium,Total 8.8 mg/dL (8.5-10.1); Chloride 105 mmol/L (98-107); Cholesterol 185 mg/dL (200); Creatinine, Serum 0.94 mg/dL (0.55-1.02); EST Glomerular Filtration Rate 63 mL/min (>60); Est Glom Filt Rate - Afr Amer 76 mL/min (>60); Globulin 3.3 g/dL (2.2-4.2); Glucose 98 mg/dL (74-106); High Density Lipoprotein 73 mg/dL; Potassium 4.5 mmol/L (3.5-5.1); Protein, Total 6.8 g/dL (6.4-8.2); Sodium Level 136 mmol/L (136-145); Triglycerides 144 mg/dL; Very Low Density Lipoprotein 29 mg/dL (5-40)
[2023-03-12 16:27] LABS: Vitamin D,25 Hydroxy 43.5 ng/mL
== END | disposition home or self-care (01) ==
LOC: BIMLAB 14:16
PROVIDERS: PCP Internal Medicine; Referring Provider Internal Medicine; Visit Provider Internal Medicine
DX: I10 Essential (primary) hypertension (principal); F41.9 Anxiety disorder, unspecified; F32.9 Major depressive disorder, single episode, unspecified; E78.5 Hyperlipidemia, unspecified; M85.80 Other specified disorders of bone density and structure, unspecified site
CPT/HCPCS: 36415; 80053; 80061; 82306; 85025

== ENCOUNTER → 2023-04-15 | Outpatient (CLI) | payer MEDICARE, OTHER, SELFPAY ==
--- NOTE | 2023-04-15 10:53 | BD_ITS ---
STUDY: DUAL ENERGY X-RAY ABSORPTIOMETRY / DXA REASON FOR EXAM: Female, 72 years old. Osteopenia with moderate fracture TECHNIQUE: Bone Mineral Density (BMD) measurements of lumbar spine and right hip were obtained. COMPARISON: Comparison is made with prior study dated February 20, 2020. FINDINGS: Lumbar Spine (L1-L4): g/cm2 (0.854) / T-score (-1.1) / Z-score (1.0) Findings are suggestive of osteopenia with a low fracture risk. Right Femur Total: g/cm2 (0.735) / T-score (-1.7) / Z-score (0.0) Right Femoral Neck: g/cm2 (0.646) / T-score (-1.8) / Z-score (0.1) The T-Scores on the most recent prior examination were: Lumbar Spine (L1-L4): There has been improvement of bone density since the previous examination. Right Femur Total: which represents a worsening of 2.3%. BD/Dexa Bone Density Study IMPRESSION: The patient is considered osteopenic as outlined below according to World [employer] Organization (WHO) criteria with a moderate fracture risk. There has been worsening of bone density since the previous examination. Reference Information: The T-score is the number of standard deviations above or below the standard which is normal for young adults at their peak bone mineral density. The World Health Organization (WHO) interprets the T-scores as follows: Above -1 Normal bone density Between -1 and -2.5 Osteopenia Equal to / or below -2.5 Osteoporosis As a practical clinical guideline, osteopenia may be graded as follows: Mild -1 through -1.5 Moderate -1.6 through -2.0 Severe -2.1 through -2.4 The Z-score is the number of standard deviations above or below age-matched controls. A Z-score of less than -1.5 would be considered abnormal. References: 1. NIH Osteoporosis and Related Bone Diseases www osteo.org 2. International Society for Clinical Densitometry www iscd.org 3. National Osteoporosis Foundation www nof.org Electronically Signed: Miguel Huerta MD at 15:29 EDT ,
== END | disposition home or self-care (01) ==
LOC: OPBD 10:46
PROVIDERS: PCP Internal Medicine; Referring Provider Internal Medicine; Visit Provider Internal Medicine
DX: Z78.0 Asymptomatic menopausal state (principal)
CPT/HCPCS: 77080

== ENCOUNTER 2023-05-25 12:19 | Outpatient (CLI) | payer MEDICARE, OTHER, SELFPAY | END 2023-05-25 23:59 | disposition home or self-care (01) | LOC: LABSPEC 12:20 | PROVIDERS: PCP Internal Medicine; Referring Provider Dermatology; Visit Provider Dermatology | DX: J34.0 Abscess, furuncle and carbuncle of nose (principal) | CPT/HCPCS: 87070; 87077; 87186; 87205 ==

== ENCOUNTER → 2023-05-26 | Outpatient (CLI) | payer MEDICARE, OTHER, SELFPAY ==
--- NOTE | 2023-05-26 15:53 | CT_ITS ---
EXAM: CT LUMBAR SPINE WITH INTRAVENOUS CONTRAST CLINICAL INDICATION: M96.1 TECHNIQUE: Helically acquired images were obtained of the lumbar spine with intravenous contrast. 2D reformats were reviewed. This CT exam was performed using one or more of the following dose reduction techniques: automated exposure control, adjustment of the mA and/or kV according to patient size, and/or use of iterative reconstruction technique. CONTRAST: IV 100mL Isovue-300 COMPARISON: No relevant prior studies available. FINDINGS: VERTEBRAE: There are bilateral pedicle screws at L3 and L4. There is a bilateral laminectomy at L3. No fracture. No traumatic subluxation. No discrete lytic or blastic abnormality. Normal alignment. DISCS/SPINAL CANAL/NEURAL FORAMINA: Unremarkable. Disc heights are preserved. No critical stenosis. VASCULATURE: Visualized abdominal aorta is not dilated. LYMPH NODES: Unremarkable. No retroperitoneal adenopathy. CT/Spine Lumbar WITH Contrast IMPRESSION: Postsurgical changes with bilateral pedicle screws at L3-L4. There are no acute abnormalities. Electronically Signed: Guido Chaidez MD at 21:29 EDT ,
[2023-05-26 16:30] LABS: CREATININE FINGERSTICK < 0.9 mg/dL (0.55-1.02); EGFR FINGERSTICK > 60.0000 mL/min (>60)
== END | disposition home or self-care (01) ==
LOC: CT 15:51
PROVIDERS: PCP Internal Medicine; Referring Provider Anesthesiology Pain Medicine; Visit Provider Anesthesiology Pain Medicine
DX: M96.1 Postlaminectomy syndrome, not elsewhere classified (principal)
CPT/HCPCS: 72132; Q9967; A4216

== ENCOUNTER → 2023-07-13 | Outpatient (CLI) | payer MEDICARE, OTHER, SELFPAY ==
--- NOTE | 2023-07-13 18:46 | CT_ITS ---
STUDY: CT FACIAL BONES WITHOUT CONTRAST REASON FOR EXAM: Female, 73 years old. SINUSITIS RADIATION DOSAGE (If Supplied By Facility): CTDIvol = ( 33.06 ) mGy, DLP = ( 730.55 ) mGycm TECHNIQUE: The patient was scanned in a multi detector CT scanner. Sagittal and coronal images were reconstructed. Individualized dose optimization techniques were used for this CT. COMPARISON: CT head May 27, 2018 FINDINGS: Normal soft tissue structures. Normal orbital ortiz and orbital contents. Normal nasal bones and anterior nasal spine. Normal facial bones. There is no demonstrated acute fracture. There is persistent chronic appearing partial opacification of the left side maxillary sinus which is diminutive in its appearance with chronic-appearing wall thickening. There is persistent minimal thickening of the right-sided maxillary sinus stable since prior study. There is prior postoperative change with resection of the medial ortiz of the bilateral maxillary sinuses. There is degenerative change of the bilateral temporomandibular joints. There is an irregular appearance of the maxilla postoperative material possible prior fracture of the left side anterior wall the left maxillary sinus. The right side middle turbinate appears to been resected. There is a diminutive appearance of the remaining turbinates. There is a partially visualized spinal fusion C3-4-5 and 6. There is visualized dental amalgam. CT/Sinus/Facial Bone IMPRESSION: Stable chronic appearing left greater than right maxillary chronic sinusitis and postoperative change. Degenerative change of the acromioclavicular joints. Electronically Signed: Bisi Andres MD at 0:21 EDT ,
== END | disposition home or self-care (01) ==
LOC: CT 18:44
PROVIDERS: PCP Internal Medicine; Visit Provider Otolaryngology
DX: J32.8 Other chronic sinusitis (principal)
CPT/HCPCS: 70486

== ENCOUNTER → 2023-08-18 | Outpatient (CLI) | payer MEDICARE, OTHER, SELFPAY ==
[2023-08-18 12:59] LABS: Absolute Lymphocyte Count 1.11 X10^3/uL (0.83-4.51); Absolute Neutrophil Count 4.2 X10^3/uL (2.0-7.7); Basophil# 0.03 X10^3/uL; Basophil% 0.5 % (0-1); Eosinophil# 0.08 X10^3/uL; Eosinophils% 1.4 % (0-5); Hematocrit 39.3 % (37-47); Hemoglobin 12.2 g/dL (12.0-15.0); Lymphocyte # 1.11 X10^3/ul (0.83-4.51); Lymphocyte % 18.8 % (19-41); Mean Corpuscular Hgb 28.3 pg (27.0-32.0); Mean Corpuscular Volume 91.2 fL (81-99); Mean Platelet Vol. 10.1 fl (6.2-12.0); Monocyte# 0.45 X10^3/uL; Monocyte% 7.6 % (0-10); NRBC Flagged by Analyzer 0 % (0-5); Neutrophil # 4.23 X10^3/uL (2.7-7.7); Neutrophil % 71.4 % (47-70); Platelet Count 292 K/mm3 (150-450); RBC Distribution Width CV 13.7 % (11.6-14.6); RBC Distribution Width SD 45.8 fl (35.1-43.9); Red Blood Count 4.31 M/mm3 (4.2-5.4); White Blood Count 5.9 K/mm3 (4.4-11.0)
[2023-08-18 13:43] LABS: ALB/GLOB Ratio 0.9 RATIO (0.9-2.4); AST(SGOT) 19 U/L (15-37); Alanine Aminotransfer ALT/SGPT 21 U/L (13-56); Albumin, Serum 3.3 g/dL (3.2-5.0); Alkaline Phosphatase 98 U/L (45-117); Anion Gap 4 (5-15); BUN 17 mg/dL (7-18); BUN/Creat Ratio 16.5 RATIO (10-20); Calcium,Total 9.1 mg/dL (8.5-10.1); Chloride 105 mmol/L (98-107); Creatinine, Serum 1.03 mg/dL (0.55-1.02); EST Glomerular Filtration Rate 56 mL/min (>60); Est Glom Filt Rate - Afr Amer 68 mL/min (>60); Globulin 3.5 g/dL (2.2-4.2); Glucose 96 mg/dL (74-106); Potassium 4.5 mmol/L (3.5-5.1); Protein, Total 6.8 g/dL (6.4-8.2); Sodium Level 138 mmol/L (136-145); Thyroid Stim Hormone (TSH) 3.14 uIU/mL (0.358-3.74)
== END | disposition home or self-care (01) ==
LOC: BIMLAB 10:51
PROVIDERS: PCP Internal Medicine; Referring Provider Internal Medicine; Visit Provider Internal Medicine
DX: E03.9 Hypothyroidism, unspecified (principal); F41.9 Anxiety disorder, unspecified; F32.9 Major depressive disorder, single episode, unspecified
CPT/HCPCS: 36415; 80053; 84443; 85025

== ENCOUNTER → 2023-09-01 | Outpatient (CLI) | payer MEDICARE, OTHER, SELFPAY ==
--- NOTE | 2023-09-01 17:14 | RAD_ITS ---
EXAM: XR LUMBOSACRAL SPINE, 2 OR 3 VIEWS CLINICAL INDICATION: FALL TECHNIQUE: Frontal and lateral views of the lumbar spine and sacrum. COMPARISON: CT lumbar spine, 05/26/2023 FINDINGS: VERTEBRAE: Multilevel endplate osteophytosis and facet arthrosis. Straightening of the expected lumbar lordosis. Scotts left lumbar curvature correlating with the comparison examination. Status post L3 laminectomy and L3-L4 posterior fusion. No fracture, spondylolysis or spondylolisthesis. DISC SPACES: Multilevel intervertebral disc height loss. GASTROINTESTINAL TRACT: Normal as visualized. Included bowel gas pattern is non-obstructive. Postoperative changes in the right abdomen. RAD/Lumbar Spine 2 or 3 Views IMPRESSION: No fracture, spondylolysis or spondylolisthesis. Degenerative and postoperative changes with apex left curvature. Electronically Signed: Dick Rivera DO at 21:27 EST ,
== END | disposition home or self-care (01) ==
LOC: RAD 17:08
PROVIDERS: PCP Internal Medicine; Visit Provider Anesthesiology Pain Medicine
DX: S39.92XA Unspecified injury of lower back, initial encounter (principal); W19.XXXA Unspecified fall, initial encounter
CPT/HCPCS: 72100

== ENCOUNTER → 2023-10-15 | Outpatient (CLI) | payer MEDICARE, OTHER, SELFPAY ==
--- NOTE | 2023-10-15 12:45 | BI_ITS ---
MAMMOGRAPHY - BILATERAL SCREENING 3-D TOMOSYNTHESIS REASON FOR EXAM: Female, 73 years old. Breast Cancer Screening PERTINENT HISTORY: Sisters with breast cancer.. TECHNIQUE: 2-D mammograms and 3-D Tomosynthesis of the breast (s) were performed. CAD was performed. COMPARISON: 10/13/2022 FINDINGS: The breast composition is composed of scattered fibroglandular density. Scattered benign calcifications are seen. No dense spiculated masses or suspicious microcalcifications are identified. No architectural distortion is identified. There is no skin thickening or retraction. There has been no significant change since the prior study. BI/SCRN MAMM (CAD)W/MARTIN BILAT IMPRESSION: No mammographic signs of malignancy. Routine yearly mammograms recommended. ASSESSMENT CATEGORY: BIRADS Category 1: Negative. A letter regarding these results will be sent to the patient by the facility within 30 days. FOLLOW UP RECOMMENDATION: Yearly follow up mammogram recommended. (A) Approximately 10% of breast cancers are not detected by mammography. A normal mammogram should not delay biopsy of a clinically suspicious abnormality. Electronically Signed: Duane Regalado MD at 17:07 EST ,
== END | disposition home or self-care (01) ==
LOC: OPBI 12:43
PROVIDERS: PCP Internal Medicine; Referring Provider Internal Medicine; Visit Provider Internal Medicine
DX: Z12.31 Encounter for screening mammogram for malignant neoplasm of breast (principal)
CPT/HCPCS: 77063; 77067

== ENCOUNTER → 2024-02-16 | Outpatient (CLI) | payer MEDICARE, SELFPAY ==
[2024-02-16 15:38] LABS: Absolute Lymphocyte Count 1.18 X10^3/uL (0.83-4.51); Absolute Neutrophil Count 3.6 X10^3/uL (2.0-7.7); Basophil# 0.03 X10^3/uL; Basophil% 0.6 % (0-1); Eosinophil# 0.07 X10^3/uL; Eosinophils% 1.3 % (0-5); Hematocrit 38.8 % (37-47); Hemoglobin 12.4 g/dL (12.0-15.0); Lymphocyte # 1.18 X10^3/ul (0.83-4.51); Lymphocyte % 22.1 % (19-41); Mean Corpuscular Hgb 28.9 pg (27.0-32.0); Mean Corpuscular Volume 90.4 fL (81-99); Mean Platelet Vol. 9.9 fl (6.2-12.0); Monocyte# 0.42 X10^3/uL; Monocyte% 7.9 % (0-10); NRBC Flagged by Analyzer 0 % (0-5); Neutrophil # 3.61 X10^3/uL (2.7-7.7); Neutrophil % 67.7 % (47-70); Platelet Count 277 K/mm3 (150-450); RBC Distribution Width CV 14.3 % (11.6-14.6); RBC Distribution Width SD 47.8 fl (35.1-43.9); Red Blood Count 4.29 M/mm3 (4.2-5.4); White Blood Count 5.3 K/mm3 (4.4-11.0)
[2024-02-16 15:58] LABS: Vitamin D,25 Hydroxy 37.1 ng/mL
[2024-02-16 16:32] LABS: ALB/GLOB Ratio 0.9 RATIO (0.9-2.4); AST(SGOT) 17 U/L (15-37); Alanine Aminotransfer ALT/SGPT 13 U/L (13-56); Albumin, Serum 3.2 g/dL (3.2-5.0); Alkaline Phosphatase 92 U/L (45-117); Anion Gap 7 (5-15); BUN 12 mg/dL (7-18); BUN/Creat Ratio 11.5 RATIO (10-20); Calcium,Total 8.8 mg/dL (8.5-10.1); Chloride 107 mmol/L (98-107); Cholesterol 226 mg/dL (200); Creatinine, Serum 1.04 mg/dL (0.55-1.02); EST Glomerular Filtration Rate 55 mL/min (>60); Est Glom Filt Rate - Afr Amer 67 mL/min (>60); Globulin 3.5 g/dL (2.2-4.2); Glucose 91 mg/dL (74-106); High Density Lipoprotein 73 mg/dL; Potassium 4.2 mmol/L (3.5-5.1); Protein, Total 6.7 g/dL (6.4-8.2); Sodium Level 138 mmol/L (136-145); Thyroid Stim Hormone (TSH) 4.06 uIU/mL (0.358-3.74); Triglycerides 125 mg/dL; Very Low Density Lipoprotein 25 mg/dL (5-40)
== END | disposition home or self-care (01) ==
LOC: BIMLAB 11:54
PROVIDERS: PCP Internal Medicine; Visit Provider Internal Medicine
DX: I10 Essential (primary) hypertension (principal); M85.80 Other specified disorders of bone density and structure, unspecified site; E03.9 Hypothyroidism, unspecified
CPT/HCPCS: 36415; 80053; 80061; 82306; 84443; 85025

== ENCOUNTER → 2024-03-22 | Outpatient (CLI) | payer MEDICARE, SELFPAY ==
[2024-03-22 17:18] LABS: Amphetamine Urine VISTA NEGATIVE (<1000 ng/mL); Barbiturate Urine VISTA NEGATIVE (< 200 ng/mL); Benzodiazepine Urine VISTA NEGATIVE (< 200 ng/mL); Cocaine Urine VISTA NEGATIVE (< 300 ng/mL); Ecstacy Urine VISTA POSITIVE (< 500 ng/mL); Methadone Urine VISTA NEGATIVE (< 300 ng/mL); PCP Urine VISTA NEGATIVE (< 25 ng/mL); THC Urine VISTA NEGATIVE (< 50 ng/mL); Vista UDS pH Range 5
== END | disposition home or self-care (01) ==
PROVIDERS: PCP Internal Medicine; Visit Provider Internal Medicine
DX: F11.20 Opioid dependence, uncomplicated (principal); E03.9 Hypothyroidism, unspecified
CPT/HCPCS: 36415; 80307; 84443

== ENCOUNTER → 2024-05-17 | Outpatient (CLI) | payer MEDICARE, SELFPAY ==
[2024-05-17 16:15] LABS: Amphetamine Urine VISTA NEGATIVE (<1000 ng/mL); Barbiturate Urine VISTA NEGATIVE (< 200 ng/mL); Benzodiazepine Urine VISTA NEGATIVE (< 200 ng/mL); Cocaine Urine VISTA NEGATIVE (< 300 ng/mL); Ecstacy Urine VISTA POSITIVE (< 500 ng/mL); Methadone Urine VISTA NEGATIVE (< 300 ng/mL); PCP Urine VISTA NEGATIVE (< 25 ng/mL); THC Urine VISTA NEGATIVE (< 50 ng/mL); Vista UDS pH Range 5
== END | disposition home or self-care (01) ==
LOC: LAB 15:06
PROVIDERS: PCP Internal Medicine; Referring Provider Anesthesiology Pain Medicine; Visit Provider Anesthesiology Pain Medicine
DX: F11.20 Opioid dependence, uncomplicated (principal)
CPT/HCPCS: 80307

== ENCOUNTER → 2024-05-24 | Outpatient (CLI) | payer MEDICARE, SELFPAY ==
[2024-05-24 16:35] LABS: Absolute Lymphocyte Count 1.84 X10^3/uL (0.83-4.51); Absolute Neutrophil Count 2.8 X10^3/uL (2.0-7.7); Basophil# 0.03 X10^3/uL; Basophil% 0.6 % (0-1); Eosinophil# 0.11 X10^3/uL; Eosinophils% 2.1 % (0-5); Hematocrit 38.8 % (37-47); Hemoglobin 12.4 g/dL (12.0-15.0); Lymphocyte # 1.84 X10^3/ul (0.83-4.51); Lymphocyte % 34.5 % (19-41); Mean Corpuscular Hgb 28.4 pg (27.0-32.0); Mean Platelet Vol. 10.2 fl (6.2-12.0); Monocyte# 0.54 X10^3/uL; Monocyte% 10.1 % (0-10); NRBC Flagged by Analyzer 0 % (0-5); Neutrophil % 52.3 % (47-70); Platelet Count 288 K/mm3 (150-450); RBC Distribution Width CV 13.6 % (11.6-14.6); RBC Distribution Width SD 44.3 fl (35.1-43.9); Red Blood Count 4.36 M/mm3 (4.2-5.4); White Blood Count 5.3 K/mm3 (4.4-11.0)
[2024-05-24 17:05] LABS: AST(SGOT) 14 U/L (15-37); Alanine Aminotransfer ALT/SGPT 17 U/L (13-56); Albumin, Serum 3.5 g/dL (3.2-5.0); Alkaline Phosphatase 111 U/L (45-117); Anion Gap 6 (5-15); BUN 18 mg/dL (7-18); BUN/Creat Ratio 16.4 RATIO (10-20); Calcium,Total 9.5 mg/dL (8.5-10.1); Chloride 106 mmol/L (98-107); EST Glomerular Filtration Rate 52 mL/min (>60); Est Glom Filt Rate - Afr Amer 63 mL/min (>60); Globulin 3.4 g/dL (2.2-4.2); Glucose 95 mg/dL (74-106); Potassium 4.6 mmol/L (3.5-5.1); Protein, Total 6.9 g/dL (6.4-8.2); Sodium Level 138 mmol/L (136-145); Thyroid Stim Hormone (TSH) 5.49 uIU/mL (0.358-3.74)
== END | disposition home or self-care (01) ==
LOC: BIMLAB 15:59
PROVIDERS: PCP Internal Medicine; Referring Provider Internal Medicine; Visit Provider Internal Medicine
DX: I10 Essential (primary) hypertension (principal); E03.9 Hypothyroidism, unspecified
CPT/HCPCS: 36415; 80053; 84443; 85025

== ENCOUNTER 2024-06-08 07:56 | Day surgery (SDC) | payer MEDICARE, SELFPAY ==
--- NOTE | 2024-06-08 08:15 | PCM.PRE.AN2 ---
ASA Classification* ASA Classification ASA Classification: 2 Assessment & Plan Anesthesia* Anesthesia Assessment Anesthesia Assessment: Discussed sedation and/or anesthesia options, risks, benefits, and alternatives with patient/parents/legal guardian/POA. Questions invited. The patient/parents/legal guardian/POA seems to understand and agrees to proceed with anesthesia plan. Reviewed the physical assessment, medical history, allergy history and patient home medications list prior to surgery/procedure/anesthetic and documented any changes. Performed airway and anesthesia risk assessments. Anesthesia Type Anesthesia Type: MAC (see written pre-anesthesia record for full assessment) Anesthesia Focused Assessment* Airway Assessment Mouth opens: >3 cm Mallampati Score: II Focused Labs Anesthesia Preop lab: CBC WBC 5.3 K/mm3 (4.4-11.0) 05/24/24 15:59 RBC 4.36 M/mm3 (4.2-5.4) 05/24/24 15:59 Hgb 12.4 g/dL (12.0-15.0) 05/24/24 15:59 Hct 38.8 % (37-47) 05/24/24 15:59 Plt Count 288 K/mm3 (150-450) 05/24/24 15:59 CHEMISTRY Potassium 4.6 mmol/L (3.5-5.1) 05/24/24 15:59 Sodium 138 mmol/L (136-145) 05/24/24 15:59 Magnesium 2.0 mg/dL (1.6-2.6) 04/15/20 06:16 Phosphorus 2.8 mg/dL (2.5-4.9) 04/10/20 06:04 BUN 18 mg/dL (7-18) 05/24/24 15:59 Creatinine 1.10 mg/dL (0.55-1.02) H 05/24/24 15:59 Glucose 95 mg/dL (74-106) 05/24/24 15:59 POC Glucose 94 mg/dL (70-110) 05/27/18 12:06 TSH 5.49 uIU/mL (0.358-3.74) H 05/24/24 15:59 COAG PT 13.7 SECONDS (11.7-14.9) 05/15/19 16:10 Pre-Assessment Diagnosis/Proposed Procedure Planned Operative Procedure(s): EGD Anesthesia History Anesthesia History - 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 When Was Last Pacemaker Check QUESTION #4 FULL TEXT: You/Your Family Experience fever (hyperthermia) with Anesthesia Last Oral Intake Last Oral intake: Last Oral Intake NPO since Meds taken in AM with sips of water? Meds patient instructed to take am of surgery PONV PONV - histotechnologist supervisor: PONV - histotechnologist supervisor Female Yes 06/07/24 10:19 HX of Motion Sickness Yes 06/07/24 10:19 HX of N/V After Surgery Yes 06/07/24 10:19 Non-Smoker Yes 06/07/24 10:19 Duration of Surgery greater No 06/07/24 10:19 than 60 minutes Number of Risk Factors 4 06/07/24 10:19 PONV Score Severe Risk 06/07/24 10:19 Height & Weight Height & Weight: Anesthesia: Height & Weight Height 5 ft 6 in 05/24/24 15:14 Respiratory Assessment Respiratory Assessment - histotechnologist supervisor: Respiratory Tract Infection Hx - histotechnologist supervisor Hx Respiratory Tract Infection No 06/07/24 10:19 STOP Sleep Apnea STOP Sleep Apnea - histotechnologist supervisor: STOP Sleep Apnea - histotechnologist supervisor Hx Hypertension Yes: CONTROLLED WITH MED 06/07/24 10:19 Hx Sleep Apnea No 06/07/24 10:19 CPAP No 08/28/21 16:07 BIPAP No 08/28/21 16:07 Do you snore loudly (louder No 06/07/24 10:19 than talking or can be heard Do you often feel tired/ Yes 06/07/24 10:19 fatigued/ sleepy during daytime? Has anyone observed you stop No 06/07/24 10:19 breathing during sleep? STOP Results Positive 06/07/24 10:19 QUESTION #5 FULL TEXT : Do you snore loudly (louder than talking or can be heard through closed doors)? 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 Specify any problems Hx of Preganancy in last 3 No 06/07/24 10:19 Months Nurse Filling Out Transfusion DSCHRIBER 06/07/24 10:19 & Questions: Date: 06/07/24 06/07/24 10:19 Time: 10:21 06/07/24 10:19 Patient unable to answer at this time (ie. confused, unrespo /Reproduction History /Reproductive History - histotechnologist supervisor: /Reproductive Hx- histotechnologist supervisor Hx Now No 06/07/24 10:19 Gestational Age (in weeks): EDC: Hx Hx Para Hx Section SAB No 06/07/24 10:19 PFSH Medical History Cancer Bladder disease Anemia Fatty liver Restless legs Migraine headache TIA (transient ischemic attack) Syncope History of ulceration History of IBS Gastric reflux History of pain when walking Chronic right hip pain Dermatitis Post-menopausal Suprapubic pain High serum vitamin B12 Urinary incontinence in female Urinary incontinence with continuous leakage Adjustment disorder Fracture of distal phalanx of left middle finger Strain of left wrist Strain of left hand Contusion of left middle finger Subungual hematoma of left middle finger Varicose veins of both lower extremities Iron deficiency anemia Flu vaccine need GERD (gastroesophageal reflux disease) Chronic back pain Fatigue Alkaline phosphatase elevation Wears glasses Wears dentures Ambulates with cane Easy bruising History of hiatal hernia Difficulty swallowing History of edema Cardiology follow-up encounter History of echocardiogram History of stress test Hiatal hernia GERD (gastroesophageal reflux disease) Brain aneurysm Seizure Acute pharyngitis, unspecified Lab test negative for COVID-19 virus Acute bronchitis, unspecified Cough Chronic neck and back pain Fatigue Anemia Degenerative disc disease Thyroid disease Chronic GERD Polycystic ovaries Osteopenia High cholesterol Hypertension Arthritis indigestion and heartburn Depression Anxiety Sciatica Vertigo Dry eyes Panic attacks Lacunar infarction Hyperglycemia, drug-induced Hyponatremia History of colonic polyps History of TIA (transient ischemic attack) Social phobia Restless leg syndrome Hiatal hernia with GERD Lumbar spinal stenosis Foraminal stenosis of lumbar region Urinary incontinence Fecal incontinence Radiculopathy Anxiety and depression Hyperkalemia Palpitations PVD (peripheral vascular disease) Essential hypertension Barretts esophagus Nausea & vomiting Weakness Vertigo Pain, dental Hypothyroidism LBBB (left bundle branch block) Irritable bowel Dyslipidemia Cerebrovascular disease Home Medications ?Medication ?Instructions ?Recorded ?Last Taken ?Type acetaminophen 500 mg tablet 1,000 mg (2 x 500 mg) PO Q8H PRN 04/16/20 09/19/22 Rx PRN Pain Score 1-10 cholecalciferol (vitamin D3) 125 125 mcg PO DAILY supplement 01/20/21 Unknown History mcg (5,000 unit) capsule oxycodone 5 mg tablet 5 mg PO DAILY PRN pain 02/02/22 Unknown History Handicap Placard #1 ea 03/30/22 Unknown Rx meclizine 12.5 mg tablet 12.5 mg PO DAILY PRN Vertigo #60 04/16/22 Unknown Rx tabs furosemide 20 mg tablet 20 mg PO DAILY PRN Edema #30 tabs 09/24/22 Unknown Rx hydroxyzine HCl 25 mg tablet 25 mg PO BID PRN anxiety #60 tabs 09/24/22 Unknown Rx oxybutynin chloride 5 mg 5 mg PO DAILY . #30 tabs 09/24/22 Unknown Rx tablet,extended release 24 hr blood pressure monitor #1 ea 10/08/22 Unknown Rx cyclosporine 0.05 % eye drops 1 drp ophthalmic (eye) Q12H 03/12/23 Unknown History (Restasis MultiDose) ondansetron 8 mg disintegrating 8 mg PO Q8H PRN nausea 03/12/23 Unknown History tablet calcium carbonate (Calcium 600) 600 mg PO DAILY Stomach Upset 05/21/23 Unknown History fluticasone propionate 50 2 spray intranasal DAILY #16 grams 10/20/23 Unknown Rx mcg/actuation nasal spray,suspension (Flonase Allergy Relief) metoprolol succinate 25 mg 25 mg PO BID blood pressure #180 01/28/24 Unknown Rx tablet,extended release 24 hr tabs duloxetine 60 mg capsule,delayed 60 mg PO DAILY mental health #90 02/02/24 Unknown Rx release caps bupropion HCl 200 mg tablet,12 hr 200 mg PO BID mental health 3 02/16/24 Unknown Rx sustained-release months #180 ea buspirone 10 mg tablet 20 mg (2 x 10 mg) PO BID mood #360 02/16/24 Unknown Rx tabs pramipexole 0.25 mg tablet 0.25 mg PO TID RESTLESS LEGS 3 03/14/24 Unknown Rx months #270 tabs lovastatin 40 mg tablet 40 mg PO DAILY cholesterol 04/17/24 Unknown Rx lowering #90 tabs trazodone 100 mg tablet 100 mg PO QHS PRN insomnia #90 tabs 04/23/24 Unknown Rx pantoprazole 40 mg tablet,delayed 40 mg PO BID acid reflux #180 tabs 05/23/24 Unknown Rx release levothyroxine 75 mcg tablet 75 mcg PO DAILY thyroid #60 tabs 05/25/24 Unknown Rx baclofen 5 mg tablet 5 mg PO DAILY PRN PRN muscle spasm 06/01/24 Unknown Rx #60 tabs Allergy/AdvReac Type Severity Reaction Status Date / Time lisinopril AdvReac Severe High Verified 06/07/24 10:16 potassium, cough. atorvastatin calcium (From AdvReac legs ache Verified 06/07/24 10:16 Lipitor) Family History Father CVA (cerebral vascular accident) Mother Myocardial infarction, Onset Age: 84 Anesthesia complication Anxiety Bowel disease Heart disease Hypertension High cholesterol Hormone Problem ulcer disease Brother Myocardial infarction, Onset Age: 52 Bleeding disorder blood tranfusion Heart disease Hypertension High cholesterol Hormone Problem Sister CAD (coronary artery disease) Anemia Anesthesia complication Angina pectoris, unspecified Anxiety Autoimmune disorder Bowel disease Breast cancer Depression Heart disease Hypertension High cholesterol Hormone Problem Osteoporosis Parkinson disease Thyroid disorder Sister CAD (coronary artery disease) Anemia Anesthesia complication Anxiety Bowel disease Hypertension High cholesterol Hormone Problem Osteoporosis Thyroid disorder Sister CAD (coronary artery disease) Anesthesia complication Anxiety Bowel disease Hypertension High cholesterol Osteoporosis Thyroid disorder Surgical History (Updated 06/07/24 @ 10:33 by Ivy Lawrence) History of lumbar fusion Hx of colonoscopy History of colon resection History of hip replacement History of neck surgery History of mandibular surgery History of tonsillectomy History of lumbar spinal fusion History of fusion of cervical spine History of hand surgery History of left knee surgery History of bladder surgery Hx of appendectomy History of hysterectomy History of cholecystectomy Social History Smoking Status: Never smoker alcohol intake: never substance use type: does not use Review of Systems (Anesthesia) ROS Narrative System reviewed and no additional complaints, except as documented.
[2024-06-08] MEDS: Lactated Ringers 1,000 ML 15 ML IV (08:27)
[2024-06-08 08:30] VITALS: BP 128/68; PULSE 57; RESP 16; TEMP 36.5; O2SAT 97; BMI 28.2
--- NOTE | 2024-06-08 09:00 | IMM_PTH ---
PATIENT: JEAN KRUSE LOC: EN U#:[id number] AGE/SX: 73/F ROOM: RE06/08/[address]: Dr. Charlie Hilario DO : 1950 BED: DIS: 06/08/2024 SPEC #: [id number] RECD: 06/08/24 10:16 STATUS: RAJINDER REQ #: [id number] ERIKA: 06/08/24 09:[address]: Charlie Hilario DEPT: IMMUNOHISTOCHEMISTRY RECD BY: Andrei Devries ENTERED: 06/08/24 10:16 SP TYPE: IMMUNO OTHR DR: Dr. Michele Vallecillo MD Tissues: A - Gastric mucous membrane Procedures: H Pylori (initial) PHYSICIAN & INSTITUTION [place] [id number] SPECIMEN INFORMATION: Tissue Source: A- Gastric body biopsy Clinical Info: Chronic GERD Specimen Number: [id number] CPT code: 06300 METHODOLOGY: Deparaffinized sections of prefer/formalin-fixed tissue or PAP/DQ stained slides are incubated with monoclonal/polyclonal antibodies/oligonucleotide probes. Localization is made via biotin free immunoperoxidase method. Appropriate controls are performed and reacted as expected. Results on target cell population are indicated in the following table: RESULTS: ANTIBODY / CLONE RESULT Block A H Pylori (polyclonal) negative These tests were developed and their performance characteristics determined by [facility]. They may not have been cleared or approved by the U.S. Food and Drug Administration. The FDA has determined that such clearance or approval is not necessary. The above immunohistochemical/dualISH markers are ordered and reviewed by the Pathologist. INTERPRETATION: A. Gastric body, biopsy: Negative for Helicobacter pylori organisms. JESS/ 06/09/2024
--- NOTE | 2024-06-08 09:00 | EGD_PTH ---
PATIENT: JEAN KRUSE LOC: EN U#:[id number] AGE/SX: 73/F ROOM: RE06/08/[address]: Dr. Charlie Hilario DO : 1950 BED: DIS: 06/08/2024 SPEC #: [id number] RECD: 06/08/24 09:45 STATUS: RAJINDER REQ #: [id number] ERIKA: 06/08/24 09:[address]: Charlie Hilario DEPT: SURGICAL PATHOLOGY RECD BY: Nubia Adames ENTERED: 06/08/24 11:27 SP TYPE: EGD BIOPSY LUCHO DR: Dr. Michele Vallecillo MD Tissues: A - Gastric mucous membrane B - Esophagus, NOS Procedures: Special Stain Group I Surgery Specimen Level IV Alcian Blue/PAS (control) HEADER OPERATION: EGD with biopsy PRE-OP DIAGNOSIS: Chronic GERD TISSUE SUBMITTED: A- Gastric body biopsy, B- Distal esophagus biopsy MICROSCOPIC DIAGNOSIS A. Gastric body, biopsy: Mild gastritis. See microscopic description and comment. B. Distal esophagus, biopsy: Fragments of gastroesophageal mucosa with chronic inflammation. Intestinal metaplasia (goblet cell metaplasia) is not identified. See comment. JESS/ 06/09/2024 COMMENT A. The results of immunohistochemistry for Helicobacter pylori will be reported separately ([id number]). B. Alcian blue/PAS stain with matched control is used in the evaluation of the specimen. The specimen predominantly consists of gastric mucosa. MICROSCOPIC DESCRIPTION Slides are reviewed. A. The specimen shows fragments of gastric mucosa with chronic inflammatory cell infiltrates in the lamina propria consisting of lymphocytes and plasma cells, consistent with mild chronic gastritis. GROSS DESCRIPTION A. Received in fixative is one container labeled with the patient's name and designated Gastric body biopsy. The specimen consists of two irregular fragments of light kothari soft tissue that in aggregate measure 1.0 x 0.5 x 0.1 cm. The specimen is totally submitted in one cassette. B. Received in fixative is one container labeled with the patient's name and designated Distal esophagus biopsy. The specimen consists of multiple irregular fragments of light kothari soft tissue that in aggregate measure 1.5 x 0.3 x 0.1 cm. The specimen is totally submitted in one cassette. Jamey 06/08/2024 TC:3 CPT:[id number]
--- NOTE | 2024-06-08 09:02 | PCM.HP.BLA ---
History and Physical Date of Admission: 06/08/24 Pt Here for GERD. Pt states she has a hard time swallowing food and pills. She reports constipation. Has a very hard large BM every few days. Takes stool softeners but cant remember what they are. Takes pantoprazole daily. [facility] Medical History (Updated 05/24/24 @ 16:[address] Michele Vallecillo MD) Chronic right hip pain Dermatitis Post-menopausal Suprapubic pain High serum vitamin B12 Urinary incontinence in female Urinary incontinence with continuous leakage Adjustment disorder Fracture of distal phalanx of left middle finger Strain of left wrist Strain of left hand Contusion of left middle finger Subungual hematoma of left middle finger Varicose veins of both lower extremities Iron deficiency anemia Flu vaccine need GERD (gastroesophageal reflux disease) Chronic back pain Fatigue Alkaline phosphatase elevation Wears glasses Wears dentures Ambulates with cane Easy bruising History of hiatal hernia Difficulty swallowing Shortness of breath on exertion History of edema Cardiology follow-up encounter History of echocardiogram History of stress test Bowel obstruction Hiatal hernia GERD (gastroesophageal reflux disease) Brain aneurysm Seizure Acute pharyngitis, unspecified Lab test negative for COVID-19 virus Acute bronchitis, unspecified Cough Chronic neck and back pain Knee pain Fatigue Anemia Degenerative disc disease Ulcer History of tumor Thyroid disease Skin cancer Chronic GERD Polycystic ovaries History of pneumonia Osteopenia High triglycerides High cholesterol Gastrointestinal problem History of gallstones Hypertension Arthritis indigestion and heartburn Depression Anxiety Sciatica Vertigo Back pain Dry eyes Panic attacks Lacunar infarction Hyperglycemia, drug-induced Hyponatremia History of colonic polyps History of TIA (transient ischemic attack) Social phobia Restless leg syndrome Hiatal hernia with GERD Lumbar spinal stenosis Foraminal stenosis of lumbar region Urinary incontinence Fecal incontinence Radiculopathy Anxiety and depression Hyperkalemia Palpitations PVD (peripheral vascular disease) Essential hypertension Barretts esophagus CVA (cerebral vascular accident) Nausea & vomiting Weakness Vertigo Pain, dental Hypothyroidism LBBB (left bundle branch block) Irritable bowel Dyslipidemia Cerebrovascular disease Surgical History History of colon resection History of hip replacement History of neck surgery History of mandibular surgery History of tonsillectomy History of lumbar spinal fusion History of fusion of cervical spine History of hand surgery History of left knee surgery History of back surgery History of bladder surgery History of esophageal dilatation Hx of appendectomy History of hysterectomy History of cholecystectomy Family History Father CVA (cerebral vascular accident)Mother Myocardial infarction, Onset Age: 84 Anesthesia complication Anxiety Bowel disease Heart disease Hypertension High cholesterol Hormone Problem ulcer diseaseBrother Myocardial infarction, Onset Age: 52 Bleeding disorder blood tranfusion Heart disease Hypertension High cholesterol Hormone ProblemSister CAD (coronary artery disease) Anemia Anesthesia complication Angina pectoris, unspecified Anxiety Autoimmune disorder Bowel disease Breast cancer Depression Heart disease Hypertension High cholesterol Hormone Problem Osteoporosis Parkinson disease Thyroid disorderSister CAD (coronary artery disease) Anemia Anesthesia complication Anxiety Bowel disease Hypertension High cholesterol Hormone Problem Osteoporosis Thyroid disorderSister CAD (coronary artery disease) Anesthesia complication Anxiety Bowel disease Hypertension High cholesterol Osteoporosis Thyroid disorder Social History Smoking Status: Never smoker alcohol intake: never substance use type: does not use HPI HPI Chief Complaint: GERD Details: JEAN KRUSE, is a 73 F who presents to the office today for f/u for gastroesophageal reflux. EGD and colonoscopy performed 07/08/21 with findings of patent LES after Nichole fundoplication. Distal esophagus biopsies did not show Lua?s esophagus. Dilation performed with improvement of symptoms, but not a resolution. Biopsies of ileocolonic anastomosis showed mild chronic inflammation. CMP reviewed and noted to have elevated low alkaline phosphatase with GGT and imagining ordered for further evaluation of this. Denies history of Vit D deficiency but admits to history of severe degenerative joint disease of the back which may contribute for abnormal bloodwork. Elevated alkaline phosphatase differential diagnosis primary biliary cholangitis, primary sclerosing cholangitis, vitamin D. Antimitochondrial antibody, JIN, anti-smooth muscle antibody, IgG, vitamin D, MRCP. Hiatal Hernia with GERD, she will continue omeprazole. Omeprazole possibly contributing to anemia and will monitor iron studies, B12 and folic acid. Biochemical results drawn same day: Iron low at 48, IgG low at 584. MRCP performed 08/01/21 with findings of dilation of the common bile duct compatible with reservoir effect status post cholecystectomy. Denies seeing a p d driver in the past. OV 8.2.24 patient has been having severe heartburn over the past 3 months with constant nausea. She vomits occasionally. She has been having difficulty with swallowing foods and pills. She has been scared to eat food since this worsens her symptoms. Tomatoes and sauce seem to be especially triggering to her pain. She continues to take pantoprazole 40 mg BID but continues to have breakthrough heartburn. She is usually constipated with hard large stools. She says she takes a stool softener but cannot remember the name of it. Denies abdominal pain, hematemesis, hematochezia, melena or diarrhea. ROS Const Constitutional: Positive for fatigue, frequent falls, headache(s), weakness and weight change; No fever(s) ENT ENT: Positive for headache(s) and difficulty swallowing Cardio Cardiology: Positive for leg pain with exertion Gastro GI: Positive for abdominal pain, bloating, change in bowel habits, heartburn, difficulty swallowing, excessive flatus, Blood in stool and nausea/dyspepsia; No belching, change in stool character, coffee ground emesis, constipation, cramping, diarrhea, feeling full early, incontinent of stools, Vomiting blood/hematemesis, loose stools, Black,tarry stools, pain with swallowing, vomiting or other Musc Musculoskeletal: Positive for abnormal gait, joint pain, back pain, joint swelling, muscle weakness, numbness, stiffness, tingling, Arthritis, sciatica, restless legs, leg pain at night and leg pain with exertion Skin Skin: Positive for dry skin and itchy eyes; No yellowing of the eye Neuro Neurology: Positive for abnormal gait, dizziness, weakness, frequent falls, headache(s), numbness, tingling, restless legs, tremor(s) and seizures Psych Psychiatric: Positive for anxiety, Positive for depression and Positive for hyperactivity Endo Endocrine: Positive for fatigue and weight change Aller/Imm Allergy/Immunologic: Positive for itchy eyes Des/Lymp Hematologic/Lymphatic: Positive for easy bruising; No easy bleeding Exam Const General: cooperative and comfortable Nutritional Appearance: average body habitus and well nourished [facility] Head: normal to inspection Ears: hearing grossly normal bilaterally Nose: external nose normal Face and sinus: normal facial exam Mouth: oral mucosae normal Throat: posterior oropharynx normal Eyes General: appearance normal, both eyes and all related structures Neck Neck: normal visual inspection Chest Chest palpation & inspection: normal inspection of the chest and normal palpation of entire chest wall Resp Effort & Inspection: normal respiratory effort Auscultation: Bilateral: Clear to Auscultation Cardio Palpation: normal PMI Rate: regular rate Rhythm: regular rhythm GI Inspection: normal to inspection Auscultation: normal bowel sounds Percussion: normal to percussion Palpation: no hepatosplenomegaly Skin General: no rashes or lesions noted Neuro General: patient alert Extrem General: normal to inspection Psych Affect: normal affect Assessment and Plan Assessment and Plan (1) Chronic GERD: Status: Chronic Plan: Patient is here for f/u of her GERD which has been increasingly become worse over hte past 3 months. She was last seen here in 2020. She has hx of barrets esophagus and Ehsan fundoplication for hiatal hernia. -She will continue pantoprazole 40 mg BID -She will take famotidine as needed for breakthrough heartburn -Also recommended taking miralax daily in the morning and in the evening if needed -We will schedule her for an EGD I have examined the patient and the H&P has been reviewed. There are no clinical changes since date of exam.
[2024-06-08 09:25] VITALS: BP 107/50; BP 128/68; PULSE 59; RESP 16; TEMP 36.5; O2SAT 95
--- NOTE | 2024-06-08 09:27 | OP.EGD_ITS ---
Patient Name: Lio Calderón Procedure Date: 06/08/2024 9:08 AM Date of : 1950 Age: 73 Procedure: Upper GI endoscopy Indications: Follow-up of Lua's esophagus Providers: Charlie Hilario DO Medicines: Monitored Anesthesia Care Patient Profile: This is a 73 year old female. Refer to note in patient chart for documentation of history and physical. Patient has symptoms of chronic heartburn. Complications: No immediate complications. Procedure: Pre-Anesthesia Assessment: - Prior to the procedure, a History and Physical was performed, and patient medications and allergies were reviewed. The patient is competent. The risks and benefits of the procedure and the sedation options and risks were discussed with the patient. All questions were answered and informed consent was obtained. Patient identification and proposed procedure were verified by the physician in the pre-procedure area. Mental Status Examination: alert and oriented. Airway Examination: normal oropharyngeal airway and neck mobility. Respiratory Examination: clear to auscultation. CV Examination: normal. Prophylactic Antibiotics: The patient does not require prophylactic antibiotics. Prior Anticoagulants: The patient has taken no anticoagulant or antiplatelet agents. ASA Grade Assessment: II - A patient with mild systemic disease. After reviewing the risks and benefits, the patient was deemed in satisfactory condition to undergo the procedure. The anesthesia plan was to use monitored anesthesia care (MAC). Immediately prior to administration of medications, the patient was re-assessed for adequacy to receive sedatives. The heart rate, respiratory rate, oxygen saturations, blood pressure, adequacy of pulmonary ventilation, and response to care were monitored throughout the procedure. The physical status of the patient was re-assessed after the procedure. After obtaining informed consent, the endoscope was passed under direct vision. Throughout the procedure, the patient's blood pressure, pulse, and oxygen saturations were monitored continuously. The gastroscope was introduced through the mouth, and advanced to the second part of duodenum. The upper GI endoscopy was accomplished without difficulty. The patient tolerated the procedure well. Scope In: 9:12:00 AM Scope Out: 9:19:57 AM Total Procedure Duration Time 0 hours 7 minutes 57 seconds Findings: There were esophageal mucosal changes secondary to established short-segment Lua's disease present in the lower third of the esophagus. The maximum longitudinal extent of these mucosal changes was 3 cm in length. Mucosa was biopsied with a cold forceps for histology in a targeted manner at intervals of 1 cm in the lower third of the esophagus. One specimen bottle was sent to pathology. Verification of patient identification for the specimen was done. Estimated blood loss was minimal. There was also LA grade B erosive esophagitis seen. Localized mild inflammation characterized by erythema was found in the gastric body. Biopsies were taken with a cold forceps for histology. Verification of patient identification for the specimen was done. Estimated blood loss was minimal. Biopsies were taken with a cold forceps for Helicobacter pylori testing. Verification of patient identification for the specimen was done. Estimated blood loss was minimal. The first portion of the duodenum was normal. Impression: - Esophageal mucosal changes secondary to established short-segment Lua's disease. Biopsied. - Erosive esophagitis - Bile gastritis. Biopsied. - Normal first portion of the duodenum. Recommendation: - Discharge patient to home. - Resume previous diet. - Continue present medications. - Await pathology results. Procedure Code(s): --- Professional --- 72912, Esophagogastroduodenoscopy, flexible, transoral; with biopsy, single or multiple CPT copyright 2021 [employer]. All rights reserved. The codes documented in this report are preliminary and upon screener perfumer review may be revised to meet current compliance requirements. Charlie Hilario DO 06/08/2024 9:27:31 AM This report has been signed electronically. Number of Addenda: 0 Note Initiated On: 06/08/2024 9:08 AM
[2024-06-08 09:28] VITALS: BP 107/50; PULSE 64; RESP 16; TEMP 36.5; O2SAT 96
--- NOTE | 2024-06-08 09:28 | OP.CCLET_ITS ---
06/08/2024 Michele Vallecillo MD [address] [place] [address] [place] [address] Re : Upper GI endoscopy procedure for Lio Partidaman Dear Dr. Vallecillo This procedure was performed on May. My impressions and recommendations are as follows: Impressions : - Esophageal mucosal changes secondary to established short-segment Lua's disease. Biopsied. - Erosive esophagitis - Bile gastritis. Biopsied. - Normal first portion of the duodenum. Recommendations : - Discharge patient to home. - Resume previous diet. - Continue present medications. - Await pathology results. My findings are described in the full procedure note, which is enclosed. If I can be of further assistance, please feel free to contact me at . Sincerely, Charlie Hilario, 06/08/2024 9:27:31 AM This report has been signed electronically.
--- NOTE | 2024-06-08 09:28 | PCM.POST.ANE ---
Anesthesia: Postop Eval I Current Vital Signs Temperature: 97.7 F Pulse Rate: 64 Blood Pressure: 107/50 Respiratory Rate: 16 Pulse Ox: 96 Oxygen Delivery Method: Room Air Assessment Airway patent: Yes Spontaneous unlabored respirations: Yes Mental status: Asleep nausea: No Vomiting: No Anesthesia Complication: No Fluid Hydration Crystalloid volume administer (ml): 400 Total IV fluid infused: 400 Progress Note Anesthesia document: Postop Eval 1 completed: Yes
[2024-06-08 09:30] VITALS: BP 105/49; BP 128/68; PULSE 60; RESP 16; O2SAT 93
--- NOTE | 2024-06-08 09:30 | PCM.POSTANE2 ---
Anesthesia Postop Eval I Sum Postop Eval Completion status Anesthesia document: Postop Eval 1 completed: Yes Anesthesia Postop Eval I Summary Anesthesia Postop Eval I Summary: Anesthesia Postop Eval I: Assessment Summary Airway patent Yes 06/08/24 09:28 [email or web address] Spontaneous unlabored Yes 06/08/24 09:28 [email or web address] respirations Mental status Asleep 06/08/24 09:28 [email or web address] nausea No 06/08/24 09:28 [email or web address] Vomiting No 06/08/24 09:28 [email or web address] Anesthesia Postop Eval I: Fluid Summary Crystalloid volume administer 400 06/08/24 09:28 [email or web address] (ml) Colloids volume administered ( ml) Blood Product volume administered (ml) Total IV fluid infused 400 06/08/24 09:28 [email or web address] Anesthesia Postop Eval I: Summary Notes Anesthesia Complication No 06/08/24 09:28 [email or web address] Anesthesia Complication Comment: Post-operative progress note Anesthesia: Postop Eval II Evaluation Mental status: Awake Pain Level: 0 nausea: No Vomiting: No
[2024-06-08 09:35] VITALS: BP 112/50; BP 128/68; PULSE 59; RESP 16; TEMP 36.5; O2SAT 96
[2024-06-08 09:59] VITALS: BP 128/68
== END 2024-06-08 10:10 | disposition home or self-care (01) ==
LOC: EN 08:09 → AC 08:11
PROVIDERS: PCP Internal Medicine; Referring Provider Internal Medicine; Visit Provider Internal Medicine Gastroenterology
PROC: 0DJ08ZZ Inspection of Upper Intestinal Tract, Via Natural or Artificial Opening Endoscopic (ICD-10-PCS; CPT 43235; principal; 2024-06-08 08:55)
DX: K22.70 Barrett's esophagus without dysplasia (principal); K21.00 Gastro-esophageal reflux disease with esophagitis, without bleeding; K29.70 Gastritis, unspecified, without bleeding; I10 Essential (primary) hypertension; E78.00 Pure hypercholesterolemia, unspecified; E03.9 Hypothyroidism, unspecified; F32.A Depression, unspecified; F41.9 Anxiety disorder, unspecified; G89.29 Other chronic pain; Z90.49 Acquired absence of other specified parts of digestive tract; Z79.890 Hormone replacement therapy; Z79.891 Long term (current) use of opiate analgesic; Z79.899 Other long term (current) drug therapy; Z86.73 Personal history of transient ischemic attack (TIA), and cerebral infarction without residual deficits
CPT/HCPCS: 43239; 88305; 88312; 88342; J7120; J2405

== ENCOUNTER → 2024-07-11 | Outpatient (CLI) | payer MEDICARE, SELFPAY ==
[2024-07-11 12:31] LABS: Amphetamine Urine VISTA NEGATIVE (<1000 ng/mL); Barbiturate Urine VISTA NEGATIVE (< 200 ng/mL); Benzodiazepine Urine VISTA NEGATIVE (< 200 ng/mL); Cocaine Urine VISTA NEGATIVE (< 300 ng/mL); Ecstacy Urine VISTA POSITIVE (< 500 ng/mL); Methadone Urine VISTA NEGATIVE (< 300 ng/mL); PCP Urine VISTA NEGATIVE (< 25 ng/mL); THC Urine VISTA NEGATIVE (< 50 ng/mL); Vista UDS pH Range 4
== END | disposition home or self-care (01) ==
LOC: LAB 11:13
PROVIDERS: PCP Internal Medicine; Referring Provider Anesthesiology Pain Medicine; Visit Provider Anesthesiology Pain Medicine
DX: F11.20 Opioid dependence, uncomplicated (principal)
CPT/HCPCS: 80307

== ENCOUNTER → 2024-08-02 | Outpatient (CLI) | payer MEDICARE, SELFPAY ==
--- NOTE | 2024-08-02 10:27 | NM_ITS ---
CLINICAL: 74-year-old female with history of gastroesophageal reflux disease. SEMI-SOLID PHASE 99m Tc SULFUR COLLOID GASTRIC EMPTYING STUDY COMPARISON: None available FINDINGS: The patient was administered 1.1 mCi of 99m Tc sulfur colloid mixed with oatmeal and consumed per os. Image acquisitions in the anterior-posterior projection were obtained for 60 minutes. There is prompt visualization of the stomach. There is no gastroesophageal reflux identified. First order kinetics are maintained throughout the duration of the acquisitions. The T ? linear fit was calculated to be 80.17 minutes, (Normal: 12-56 minutes). NM/Gastric Emptying Study IMPRESSION: 1. ABNORMAL 99m Tc sulfur colloid semi-solid phase (oatmeal) gastric emptying imaging examination. A. There is delayed semi-solid phase gastric emptying compared to normal controls with maintained first order kinetics throughout all components of the examination. (Carlos et al, J Nucl Med Tech 38: 186, 2010). Electronically Signed: Dieter Cristina DO at 13:48 EDT ,
== END | disposition home or self-care (01) ==
LOC: NM 10:24
PROVIDERS: PCP Internal Medicine; Referring Provider Internal Medicine Gastroenterology; Visit Provider Internal Medicine Gastroenterology
DX: K21.9 Gastro-esophageal reflux disease without esophagitis (principal)
CPT/HCPCS: 78264; A9541

== ENCOUNTER → 2024-08-30 | Outpatient (CLI) | payer MEDICARE, SELFPAY ==
[2024-08-30 17:33] LABS: Anion Gap 4 (5-15); BUN 14 mg/dL (7-18); BUN/Creat Ratio 14.7 RATIO (10-20); Calcium,Total 8.7 mg/dL (8.5-10.1); Chloride 103 mmol/L (98-107); Creatinine, Serum 0.95 mg/dL (0.55-1.02); EST Glomerular Filtration Rate 61 mL/min (>60); Est Glom Filt Rate - Afr Amer 74 mL/min (>60); Glucose 93 mg/dL (74-106); Potassium 5.2 mmol/L (3.5-5.1); Sodium Level 137 mmol/L (136-145); T4 Free Direct 1.04 ng/dL (0.76-1.46)
== END | disposition home or self-care (01) ==
LOC: BIMLAB 16:09
PROVIDERS: PCP Internal Medicine; Referring Provider Internal Medicine; Visit Provider Internal Medicine
DX: E03.9 Hypothyroidism, unspecified (principal)
CPT/HCPCS: 36415; 80048; 84439; 84443

== ENCOUNTER 2024-09-25 17:50 | Emergency (ER) | payer MEDICARE, SELFPAY ==
[2024-09-25] VITALS (12 sets, daily range): BP systolic 136–183; BP diastolic 64–83; PULSE 90–117; RESP 18–26; TEMP 36.3–36.7; O2SAT 91–98; BMI 29.2
--- NOTE | 2024-09-25 18:41 | EDS_ITS ---
HPI History of Present Illness Chief Complaint: Shortness of Breath Informant: patient Onset/Context/Timing Onset: Weeks (1) Context: gradual Timing: Continuous Quality: Positive for Dyspnea on exertion and Orthopnea Worsened by: Exertion and Lying flat Relieved by: Nothing Associated Symptoms cough, fever, sore throat, clear sputum and yellow sputum; Negative for rhinorrhea, post nasal drip, ear pain, chills or sweats Chest Pain: Positive for Aching and - (Left) Narrative Narrative: Patient presents with shortness of breath and cough that has been getting progressively worse over the past week. Patient states she is coughing up some clear and yellow. Patient had an acute reactive fever but did not take her temperature at home. Patient states her breathing is worse with any exertion and with laying flat. Patient also admits to a sore throat. Patient admits to some pain over her left chest. Patient describes this as aching. Patient denies any recent travel or recent surgery. Patient denies any history of DVT, PE, or cancer. PE Risk Factors: Negative for Cancer, OCP + Smoking + > 35, Prior DVT or PE, Recent immobilization, Recent surgery or Recent travel [facility] Medical History Cancer Bladder disease Anemia Fatty liver Restless legs Migraine headache TIA (transient ischemic attack) Syncope History of ulceration History of IBS Gastric reflux History of pain when walking Chronic right hip pain Dermatitis Post-menopausal Suprapubic pain High serum vitamin B12 Urinary incontinence in female Urinary incontinence with continuous leakage Adjustment disorder Fracture of distal phalanx of left middle finger Strain of left wrist Strain of left hand Contusion of left middle finger Subungual hematoma of left middle finger Varicose veins of both lower extremities Iron deficiency anemia Flu vaccine need GERD (gastroesophageal reflux disease) Chronic back pain Fatigue Alkaline phosphatase elevation Wears glasses Wears dentures Ambulates with cane Easy bruising History of hiatal hernia Difficulty swallowing History of edema Cardiology follow-up encounter History of echocardiogram History of stress test Hiatal hernia GERD (gastroesophageal reflux disease) Brain aneurysm Seizure Acute pharyngitis, unspecified Lab test negative for COVID-19 virus Acute bronchitis, unspecified Cough Chronic neck and back pain Fatigue Anemia Degenerative disc disease Thyroid disease Chronic GERD Polycystic ovaries Osteopenia High cholesterol Hypertension Arthritis indigestion and heartburn Depression Anxiety Sciatica Vertigo Dry eyes Panic attacks Lacunar infarction Hyperglycemia, drug-induced Hyponatremia History of colonic polyps History of TIA (transient ischemic attack) Social phobia Restless leg syndrome Hiatal hernia with GERD Lumbar spinal stenosis Foraminal stenosis of lumbar region Urinary incontinence Fecal incontinence Radiculopathy Anxiety and depression Hyperkalemia Palpitations PVD (peripheral vascular disease) Essential hypertension Barretts esophagus Nausea & vomiting Weakness Vertigo Pain, dental Hypothyroidism LBBB (left bundle branch block) Irritable bowel Dyslipidemia Cerebrovascular disease Home Medications ?Medication ?Instructions ?Recorded ?Last Taken ?Type acetaminophen 500 mg tablet 1,000 mg (2 x 500 mg) PO Q8H PRN 04/16/20 09/19/22 Rx PRN Pain Score 1-08/03 cholecalciferol (vitamin D3) 125 125 mcg PO DAILY supplement 01/20/21 Unknown History mcg (5,000 unit) capsule oxycodone 5 mg tablet 5 mg PO DAILY PRN pain 02/02/22 Unknown History Handicap Placard #1 ea 03/30/22 Unknown Rx furosemide 20 mg tablet 20 mg PO DAILY PRN Edema #30 tabs 09/24/22 Unknown Rx oxybutynin chloride 5 mg 5 mg PO DAILY . #30 tabs 09/24/22 Unknown Rx tablet,extended release 24 hr blood pressure monitor #1 ea 10/08/22 Unknown Rx cyclosporine 0.05 % eye drops 1 drp ophthalmic (eye) Q12H 03/12/23 Unknown History (Restasis MultiDose) calcium carbonate (Calcium 600) 600 mg PO DAILY Stomach Upset 05/21/23 Unknown History fluticasone propionate 50 2 spray intranasal DAILY #16 grams 10/20/23 Unknown Rx mcg/actuation nasal spray,suspension (Flonase Allergy Relief) bupropion HCl 200 mg tablet,12 hr 200 mg PO BID mental health 3 02/16/24 Unknown Rx sustained-release months #180 ea buspirone 10 mg tablet 20 mg (2 x 10 mg) PO BID mood #360 02/16/24 Unknown Rx tabs lovastatin 40 mg tablet 40 mg PO DAILY cholesterol 04/17/24 Unknown Rx lowering #90 tabs trazodone 100 mg tablet 100 mg PO QHS PRN insomnia #90 tabs 04/23/24 Unknown Rx pantoprazole 40 mg tablet,delayed 40 mg PO BID acid reflux #180 tabs 05/23/24 Unknown Rx release levothyroxine 75 mcg tablet 75 mcg PO DAILY thyroid #60 tabs 05/25/24 06/08/24 Rx baclofen 5 mg tablet 5 mg PO DAILY PRN PRN muscle spasm 06/01/24 Unknown Rx #60 tabs metoclopramide HCl 5 mg tablet 5 mg PO TID #90 tabs 06/08/24 Unknown Rx sucralfate 100 mg/mL oral 10 ml PO BID 2 months #1,200 mL 06/08/24 Unknown Rx suspension (Carafate) meclizine 12.5 mg tablet 12.5 mg PO DAILY PRN Vertigo #60 06/28/24 Unknown Rx tabs duloxetine 60 mg capsule,delayed 60 mg PO DAILY mental health #90 08/11/24 Unknown Rx release caps ondansetron 8 mg disintegrating 8 mg PO Q8H PRN nausea #90 tabs 08/30/24 Unknown Rx tablet pramipexole 0.25 mg tablet 0.25 mg PO TID RESTLESS LEGS 3 09/06/24 Unknown Rx months #270 tabs hydroxyzine HCl 25 mg tablet 25 mg PO BID PRN anxiety #60 tabs 09/08/24 Unknown Rx metoprolol succinate 25 mg 25 mg PO BID blood pressure #180 09/18/24 Unknown Rx tablet,extended release 24 hr tabs albuterol sulfate 90 mcg/actuation 1 - 2 puff inhalation Q4H PRN PRN 09/25/24 Unknown Rx aerosol inhaler (Ventolin HFA) Wheezing ##1 Allergy/AdvReac Type Severity Reaction Status Date / Time lisinopril AdvReac Severe High Verified 08/30/24 15:24 potassium, cough. atorvastatin calcium (From AdvReac legs ache Verified 08/30/24 15:24 Lipitor) Family History Father CVA (cerebral vascular accident) Mother Myocardial infarction, Onset Age: 84 Anesthesia complication Anxiety Bowel disease Heart disease Hypertension High cholesterol Hormone Problem ulcer disease Brother Myocardial infarction, Onset Age: 52 Bleeding disorder blood tranfusion Heart disease Hypertension High cholesterol Hormone Problem Sister CAD (coronary artery disease) Anemia Anesthesia complication Angina pectoris, unspecified Anxiety Autoimmune disorder Bowel disease Breast cancer Depression Heart disease Hypertension High cholesterol Hormone Problem Osteoporosis Parkinson disease Thyroid disorder Sister CAD (coronary artery disease) Anemia Anesthesia complication Anxiety Bowel disease Hypertension High cholesterol Hormone Problem Osteoporosis Thyroid disorder Sister CAD (coronary artery disease) Anesthesia complication Anxiety Bowel disease Hypertension High cholesterol Osteoporosis Thyroid disorder Surgical History History of lumbar fusion Hx of colonoscopy History of colon resection History of hip replacement History of neck surgery History of mandibular surgery History of tonsillectomy History of lumbar spinal fusion History of fusion of cervical spine History of hand surgery History of left knee surgery History of bladder surgery Hx of appendectomy History of hysterectomy History of cholecystectomy Social History Smoking Status: Never smoker alcohol intake: never substance use type: does not use ROS ROS ED Constitutional Constitutional ED: Reports fever(s); Denies chills Eyes Eyes: Denies blurry vision or change in vision ENT ENT ED: Reports sore throat; Denies rhinorrhea Cardiovascular Cardiovascular: Reports chest pain; Denies palpitations Respiratory/Chest Respiratory/Chest: Reports cough and dyspnea Gastrointestinal Gastrointestinal: Reports nausea; Denies vomiting Genitourinary Genitourinary ED: Denies dysuria or hematuria Musculoskeletal Musculoskeletal: Denies back pain or neck pain Integumentary Denies abscess or rash Neurologic Neurologic: Reports headache(s); Denies weakness Allergic/Immunologic Allergic/Immunologic ED: Denies mouth swelling or urticaria EXAM Physical Exam Const Vital Signs: 09/25/24 17:50 09/25/24 18:28 09/25/24 18:49 Temperature 97.4 F L Temperature Source Temporal Pulse Rate 108 H 90 Respiratory Rate 26 H 20 H Respiratory Pattern Tachypnea Blood Pressure 168/83 H 180/80 H Blood Pressure Mean 111 113 Pulse Ox 96 92 Oxygen Delivery Method Room Air Room Air Room Air 09/25/24 18:53 09/25/24 18:59 09/25/24 19:12 Temperature 98.1 F 98.1 F Temperature Source Oral Oral Pulse Rate 95 92 Respiratory Rate 22 H 18 Respiratory Pattern Blood Pressure 183/72 H 181/74 H Blood Pressure Mean 109 109 Pulse Ox 93 92 98 Oxygen Delivery Method Room Air Room Air Room Air 09/25/24 19:21 09/25/24 20:00 09/25/24 20:00 Temperature 98.1 F Temperature Source Oral Pulse Rate 117 H 100 102 H Respiratory Rate 19 H 18 23 H Respiratory Pattern Blood Pressure 160/76 H 160/76 H Blood Pressure Mean 104 104 Pulse Ox 93 92 Oxygen Delivery Method Room Air Room Air 09/25/24 21:00 09/25/24 22:00 09/25/24 23:00 Temperature Temperature Source Pulse Rate 92 95 96 Respiratory Rate 18 20 H 19 H Respiratory Pattern Blood Pressure 156/65 H 136/64 H 152/64 H Blood Pressure Mean 95 88 93 Pulse Ox 94 91 91 Oxygen Delivery Method Room Air Room Air Positive well nourished and well developed General Appearance ED: well developed HEENT Reports moist mucous membranes Neck supple, no meningeal signs and no JVD Resp normal respiratory effort Auscultation: rhonchi throughout Cardio regular rhythm Rate: tachycardic GI non-tender and non-distended Palpation: soft Extremity General Extremety ED: Negative for edema General Extremity: Negative for edema Neuro oriented x3, CN's II-XII intact bilaterally and no sensory deficits noted Kevin Coma Scale: document GCS findings Spontaneous Obeys Commands Oriented 15 Sensorium / Orientation: alert Speech: speech normal Motor Exam: strength 5/5 throughout Psych mental status grossly normal MDM MDM MDM Narrative Medical decision making narrative: Diagnosis includes pneumonia, COPD exacerbation, cardiac dysrhythmia, cardiac ischemia, bronchitis, viral illness, congestive heart failure, and pulmonary embolism. Chest x-ray will be obtained to assess for pneumonia, congestive heart failure, and COPD. EKG will be obtained to assess for cardiac dysrhythmia and cardiac ischemia. CBC will be obtained to assess for leukocytosis and anemia. Basic metabolic profile will be obtained to assess for electrolyte abnormality and renal function. High-sensitivity troponin will be obtained to assess for cardiac ischemia. D-dimer will be obtained to assess for pulmonary embolism and DVT. Lab Data Attestation: I reviewed the patient's lab results. Lab results narrative: CBC was reviewed and was within normal limits. Basic metabolic profile was reviewed and was within normal limits. D-dimer was reviewed and was elevated at 3.54. Initial high-sensitivity troponin was reviewed and was normal at 10. 2- hour repeat high-sensitivity troponin was reviewed and was normal at 12. Labs: Laboratory Results - last 24 hr 09/25/24 09/25/24 18:36 21:37 WBC 8.5 RBC 4.29 Hgb 12.1 Hct 36.4 L MCV 84.8 MCH 28.2 MCHC 33.2 RDW Std Deviation 47.7 H RDW Coeff of Leslie 15.5 H Plt Count 243 MPV 9.2 Immature Gran % (Auto) 0.400 Neut % (Auto) 81.8 H Lymph % (Auto) 7.2 L Carlton % (Auto) 10.4 H Eos % (Auto) 0.0 Baso % (Auto) 0.2 Absolute Neuts (auto) 6.9 Absolute Lymphs (auto) 0.61 L Nucleated RBC % 0 D-Dimer Quant (PE/DVT) 3.54 H* Sodium 132 L Potassium 4.3 Chloride 98 Carbon Dioxide 26.0 Anion Gap 8 BUN 12 Creatinine 0.91 Estim Creat Clear Calc 56.58 Est GFR (MDRD) Af Amer 78 Est GFR (MDRD) Non-Af 64 BUN/Creatinine Ratio 13.2 Glucose 130 H Calcium 8.6 Troponin I High Sens 10 12 Radiography Chest X-Ray - ED: 1 View, Read by ED Physician, Read by Radiologist and No Acute Disease Diagnostic Testing: Clinical Impression(s) from Imaging Studies Chest X-Ray 09/25/24 19:35 IMPRESSION: No radiographic evidence of acute cardiopulmonary disease. Electronically Signed: Sánchez Blackwood DO at 21:49 EST , Chest CTA 09/25/24 20:21 IMPRESSION: No demonstrated pulmonary embolism or arterial dissection. Bilateral nodular densities likely granulomatous in nature. Bilateral renal cysts. Mild biliary dilatation. Small hiatal hernia. Air-fluid level in the esophagus. Electronically Signed: Sánchez Blackwood DO at 21:39 EST , Portable 1 view chest x-ray was obtained. On my independent interpretation, lung hutton are clear. There is normal cardiac silhouette. Bony thorax is normal. There is no acute process noted. Radiologist also interpreted the x- ray and agrees. Because of the elevated D-dimer, CTA of the chest was obtained. There is no evidence of pulmonary embolism or aortic dissection. There is no acute inf iltrate. This was interpreted by the radiologist and was also independently reviewed by myself. EKG Initial EKG: Attestation: I personally reviewed and interpreted this EKG as follows: Interpretation: Sinus Rhythm (89) and Non-Specific ST Changes Comments: EKG was obtained. On my independent interpretation, it showed a normal sinus rhythm with a rate of 89. MA interval, QRS interval, and QTc intervals were all normal. Nunnelly was normal. There is an incomplete left bundle branch block pattern. There are nonspecific ST-T wave changes. There are no changes compared to previous EKG dated 04/24/2022. Prior EKG tracings: available for review Prior: Unchanged (04/24/2022) Treatment and Re-Evaluation :: Patient was given a DuoNeb aerosol here. Patient was advised of her findings. Patient is still having wheezing and rhonchi on reevaluation. Patient was given a repeat albuterol aerosol. Patient states she wants to go home. Patient was instructed to continue her medications as prescribed. Patient was given a prescription for an albuterol inhaler. Patient was instructed to follow-up with her primary care physician in 5 to 7 days. Patient understood and was agreeable with the plan. All questions were answered. Discharge Plan Triage Chief Complaint: Shortness of Breath ED Provider: Satish Nichols Dx/Rx/DC Orders Clinical Impression: Acute bronchitis, Cough Instructions: ED Bronchitis with Wheezing (Adult) Prescriptions: New albuterol sulfate [Ventolin HFA] 90 mcg/actuation HFA aerosol inhaler 1 - 2 puff inhalation Q4H PRN PRN (Reason: Wheezing) Qty: 1 0RF No Action cholecalciferol (vitamin D3) 125 mcg (5,000 unit) capsule 125 mcg PO DAILY calcium carbonate [Calcium 600] 600 mg calcium (1,500 mg) tablet 600 mg PO DAILY oxycodone 5 mg tablet 5 mg PO DAILY PRN (Reason: pain) (DME) blood pressure monitor Kit See Rx Instructions .Route Qty: 1 0RF Rx Instructions: Take blood pressure daily Restasis MultiDose 0.05 % drops 1 drp ophthalmic (eye) Q12H buspirone 10 mg tablet 20 mg PO BID Qty: 360 1RF bupropion HCl 200 mg tablet sustained-release 12 hr 200 mg PO BID 90 Days Qty: 180 3RF ondansetron 8 mg tablet,disintegrating 8 mg PO Q8H PRN (Reason: nausea) Qty: 90 2RF acetaminophen 500 MG tablet 1,000 mg PO Q8H PRN PRN (Reason: Pain Score 1-10/10) 0RF (DME) Handicap Placard See Rx Instructions .ROUTE .MEDSUPPLY Qty: 1 0RF Rx Instructions: As directed, length of time 3 years furosemide 20 mg tablet 20 mg PO DAILY PRN (Reason: Edema) Qty: 30 2RF oxybutynin chloride 5 mg tablet extended release 24hr 5 mg PO DAILY Qty: 30 1RF fluticasone propionate [Flonase Allergy Relief] 50 mcg/actuation spray,suspension 2 spray intranasal DAILY Qty: 16 3RF Rx Instructions: administer into each nostril lovastatin 40 mg tablet 40 mg PO DAILY Qty: 90 1RF trazodone 100 mg tablet 100 mg PO QHS PRN (Reason: insomnia) Qty: 90 1RF pantoprazole 40 mg tablet,delayed release (DR/EC) 40 mg PO BID Qty: 180 3RF levothyroxine 75 mcg tablet 75 mcg PO DAILY Qty: 60 3RF baclofen 5 mg tablet 5 mg PO DAILY PRN PRN (Reason: muscle spasm) Qty: 60 2RF sucralfate [Carafate] 100 mg/mL suspension 10 ml PO BID 60 Days Qty: 1200 3RF metoclopramide HCl 5 mg tablet 5 mg PO TID Qty: 90 0RF Rx Instructions: administer 30 minutes before meals meclizine 12.5 mg tablet 12.5 mg PO DAILY PRN (Reason: Vertigo) Qty: 60 2RF duloxetine 60 mg capsule,delayed release(DR/EC) 60 mg PO DAILY Qty: 90 1RF pramipexole 0.25 mg tablet 0.25 mg PO TID 90 Days Qty: 270 0RF hydroxyzine HCl 25 mg tablet 25 mg PO BID PRN (Reason: anxiety) Qty: 60 2RF metoprolol succinate 25 mg tablet extended release 24 hr 25 mg PO BID Qty: 180 1RF Primary Care Provider: Michele Vallecillo Referrals: Michele Vallecillo MD [Primary Care Provider] - 3-5 Days Print Language: Kinyarwanda
--- NOTE | 2024-09-25 19:12 | EKG12_ITS ---
Test Reason : SOB Blood Pressure : */* mmHG Vent. Rate : 89 BPM Atrial Rate : 89 BPM P-R Int : 158 ms QRS Dur : 116 ms QT Int : 358 ms P-R-T Axes : 69 -7 135 degrees QTcB Int : 435 ms Normal sinus rhythm Possible Anterior infarct , age undetermined ST & T wave abnormality, consider lateral ischemia Abnormal ECG Confirmed by Nakul Rendon ([id number]), newspaper editor managing LORENZO CRESPO ([id number]) on 09/29/2024 6:47:38 AM Referred By: Confirmed By: Nakul Rendon
[2024-09-25] MEDS: Ipratropium/Albuterol Sulfate 3 ML AMPUL.NEB INHALATION (19:17)
[2024-09-25 19:26] LABS: Absolute Lymphocyte Count 0.61 X10^3/uL (0.83-4.51); Absolute Neutrophil Count 6.9 X10^3/uL (2.0-7.7); Basophil# 0.02 X10^3/uL; Basophil% 0.2 % (0-1); Hematocrit 36.4 % (37-47); Hemoglobin 12.1 g/dL (12.0-15.0); Lymphocyte # 0.61 X10^3/ul (0.83-4.51); Lymphocyte % 7.2 % (19-41); Mean Corp Hgb Conc 33.2 g/dL (32-36); Mean Corpuscular Hgb 28.2 pg (27.0-32.0); Mean Corpuscular Volume 84.8 fL (81-99); Mean Platelet Vol. 9.2 fl (6.2-12.0); Monocyte# 0.88 X10^3/uL; Monocyte% 10.4 % (0-10); NRBC Flagged by Analyzer 0 % (0-5); Neutrophil # 6.94 X10^3/uL (2.7-7.7); Neutrophil % 81.8 % (47-70); Platelet Count 243 K/mm3 (150-450); RBC Distribution Width CV 15.5 % (11.6-14.6); RBC Distribution Width SD 47.7 fl (35.1-43.9); Red Blood Count 4.29 M/mm3 (4.2-5.4); White Blood Count 8.5 K/mm3 (4.4-11.0)
--- NOTE | 2024-09-25 19:35 | RAD_ITS ---
INDICATION: chest pain EXAMINATION/TECHNIQUE: X-RAY - XR Chest 1 View COMPARISON: FINDINGS: LINES/DEVICES: None. LUNGS: No consolidation, edema or effusion. No pneumothorax. MEDIASTINUM AND CARDIOVASCULAR STRUCTURES: Cardiac silhouette not enlarged. Central airways and mediastinal contour are unremarkable. BONES AND SOFT TISSUES: Old right rib fractures. RAD/Chest 1 View (Portable) IMPRESSION: No radiographic evidence of acute cardiopulmonary disease. Electronically Signed: Sánchez Blackwood DO at 21:49 EST ,
[2024-09-25 19:55] LABS: Anion Gap 8 (5-15); BUN 12 mg/dL (7-18); BUN/Creat Ratio 13.2 RATIO (10-20); Calcium,Total 8.6 mg/dL (8.5-10.1); Chloride 98 mmol/L (98-107); Creatinine, Serum 0.91 mg/dL (0.55-1.02); EST Glomerular Filtration Rate 64 mL/min (>60); Est Glom Filt Rate - Afr Amer 78 mL/min (>60); Estimated Creatinine Clearance 56.58 ml/min; Glucose 130 mg/dL (74-106); Potassium 4.3 mmol/L (3.5-5.1); Sodium Level 132 mmol/L (136-145); Troponin-I HS (w/2H Reflex) 10 pg/mL (3.0-54.0)
--- NOTE | 2024-09-25 20:21 | CT_ITS ---
STUDY: CTA CHEST REASON FOR EXAM: Female, 74 years old. Elevated D-dimer RADIATION DOSAGE (If Supplied By Facility): CTDIvol = ( 9.71 ) mGy, DLP = ( 414.71 ) mGycm TECHNIQUE: The examination was performed with the intravenous administration of IV 100mL Isovue-370. Post-processing of the angiographic images was performed, with multiplanar reformation and 3D reconstruction. The protocol utilizes one or more of the following dose reduction techniques: automated exposure control, adjustment of mA and/or kV according to patient size,and/or use of iterative reconstruction technique. COMPARISON: FINDINGS: Normal enhancement of the main pulmonary artery and right and left pulmonary arteries. Normal enhancement of the bilateral peripheral pulmonary arteries. There is no demonstrated pulmonary embolism. Normal thoracic aorta and visualized great vessels. There is no demonstrated aortic dissection. Normal heart and pericardium. Normal mediastinum. Normal hilar regions. Normal visualized trachea and bronchi. The lungs are well expanded. 5 mm nodule along the right major fissure, image 131 series 2. Nodular densities along the left major fissure up to 5 mm. Peripheral nodules. Normal pleura. Normal chest wall structures. Exaggerated upper thoracic kyphosis. Bilateral renal cysts. Mild biliary dilatation. Small hiatal hernia. Air-fluid level in the esophagus. CT/CTA Chest W/WO Contrast IMPRESSION: No demonstrated pulmonary embolism or arterial dissection. Bilateral nodular densities likely granulomatous in nature. Bilateral renal cysts. Mild biliary dilatation. Small hiatal hernia. Air-fluid level in the esophagus. Electronically Signed: Sánchez Blackwood DO at 21:39 EST ,
[2024-09-25 20:22] LABS: D-Dimer Quantitative (DVT/PE) 3.54 FEU/ug/m (0.27-0.49)
--- NOTE | 2024-09-25 20:28 | ED.RN ---
Patient transported to CT
--- NOTE | 2024-09-25 21:00 | ED.RN ---
Patient attempted to ambulate to bathroom with this RN. RN had to assist patient with sitting up and manipulation of body due to weakness and patient was unable to take more than 2 steps from bed before she had to sit down due to weakness. Maico boothe. Dr. Nichols notified.
[2024-09-25 21:22] LABS: Reflex Troponin-HS? (from REC) Y
[2024-09-25 22:05] LABS: Troponin-I HS 12 pg/mL (3.0-54.0)
[2024-09-25] MEDS: Albuterol 2.5 MG/3 ML VIAL.NEB. INHALATION (23:23)
== END 2024-09-25 23:39 | disposition home or self-care (01) ==
PROVIDERS: Emergency Provider Emergency Medicine; PCP Internal Medicine; Visit Provider Emergency Medicine
DX: J20.9 Acute bronchitis, unspecified (principal); Z86.73 Personal history of transient ischemic attack (TIA), and cerebral infarction without residual deficits
CPT/HCPCS: 71045; 71275; 80048; 84484; 85025; 85379; 93005; 94640; 99283; Q9967; A4216

== ENCOUNTER → 2024-10-31 | Outpatient (CLI) | payer MEDICARE, OTHER, SELFPAY ==
--- NOTE | 2024-10-31 09:26 | NM_ITS ---
CLINICAL: 74-year-old female with history of gastroparesis disorder. SOLID PHASE 99m Tc SULFUR COLLOID GASTRIC EMPTYING STUDY COMPARISON: Previous gastric emptying study result dated 08/02/2024. FINDINGS: The patient was administered 1.1 mCi of 99m Tc sulfur colloid mixed with egg and consumed per os. Image acquisitions in the anterior-posterior projections were obtained for 231 minutes. There is prompt visualization of the stomach. There is no gastroesophageal reflux identified. First order kinetics are maintained throughout the duration of the acquisitions. The T ? raw data emptying was calculated to be 130.46 minutes, (Normal 65-110 minutes). NM/Gastric Emptying Study - 4 HR IMPRESSION: 1. ABNORMAL 99m Tc sulfur colloid solid phase gastric emptying imaging examination. A. There is delayed solid phase gastric emptying compared to normal controls. ( et al, Gastroenterology 77: 75, 1979 Malkelly et al, Semin Nucl Med 12: 116, 1980). B. Overall compared to the semisolid phase gastric emptying study dated 08/02/2024, there is continued demonstration of delayed gastric emptying currently of abnormal solid meal emptying. Electronically Signed: Dieter Cristina DO at 20:19 EST ,
== END | disposition home or self-care (01) ==
LOC: NM 09:21
PROVIDERS: PCP Internal Medicine; Referring Provider Student in an Organized Health Care Education/Training Program; Visit Provider Student in an Organized Health Care Education/Training Program
DX: K21.9 Gastro-esophageal reflux disease without esophagitis (principal)
CPT/HCPCS: 78264; A9541

== ENCOUNTER → 2024-11-17 | Outpatient (CLI) | payer MEDICARE, OTHER, SELFPAY ==
--- NOTE | 2024-11-17 12:20 | RAD_ITS ---
STUDY: X-RAY - PELVIS AND RIGHT HIP REASON FOR EXAM: Female, 74 years old. RIGHT HIP PAIN TECHNIQUE: 3 views of the pelvis and right hip. COMPARISON: None. FINDINGS: There is a non-specific bowel gas pattern. There are multiple small calcified phleboliths in the pelvis. Normal bilateral iliac wings, sacroiliac joints and visualized sacrum. Normal bilateral superior and inferior pubic rami. Normal pubic symphysis. Normal bilateral ischial tuberosities. There is minimal degenerative arthrosis of the right hip joint. There is no demonstrated acute fracture. There is a left hip arthroplasty, with good anatomic alignment and no periprosthetic fracture. There is bilateral fusion hardware at L3-4. RAD/HIP, UNI W/ Pelvis 2-3 Views IMPRESSION: Minimal degenerative arthrosis of the right hip joint, with no demonstrated acute fracture. Left hip arthroplasty, with good anatomic alignment and no periprosthetic fracture. Electronically Signed: Joel Hernández MD at 10:40 EST ,
== END | disposition home or self-care (01) ==
LOC: RAD 12:11
PROVIDERS: PCP Internal Medicine; Referring Provider Anesthesiology Pain Medicine; Visit Provider Anesthesiology Pain Medicine
DX: M25.551 Pain in right hip (principal)
CPT/HCPCS: 73502

== ENCOUNTER → 2024-12-04 | Outpatient (CLI) | payer MEDICARE, OTHER, SELFPAY ==
[2024-12-04 13:19] LABS: Absolute Lymphocyte Count 1.58 X10^3/uL (0.83-4.51); Absolute Neutrophil Count 3.9 X10^3/uL (2.0-7.7); Basophil# 0.04 X10^3/uL; Basophil% 0.7 % (0-1); Eosinophil# 0.11 X10^3/uL; Eosinophils% 1.8 % (0-5); Hematocrit 33.4 % (37-47); Hemoglobin 10.5 g/dL (12.0-15.0); Lymphocyte # 1.58 X10^3/ul (0.83-4.51); Lymphocyte % 25.8 % (19-41); Mean Corp Hgb Conc 31.4 g/dL (32-36); Mean Corpuscular Hgb 26.8 pg (27.0-32.0); Mean Corpuscular Volume 85.2 fL (81-99); Mean Platelet Vol. 9.8 fl (6.2-12.0); Monocyte% 8.2 % (0-10); NRBC Flagged by Analyzer 0 % (0-5); Neutrophil # 3.88 X10^3/uL (2.7-7.7); Neutrophil % 63.2 % (47-70); Platelet Count 307 K/mm3 (150-450); RBC Distribution Width CV 15.1 % (11.6-14.6); RBC Distribution Width SD 46.6 fl (35.1-43.9); Red Blood Count 3.92 M/mm3 (4.2-5.4); White Blood Count 6.1 K/mm3 (4.4-11.0)
[2024-12-04 13:50] LABS: AST(SGOT) 25 U/L (15-37); Alanine Aminotransfer ALT/SGPT 30 U/L (13-56); Albumin, Serum 3.3 g/dL (3.2-5.0); Alkaline Phosphatase 90 U/L (45-117); Bilirubin, Direct 0.09 mg/dL (0.00-0.30); Globulin 3.4 g/dL (2.2-4.2); Protein, Total 6.7 g/dL (6.4-8.2)
== END | disposition home or self-care (01) ==
LOC: LAB 12:32
PROVIDERS: PCP Internal Medicine; Referring Provider Nurse Practitioner Acute Care; Visit Provider Nurse Practitioner Acute Care
DX: K31.84 Gastroparesis (principal); R14.0 Abdominal distension (gaseous)
CPT/HCPCS: 36415; 80076; 85025

== ENCOUNTER → 2024-12-07 | Outpatient (CLI) | payer MEDICARE, OTHER, SELFPAY ==
[2024-12-07 14:07] LABS: Vitamin B12 368 pg/mL (211-911)
[2024-12-07 14:14] LABS: Anion Gap 4 (5-15); BUN 24 mg/dL (7-18); BUN/Creat Ratio 25.8 RATIO (10-20); Calcium,Total 9.2 mg/dL (8.5-10.1); Chloride 108 mmol/L (98-107); Creatinine, Serum 0.93 mg/dL (0.55-1.02); EST Glomerular Filtration Rate 63 mL/min (>60); Est Glom Filt Rate - Afr Amer 76 mL/min (>60); Ferritin 8 ng/mL (8-252); Glucose 104 mg/dL (74-106); Iron 28 ug/dL (50-170); Iron Binding Capacity,Total 427 ug/dL (250-450); Potassium 4.7 mmol/L (3.5-5.1); Sodium Level 137 mmol/L (136-145)
== END | disposition home or self-care (01) ==
LOC: LAB 13:27
PROVIDERS: PCP Internal Medicine; Referring Provider Internal Medicine; Visit Provider Internal Medicine
DX: I10 Essential (primary) hypertension (principal); D64.9 Anemia, unspecified
CPT/HCPCS: 36415; 80048; 82607; 82728; 83540; 83550; 84443

== ENCOUNTER → 2024-12-18 | Outpatient (CLI) | payer MEDICARE, OTHER, SELFPAY ==
--- NOTE | 2024-12-18 09:07 | US_ITS ---
PROCEDURE: ABDOMEN LIMITED REASON FOR EXAM: Abdominal bloating. COMPARISON: None FINDINGS: Liver: Grossly normal size and echotexture. Gallbladder: Surgically absent. Common bile duct: Normal measuring it measures 7.7 mm.. Pancreas: Visualized portions are sonographically unremarkable. Visualized portions of the right kidney are unremarkable. There is a 4.1 cm x 4.6 cm 4.8 cm cyst in the upper pole of the kidney. No right upper quadrant ascites. US/Abdomen Limited IMPRESSION: Status post cholecystectomy. Right renal cyst. No acute abnormality is seen. Reading Location: [id number]
== END | disposition home or self-care (01) ==
LOC: US 09:02
PROVIDERS: PCP Internal Medicine; Referring Provider Nurse Practitioner Acute Care; Visit Provider Nurse Practitioner Acute Care
DX: K31.84 Gastroparesis (principal); R14.0 Abdominal distension (gaseous)
CPT/HCPCS: 76705

== ENCOUNTER 2025-01-22 07:54 | Emergency (ER) | payer MEDICARE, OTHER, SELFPAY ==
[2025-01-22 07:55] VITALS: BP 152/69; PULSE 78; RESP 16; TEMP 36.1; O2SAT 99
[2025-01-22 08:12] VITALS: BMI 29.2
--- NOTE | 2025-01-22 08:14 | RAD_ITS ---
PROCEDURE: CHEST PA AND LATERAL 01/22/2025 REASON FOR EXAM: COUGH SOB TECHNIQUE: Frontal and lateral views of the chest. COMPARISON: Chest radiograph 09/25/2024 FINDINGS: Hardware: No internal hardware or devices. External EKG lead wires are present. Heart: Normal size and contour. Mediastinum: Normal contour and appearance. Lungs: Lungs are clear. No suspicious interstitial thickening. No pneumothorax. No pleural effusion. Bones: Unremarkable. RAD/Chest PA and Lateral IMPRESSION: No acute process detected. Reading Location: [facility]
[2025-01-22 08:15] VITALS: O2SAT 99
--- NOTE | 2025-01-22 08:15 | EKG12_ITS ---
Test Reason : GEN ILLNESS Blood Pressure : */* mmHG Vent. Rate : 58 BPM Atrial Rate : 58 BPM P-R Int : 168 ms QRS Dur : 132 ms QT Int : 446 ms P-R-T Axes : 42 -15 135 degrees QTcB Int : 437 ms Sinus bradycardia Left bundle branch block Abnormal ECG Confirmed by STACEY MONTEIRO, MICHAEL ([id number]), international editorial producer VERN NUNEZ ([id number]) on 01/23/2025 8:37:02 AM Referred By: Confirmed By: MICHAEL IBARRA MD
--- NOTE | 2025-01-22 08:16 | EX.ED.DYSGE1 ---
HPI History of Present Illness Chief Complaint: General Illness Informant: patient Narrative Narrative: 74-year-old female presenting for 3 weeks of symptoms that started the night of her shingles vaccine that she had at [facility]. She states she has had cough, dyspnea, headache, body aches all over, vomiting especially when she tries to eat or drink anything, sore throat, sinus pain and congestion, bilateral earache and trouble hearing out of the left ear, and subjective fevers/chills. She states she has not seen her doctor for this and this is the first time she has presented to a healthcare provider in the last 3 weeks since the symptoms started. She states she has had nothing to eat or drink in 3 weeks. She is urinating normally. She denies diarrhea. She is not well versed on her medical history, except for saying that she was diagnosed with an intestinal problem. When asked if she has had any blood in her stools, she states she is not sure what to look for, and she has not checked. [facility] Medical History Cancer Bladder disease Anemia Fatty liver Restless legs Migraine headache TIA (transient ischemic attack) Syncope History of ulceration History of IBS Gastric reflux History of pain when walking Chronic right hip pain Dermatitis Post-menopausal Suprapubic pain High serum vitamin B12 Urinary incontinence in female Urinary incontinence with continuous leakage Adjustment disorder Fracture of distal phalanx of left middle finger Strain of left wrist Strain of left hand Contusion of left middle finger Subungual hematoma of left middle finger Varicose veins of both lower extremities Iron deficiency anemia Flu vaccine need GERD (gastroesophageal reflux disease) Chronic back pain Fatigue Alkaline phosphatase elevation Wears glasses Wears dentures Ambulates with cane Easy bruising History of hiatal hernia Difficulty swallowing History of edema Cardiology follow-up encounter History of echocardiogram History of stress test Hiatal hernia GERD (gastroesophageal reflux disease) Brain aneurysm Seizure Acute pharyngitis, unspecified Lab test negative for COVID-19 virus Acute bronchitis, unspecified Cough Chronic neck and back pain Fatigue Anemia Degenerative disc disease Thyroid disease Chronic GERD Polycystic ovaries Osteopenia High cholesterol Hypertension Arthritis indigestion and heartburn Depression Anxiety Sciatica Vertigo Dry eyes Panic attacks Lacunar infarction Hyperglycemia, drug-induced Hyponatremia History of colonic polyps History of TIA (transient ischemic attack) Social phobia Restless leg syndrome Hiatal hernia with GERD Lumbar spinal stenosis Foraminal stenosis of lumbar region Urinary incontinence Fecal incontinence Radiculopathy Anxiety and depression Hyperkalemia Palpitations PVD (peripheral vascular disease) Essential hypertension Barretts esophagus Nausea & vomiting Weakness Vertigo Pain, dental Hypothyroidism LBBB (left bundle branch block) Irritable bowel Dyslipidemia Cerebrovascular disease Home Medications ?Medication ?Instructions ?Recorded ?Last Taken ?Type acetaminophen 500 mg tablet 1,000 mg (2 x 500 mg) PO Q8H PRN 04/16/20 09/19/22 Rx PRN Pain Score 1-08/03 cholecalciferol (vitamin D3) 125 125 mcg PO DAILY supplement 01/20/21 Unknown History mcg (5,000 unit) capsule oxycodone 5 mg tablet 5 mg PO DAILY PRN pain 02/02/22 Unknown History Handicap Placard #1 ea 03/30/22 Unknown Rx furosemide 20 mg tablet 20 mg PO DAILY PRN Edema #30 tabs 09/24/22 Unknown Rx blood pressure monitor #1 ea 10/08/22 Unknown Rx cyclosporine 0.05 % eye drops 1 drp ophthalmic (eye) Q12H 03/12/23 Unknown History (Restasis MultiDose) calcium carbonate (Calcium 600) 600 mg PO DAILY Stomach Upset 05/21/23 Unknown History fluticasone propionate 50 2 spray intranasal DAILY #16 grams 10/20/23 Unknown Rx mcg/actuation nasal spray,suspension (Flonase Allergy Relief) bupropion HCl 200 mg tablet,12 hr 200 mg PO BID mental health 3 02/16/24 Unknown Rx sustained-release months #180 ea baclofen 5 mg tablet 5 mg PO DAILY PRN PRN muscle spasm 06/01/24 Unknown Rx #60 tabs meclizine 12.5 mg tablet 12.5 mg PO DAILY PRN Vertigo #60 06/28/24 Unknown Rx tabs ondansetron 8 mg disintegrating 8 mg PO Q8H PRN nausea #90 tabs 08/30/24 Unknown Rx tablet pramipexole 0.25 mg tablet 0.25 mg PO TID RESTLESS LEGS 3 09/06/24 Unknown Rx months #270 tabs hydroxyzine HCl 25 mg tablet 25 mg PO BID PRN anxiety #60 tabs 09/08/24 Unknown Rx metoprolol succinate 25 mg 25 mg PO BID blood pressure #180 11/25/24 Unknown Rx tablet,extended release 24 hr tabs albuterol sulfate 90 mcg/actuation 1 - 2 puff inhalation Q4H PRN PRN 09/25/24 Unknown Rx aerosol inhaler (Ventolin HFA) Wheezing ##1 lovastatin 40 mg tablet 40 mg PO DAILY cholesterol 10/10/24 Unknown Rx lowering #90 tabs trazodone 100 mg tablet 100 mg PO QHS PRN insomnia #90 tabs 10/19/24 Unknown Rx buspirone 10 mg tablet 20 mg (2 x 10 mg) PO BID mood #360 11/14/24 Unknown Rx tabs duloxetine 60 mg capsule,delayed 60 mg PO DAILY mental health #90 11/14/24 Unknown Rx release caps calcium carbonate 550 mg chewable 1,100 mg PO QDAY 12/04/24 Unknown History tablet oxybutynin chloride 5 mg 5 mg PO DAILY . #30 tabs 12/04/24 Unknown Rx tablet,extended release 24 hr peg 3350-electrolytes 236 240 ml PO Q10M #4,000 mL 12/05/24 Unknown Rx gram-22.74 gram-6.74 gram-5.86 gram solution (Golytely) ferrous sulfate 325 mg (65 mg 325 mg PO Q OTHER DAY #90 tabs 12/07/24 Unknown Rx iron) tablet levothyroxine 88 mcg tablet 88 mcg PO DAILY thyroid #60 tabs 12/07/24 Unknown Rx vonoprazan 10 mg tablet (Voquezna) 10 mg PO QDAY esophagitis #30 tabs 12/20/24 Unknown Rx Allergy/AdvReac Type Severity Reaction Status Date / Time lisinopril AdvReac Severe High Verified 01/22/25 07:55 potassium, cough. atorvastatin calcium (From AdvReac legs ache Verified 01/22/25 07:55 Lipitor) Family History Father CVA (cerebral vascular accident) Mother Myocardial infarction, Onset Age: 84 Anesthesia complication Anxiety Bowel disease Heart disease Hypertension High cholesterol Hormone Problem ulcer disease Brother Myocardial infarction, Onset Age: 52 Bleeding disorder blood tranfusion Heart disease Hypertension High cholesterol Hormone Problem Sister CAD (coronary artery disease) Anemia Anesthesia complication Angina pectoris, unspecified Anxiety Autoimmune disorder Bowel disease Breast cancer Depression Heart disease Hypertension High cholesterol Hormone Problem Osteoporosis Parkinson disease Thyroid disorder Sister CAD (coronary artery disease) Anemia Anesthesia complication Anxiety Bowel disease Hypertension High cholesterol Hormone Problem Osteoporosis Thyroid disorder Sister CAD (coronary artery disease) Anesthesia complication Anxiety Bowel disease Hypertension High cholesterol Osteoporosis Thyroid disorder Surgical History History of lumbar fusion Hx of colonoscopy History of colon resection History of hip replacement History of neck surgery History of mandibular surgery History of tonsillectomy History of lumbar spinal fusion History of fusion of cervical spine History of hand surgery History of left knee surgery History of bladder surgery Hx of appendectomy History of hysterectomy History of cholecystectomy Social History Smoking Status: Never smoker alcohol intake: never substance use type: does not use ROS ROS ED Constitutional Constitutional ED: Reports body ache(s), chills, fatigue, fever(s) and malaise Eyes Eyes: Denies change in vision or diplopia ENT ENT ED: Reports ear pain bilateral, rhinorrhea and sore throat Cardiovascular Cardiovascular: Denies chest pain or palpitations Respiratory/Chest Respiratory/Chest: Reports cough and dyspnea Gastrointestinal Gastrointestinal: Reports nausea and vomiting; Denies abdominal pain or diarrhea Genitourinary Genitourinary ED: Denies dysuria or hematuria Musculoskeletal Musculoskeletal: Reports myalgias; Denies back pain Integumentary Denies abscess or rash Neurologic Neurologic: Reports headache(s); Denies paresthesias or weakness EXAM Physical Exam Const Vital Signs: 01/22/25 07:55 01/22/25 08:15 01/22/25 09:52 Temperature 96.9 F L Temperature Source Temporal Pulse Rate 78 64 Respiratory Rate 16 17 Blood Pressure 152/69 H 117/60 Blood Pressure Mean 96 79 Pulse Ox 99 99 98 Oxygen Delivery Method Room Air Room Air Room Air Positive well nourished and well developed General Appearance ED: well developed and NAD HEENT Reports moist mucous membranes HEENT Narrative: Posterior oropharynx with erythema but no exudates, stridor, asymmetry or abscess. Subjective tenderness throughout all sinuses according to patient. No purulent nasal discharge or significant nasal turbinate edema. Right TM may have a serous effusion, there is no sign of acute otitis media, and the EAC is normal. The left TM is occluded by soft cerumen impaction. No discomfort with manipulation of the pinna or the tragus bilaterally. No periauricular lymphadenopathy. normocephalic and atraumatic Eyes PERRL and EOMs intact bilaterally Eyes Narrative: Patient is tearful but no obvious gross signs of conjunctivitis. Neck full ROM, no lymphadenopathy, supple and no JVD Resp normal respiratory effort Resp Narrative: Some more bronchial breath sounds at the left base but otherwise clear and equal. Cardio regular rate, regular rhythm and no murmurs Rate: Negative for tachycardic GI non-tender and non-distended Auscultation: normoactive bowel sounds Palpation: soft Back/Spine no CVA tenderness General Back: other FROM Extremity normal to inspection General Extremety ED: Negative for edema, pulses abnormal or tenderness General Extremity: Negative for edema or pulses abnormal Neuro oriented x3, CN's II-XII intact bilaterally and no sensory deficits noted Sensorium / Orientation: awake and alert Motor Exam: strength 5/5 throughout Psych Mood & Affect: anxious and tearful Skin no rashes or lesions noted and no wounds MDM MDM MDM Narrative Medical decision making narrative: Wide differential including side effect from her vaccination which is less likely to be lasting 3 weeks. In the meantime she was given IV fluids and Zofran, she felt a lot better after that was able to tolerate oral fluids. Her viral swab is positive for COVID, unclear how long she has been ill but with her leukopenia and symptoms I believe this is consistent, with the exception of her elevated liver enzymes which is not typically elevated with COVID-19. Her total bilirubin is within normal limits arguing against biliary obstruction and her abdomen is benign. I sent a Monospot, it is negative as that can often cause the symptoms along with elevated liver enzymes as well. Her EKG shows a stable left bundle branch block, very mildly nonspecifically elevated troponin trended down on the second measurement. Chest x-ray 2 views of my interpretation negative for pneumonia, radiology in agreement. Given her positive viral swab I do not think antibiotics are indicated here. She is appearing much better after the medications. She has never had a COVID-vaccine which may explain why she is so symptomatic from this episode. It is unclear how long she has been ill, I suspect longer than 5 days, so antivirals are not indicated as an outpatient, and since she is not hypoxic and her vital signs are normal, inpatient treatment is not indicated or necessary at this time either. She is comfortable resting at home and following up with her doctor for repeat liver enzyme measurements/evaluation. We discussed return to the ER for acute significant GI symptoms. Lab Data Attestation: I reviewed the patient's lab results. Labs: Laboratory Results - last 24 hr 01/22/25 01/22/25 01/22/25 08:08 09:16 10:04 WBC 3.3 L RBC 4.31 Hgb 11.6 L Hct 35.3 L MCV 81.9 MCH 26.9 L MCHC 32.9 RDW Std Deviation 43.2 RDW Coeff of Leslie 14.6 Plt Count 201 MPV 9.8 Immature Gran % (Auto) 0.300 Neut % (Auto) 58.3 Lymph % (Auto) 26.1 [place] % (Auto) 15.0 H Eos % (Auto) 0.0 Baso % (Auto) 0.3 Absolute Neuts (auto) 1.9 L Absolute Lymphs (auto) 0.85 Nucleated RBC % 0 Sodium 132 L Potassium 3.7 Chloride 102 Carbon Dioxide 18.3 L Anion Gap 12 BUN 19 Creatinine 1.09 Estim Creat Clear Calc 46.25 L Est GFR (MDRD) Non-Af 53 L BUN/Creatinine Ratio 17.3 Glucose 93 Calcium 8.6 Total Bilirubin 0.29 AST 572 H ALT 335 H Alkaline Phosphatase 227 H Troponin T High Sens 20 H Troponin T Hi Sens 2 Hr 19 H Total Protein 6.2 Albumin 3.5 Globulin 2.6 Albumin/Globulin Ratio 1.3 Monoscreen Negative Radiography Diagnostic Testing: Clinical Impression(s) from Imaging Studies Chest X-Ray 01/22/25 08:14 IMPRESSION: No acute process detected. Reading Location: [facility] Rhythm Strip Rhythm Strip: Sinus Rhythm Rate: 60 Ectopy: None EKG Initial EKG: Attestation: I personally reviewed and interpreted this EKG as follows: Interpretation: Sinus Rhythm, No Acute Injury Pattern and LBBB Prior EKG tracings: available for review Prior: Unchanged Discharge Plan Triage Chief Complaint: General Illness ED Provider: Terrance Hinds Dx/Rx/DC Orders Clinical Impression: COVID-19, Elevated liver enzymes Instructions: Coronavirus Disease 2019 (COVID-19): Caring for Yourself or Others Prescriptions: No Action cholecalciferol (vitamin D3) 125 mcg (5,000 unit) capsule 125 mcg PO DAILY calcium carbonate [Calcium 600] 600 mg calcium (1,500 mg) tablet 600 mg PO DAILY oxycodone 5 mg tablet 5 mg PO DAILY PRN (Reason: pain) (DME) blood pressure monitor Kit See Rx Instructions .Route Qty: 1 0RF Rx Instructions: Take blood pressure daily Restasis MultiDose 0.05 % drops 1 drp ophthalmic (eye) Q12H bupropion HCl 200 mg tablet sustained-release 12 hr 200 mg PO BID 90 Days Qty: 180 3RF ondansetron 8 mg tablet,disintegrating 8 mg PO Q8H PRN (Reason: nausea) Qty: 90 2RF oxybutynin chloride 5 mg tablet extended release 24hr 5 mg PO DAILY Qty: 30 1RF calcium carbonate 550 mg tablet,chewable 1,100 mg PO QDAY acetaminophen 500 MG tablet 1,000 mg PO Q8H PRN PRN (Reason: Pain Score 1-10/10) 0RF albuterol sulfate [Ventolin HFA] 90 mcg/actuation HFA aerosol inhaler 1 - 2 puff inhalation Q4H PRN PRN (Reason: Wheezing) Qty: 1 0RF (DME) Handicap Placard See Rx Instructions .ROUTE .MEDSUPPLY Qty: 1 0RF Rx Instructions: As directed, length of time 3 years furosemide 20 mg tablet 20 mg PO DAILY PRN (Reason: Edema) Qty: 30 2RF fluticasone propionate [Flonase Allergy Relief] 50 mcg/actuation spray,suspension 2 spray intranasal DAILY Qty: 16 3RF Rx Instructions: administer into each nostril baclofen 5 mg tablet 5 mg PO DAILY PRN PRN (Reason: muscle spasm) Qty: 60 2RF meclizine 12.5 mg tablet 12.5 mg PO DAILY PRN (Reason: Vertigo) Qty: 60 2RF pramipexole 0.25 mg tablet 0.25 mg PO TID 90 Days Qty: 270 0RF hydroxyzine HCl 25 mg tablet 25 mg PO BID PRN (Reason: anxiety) Qty: 60 2RF metoprolol succinate 25 mg tablet extended release 24 hr 25 mg PO BID Qty: 180 1RF lovastatin 40 mg tablet 40 mg PO DAILY Qty: 90 1RF trazodone 100 mg tablet 100 mg PO QHS PRN (Reason: insomnia) Qty: 90 1RF buspirone 10 mg tablet 20 mg PO BID Qty: 360 1RF duloxetine 60 mg capsule,delayed release(DR/EC) 60 mg PO DAILY Qty: 90 3RF peg 3350-electrolytes [Golytely] 236-22.74-6.74 -5.86 gram recon soln 240 ml PO Q10M Qty: 4000 0RF Rx Instructions: take as directed for split dose bowel prep ferrous sulfate 325 mg (65 mg iron) tablet 325 mg PO Q OTHER DAY Qty: 90 1RF levothyroxine 88 mcg tablet 88 mcg PO DAILY Qty: 60 3RF Voquezna 10 mg tablet 10 mg PO QDAY Qty: 30 3RF Rx Instructions: with or without food Primary Care Provider: Michele Vallecillo Referrals: Michele Vallecillo MD [Primary Care Provider] - 3-5 Days (For reevaluation and repeat liver enzymes) Activity Restrictions/Additional Instructions: Try to get a home portable pulse oximeter and closely watch your oxygen levels periodically. If you stay below 90% for more than a minute or so, and/or you are feeling like your breathing is getting worse, return to the emergency department for further evaluation. Currently, CDC recommendations state that you should stay home through day 5 of symptoms, then as long as symptoms are improving, if you need to go to work or somewhere else you may for days 6-10 as long as you are wearing a mask the entire time. If you are feeling better after day 10 you may resume life is normal. Print Language: Kyrgyz Disposition Disposition: Home, Self Care
[2025-01-22] MEDS: Ondansetron 4 MG/2 ML Vial IV (08:22)
[2025-01-22] MEDS: 0.9% Normal Saline (1000mL) 1,000 ML 999 ML IV (08:22)
[2025-01-22 08:26] LABS: Absolute Lymphocyte Count 0.85 X10^3/uL (0.83-4.51); Absolute Neutrophil Count 1.9 X10^3/uL (2.0-7.7); Basophil# 0.01 X10^3/uL; Basophil% 0.3 % (0-1); Hematocrit 35.3 % (37-47); Hemoglobin 11.6 g/dL (12.0-15.0); Lymphocyte # 0.85 X10^3/ul (0.83-4.51); Lymphocyte % 26.1 % (19-41); Mean Corp Hgb Conc 32.9 g/dL (32-36); Mean Corpuscular Hgb 26.9 pg (27.0-32.0); Mean Corpuscular Volume 81.9 fL (81-99); Mean Platelet Vol. 9.8 fl (6.2-12.0); Monocyte# 0.49 X10^3/uL; NRBC Flagged by Analyzer 0 % (0-5); Neutrophil % 58.3 % (47-70); Platelet Count 201 K/mm3 (150-450); RBC Distribution Width CV 14.6 % (11.6-14.6); RBC Distribution Width SD 43.2 fl (35.1-43.9); Red Blood Count 4.31 M/mm3 (4.2-5.4); White Blood Count 3.3 K/mm3 (4.4-11.0)
[2025-01-22 08:46] LABS: Troponin T High Sensitivity 20 ng/L (<=14)
[2025-01-22 08:48] LABS: BUN 19 mg/dL (4-19); Creatinine, Serum 1.09 mg/dL (0.70-1.20); EST Glomerular Filtration Rate 53 (>60); Estimated Creatinine Clearance 46.25 ml/min (50-250); Glucose 93 mg/dL (70-99)
[2025-01-22 08:49] LABS: ALB/GLOB Ratio 1.3 RATIO (0.9-2.4); AST(SGOT) 572 U/L (<=31); Alanine Aminotransfer ALT/SGPT 335 U/L (<=34); Albumin, Serum 3.5 g/dL (3.4-4.8); Alkaline Phosphatase 227 U/L (35-104); Anion Gap 12 (5-15); BUN/Creat Ratio 17.3 RATIO (10-20); Calcium,Total 8.6 mg/dL (7.6-11.0); Carbon Dioxide 18.3 mmol/L (21.0-32.0); Chloride 102 mmol/L (98-108); Globulin 2.6 g/dL (2.2-4.2); Potassium 3.7 mmol/L (3.3-5.1); Protein, Total 6.2 g/dL (5.9-8.4); Sodium Level 132 mmol/L (133-145); Total Bilirubin 0.29 mg/dL (0.00-1.30)
[2025-01-22 09:38] LABS: Internal QC Validated? YES +Cl - CLEAR BKGD; Monotest Negative (Negative); Record Kit Lot#, Mono 13241430
[2025-01-22 09:52] VITALS: BP 117/60; PULSE 64; RESP 17; O2SAT 98
[2025-01-22 10:31] LABS: Troponin T High Sens 2 HR 19 ng/L (<=14)
[2025-01-22 11:30] VITALS: BP 124/70; PULSE 77; RESP 18; TEMP 36.6; O2SAT 95
== END 2025-01-22 11:31 | disposition home or self-care (01) ==
PROVIDERS: Emergency Provider Emergency Medicine; PCP Internal Medicine; Visit Provider Emergency Medicine
DX: U07.1 COVID-19 (principal); R74.8 Abnormal levels of other serum enzymes; Z86.73 Personal history of transient ischemic attack (TIA), and cerebral infarction without residual deficits
CPT/HCPCS: 71046; 80053; 84484; 85025; 86308; 87631; 93005; 96361; 96374; 96376; 99285; J2405

== ENCOUNTER → 2025-01-26 | Outpatient (CLI) | payer MEDICARE, OTHER, SELFPAY ==
[2025-01-26 16:29] LABS: ALB/GLOB Ratio 1.3 RATIO (0.9-2.4); AST(SGOT) 32 U/L (<=31); Alanine Aminotransfer ALT/SGPT 75 U/L (<=34); Albumin, Serum 3.6 g/dL (3.4-4.8); Alkaline Phosphatase 139 U/L (35-104); Anion Gap 12 (5-15); BUN 13 mg/dL (4-19); Carbon Dioxide 21.3 mmol/L (21.0-32.0); Chloride 104 mmol/L (98-108); Creatinine, Serum 0.94 mg/dL (0.70-1.20); EST Glomerular Filtration Rate 64 (>60); Globulin 2.8 g/dL (2.2-4.2); Glucose 90 mg/dL (70-99); Potassium 4.3 mmol/L (3.3-5.1); Protein, Total 6.5 g/dL (5.9-8.4); Sodium Level 137 mmol/L (133-145); Total Bilirubin 0.25 mg/dL (0.00-1.30)
== END | disposition home or self-care (01) ==
LOC: BIMLAB 12:13
PROVIDERS: PCP Internal Medicine; Referring Provider Internal Medicine; Visit Provider Internal Medicine
DX: E03.9 Hypothyroidism, unspecified (principal); R74.8 Abnormal levels of other serum enzymes
CPT/HCPCS: 36415; 80053; 84439; 84443

== ENCOUNTER 2025-02-13 13:29 | Day surgery (SDC) | payer MEDICARE, OTHER, SELFPAY ==
--- NOTE | 2025-02-09 12:29 | PAT.ANE_ITS ---
Pre-Assessment Diagnosis/Proposed Procedure Planned Operative Procedure(s): COLONOSCOPY/EGD Anesthesia History Anesthesia History - staff psychologist: Anesthesia History - staff psychologist Hx Hospitalization No 02/09/25 12:20 Any Problems With Anesthesia Yes: N,V 02/09/25 12:20 Cholinesterase deficiency No 02/09/25 12:20 You/Your Family Experience No 02/09/25 12:20 fever (hyperthermia) with Relationship Recent Exposure to Contagious No 06/08/24 08:30 Disease Does patient have nerve No 02/09/25 12:20 stimulator Patient instructed to have device shut off --Does patient have Pacemaker or ICD? When Was Last Pacemaker Check QUESTION #4 FULL TEXT: You/Your Family Experience fever (hyperthermia) with Anesthesia Last Oral Intake Last Oral intake: Last Oral Intake NPO since Meds taken in AM with sips of water? Meds patient instructed to take am of surgery PONV PONV - staff psychologist: PONV - staff psychologist Female Yes 02/09/25 12:20 HX of Motion Sickness No 02/09/25 12:20 HX of N/V After Surgery No 02/09/25 12:20 Non-Smoker Yes 02/09/25 12:20 Duration of Surgery greater No 02/09/25 12:20 than 60 minutes Number of Risk Factors 2 02/09/25 12:20 PONV Score Moderate Risk 02/09/25 12:20 Height & Weight Height & Weight: Anesthesia: Height & Weight Height 5 ft 5 in 12/06/24 15:55 Respiratory Assessment Respiratory Assessment - staff psychologist: Respiratory Tract Infection Hx - staff psychologist Hx Respiratory Tract Infection No 02/09/25 12:20 STOP Sleep Apnea STOP Sleep Apnea - staff psychologist: STOP Sleep Apnea - staff psychologist Hx Hypertension Yes: CONTROLLED WITH MED 02/09/25 12:20 Hx Sleep Apnea No 02/09/25 12:20 CPAP No 02/09/25 12:20 BIPAP No 02/09/25 12:20 Do you snore loudly (louder No 02/09/25 12:20 than talking or can be heard Do you often feel tired/ No 02/09/25 12:20 fatigued/ sleepy during daytime? Has anyone observed you stop No 02/09/25 12:20 breathing during sleep? STOP Results Negative 02/09/25 12:20 QUESTION #5 FULL TEXT : Do you snore loudly (louder than talking or can be heard through closed doors)? 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 Specify any problems Hx of Preganancy in last 3 No 02/09/25 12:20 Months Nurse Filling Out Transfusion VCHRISTIN 02/09/25 12:20 & Questions: Date: 02/09/25 02/09/25 12:20 Time: 12:21 02/09/25 12:20 Patient unable to answer at this time (ie. confused, unrespo /Reproduction History /Reproductive History - staff psychologist: /Reproductive Hx- staff psychologist Hx Now Gestational Age (in weeks): EDC: Hx Hx Para Hx Section SAB No 02/09/25 12:20 [facility] Medical History (Updated 02/09/25 @ 12:20 by Jacque Hurst) Normal Holter exam Cancer Bladder disease Anemia Fatty liver Restless legs Migraine headache TIA (transient ischemic attack) Syncope History of ulceration History of IBS Gastric reflux History of pain when walking Chronic right hip pain Dermatitis Post-menopausal Suprapubic pain High serum vitamin B12 Urinary incontinence in female Urinary incontinence with continuous leakage Adjustment disorder Fracture of distal phalanx of left middle finger Strain of left wrist Strain of left hand Contusion of left middle finger Subungual hematoma of left middle finger Varicose veins of both lower extremities Iron deficiency anemia Flu vaccine need GERD (gastroesophageal reflux disease) Chronic back pain Fatigue Alkaline phosphatase elevation Wears glasses Wears dentures Ambulates with cane Easy bruising History of hiatal hernia Difficulty swallowing History of edema Cardiology follow-up encounter History of echocardiogram History of stress test Hiatal hernia GERD (gastroesophageal reflux disease) Brain aneurysm Seizure Acute pharyngitis, unspecified Lab test negative for COVID-19 virus Acute bronchitis, unspecified Cough Chronic neck and back pain Fatigue Anemia Degenerative disc disease Thyroid disease Chronic GERD Polycystic ovaries Osteopenia High cholesterol Hypertension Arthritis indigestion and heartburn Depression Anxiety Sciatica Vertigo Dry eyes Panic attacks Lacunar infarction Hyperglycemia, drug-induced Hyponatremia History of colonic polyps History of TIA (transient ischemic attack) Social phobia Restless leg syndrome Hiatal hernia with GERD Lumbar spinal stenosis Foraminal stenosis of lumbar region Urinary incontinence Fecal incontinence Radiculopathy Anxiety and depression Hyperkalemia Palpitations PVD (peripheral vascular disease) Essential hypertension Barretts esophagus Nausea & vomiting Weakness Vertigo Pain, dental Hypothyroidism LBBB (left bundle branch block) Irritable bowel Dyslipidemia Cerebrovascular disease Home Medications ?Medication ?Instructions ?Recorded ?Last Taken ?Type acetaminophen 500 mg tablet 1,000 mg (2 x 500 mg) PO Q 8H PRN 04/16/20 09/19/22 Rx PRN Pain Score 1-08/03 cholecalciferol (vitamin D3) 125 125 mcg PO DAILY supp lement 01/20/21 Unknown History mcg (5,000 unit) capsule oxycodone 5 mg tablet 5 mg PO DAILY PRN pain 02/02 Unknown History Handicap Placard #1 ea 03/30/22 Unknown Rx furosemide 20 mg tablet 20 mg PO DAILY PRN Edema #30 tabs 09/24/22 Unknown Rx blood pressure monitor #1 ea 10/08/22 Unknown Rx cyclosporine 0.05 % eye drops 1 drp ophthalmic (eye) Q 12H 03/12/23 Unknown History (Restasis MultiDose) calcium carbonate (Calcium 600) 600 mg PO DAILY PRN St omach Upset 05/21/23 Unknown History fluticasone propionate 50 2 spray intranasal DAILY #16 grams 10/20/23 Unknown Rx mcg/actuation nasal spray,suspension (Flonase Allergy Relief) bupropion HCl 200 mg tablet,12 hr 200 mg PO BID mental health 3 02/16/24 Unknown Rx sustained-release months #180 ea baclofen 5 mg tablet 5 mg PO DAILY PRN PRN muscle spasm 06/01/24 Unknown Rx #60 tabs meclizine 12.5 mg tablet 12.5 mg PO DAILY PRN Vertigo #60 06/28/24 Unknown Rx tabs ondansetron 8 mg disintegrating 8 mg PO Q8H PRN nausea #90 tabs 08/30/24 Unknown Rx tablet pramipexole 0.25 mg tablet 0.25 mg PO TID RESTLESS LEG S 3 09/06/24 Unknown Rx months #270 tabs hydroxyzine HCl 25 mg tablet 25 mg PO BID PRN anxiety #60 tabs 09/08/24 Unknown Rx metoprolol succinate 25 mg 25 mg PO BID blood pressure #180 09/18/24 Unknown Rx tablet,extended release 24 hr tabs albuterol sulfate 90 mcg/actuation 1 - 2 puff inhalati on Q4H PRN PRN 09/25/24 Unknown Rx aerosol inhaler (Ventolin HFA) Wheezing ##1 lovastatin 40 mg tablet 40 mg PO DAILY cholesterol 1 12/11/23 Unknown Rx lowering #90 tabs trazodone 100 mg tablet 100 mg PO QHS PRN insomnia # 90 tabs 10/19/24 Unknown Rx buspirone 10 mg tablet 20 mg (2 x 10 mg) PO BID moo d #360 11/14/24 Unknown Rx tabs duloxetine 60 mg capsule,delayed 60 mg PO DAILY mental health #90 11/14/24 Unknown Rx release caps calcium carbonate 550 mg chewable 1,100 mg PO QDAY 08/18 Unknown History tablet oxybutynin chloride 5 mg 5 mg PO DAILY . #30 tabs 08/18 Unknown Rx tablet,extended release 24 hr ferrous sulfate 325 mg (65 mg 325 mg PO Q OTHER DAY #9 0 tabs 12/07/24 Unknown Rx iron) tablet levothyroxine 88 mcg tablet 88 mcg PO DAILY thyroid #6 0 tabs 12/07/24 Unknown Rx vonoprazan 10 mg tablet (Voquezna) 10 mg PO QDAY esoph agitis #30 tabs 12/20/24 Unknown Rx peg 3350-electrolytes 236 240 ml PO Q10M #4,000 mL 07/19 Unknown Rx gram-22.74 gram-6.74 gram-5.86 gram solution (Golytely) Allergy/AdvReac Type Severity Reaction Status Date / Time lisinopril AdvReac Severe High Verified 02/09/25 12:13 potassium, cough. atorvastatin calcium (From AdvReac legs ache Verified 02/09/25 12:13 Lipitor) Family History Father CVA (cerebral vascular accident) Mother Myocardial infarction, Onset Age: 84 Anesthesia complication Anxiety Bowel disease Heart disease Hypertension High cholesterol Hormone Problem ulcer disease Brother Myocardial infarction, Onset Age: 52 Bleeding disorder blood tranfusion Heart disease Hypertension High cholesterol Hormone Problem Sister CAD (coronary artery disease) Anemia Anesthesia complication Angina pectoris, unspecified Anxiety Autoimmune disorder Bowel disease Breast cancer Depression Heart disease Hypertension High cholesterol Hormone Problem Osteoporosis Parkinson disease Thyroid disorder Sister CAD (coronary artery disease) Anemia Anesthesia complication Anxiety Bowel disease Hypertension High cholesterol Hormone Problem Osteoporosis Thyroid disorder Sister CAD (coronary artery disease) Anesthesia complication Anxiety Bowel disease Hypertension High cholesterol Osteoporosis Thyroid disorder Surgical History (Updated 02/09/25 @ 12:20 by Jacque Hurst) History of esophagogastroduodenoscopy (EGD) History of lumbar fusion Hx of colonoscopy History of colon resection History of hip replacement History of neck surgery History of mandibular surgery History of tonsillectomy History of lumbar spinal fusion History of fusion of cervical spine History of hand surgery History of left knee surgery History of bladder surgery Hx of appendectomy History of hysterectomy History of cholecystectomy Social History Smoking Status: Never smoker alcohol intake: never substance use type: does not use Audit: Pertinent Findings Pertinent Findings EKG Perinent findings: 01/22/2025. Sinus bradycardia 58 bpm. Left bundle branch block. Echo (EF%) pertinent findings: 05/27/2018. EF 55% Consult pertinent findings: Cardiology 11/21/2021. Left bundle branch block. Chronic. Has been evaluated in the past. No underlying coronary artery disease noted. Hypertension. Chronic. Continue medications. Recommendation Anesthesia Recommendation Anesthesia recommendation: OPTIMIZED for anesthesia
[2025-02-13] VITALS (11 sets, daily range): BP systolic 113–177; BP diastolic 55–142; PULSE 56–91; RESP 14–24; TEMP 36.2–36.7; O2SAT 94–100; BMI 27.4
--- NOTE | 2025-02-13 14:30 | EGD_PTH ---
PATIENT: JEAN KRUSE LOC: EN U#:[id number] AGE/SX: 74/F ROOM: RE02/13/[address]: Dr. Charlie Hilario DO : 1950 BED: DIS: 02/13/2025 SPEC #: [id number] RECD: 02/14/25 09:39 STATUS: RAJINDER REQ #: [id number] ERIKA: 02/13/25 14:[address]: Charlie Hilario DEPT: SURGICAL PATHOLOGY RECD BY: Andrei Devries ENTERED: 02/14/25 09:39 SP TYPE: EGD BIOPSY LUCHO DR: Dr. Michele Vallecillo MD Tissues: A - Esophagus, NOS B - COLON BIOPSY C - COLON BIOPSY Procedures: Surgery Specimen Level IV HEADER OPERATION: Colonoscopy, EGD PRE-OP DIAGNOSIS: Esophagitis, gastroparesis, abdominal bloating TISSUE SUBMITTED: A- Distal esophagus, B- Ileal colonic anastomosis, C- Random colon biopsy MICROSCOPIC DIAGNOSIS A. Esophagus, distal, biopsy: * Squamous mucosa with mild reactive change. * Columnar mucosa negative for goblet cell metaplasia. B. Ileal-colonic anastomosis, biopsy: * Small intestinal mucosa with normal villous architecture and focal mucosal lymphoid aggregates. * No colonic mucosa observed. C. Colon, random, biopsy: * No specific pathologic change. * The histologic features of microscopic colitis are not demonstrated. MICROSCOPIC DESCRIPTION Slides are reviewed. GROSS DESCRIPTION A. Received in formalin in a container labeled with the patient's name, date of , and distal esophagus biopsy are 2 kothari-pink fragments of mucosal tissue each measuring 0.4 x 0.3 x 0.2 cm. Submitted in toto in A1. B. Received in formalin in a container labeled with the patient's name, date of , and ileal colonic anastomosis are multiple kothari-pink fragments of mucosal tissue measuring 1.0 x 0.6 x 0.3 cm in aggregate. Submitted in toto in B1. C. Received in formalin in a container labeled with the patient's name, date of , and random colon biopsy are multiple kothari-pink fragments of mucosal tissue measuring 0.7 x 0.7 x 0.3 cm in aggregate. Submitted in toto in C1. [facility] 02/14/2025 CPT:47803a3
--- NOTE | 2025-02-13 14:33 | PCM.PRE.AN2 ---
ASA Classification* ASA Classification ASA Classification: 3 Assessment & Plan Anesthesia* Anesthesia Assessment Anesthesia Assessment: Discussed sedation and/or anesthesia options, risks, benefits, and alternatives with patient/parents/legal guardian/POA. Questions invited. The patient/parents/legal guardian/POA seems to understand and agrees to proceed with anesthesia plan. Reviewed the physical assessment, medical history, allergy history and patient home medications list prior to surgery/procedure/anesthetic and documented any changes. Performed airway and anesthesia risk assessments. Anesthesia Type Anesthesia Type: MAC History Source History Obtained from:: Patient and Chart Anesthesia Focused Assessment* Temperature: 98.1 F Pulse Rate: 91 Blood Pressure: 158/83 Respiratory Rate: 16 Pulse Ox: 100 Oxygen Delivery Method: Room Air Airway Assessment Mouth opens: >3 cm Mallampati Score: IV Teeth Condition: Dentures (Patient has upper dentures.) and Partial (Patient has some lower permanent implants.) Neck Range of motion (ROM): Limited ROM (Slight decrease in etension) Focused Labs Anesthesia Preop lab: CBC WBC 3.3 K/mm3 (4.4-11.0) L 01/22/25 08:08 01/22/25 RBC 4.31 M/mm3 (4.2-5.4) 01/22/25 08:08 01/22/25 Hgb 11.6 g/dL (12.0-15.0) L 01/22/25 08:08 01/22/25 Hct 35.3 % (37-47) L 01/22/25 08:08 01/22/25 Plt Count 201 K/mm3 (150-450) 01/22/25 08:08 01/22/25 CHEMISTRY Potassium 4.3 mmol/L (3.3-5.1) 01/26/25 12:14 01/26/25 Sodium 137 mmol/L (133-145) 01/26/25 12:14 01/26/25 Magnesium 2.0 mg/dL (1.6-2.6) 04/15/20 06:16 04/15/20 Phosphorus 2.8 mg/dL (2.5-4.9) 04/10/20 06:04 04/10/20 BUN 13 mg/dL (4-19) 01/26/25 12:14 01/26/25 Creatinine 0.94 mg/dL (0.70-1.20) 01/26/25 12:14 01/26/25 Glucose 90 mg/dL (70-99) 01/26/25 12:14 01/26/25 POC Glucose 94 mg/dL (70-110) 05/27/18 12:06 05/27/18 TSH 1.330 uIU/mL (0.300-4.200) 01/26/25 12:14 01/26/25 COAG PT 13.7 SECONDS (11.7-14.9) 05/15/19 16:10 05/15/19 Pre-Assessment Diagnosis/Proposed Procedure Planned Operative Procedure(s): COLONOSCOPY/EGD Anesthesia History 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 When Was Last Pacemaker Check QUESTION #4 FULL TEXT: You/Your Family Experience fever (hyperthermia) with Anesthesia Last Oral Intake Last Oral intake: Last Oral Intake NPO since 15:00 02/13/25 14:04 Meds taken in AM with sips of Yes 02/13/25 14:04 water? Meds patient instructed to take am of surgery Any additional information?: Yes Meds taken in AM with sips of water?: Yes PONV PONV - local hazmat driver: PONV - local hazmat driver Female Yes 02/09/25 12:20 HX of Motion Sickness No 02/09/25 12:20 HX of N/V After Surgery No 02/09/25 12:20 Non-Smoker Yes 02/09/25 12:20 Duration of Surgery greater No 02/09/25 12:20 than 60 minutes Number of Risk Factors 2 02/09/25 12:20 PONV Score Moderate Risk 02/09/25 12:20 Height & Weight Height & Weight: Anesthesia: Height & Weight Height 5 ft 5 in 02/13/25 14:04 Weight: 74.843 kg 02/13/25 14:04 Body Mass Index (BMI) 27.4 02/13/25 14:04 Respiratory Assessment Respiratory Assessment - local hazmat driver: Respiratory Tract Infection Hx - local hazmat driver Hx Respiratory Tract Infection No 02/09/25 12:20 Any additional information?: Yes Hx Respiratory Tract Infection: Yes (Patient had COVID 3 weeks ago. It is now resolved.) STOP Sleep Apnea STOP Sleep Apnea - local hazmat driver: STOP Sleep Apnea - local hazmat driver Hx Hypertension Yes: CONTROLLED WITH MED 02/09/25 12:20 Hx Sleep Apnea No 02/09/25 12:20 CPAP No 02/09/25 12:20 BIPAP No 02/09/25 12:20 Do you snore loudly (louder No 02/09/25 12:20 than talking or can be heard Do you often feel tired/ No 02/09/25 12:20 fatigued/ sleepy during daytime? Has anyone observed you stop No 02/09/25 12:20 breathing during sleep? STOP Results Negative 02/09/25 12:20 QUESTION #5 FULL TEXT : Do you snore loudly (louder than talking or can be heard through closed doors)? 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 Specify any problems Hx of Preganancy in last 3 No 02/09/25 12:20 Months Nurse Filling Out Transfusion VCHRISTIN 02/09/25 12:20 & Questions: Date: 02/09/25 02/09/25 12:20 Time: 12:21 02/09/25 12:20 Patient unable to answer at this time (ie. confused, unrespo /Reproduction History /Reproductive History - local hazmat driver: /Reproductive Hx- local hazmat driver Hx Now Gestational Age (in weeks): EDC: Hx Hx Para Hx Section SAB No 02/09/25 12:20 [facility] Medical History Normal Holter exam Cancer Bladder disease Anemia Fatty liver Restless legs Migraine headache TIA (transient ischemic attack) Syncope History of ulceration History of IBS Gastric reflux History of pain when walking Chronic right hip pain Dermatitis Post-menopausal Suprapubic pain High serum vitamin B12 Urinary incontinence in female Urinary incontinence with continuous leakage Adjustment disorder Fracture of distal phalanx of left middle finger Strain of left wrist Strain of left hand Contusion of left middle finger Subungual hematoma of left middle finger Varicose veins of both lower extremities Iron deficiency anemia Flu vaccine need GERD (gastroesophageal reflux disease) Chronic back pain Fatigue Alkaline phosphatase elevation Wears glasses Wears dentures Ambulates with cane Easy bruising History of hiatal hernia Difficulty swallowing History of edema Cardiology follow-up encounter History of echocardiogram History of stress test Hiatal hernia GERD (gastroesophageal reflux disease) Brain aneurysm Seizure Acute pharyngitis, unspecified Lab test negative for COVID-19 virus Acute bronchitis, unspecified Cough Chronic neck and back pain Fatigue Anemia Degenerative disc disease Thyroid disease Chronic GERD Polycystic ovaries Osteopenia High cholesterol Hypertension Arthritis indigestion and heartburn Depression Anxiety Sciatica Vertigo Dry eyes Panic attacks Lacunar infarction Hyperglycemia, drug-induced Hyponatremia History of colonic polyps History of TIA (transient ischemic attack) Social phobia Restless leg syndrome Hiatal hernia with GERD Lumbar spinal stenosis Foraminal stenosis of lumbar region Urinary incontinence Fecal incontinence Radiculopathy Anxiety and depression Hyperkalemia Palpitations PVD (peripheral vascular disease) Essential hypertension Barretts esophagus Nausea & vomiting Weakness Vertigo Pain, dental Hypothyroidism LBBB (left bundle branch block) Irritable bowel Dyslipidemia Cerebrovascular disease Home Medications ?Medication ?Instructions ?Recorded ?Last Taken ?Type acetaminophen 500 mg tablet 1,000 mg (2 x 500 mg) PO Q8H PRN 04/16/20 02/10/25 Rx PRN Pain Score 1-10/10 cholecalciferol (vitamin D3) 125 125 mcg PO DAILY supplement 01/20/21 02/11/25 History mcg (5,000 unit) capsule oxycodone 5 mg tablet 5 mg PO DAILY PRN pain 02/02/22 02/11/25 History Handicap Placard #1 ea 03/30/22 Unknown Rx furosemide 20 mg tablet 20 mg PO DAILY PRN Edema #30 tabs 09/24/22 Unknown Rx blood pressure monitor #1 ea 10/08/22 Unknown Rx cyclosporine 0.05 % eye drops 1 drp ophthalmic (eye) Q12H 03/12/23 02/12/25 History (Restasis MultiDose) calcium carbonate (Calcium 600) 600 mg PO DAILY PRN Stomach Upset 05/21/23 02/11/25 History fluticasone propionate 50 2 spray intranasal DAILY #16 grams 10/20/23 02/11/25 Rx mcg/actuation nasal spray,suspension (Flonase Allergy Relief) bupropion HCl 200 mg tablet,12 hr 200 mg PO BID mental health 3 02/16/24 02/11/25 Rx sustained-release months #180 ea baclofen 5 mg tablet 5 mg PO DAILY PRN PRN muscle spasm 06/01/24 Unknown Rx #60 tabs meclizine 12.5 mg tablet 12.5 mg PO DAILY PRN Vertigo #60 06/28/24 Unknown Rx tabs ondansetron 8 mg disintegrating 8 mg PO Q8H PRN nausea #90 tabs 08/30/24 02/11/25 Rx tablet pramipexole 0.25 mg tablet 0.25 mg PO TID RESTLESS LEGS 3 09/06/24 02/12/25 Rx months #270 tabs hydroxyzine HCl 25 mg tablet 25 mg PO BID PRN anxiety #60 tabs 09/08/24 Unknown Rx metoprolol succinate 25 mg 25 mg PO BID blood pressure #180 09/18/24 02/13/25 Rx tablet,extended release 24 hr tabs albuterol sulfate 90 mcg/actuation 1 - 2 puff inhalation Q4H PRN PRN 09/25/24 Unknown Rx aerosol inhaler (Ventolin HFA) Wheezing ##1 lovastatin 40 mg tablet 40 mg PO DAILY cholesterol 10/10/24 02/11/25 Rx lowering #90 tabs trazodone 100 mg tablet 100 mg PO QHS PRN insomnia #90 tabs 10/19/24 02/12/25 Rx buspirone 10 mg tablet 20 mg (2 x 10 mg) PO BID mood #360 11/14/24 02/11/25 Rx tabs duloxetine 60 mg capsule,delayed 60 mg PO DAILY mental health #90 11/14/24 02/11/25 Rx release caps calcium carbonate 550 mg chewable 1,100 mg PO QDAY 12/04/24 02/11/25 History tablet ferrous sulfate 325 mg (65 mg 325 mg PO Q OTHER DAY #90 tabs 12/07/24 02/08/25 Rx iron) tablet levothyroxine 88 mcg tablet 88 mcg PO DAILY thyroid #60 tabs 12/07/24 02/11/25 Rx vonoprazan 10 mg tablet (Voquezna) 10 mg PO QDAY esophagitis #30 tabs 12/20/24 02/11/25 Rx peg 3350-electrolytes 236 240 ml PO Q10M #4,000 mL 01/31/25 02/13/25 Rx gram-22.74 gram-6.74 gram-5.86 gram solution (Golytely) Allergy/AdvReac Type Severity Reaction Status Date / Time lisinopril AdvReac Severe High Verified 02/13/25 13:59 potassium, cough. atorvastatin calcium (From AdvReac legs ache Verified 02/13/25 13:59 Lipitor) Family History Father CVA (cerebral vascular accident) Mother Myocardial infarction, Onset Age: 84 Anesthesia complication Anxiety Bowel disease Heart disease Hypertension High cholesterol Hormone Problem ulcer disease Brother Myocardial infarction, Onset Age: 52 Bleeding disorder blood tranfusion Heart disease Hypertension High cholesterol Hormone Problem Sister CAD (coronary artery disease) Anemia Anesthesia complication Angina pectoris, unspecified Anxiety Autoimmune disorder Bowel disease Breast cancer Depression Heart disease Hypertension High cholesterol Hormone Problem Osteoporosis Parkinson disease Thyroid disorder Sister CAD (coronary artery disease) Anemia Anesthesia complication Anxiety Bowel disease Hypertension High cholesterol Hormone Problem Osteoporosis Thyroid disorder Sister CAD (coronary artery disease) Anesthesia complication Anxiety Bowel disease Hypertension High cholesterol Osteoporosis Thyroid disorder Surgical History History of esophagogastroduodenoscopy (EGD) History of lumbar fusion Hx of colonoscopy History of colon resection History of hip replacement History of neck surgery History of mandibular surgery History of tonsillectomy History of lumbar spinal fusion History of fusion of cervical spine History of hand surgery History of left knee surgery History of bladder surgery Hx of appendectomy History of hysterectomy History of cholecystectomy Social History Smoking Status: Never smoker alcohol intake: never substance use type: does not use Review of Systems (Anesthesia) ROS Narrative System reviewed and no additional complaints, except as documented.
--- NOTE | 2025-02-13 15:05 | PCM.HP.STD ---
HPI - General General Date of Admission: 02/13/25 Date of Service: 02/13/25 HPI Narrative JEAN KRUSE, is a 74 F who presents for the evaulation of isaac's, bloating and abdominal pain HPI Chief Complaint: follow-up Details: JEAN KRUSE, is a 74 F who presents to the office today for OV with Dr. Hilario 07/18/2024 74-year-old with anxiety and depression with history of gastroesophageal reflux disease secondary to hiatal hernia status post Nichole fundoplication in the past comes in status post upper endoscopy with evaluation of her upper GI tract and the second portion of the duodenum. She was discovered to have LA grade a erosive esophagitis along with some bile induced esophagitis that was seen. Biopsies were positive for chronic inflammation but negative for intestine metaplasia, dysplasia or cancer. Her Nichole fundoplication looked mildly loose but still intact. She did also have a lot of bile that was seen in her gastric antrum and gastric body. Biopsies were positive for chronic inflammation where plasma cells, eosinophils neutrophils. She was given a diagnosis of chronic gastritis that was negative for H. pylori. There was also the same cell abundance seen in her duodenum. I told her that I suspect that she possibly has gastroparesis secondary to medicines that she is taken such as baclofen, B. On, duloxetine, hydroxyzine, meclizine, metoprolol, oxybutynin. She has get some improvement with Carafate therapy. We will get a gastric emptying study and continue PPI therapy. EGD 06/08/2024 - Esophageal mucosal changes secondary to established short-segment Isaac's disease. Biopsied. - Erosive esophagitis - Bile gastritis. Biopsied. - Normal first portion of the duodenum. GES 10/31/2024 1. ABNORMAL 99m Tc sulfur colloid solid phase gastric emptying imaging examination. A. There is delayed solid phase gastric emptying compared to normal controls. Nichole - 30 years ago - states HB did get better with this - reflux has been bad for 3 years - HB all the time - bile up into her mouth - occasional emesis - weight gain secondary to thyroid and this is not good Pantoprazole 40mg BID Sucralfate TID - nolasco when she drinks this - previously failed Omeprazole 40mg QD and BID in 2019 (discontinued medications review) - reports burning with almost any liquids and foods - pantoprazole has never really helped - she denies any emesis of food unless she eats a large meal - questions if her thyroid has anything to do with worsening GERD - states her PCP keeps increasing her thyroid medication because it is not working - Baclofen for neck spasms - Oxycodone PRN - Duloxetine - c/o a lot of bloating and gas PFSH Medical History Normal Holter exam Cancer Bladder disease Anemia Fatty liver Restless legs Migraine headache TIA (transient ischemic attack) Syncope History of ulceration History of IBS Gastric reflux History of pain when walking Chronic right hip pain Dermatitis Post-menopausal Suprapubic pain High serum vitamin B12 Urinary incontinence in female Urinary incontinence with continuous leakage Adjustment disorder Fracture of distal phalanx of left middle finger Strain of left wrist Strain of left hand Contusion of left middle finger Subungual hematoma of left middle finger Varicose veins of both lower extremities Iron deficiency anemia Flu vaccine need GERD (gastroesophageal reflux disease) Chronic back pain Fatigue Alkaline phosphatase elevation Wears glasses Wears dentures Ambulates with cane Easy bruising History of hiatal hernia Difficulty swallowing History of edema Cardiology follow-up encounter History of echocardiogram History of stress test Hiatal hernia GERD (gastroesophageal reflux disease) Brain aneurysm Seizure Acute pharyngitis, unspecified Lab test negative for COVID-19 virus Acute bronchitis, unspecified Cough Chronic neck and back pain Fatigue Anemia Degenerative disc disease Thyroid disease Chronic GERD Polycystic ovaries Osteopenia High cholesterol Hypertension Arthritis indigestion and heartburn Depression Anxiety Sciatica Vertigo Dry eyes Panic attacks Lacunar infarction Hyperglycemia, drug-induced Hyponatremia History of colonic polyps History of TIA (transient ischemic attack) Social phobia Restless leg syndrome Hiatal hernia with GERD Lumbar spinal stenosis Foraminal stenosis of lumbar region Urinary incontinence Fecal incontinence Radiculopathy Anxiety and depression Hyperkalemia Palpitations PVD (peripheral vascular disease) Essential hypertension Barretts esophagus Nausea & vomiting Weakness Vertigo Pain, dental Hypothyroidism LBBB (left bundle branch block) Irritable bowel Dyslipidemia Cerebrovascular disease Home Medications ?Medication ?Instructions ?Recorded ?Last Taken ?Type acetaminophen 500 mg tablet 1,000 mg (2 x 500 mg) PO Q8H PRN 04/16/20 02/10/25 Rx PRN Pain Score 1-08/03 cholecalciferol (vitamin D3) 125 125 mcg PO DAILY supplement 01/20/21 02/11/25 History mcg (5,000 unit) capsule oxycodone 5 mg tablet 5 mg PO DAILY PRN pain 02/02/22 02/11/25 History Handicap Placard #1 ea 03/30/22 Unknown Rx furosemide 20 mg tablet 20 mg PO DAILY PRN Edema #30 tabs 09/24/22 Unknown Rx blood pressure monitor #1 ea 10/08/22 Unknown Rx cyclosporine 0.05 % eye drops 1 drp ophthalmic (eye) Q12H 03/12/23 02/12/25 History (Restasis MultiDose) calcium carbonate (Calcium 600) 600 mg PO DAILY PRN Stomach Upset 05/21/23 02/11/25 History fluticasone propionate 50 2 spray intranasal DAILY #16 grams 10/20/23 02/11/25 Rx mcg/actuation nasal spray,suspension (Flonase Allergy Relief) bupropion HCl 200 mg tablet,12 hr 200 mg PO BID mental health 3 02/16/24 02/11/25 Rx sustained-release months #180 ea baclofen 5 mg tablet 5 mg PO DAILY PRN PRN muscle spasm 06/01/24 Unknown Rx #60 tabs meclizine 12.5 mg tablet 12.5 mg PO DAILY PRN Vertigo #60 06/28/24 Unknown Rx tabs ondansetron 8 mg disintegrating 8 mg PO Q8H PRN nausea #90 tabs 08/30/24 02/11/25 Rx tablet pramipexole 0.25 mg tablet 0.25 mg PO TID RESTLESS LEGS 3 09/06/24 02/12/25 Rx months #270 tabs hydroxyzine HCl 25 mg tablet 25 mg PO BID PRN anxiety #60 tabs 09/08/24 Unknown Rx metoprolol succinate 25 mg 25 mg PO BID blood pressure #180 09/18/24 02/13/25 Rx tablet,extended release 24 hr tabs albuterol sulfate 90 mcg/actuation 1 - 2 puff inhalation Q4H PRN PRN 09/25/24 Unknown Rx aerosol inhaler (Ventolin HFA) Wheezing ##1 lovastatin 40 mg tablet 40 mg PO DAILY cholesterol 10/10/24 02/11/25 Rx lowering #90 tabs trazodone 100 mg tablet 100 mg PO QHS PRN insomnia #90 tabs 10/19/24 02/12/25 Rx buspirone 10 mg tablet 20 mg (2 x 10 mg) PO BID mood #360 11/14/24 02/11/25 Rx tabs duloxetine 60 mg capsule,delayed 60 mg PO DAILY mental health #90 11/14/24 02/11/25 Rx release caps calcium carbonate 550 mg chewable 1,100 mg PO QDAY 12/04/24 02/11/25 History tablet ferrous sulfate 325 mg (65 mg 325 mg PO Q OTHER DAY #90 tabs 12/07/24 02/08/25 Rx iron) tablet levothyroxine 88 mcg tablet 88 mcg PO DAILY thyroid #60 tabs 12/07/24 02/11/25 Rx vonoprazan 10 mg tablet (Voquezna) 10 mg PO QDAY esophagitis #30 tabs 12/20/24 02/11/25 Rx peg 3350-electrolytes 236 240 ml PO Q10M #4,000 mL 01/31/25 02/13/25 Rx gram-22.74 gram-6.74 gram-5.86 gram solution (Golytely) Allergy/AdvReac Type Severity Reaction Status Date / Time lisinopril AdvReac Severe High Verified 02/13/25 13:59 potassium, cough. atorvastatin calcium (From AdvReac legs ache Verified 02/13/25 13:59 Lipitor) Family History Father CVA (cerebral vascular accident) Mother Myocardial infarction, Onset Age: 84 Anesthesia complication Anxiety Bowel disease Heart disease Hypertension High cholesterol Hormone Problem ulcer disease Brother Myocardial infarction, Onset Age: 52 Bleeding disorder blood tranfusion Heart disease Hypertension High cholesterol Hormone Problem Sister CAD (coronary artery disease) Anemia Anesthesia complication Angina pectoris, unspecified Anxiety Autoimmune disorder Bowel disease Breast cancer Depression Heart disease Hypertension High cholesterol Hormone Problem Osteoporosis Parkinson disease Thyroid disorder Sister CAD (coronary artery disease) Anemia Anesthesia complication Anxiety Bowel disease Hypertension High cholesterol Hormone Problem Osteoporosis Thyroid disorder Sister CAD (coronary artery disease) Anesthesia complication Anxiety Bowel disease Hypertension High cholesterol Osteoporosis Thyroid disorder Surgical History History of esophagogastroduodenoscopy (EGD) History of lumbar fusion Hx of colonoscopy History of colon resection History of hip replacement History of neck surgery History of mandibular surgery History of tonsillectomy History of lumbar spinal fusion History of fusion of cervical spine History of hand surgery History of left knee surgery History of bladder surgery Hx of appendectomy History of hysterectomy History of cholecystectomy Social History Smoking Status: Never smoker alcohol intake: never substance use type: does not use ROS Constitutional Constitutional: Denies fatigue, fever(s), poor appetite, weight gain or weight loss Gastrointestinal Gastrointestinal: Denies belching, bloating, change in bowel habits, change in stool character, chewing difficulty, coffee ground emesis, constipation, cramping, diarrhea, dyspepsia, dysphagia, early satiety, excessive flatus, fecal incontinence, heartburn, hematemesis, hematochezia, hemorrhoids, loose stools, melena, nausea, odynophagia, rectal bleeding, tenesmus, vomiting or weight changes Vital Signs Vital Signs Vital Signs: 02/13/25 14:04 02/13/25 14:04 02/13/25 14:42 Temperature 98.1 F 98.1 F Temperature Source Temporal Pulse Rate 91 91 Respiratory Rate 16 16 Respiratory Pattern Normal Blood Pressure 158/83 H 158/83 H Blood Pressure Mean 108 Blood Pressure Source Monitor Blood Pressure Position Semi-Fowlers Blood Pressure Location Left Arm Pulse Ox 100 100 Oxygen Delivery Method Room Air Room Air Weight Weight: 165 lb Body Mass Index (BMI) 27.4 Physical Exam Const alert and no apparent distress Resp normal respiratory effort, no retractions, no use of accessory muscles and clear to auscultation bilaterally Cardio regular rate, regular rhythm, S1 normal heart sound and S2 normal heart sound GI normal to inspection, nondistended, normoactive bowel sounds, soft to palpation and non-tender Assessment & Plan Assessment/Plan (1) Esophagitis: (2) Gastroparesis: (3) Abdominal bloating: PLAN: Assessment and Plan Assessment and Plan (1) Abdominal bloating: Status: Chronic (2) Gastroparesis: Status: Acute (3) Chronic GERD: Status: Chronic (4) Esophagitis: Status: Acute Orders: Orders Abdomen Limited 1 Week K31.84 - Gastroparesis, R14.0 - Abdominal distension (gaseous) Liver Profile Today K31.84 - Gastroparesis, R14.0 - Abdominal distension (gaseous) CBC W/Diff, Automated Today K31.84 - Gastroparesis, R14.0 - Abdominal distension (gaseous) Referrals Gastroenterology K31.84 - Gastroparesis, R14.0 - Abdominal distension (gaseous) Medications: New vonoprazan (Voquezna) with or without food 10 mg PO QDAY 30 tabs 3RF esophagitis Refilled oxybutynin chloride ER 5 mg PO DAILY 30 tabs 1RF . Discontinued pantoprazole Discontinued Reason: Order Changed 40 mg PO BID 180 tabs 3RF acid reflux sucralfate (Carafate) Discontinued Reason: Order Changed 10 mL PO BID 2 months 1,200 mL 3RF sucralfate Discontinued Reason: Pt no longer taking 1 g PO QAC Plan 74y/o female presents for follow-up of GERD. She was last seen by Dr. Hilario June 2024. She is continuing to experience uncontrolled GERD despite sucralfate TID and pantoprazole BID. GES completed 10/31/2024 revealed delayed gastric emptying which is possibly medication induced. H/O Nichole 30 years ago and reports her reflux symptoms were well managed until about 3 years ago. EGD performed 06/08/2024 erosive esophagitis (grade B) and bile gastritis. Biopsies were negative for Isaac's and H. pylori. She reports failing several PPI in the past and is presently failing pantoprazole 40mg BID. She also questions her thyroid disorder causing any of her UGI symptoms. In reviewing her medications with her she reports taking sucralfate with her other medications. Sucrafate should be taken 2 hours before or after any other medications and should not be taken within 30 minutes of antacids. Sucralfate is likely decreasing the efficacy of pantoprazole as well as her other medications. I have discontinued sucralfate and pantoprazole. She will start Voquezna 10mg once daily. I have recommended she discuss with PCP, as they may want to monitor her thyroid levels with discontinuation of sucralfate. I have provided her literature on Gastroparesis and a referral to Dr. Santamaria at [facility] Gastroparesis [facility] at [facility]. In terms of bloating and flatulence I have recommended she start a daily probiotic. She reports she was advised in the past she has fatty liver. I have ordered an ABD US and labs for further evaluation. Patient Instructions: Discontinue pantoprazole and sucralfate Start Voquezna 10mg daily - samples provided and RX sent to [facility] Referral to Dr. Santamaria Gastroparesis Clinic at [facility] Start a daily probiotic (Align, Culturelle or [employer]) Gastroparesis Diet --- Make sure PCP is aware we are discontinuing sucralfate which you have been taking with your other medications, including thyroid medication. The sucralfate has potentially been reducing the effectiveness of other medications. If you are taking any other medicines, they should be taken?at least 2 hours?before or after taking sucralfate. To evaluate Fatty Liver I have ordered an ABD US and labs.
--- NOTE | 2025-02-13 16:02 | PCM.POST.ANE ---
Anesthesia: Postop Eval I Current Vital Signs Temperature: 97.2 F Pulse Rate: 74 Blood Pressure: 113/55 Respiratory Rate: 18 Pulse Ox: 94 Oxygen Delivery Method: Room Air Assessment Airway patent: Yes Spontaneous unlabored respirations: Yes Mental status: Awake nausea: No Vomiting: No Anesthesia Complication: No Fluid Hydration Crystalloid volume administer (ml): 500 Total IV fluid infused: 500 Progress Note Anesthesia document: Postop Eval 1 completed: Yes
--- NOTE | 2025-02-13 16:03 | OP.EGD_ITS ---
Patient Name: Lio Calderón Procedure Date: 02/13/2025 3:12 PM Date of : 1950 Age: 74 Procedure: Upper GI endoscopy Indications: Epigastric abdominal pain, Follow-up of Lua's esophagus Providers: Charlie Hilario DO Referring MD: Michele Vallecillo MD Medicines: Monitored Anesthesia Care Patient Profile: This is a 74 year old female. Refer to note in patient chart for documentation of history and physical. Patient has symptoms of chronic abdominal cramping, chronic abdominal distention and chronic epigastric abdominal pain. Complications: No immediate complications. Procedure: Pre-Anesthesia Assessment: - Prior to the procedure, a History and Physical was performed, and patient medications and allergies were reviewed. The patient is competent. The risks and benefits of the procedure and the sedation options and risks were discussed with the patient. All questions were answered and informed consent was obtained. Patient identification and proposed procedure were verified by the physician in the pre-procedure area. Mental Status Examination: alert and oriented. Airway Examination: normal oropharyngeal airway and neck mobility. Respiratory Examination: clear to auscultation. CV Examination: normal. Prophylactic Antibiotics: The patient does not require prophylactic antibiotics. Prior Anticoagulants: The patient has taken no anticoagulant or antiplatelet agents except for NSAID medication. ASA Grade Assessment: II - A patient with mild systemic disease. After reviewing the risks and benefits, the patient was deemed in satisfactory condition to undergo the procedure. The anesthesia plan was to use monitored anesthesia care (MAC). Immediately prior to administration of medications, the patient was re-assessed for adequacy to receive sedatives. The heart rate, respiratory rate, oxygen saturations, blood pressure, adequacy of pulmonary ventilation, and response to care were monitored throughout the procedure. The physical status of the patient was re-assessed after the procedure. After obtaining informed consent, the endoscope was passed under direct vision. Throughout the procedure, the patient's blood pressure, pulse, and oxygen saturations were monitored continuously. The pediatric colonoscope was introduced through the mouth, and advanced to the third part of the duodenum. Small bowel enteroscopy was deemed necessary. The upper GI endoscopy was accomplished without difficulty. The patient tolerated the procedure well. Scope In: 3:24:18 PM Scope Out: 3:27:45 PM Total Procedure Duration Time 0 hours 3 minutes 27 seconds Findings: There were esophageal mucosal changes secondary to established short-segment Lua's disease present in the lower third of the esophagus. The maximum longitudinal extent of these mucosal changes was 3 cm in length. Mucosa was biopsied with a cold forceps for histology in a targeted manner at intervals of 1 cm in the lower third of the esophagus. One specimen bottle was sent to pathology. A medium-sized hiatal hernia was present. No gross lesions were noted in the entire examined stomach. No gross lesions were noted in the entire examined duodenum. Impression: - Esophageal mucosal changes secondary to established short-segment Lua's disease. Biopsied. - Medium-sized hiatal hernia. - No gross lesions in the entire stomach. - No gross lesions in the entire examined duodenum. Recommendation: - Await pathology results. - Continue present medications. Procedure Code(s): --- Professional --- 41350, Small intestinal endoscopy, enteroscopy beyond second portion of duodenum, not including ileum; with biopsy, single or multiple CPT copyright 2021 [employer]. All rights reserved. The codes documented in this report are preliminary and upon salt cutter review may be revised to meet current compliance requirements. Charlie Hilario DO 02/13/2025 4:03:19 PM This report has been signed electronically. Number of Addenda: 0 Note Initiated On: 02/13/2025 3:12 PM
--- NOTE | 2025-02-13 16:03 | OP.COLON_ITS ---
Patient Name: Lio Calderón Procedure Date: 02/13/2025 3:57 PM Date of : 1950 Age: 74 Procedure: Colonoscopy Indications: Generalized abdominal pain, Chronic diarrhea Providers: Charlie Hilario DO Referring MD: Michele Vallecillo MD Medicines: Monitored Anesthesia Care Patient Profile: This is a 74 year old female. Refer to note in patient chart for documentation of history and physical. Patient has symptoms of chronic abdominal cramping, chronic abdominal distention and chronic epigastric abdominal pain. Last Colonoscopy: several years ago. Complications: No immediate complications. Procedure: Pre-Anesthesia Assessment: - Prior to the procedure, a History and Physical was performed, and patient medications and allergies were reviewed. The patient is competent. The risks and benefits of the procedure and the sedation options and risks were discussed with the patient. All questions were answered and informed consent was obtained. Patient identification and proposed procedure were verified by the physician in the pre-procedure area. Mental Status Examination: alert and oriented. Airway Examination: normal oropharyngeal airway and neck mobility. Respiratory Examination: clear to auscultation. CV Examination: normal. Prophylactic Antibiotics: The patient does not require prophylactic antibiotics. Prior Anticoagulants: The patient has taken no anticoagulant or antiplatelet agents except for NSAID medication. ASA Grade Assessment: II - A patient with mild systemic disease. After reviewing the risks and benefits, the patient was deemed in satisfactory condition to undergo the procedure. The anesthesia plan was to use monitored anesthesia care (MAC). Immediately prior to administration of medications, the patient was re-assessed for adequacy to receive sedatives. The heart rate, respiratory rate, oxygen saturations, blood pressure, adequacy of pulmonary ventilation, and response to care were monitored throughout the procedure. The physical status of the patient was re-assessed after the procedure. After I obtained informed consent, the scope was passed under direct vision. Throughout the procedure, the patient's blood pressure, pulse, and oxygen saturations were monitored continuously.The colonoscopy was performed without difficulty. The patient tolerated the procedure well. The quality of the bowel preparation was adequate. The terminal ileum, ileocecal valve, appendiceal orifice, and rectum were photographed. The pediatric colonoscope was introduced through the anus and advanced to. Scope In: 3:29:05 PM Scope Withdrawal Time 0 hours 15 minutes 15 seconds Scope Out: 3:49:55 PM Total Procedure Duration Time 0 hours 20 minutes 50 seconds Findings: The perianal and digital rectal examinations were normal. An area of mildly congested mucosa was found in the recto-sigmoid colon, in the descending colon, in the transverse colon, at the hepatic flexure and in the ascending colon. Biopsies were taken with a cold forceps for histology. Verification of patient identification for the specimen was done. Estimated blood loss was minimal. There was evidence of a prior end-to-side ileo-colonic anastomosis in the cecum. This was patent and was characterized by erythema. The anastomosis was traversed. Biopsies were taken with a cold forceps for histology. Verification of patient identification for the specimen was done. Estimated blood loss was minimal. A few small-mouthed diverticula were found in the recto-sigmoid colon and sigmoid colon. Impression: - Congested mucosa in the recto-sigmoid colon, in the descending colon, in the transverse colon, at the hepatic flexure and in the ascending colon. Biopsied. - Patent end-to-side ileo-colonic anastomosis, characterized by erythema. Biopsied. - Diverticulosis in the recto-sigmoid colon and in the sigmoid colon. Recommendation: - Discharge patient to home. - Resume previous diet. - Continue present medications. - Await pathology results. - Await pathology results. - Repeat colonoscopy for surveillance. - Return to GI office. Procedure Code(s): --- Professional --- 35450, Colonoscopy, flexible; with biopsy, single or multiple CPT copyright 2021 [employer]. All rights reserved. The codes documented in this report are preliminary and upon floor director review may be revised to meet current compliance requirements. Charlie Hilario DO 02/13/2025 4:02:50 PM This report has been signed electronically. Number of Addenda: 0 Note Initiated On: 02/13/2025 3:57 PM
--- NOTE | 2025-02-13 16:03 | OP.CCLET_ITS ---
02/14/2025 Michele Vallecillo MD [address] [place] [address] [place] [address] Re : Colonoscopy procedure for Lio Calderón Dear Dr. Vallecillo This procedure was performed on Thursday, February 13, 2025. My impressions and recommendations are as follows: Impressions : - Congested mucosa in the recto-sigmoid colon, in the descending colon, in the transverse colon, at the hepatic flexure and in the ascending colon. Biopsied. - Patent end-to-side ileo-colonic anastomosis, characterized by erythema. Biopsied. - Diverticulosis in the recto-sigmoid colon and in the sigmoid colon. Recommendations : - Discharge patient to home. - Resume previous diet. - Continue present medications. - Await pathology results. - Await pathology results. - Repeat colonoscopy for surveillance. - Return to GI office. My findings are described in the full procedure note, which is enclosed. If I can be of further assistance, please feel free to contact me at . Sincerely, Charlie Hilario, 02/13/2025 4:02:50 PM This report has been signed electronically.
--- NOTE | 2025-02-13 16:03 | OP.CCLET_ITS ---
02/14/2025 Michele Vallecillo MD [address] [place] [address] [place] [address] Re : Upper GI endoscopy procedure for Lio Calderón Dear Dr. Vallecillo This procedure was performed on Thursday, February 13, 2025. My impressions and recommendations are as follows: Impressions : - Esophageal mucosal changes secondary to established short-segment Lua's disease. Biopsied. - Medium-sized hiatal hernia. - No gross lesions in the entire stomach. - No gross lesions in the entire examined duodenum. Recommendations : - Await pathology results. - Continue present medications. My findings are described in the full procedure note, which is enclosed. If I can be of further assistance, please feel free to contact me at . Sincerely, Charlie Hilario, 02/13/2025 4:03:19 PM This report has been signed electronically.
[2025-02-13] MEDS: Lorazepam 2 MG/ML WCH Syringe 1 MG IV (16:37)
[2025-02-13] MEDS: Pantoprazole Sodium 40 MG in 0.9% Normal Saline (100mL MB+) 100 ML 330 MG IV (16:45)
--- NOTE | 2025-02-13 17:05 | RAD_ITS ---
PROCEDURE: CHEST 1 VIEW (PORTABLE) 02/13/2025 REASON FOR EXAM: COUGH TECHNIQUE: Frontal view of the chest. COMPARISON: 01/22/2025 FINDINGS: Cardiomediastinal silhouette is within normal limits. Lungs are clear. No sizable pneumothorax. RAD/Chest 1 View (Portable) IMPRESSION: No acute airspace abnormality. Reading Location: [facility]
--- NOTE | 2025-02-13 17:14 | SUR.PHASEI ---
DR. DUMONT CAME BACK TO SEE PATIENT AN XRAY WAS ORDERED TO CHECK FOR ASPIRATION. PATIENT C/O BURNING IN HER THROAT. SHE IS VERY MISERABLE FROM THE COUGHING. NO WHEEZING OR SIGNIFICANT LUNG SOUNDS. PATIENT DID COUGH UP A SMALL AMOUNT OF BROWN MUCOUS.
[2025-02-13] MEDS: DiphenhydrAMINE 50 MG/ML Syringe 25 MG IV (17:15)
--- NOTE | 2025-02-13 20:26 | POSTOPAN2_ITS ---
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.HBARR Spontaneous unlabored Yes 02/13/25 16:03 ROCK CRUSHING MACHINE OPERATOR.HBARR respirations Mental status Awake 02/13/25 16:03 ROCK CRUSHING MACHINE OPERATOR.HBARR nausea No 02/13/25 16:03 ROCK CRUSHING MACHINE OPERATOR.HBARR Vomiting No 02/13/25 16:03 ROCK CRUSHING MACHINE OPERATOR.HBARR Anesthesia Postop Eval I: Fluid Summary Crystalloid volume administer 500 02/13/25 16:03 ROCK CRUSHING MACHINE OPERATOR.HBARR (ml) Colloids volume administered ( ml) Blood Product volume administered (ml) Total IV fluid infused 500 02/13/25 16:03 ROCK CRUSHING MACHINE OPERATOR.HBARR Anesthesia Postop Eval I: Summary Notes Anesthesia Complication No 02/13/25 16:03 ROCK CRUSHING MACHINE OPERATOR.HBARR Anesthesia Complication Comment: Post-operative progress note Anesthesia: Postop Eval II Evaluation Mental status: Awake and Calm Pain Level: 0 nausea: No Vomiting: No Complications Anesthesia Complication: No
--- NOTE | 2025-02-13 20:26 | PCM.POSTANE2 ---
Anesthesia Postop Eval I Sum Postop Eval Completion status Anesthesia document: Postop Eval 1 completed: Yes Anesthesia Postop Eval I Summary Anesthesia Postop Eval I Summary: Anesthesia Postop Eval I: Assessment Summary Airway patent Yes 02/13/25 16:03 ANIMAL RIDES MANAGER.HBARR Spontaneous unlabored Yes 02/13/25 16:03 ANIMAL RIDES MANAGER.HBARR respirations Mental status Awake 02/13/25 16:03 ANIMAL RIDES MANAGER.HBARR nausea No 02/13/25 16:03 ANIMAL RIDES MANAGER.HBARR Vomiting No 02/13/25 16:03 ANIMAL RIDES MANAGER.HBARR Anesthesia Postop Eval I: Fluid Summary Crystalloid volume administer 500 02/13/25 16:03 ANIMAL RIDES MANAGER.HBARR (ml) Colloids volume administered ( ml) Blood Product volume administered (ml) Total IV fluid infused 500 02/13/25 16:03 ANIMAL RIDES MANAGER.HBARR Anesthesia Postop Eval I: Summary Notes Anesthesia Complication No 02/13/25 16:03 ANIMAL RIDES MANAGER.HBARR Anesthesia Complication Comment: Post-operative progress note Anesthesia: Postop Eval II Evaluation Mental status: Awake and Calm Pain Level: 0 nausea: No Vomiting: No Complications Anesthesia Complication: No
== END 2025-02-13 18:19 | disposition home or self-care (01) ==
LOC: EN 13:29 → AC 13:31
PROVIDERS: PCP Internal Medicine; Referring Provider Internal Medicine; Visit Provider Internal Medicine Gastroenterology
PROC: 0DJD8ZZ Inspection of Lower Intestinal Tract, Via Natural or Artificial Opening Endoscopic (ICD-10-PCS; CPT 45378; principal; 2025-02-13 14:25)
DX: K44.9 Diaphragmatic hernia without obstruction or gangrene (principal); K21.00 Gastro-esophageal reflux disease with esophagitis, without bleeding; I10 Essential (primary) hypertension; D50.9 Iron deficiency anemia, unspecified; K57.30 Diverticulosis of large intestine without perforation or abscess without bleeding; K22.70 Barrett's esophagus without dysplasia; K31.84 Gastroparesis; K63.89 Other specified diseases of intestine; Z79.51 Long term (current) use of inhaled steroids; Z79.899 Other long term (current) drug therapy; Z86.73 Personal history of transient ischemic attack (TIA), and cerebral infarction without residual deficits
CPT/HCPCS: 43239; 45380; 71045; 88305; A4216

== ENCOUNTER → 2025-03-26 | Outpatient (CLI) | payer MEDICARE, OTHER, SELFPAY ==
[2025-03-26 18:48] LABS: AST(SGOT) 20 U/L (<=31); Alanine Aminotransfer ALT/SGPT 8 U/L (<=34); Albumin, Serum 3.8 g/dL (3.4-4.8); Alkaline Phosphatase 128 U/L (35-104); Bilirubin, Direct 0.09 mg/dL (0.00-0.30); Globulin 2.7 g/dL (2.2-4.2); Protein, Total 6.5 g/dL (5.9-8.4); Total Bilirubin 0.17 mg/dL (0.00-1.30)
== END | disposition home or self-care (01) ==
LOC: LAB 17:22
PROVIDERS: PCP Internal Medicine; Referring Provider Nurse Practitioner Acute Care; Visit Provider Nurse Practitioner Acute Care
DX: R74.01 Elevation of levels of liver transaminase levels (principal)
CPT/HCPCS: 80076

== ENCOUNTER → 2025-05-24 | Outpatient (CLI) | payer MEDICARE, OTHER, SELFPAY ==
[2025-05-24 18:01] LABS: AST(SGOT) 25 U/L (<=31); Alanine Aminotransfer ALT/SGPT 26 U/L (<=34); Albumin, Serum 4.0 g/dL (3.4-4.8); Alkaline Phosphatase 137 U/L (35-104); Anion Gap 10 (5-15); BUN 24 mg/dL (4-19); BUN/Creat Ratio 21.0 RATIO (10-20); Calcium,Total 9.2 mg/dL (7.6-11.0); Carbon Dioxide 24.8 mmol/L (21.0-32.0); Chloride 103 mmol/L (98-108); Ferritin 17 ng/mL (22-378); Globulin 2.6 g/dL (2.2-4.2); Glucose 97 mg/dL (70-99); Iron Binding Capacity,Total 431 ug/dL (250-450); Potassium 4.8 mmol/L (3.3-5.1)
[2025-05-24 18:02] LABS: Hematocrit 34.4 % (37-47); Hemoglobin 10.6 g/dL (12.0-15.0); Immature Granulocytes Count 0.030 X10^3/uL (0.0-0.0); Mean Corp Hgb Conc 30.8 g/dL (32-36); Mean Corpuscular Volume 84.7 fL (81-99); Mean Platelet Vol. 10.5 fl (6.2-12.0); NRBC Flagged by Analyzer 0 % (0-5); Platelet Count 276 K/mm3 (150-450); RBC Distribution Width CV 16.1 % (11.6-14.6); RBC Distribution Width SD 50.0 fl (35.1-43.9); Red Blood Count 4.06 M/mm3 (4.2-5.4); White Blood Count 5.2 K/mm3 (4.4-11.0)
[2025-05-24 18:49] LABS: Iron 49 ug/dL (50-170); Iron Binding Capacity,Unsat 382 ug/dL (228-428)
== END | disposition home or self-care (01) ==
LOC: BIMLAB 14:33
PROVIDERS: PCP Internal Medicine; Referring Provider Internal Medicine; Visit Provider Internal Medicine
DX: E03.9 Hypothyroidism, unspecified (principal); D64.9 Anemia, unspecified; M19.90 Unspecified osteoarthritis, unspecified site
CPT/HCPCS: 36415; 80053; 82728; 83540; 83550; 84443; 85025; 85652; 86200; 86431

== ENCOUNTER 2025-06-15 11:57 | Outpatient (CLI) | payer MEDICARE, OTHER, SELFPAY ==
[2025-06-15 12:17] VITALS: BP 147/58; PULSE 78; RESP 16; TEMP 35.8; O2SAT 97; BMI 28.4
[2025-06-15] MEDS: 0.9% NaCl IVPB Med Flush (100mL) 15 ML IV (12:26)
[2025-06-15] MEDS: Ferric Carboxymaltose (Injectafer) 750 MG in 0.9% NaCl 250 ML 795 MG IV (12:27)
[2025-06-15 13:23] VITALS: BP 152/63; PULSE 57; RESP 16; TEMP 35.9; O2SAT 97
== END 2025-06-15 23:59 | disposition home or self-care (01) ==
LOC: MEDOUTP 11:57
PROVIDERS: PCP Internal Medicine; Referring Provider Internal Medicine; Visit Provider Internal Medicine
DX: D64.9 Anemia, unspecified (principal)
CPT/HCPCS: 96365; J1439; A4216

== ENCOUNTER 2025-06-29 11:58 | Outpatient (CLI) | payer MEDICARE, OTHER, SELFPAY ==
[2025-06-29 12:08] VITALS: BP 142/70; PULSE 68; RESP 16; TEMP 35.8; O2SAT 97; BMI 28.3
[2025-06-29] MEDS: 0.9% NaCl IVPB Med Flush (100mL) 15 ML IV (12:16)
[2025-06-29] MEDS: 0.9% NaCl Peripheral Flush Adult IV (12:16)
[2025-06-29] MEDS: Ferric Carboxymaltose (Injectafer) 750 MG in 0.9% NaCl 250 ML 795 MG IV (12:25)
[2025-06-29 12:54] VITALS: BP 142/73; PULSE 56; RESP 16; TEMP 35.9; O2SAT 98
== END 2025-06-29 23:59 | disposition home or self-care (01) ==
LOC: MEDOUTP 11:58
PROVIDERS: PCP Internal Medicine; Referring Provider Internal Medicine; Visit Provider Internal Medicine
DX: D64.9 Anemia, unspecified (principal)
CPT/HCPCS: 96365; J1439; A4216

== ENCOUNTER 2025-08-06 12:43 | Emergency (ER) | payer MEDICARE, OTHER, SELFPAY ==
[2025-08-06 12:43] VITALS: BP 178/65; PULSE 68; RESP 16; TEMP 36.4; O2SAT 95
--- NOTE | 2025-08-06 15:08 | CT_ITS ---
PROCEDURE: CT SPINE LUMBAR WITHOUT CONTRAST 08/06/2025 REASON FOR EXAM: BACK PAIN TECHNIQUE: Procedure Code: CTSPL Modality: CT Procedure: SPINE LUMBAR WITHOUT CONTRAST Coronal and Sagittal reconstruction series were provided. One or more dose reduction techniques were used (e.g., Automated exposure control, adjustment of the mA and/or kV according to patient size, use of iterative reconstruction technique COMPARISON: None. RADIATION DOSE SUMMARY: CTDlvol: 28.21 mGy DLP: 918.52 mGycm FINDINGS: No acute fracture or subluxation. Vertebral segments are aligned although there is mild lumbar levoscoliosis and straightening of the normal lumbar lordosis. Postoperative changes of dorsal decompressive laminectomies and instrumented fusion at L3-L4, with intact hardware. Mild multilevel spondylotic changes with varying degrees of disc space narrowing and vacuum disc phenomena, endplate sclerosis with multiple small degenerative Schmorl's nodes/subchondral cysts, anterior endplate osteophytosis, and hypertrophic facet arthropathy. Multilevel dorsal disc bulging. No high-grade spinal canal or neural foraminal stenosis appreciated. No significant abnormality in the visualized paravertebral soft tissues. Simple right upper pole renal cyst. Mild aortoiliac atherosclerotic calcifications. CT/Spine Lumbar without Contrast IMPRESSION: 1. No acute abnormality. Mild multilevel spondylotic changes as described. 2. Postop changes of L3-4 dorsal decompression and instrumented fusion, intact hardware. Reading Location: [id number]
[2025-08-06 15:41] VITALS: BMI 29.8
--- NOTE | 2025-08-06 16:36 | ED.VIS.BACK ---
HPI History of Present Illness Chief Complaint: Back Narrative Narrative: Chief complaint and HPI: 75-year-old female with past medical history of GERD, HTN, arthritis presents for evaluation of lumbar back pain. Patient states she has chronic lumbar back pain in which she follows with pain management. She states she is supposed to take it easy at home without any strenuous activity however she recently got a puppy and states on 07/03 she was mopping and developed lumbar back pain. States she followed up with pain management in which they are monitoring her pain for now. Patient states the pain has not improved which is why she presents to the emergency department. Denies numbness, weakness, urinary retention, stool incontinence, saddle anesthesia, fever, chills, nausea, vomiting, abdominal pain. Review of systems: See HPI Medications: As listed on the chart Allergies: As listed on the chart PFSH: Per chart Vital signs: As listed on the chart. Reviewed. Physical exam: Gen: A&O x3, NAD Head: Normocephalic, atraumatic Eyes: No sclera icterus, conjunctiva clear ENT: Moist mucous membranes Neck: Full range of motion CV: RRR, no murmurs, no peripheral edema Resp: Lungs CTA BL, no w/r/c GI: Abd soft, non-distended, non-tender, no r/r/g Musc: Full ROM, no deformity, no midline spinal tenderness, no bony step-off, patient has tenderness to palpation of the bilateral paraspinal musculature of the lumbar spine-palpation recreates her pain, no external signs of trauma or infection, strength + 5/5 in all extremities, DP/PT pulses +2/4, no saddle paresthesias Skin: Warm, dry Neuro: Alert, oriented, grossly intact, sensation intact Psych: Cooperative, appropriate mood and affect [facility] Medical History Normal Holter exam Cancer Bladder disease Anemia Fatty liver Restless legs Migraine headache TIA (transient ischemic attack) Syncope History of ulceration History of IBS Gastric reflux History of pain when walking Chronic right hip pain Dermatitis Post-menopausal Suprapubic pain High serum vitamin B12 Urinary incontinence in female Urinary incontinence with continuous leakage Adjustment disorder Fracture of distal phalanx of left middle finger Strain of left wrist Strain of left hand Contusion of left middle finger Subungual hematoma of left middle finger Varicose veins of both lower extremities Iron deficiency anemia Flu vaccine need GERD (gastroesophageal reflux disease) Chronic back pain Fatigue Alkaline phosphatase elevation Wears glasses Wears dentures Ambulates with cane Easy bruising History of hiatal hernia Difficulty swallowing History of edema Cardiology follow-up encounter History of echocardiogram History of stress test Hiatal hernia GERD (gastroesophageal reflux disease) Brain aneurysm Seizure Acute pharyngitis, unspecified Lab test negative for COVID-19 virus Acute bronchitis, unspecified Cough Chronic neck and back pain Fatigue Anemia Degenerative disc disease Thyroid disease Chronic GERD Polycystic ovaries Osteopenia High cholesterol Hypertension Arthritis indigestion and heartburn Depression Anxiety Sciatica Vertigo Dry eyes Panic attacks Lacunar infarction Hyperglycemia, drug-induced Hyponatremia History of colonic polyps History of TIA (transient ischemic attack) Social phobia Restless leg syndrome Hiatal hernia with GERD Lumbar spinal stenosis Foraminal stenosis of lumbar region Urinary incontinence Fecal incontinence Radiculopathy Anxiety and depression Hyperkalemia Palpitations PVD (peripheral vascular disease) Essential hypertension Barretts esophagus Nausea & vomiting Weakness Vertigo Pain, dental Hypothyroidism LBBB (left bundle branch block) Irritable bowel Dyslipidemia Cerebrovascular disease Home Medications ?Medication ?Instructions ?Recorded ?Last Taken ?Type acetaminophen 500 mg tablet 1,000 mg (2 x 500 mg) PO Q8H PRN 04/16/20 02/10/25 Rx PRN Pain Score 1-10/10 cholecalciferol (vitamin D3) 125 125 mcg PO DAILY supplement 01/20/21 02/11/25 History mcg (5,000 unit) capsule oxycodone 5 mg tablet 5 mg PO DAILY PRN pain 02/02/22 02/11/25 History Handicap Placard #1 ea 03/30/22 Unknown Rx furosemide 20 mg tablet 20 mg PO DAILY PRN Edema #30 tabs 09/24/22 Unknown Rx blood pressure monitor #1 ea 10/08/22 Unknown Rx cyclosporine 0.05 % eye drops 1 drp ophthalmic (eye) Q12H 03/12/23 02/12/25 History (Restasis MultiDose) calcium carbonate (Calcium 600) 600 mg PO DAILY PRN Stomach Upset 05/21/23 02/11/25 History fluticasone propionate 50 2 spray intranasal DAILY #16 grams 10/20/23 02/11/25 Rx mcg/actuation nasal spray,suspension (Flonase Allergy Relief) meclizine 12.5 mg tablet 12.5 mg PO DAILY PRN Vertigo #60 06/28/24 Unknown Rx tabs ondansetron 8 mg disintegrating 8 mg PO Q8H PRN nausea #90 tabs 08/30/24 02/11/25 Rx tablet hydroxyzine HCl 25 mg tablet 25 mg PO BID PRN anxiety #60 tabs 09/08/24 Unknown Rx albuterol sulfate 90 mcg/actuation 1 - 2 puff inhalation Q4H PRN PRN 09/25/24 Unknown Rx aerosol inhaler (Ventolin HFA) Wheezing ##1 lovastatin 40 mg tablet 40 mg PO DAILY cholesterol 10/10/24 02/11/25 Rx lowering #90 tabs duloxetine 60 mg capsule,delayed 60 mg PO DAILY mental health #90 11/14/24 02/11/25 Rx release caps calcium carbonate 550 mg chewable 1,100 mg PO QDAY 12/04/24 02/11/25 History tablet ferrous sulfate 325 mg (65 mg 325 mg PO Q OTHER DAY #90 tabs 12/07/24 02/08/25 Rx iron) tablet levothyroxine 88 mcg tablet 88 mcg PO DAILY thyroid #60 tabs 12/07/24 02/11/25 Rx vonoprazan 10 mg tablet (Voquezna) 10 mg PO QDAY esophagitis #30 tabs 03/07/25 Unknown Rx metoprolol succinate 25 mg 25 mg PO BID blood pressure #180 03/13/25 Unknown Rx tablet,extended release 24 hr tabs baclofen 5 mg tablet 5 mg PO DAILY PRN PRN muscle spasm 04/26/25 Unknown Rx #90 tabs trazodone 100 mg tablet 100 mg PO QHS PRN insomnia #90 tabs 04/26/25 Unknown Rx buspirone 10 mg tablet 20 mg (2 x 10 mg) PO BID mood #360 05/08/25 Unknown Rx tabs gabapentin 100 mg capsule 100 mg PO TID #90 caps 05/24/25 Unknown Rx pramipexole 0.25 mg tablet 0.25 mg PO TID RESTLESS LEGS 3 07/23/25 Unknown Rx months #270 tabs bupropion HCl 200 mg tablet,12 hr 200 mg PO BID mental health 3 07/30/25 Unknown Rx sustained-release months #180 ea Allergy/AdvReac Type Severity Reaction Status Date / Time lisinopril AdvReac Severe High Verified 08/06/25 12:43 potassium, cough. atorvastatin calcium (From AdvReac legs ache Verified 08/06/25 12:43 Lipitor) Family History Father CVA (cerebral vascular accident) Mother Myocardial infarction, Onset Age: 84 Anesthesia complication Anxiety Bowel disease Heart disease Hypertension High cholesterol Hormone Problem ulcer disease Brother Myocardial infarction, Onset Age: 52 Bleeding disorder blood tranfusion Heart disease Hypertension High cholesterol Hormone Problem Sister CAD (coronary artery disease) Anemia Anesthesia complication Angina pectoris, unspecified Anxiety Autoimmune disorder Bowel disease Breast cancer Depression Heart disease Hypertension High cholesterol Hormone Problem Osteoporosis Parkinson disease Thyroid disorder Sister CAD (coronary artery disease) Anemia Anesthesia complication Anxiety Bowel disease Hypertension High cholesterol Hormone Problem Osteoporosis Thyroid disorder Sister CAD (coronary artery disease) Anesthesia complication Anxiety Bowel disease Hypertension High cholesterol Osteoporosis Thyroid disorder Surgical History History of esophagogastroduodenoscopy (EGD) History of lumbar fusion Hx of colonoscopy History of colon resection History of hip replacement History of neck surgery History of mandibular surgery History of tonsillectomy History of lumbar spinal fusion History of fusion of cervical spine History of hand surgery History of left knee surgery History of bladder surgery Hx of appendectomy History of hysterectomy History of cholecystectomy Social History Smoking Status: Never smoker alcohol intake: never substance use type: does not use EXAM Physical Exam Const Vital Signs: 08/06/25 12:43 Temperature 97.6 F L Temperature Source Temporal Pulse Rate 68 Respiratory Rate 16 Blood Pressure 178/65 H Blood Pressure Mean 102 Pulse Ox 95 Oxygen Delivery Method Room Air MDM MDM MDM Narrative Medical decision making narrative: 75-year-old female with past medical history of GERD, HTN, arthritis presents for evaluation of lumbar back pain. Patient states she has chronic lumbar back pain in which she follows with pain management. She states she is supposed to take it easy at home without any strenuous activity however she recently got a puppy and states on 07/03 she was mopping and developed lumbar back pain. States she followed up with pain management in which they are monitoring her pain for now. Patient states the pain has not improved which is why she presents to the emergency department. There has been no significant trauma. There is nothing to suggest any infectious etiology. There is no neurological findings that suggest any acute cauda syndrome, infectious etiology, or any acute radiculopathy. I do not think any MRI is needed. Differential diagnosis includes but is not limited to lumbar back strain, lumbar spasm, occult fracture. CT of the lumbar spine ordered. IM morphine, p.o. Zofran, and Valium ordered for symptoms. I do not think any laboratory workup is needed. On reevaluation, patient's pain has improved. CT abdomen pelvis shows no acute abnormality. Mild multilevel spondylitic changes. Postop changes of L3 and 4 dorsal decompression and instrumented fusion, intact hardware. At this point in time, I suspect patient's pain is secondary to lumbar spasm versus strain. Continue home pain management regiment. Recommended heating pad as needed and IcyHot. Recommend talking to pain management about muscle relaxers. She confirmed understand the plan. Return precautions explained. Patient will discharge home. Impression: 1. Lumbar back strain/spasm 2. Acute on chronic back Radiography Diagnostic Testing: Clinical Impression(s) from Imaging Studies Lumbar Spine CT 08/06/25 15:08 IMPRESSION: 1. No acute abnormality. Mild multilevel spondylotic changes as described. 2. Postop changes of L3-4 dorsal decompression and instrumented fusion, intact hardware. Reading Location: [id number] Discharge Plan Triage Chief Complaint: Back ED Provider: Thiago Mcdaniels Dx/Rx/DC Orders Prescriptions: No Action cholecalciferol (vitamin D3) 125 mcg (5,000 unit) capsule 125 mcg PO DAILY calcium carbonate [Calcium 600] 600 mg calcium (1,500 mg) tablet 600 mg PO DAILY PRN (Reason: Stomach Upset) oxycodone 5 mg tablet 5 mg PO DAILY PRN (Reason: pain) (DME) blood pressure monitor Kit See Rx Instructions .Route Qty: 1 0RF Rx Instructions: Take blood pressure daily Restasis MultiDose 0.05 % drops 1 drp ophthalmic (eye) Q12H ondansetron 8 mg tablet,disintegrating 8 mg PO Q8H PRN (Reason: nausea) Qty: 90 2RF calcium carbonate 550 mg tablet,chewable 1,100 mg PO QDAY Voquezna 10 mg tablet 10 mg PO QDAY Qty: 30 11RF Rx Instructions: with or without food gabapentin 100 mg capsule 100 mg PO TID Qty: 90 3RF acetaminophen 500 MG tablet 1,000 mg PO Q8H PRN PRN (Reason: Pain Score 1-10/10) 0RF albuterol sulfate [Ventolin HFA] 90 mcg/actuation HFA aerosol inhaler 1 - 2 puff inhalation Q4H PRN PRN (Reason: Wheezing) Qty: 1 0RF (DME) Handicap Placard See Rx Instructions .ROUTE .MEDSUPPLY Qty: 1 0RF Rx Instructions: As directed, length of time 3 years furosemide 20 mg tablet 20 mg PO DAILY PRN (Reason: Edema) Qty: 30 2RF fluticasone propionate [Flonase Allergy Relief] 50 mcg/actuation spray,suspension 2 spray intranasal DAILY Qty: 16 3RF Rx Instructions: administer into each nostril meclizine 12.5 mg tablet 12.5 mg PO DAILY PRN (Reason: Vertigo) Qty: 60 2RF hydroxyzine HCl 25 mg tablet 25 mg PO BID PRN (Reason: anxiety) Qty: 60 2RF lovastatin 40 mg tablet 40 mg PO DAILY Qty: 90 1RF duloxetine 60 mg capsule,delayed release(DR/EC) 60 mg PO DAILY Qty: 90 3RF ferrous sulfate 325 mg (65 mg iron) tablet 325 mg PO Q OTHER DAY Qty: 90 1RF levothyroxine 88 mcg tablet 88 mcg PO DAILY Qty: 60 3RF metoprolol succinate 25 mg tablet extended release 24 hr 25 mg PO BID Qty: 180 1RF baclofen 5 mg tablet 5 mg PO DAILY PRN PRN (Reason: muscle spasm) Qty: 90 2RF trazodone 100 mg tablet 100 mg PO QHS PRN (Reason: insomnia) Qty: 90 1RF buspirone 10 mg tablet 20 mg PO BID Qty: 360 1RF pramipexole 0.25 mg tablet 0.25 mg PO TID 90 Days Qty: 270 0RF bupropion HCl 200 mg tablet sustained-release 12 hr 200 mg PO BID 90 Days Qty: 180 1RF Primary Care Provider: Michele Vallecillo Referrals: Michele Vallecillo MD [Primary Care Provider, Internal Medicine] Print Language: Lithuanian
[2025-08-06 17:06] VITALS: BP 137/57; PULSE 63; RESP 18; O2SAT 97
== END 2025-08-06 17:08 | disposition home or self-care (01) ==
PROVIDERS: Emergency Provider Surgery; PCP Internal Medicine; Visit Provider Surgery
DX: S39.012A Strain of muscle, fascia and tendon of lower back, initial encounter (principal); M62.830 Muscle spasm of back; W19.XXXA Unspecified fall, initial encounter; I10 Essential (primary) hypertension; D50.9 Iron deficiency anemia, unspecified; F32.A Depression, unspecified; F41.9 Anxiety disorder, unspecified; K21.9 Gastro-esophageal reflux disease without esophagitis; E03.9 Hypothyroidism, unspecified; E78.00 Pure hypercholesterolemia, unspecified; M19.90 Unspecified osteoarthritis, unspecified site; G89.29 Other chronic pain; G25.81 Restless legs syndrome; Z98.1 Arthrodesis status; Z86.73 Personal history of transient ischemic attack (TIA), and cerebral infarction without residual deficits; Z90.49 Acquired absence of other specified parts of digestive tract; Z79.890 Hormone replacement therapy; Z79.899 Other long term (current) drug therapy
CPT/HCPCS: 72131; 96372; 99283